=== PATIENT | male | born 1965 | race Caucasian/White ===

== ENCOUNTER 2017-02-24 12:17 | Day surgery (SDC) | payer OTHER ==
[~2017-02-24] VITALS: Ht 180.3 cm; Wt 80.9 kg
[~2017-02-24 12:17] MED LIST: CEFAZOLIN 2 GM/50 ML (PMX) 50 ML IVPB SCH; DIPHENHYDRAMINE 50 MG INJ IV PRN; FENTAnyl 50 MCG/ML VIAL IV PRN; HYDROmorphONE (0.2 MG/ML) 10ML SYG IV PRN; MEPERIDINE 25 MG INJ IV PRN; ONDANSETRON 4 MG INJ IV PRN; OXYCODONE/ACETAMINOPHEN (5/325) TAB PO PRN; PROCHLORPERAZINE 10 MG INJ IV PRN; SOD CHLORIDE 0.9% 1,000 ML IV SCH
[2017-02-24] MEDS ORDERED: LORA-444 PO (12:47)
[2017-02-24] MEDS ORDERED: CARV25TA79 PO (12:48)
[2017-02-24] MEDS ORDERED: AMLO-147 PO (12:48)
[2017-02-24] MEDS ORDERED: BENA40TA41 PO (12:49)
[2017-02-24] MEDS ORDERED: TRAZ100T15 PO (12:49)
--- NOTE | 2017-02-24 13:30 | RADRPT ---
PROCEDURE: CHEST 1VW CLINICAL INDICATION: Preoperative TECHNIQUE: Single frontal view of the chest was obtained COMPARISON: None. FINDINGS: The cardiac size is normal. Aortic vascular calcifications are demonstrated. There is no pulmonary vascular congestion. Bibasilar atelectasis. The lungs are clear. No consolidation, effusion, or pneumothorax. Mild degenerative changes of the visualized osseous structures are visualized. IMPRESSION: 1. No acute cardiopulmonary process. 2. Atherosclerosis. RPTAT:PP .Javier Moore MD, MD Date Time Electronically viewed and signed by .Javier Moore MD, MD on 02/24/2017 13:30 .V/
[2017-02-24 13:46] LABS: ADD SCAN DIFF NO
[2017-02-24 13:51] LABS: BASOPHILS % 0.3 % (0.0-2.0); EOSINOPHILS # 0.2 10^3/ul (0.0-0.5); EOSINOPHILS % 2.1 % (0.0-7.0); HEMOGLOBIN 15.6 g/dl (14.0-18.0); LYMPHOCYTES % 26.9 % (15.0-51.0); MEAN CORPUSCULAR HEMOGLOBIN 30.7 pg (29.0-33.0); MEAN CORPUSCULAR HGB CONC 33.9 g/dl (32.0-37.0); MEAN CORPUSCULAR VOLUME 90.6 fl (82.0-101.0); MEAN PLATELET VOLUME 10.5 fl (7.4-10.4); MONOCYTE # 0.4 10^3/ul (0.3-0.9); MONOCYTES % 5.4 % (0.0-11.0); NEUTROPHIL # 4.9 10^3/ul (1.6-7.5); PLATELET COUNT 231 10^3/UL (140-415); RED BLOOD COUNT 5.08 10^6/ul (4.70-6.10); RED CELL DISTRIBUTION WIDTH 12.9 % (11.5-14.5); WHITE BLOOD COUNT 7.6 10^3/ul (4.8-10.8)
[2017-02-24 13:54] VITALS: Ht 180.3 cm; Wt 80.9 kg
[2017-02-24] MEDS ORDERED: BUPIVACAINE 0.25%/EPI (SDV) 30 ML INJ ONE (13:54)
[2017-02-24 13:57] VITALS: BP 181/117; PULSE 74; RESP 16
[2017-02-24] MEDS ORDERED: LIDOCAINE 1% (MPF) 30 ML INJ ONE (14:12)
[2017-02-24 14:15] LABS: ALBUMIN 5.2 g/dl (3.3-4.9); BILIRUBIN,INDIRECT 0.6 mg/dl (0-1.1); BILIRUBIN,TOTAL 0.6 mg/dl (0.2-1.3); CALCIUM 9.7 mg/dl (8.4-10.2); CREATININE 0.76 mg/dl (0.61-1.24); POTASSIUM 3.9 mmol/L (3.5-5.1); TOTAL PROTEIN 7.8 g/dl (6.1-8.1)
[2017-02-24 14:16] LABS: INR 1.11; PROTIME 14.3 Sec (12.2-14.2); PT RATIO 1.1
[2017-02-24] MEDS ORDERED: FENTAnyl 50 MCG/ML VIAL ONE (14:19)
[2017-02-24] MEDS ORDERED: MIDAZOLAM 1 MG/ML 2 ML INJ ONE ×2 (14:19→14:45)
[2017-02-24] MEDS ORDERED: METOPROLOL 5 MG INJ ONE (14:26)
[2017-02-24] MEDS ORDERED: ONDANSETRON 4 MG INJ ONE (14:27)
[2017-02-24] MEDS ORDERED: CEFAZOLIN 1 GM INJ ONE (14:27)
[2017-02-24] MEDS ORDERED: hydrALAzine 20 MG INJ ONE (14:29)
[2017-02-24] MEDS ORDERED: LABETALOL HCL 20MG INJ ONE (14:32)
[2017-02-24] MEDS ORDERED: KETOROLAC 30 MG INJ ONE (14:51)
--- NOTE | 2017-02-24 15:15 | OPR ---
Date/Time of Note Date/Time of Note DATE: 02/24/17 TIME: 15:11 Operative Report Procedure Date: Feb 24, 2017 Preoperative Diagnosis Left forearm mass Postoperative Diagnosis Left forearm mass Operation Performed Excision soft tissue mass of left forearm approximately 4 cm Surgeon: SHRUTHI SCHERER MD Anesthesia: MAC Anesthesiologist: KATTY ABBASI MD Estimated Blood Loss: minimal Specimens Left forearm mass Complications: None Pt Condition Post Procedure: stable Disposition: PACU Indications Patient is a 51-year-old gentleman who presented to the office complaining of a mass of the radial aspect of the left forearm. This is been present for several years, but it recently been enlarging and causing increasing discomfort. He was therefore scheduled for elective excision of the left forearm mass for symptom relief and definitive pathological diagnosis. All risks and benefits of the procedure including, but not limited to: Wound infection, excessive bleeding, postoperative seroma/hematoma formation, neurovascular injury, mass recurrence, etc. were all examined the patient in full detail. He fully understood and wished to proceed with the procedure. Informed consent was obtained. Operative\Procedure Findings Cystic mass of the forearm Procedure Description Patient brought to the operating room and placed supine on the operating table. Bilateral sequential compression devices were placed on both lower extremities. A dose of broad-spectrum perioperative intravenous antibiotics was given. The massive been marked and confirmed with the patient preoperatively in the holding area. After achieving adequate sedation the patient's left arm and forearm were prepped and draped in standard surgical fashion. After performance of the surgical timeout 1% lidocaine was injected in a radial fashion getting a field block in the area of the mass. A longitudinal incision was made over the mass using a 15 blade scalpel. The incision was carried down through the skin using Bovie electrocautery. A cystic -appearing mass was identified in the soft tissues. There is dissected free of surrounding tissues and transected at its base and passed off the field as specimen. Hemostasis was inspected for and noted to be adequate. The wound cavity was irrigated with warm normal saline and the irrigant returned clear. At this point, 0.25% Marcaine with epinephrine was injected in the area of the incision. Incision was then reapproximated in layers using interrupted 3-0 Vicryl layers for the dermis. The skin was reapproximated using a running subcuticular 4-0 Monocryl suture. Incision was cleaned and Dermabond was applied as well as a Kerlix wrap. The patient was then transported to the recovery room in stable condition. All counts were correct at the end of the case 2 SHRUTHI SCHERER MD Feb 24, 2017 15:15
[2017-02-24 15:16] VITALS: BP 138/74; PULSE 84; RESP 19
[2017-02-24 15:21] VITALS: BP 144/78; PULSE 86; RESP 29
[2017-02-24 15:26] VITALS: BP 133/66; PULSE 86; RESP 21
[2017-02-24] MEDS ORDERED: ONDANSETRON 4 MG INJ IV PRN (15:30)
[2017-02-24] MEDS ORDERED: KETOROLAC 30 MG INJ IV PRN (15:30)
[2017-02-24 15:31] VITALS: BP 133/79; PULSE 84; RESP 22
[2017-02-24 15:44] VITALS: BP 136/75; PULSE 84; RESP 16
[2017-02-24] MEDS ORDERED: IBUPROFEN 600 MG TAB PO PRN (20:00)
--- NOTE | 2017-02-26 17:49 | RADRPT ---
Vent Rate: 70 bpm RR Interval: 0 msec DE Interval: 174 msec QRS Duration: 88 msec QT Interval: 406 msec QTC Interval: 438 msec P-R-T [place]: 38 - -44 - 51 degrees Normal sinus rhythm Left axis deviation Abnormal ECG Electronically Signed By: Santosh Hernandez [id number]
== END 2017-02-24 16:44 | disposition home or self-care (01) ==
LOC: SDS 12:17
PROVIDERS: ATTEND Surgery
DX: D18.01 Hemangioma of skin and subcutaneous tissue (principal); I10 Essential (primary) hypertension; I48.91 Unspecified atrial fibrillation; F41.9 Anxiety disorder, unspecified
CPT/HCPCS: 11406; 12031; 71010; 80053; 85025; 85610; 85730; 88307; 93005; J0360; J0690; J1885; J2250; J2405; J3010; Z7512; Z7610

== ENCOUNTER 2018-11-02 11:32 | Inpatient (IN) | payer OTHER ==
[~2018-11-02] VITALS: Ht 180.3 cm; Wt 81.5 kg
[2018-11-02] VITALS (42 sets, daily range): BP systolic 122–157; BP diastolic 83–105; PULSE 77–107; RESP 11–27; Ht 180.3 cm; Wt 81.5 kg
[~2018-11-02 11:32] MED LIST changes: +AMLO-147 PO; +BENA40TA56 PO; +CARV25TA79 PO; -CEFAZOLIN 2 GM/50 ML (PMX) 50 ML IVPB SCH; -DIPHENHYDRAMINE 50 MG INJ IV PRN; +ETOMIDATE 20 MG INJ ONE; -FENTAnyl 50 MCG/ML VIAL IV PRN; -HYDROmorphONE (0.2 MG/ML) 10ML SYG IV PRN; +LORA-444 PO; -MEPERIDINE 25 MG INJ IV PRN; -ONDANSETRON 4 MG INJ IV PRN; -OXYCODONE/ACETAMINOPHEN (5/325) TAB PO PRN; -PROCHLORPERAZINE 10 MG INJ IV PRN; -SOD CHLORIDE 0.9% 1,000 ML IV SCH; +TRA100 PO
[2018-11-02] MEDS ORDERED: niCARdipine-NS 0.1MG/ML DRIP 200 ML IV STA (11:50)
[2018-11-02] MEDS ORDERED: NICARDIPINE IV STA (11:54)
[2018-11-02] MEDS ORDERED: SOD CHLORIDE 0.9% IV STA (11:54)
[2018-11-02] MEDS ORDERED: niCARdipine 25 MG in SOD CHLORIDE 0.9% 240 ML IV STA ×2 (11:57→15:13)
[2018-11-02] MEDS ORDERED: SOD CHLORIDE 0.9% 100 ML ONE (12:09)
[2018-11-02] MEDS ORDERED: IODIXANOL LOCM 100 ML BTL ONE (12:09)
[2018-11-02] MEDS ORDERED: FENTAnyl 50 MCG/ML VIAL ONE (12:41)
[2018-11-02] MEDS ORDERED: MIDAZOLAM 1 MG/ML 2 ML INJ ONE (12:41)
[2018-11-02] MEDS ORDERED: ETOMIDATE 20 MG INJ IV STA (12:42)
[2018-11-02] MEDS ORDERED: PROPOFOL 100 ML IV STA (12:42)
[2018-11-02] MEDS ORDERED: MIDAZOLAM 1 MG/ML 2 ML INJ IV STA (12:42)
[2018-11-02] MEDS ORDERED: ROCURONIUM 50 MG INJ IV STA (12:42)
[2018-11-02] MEDS ORDERED: FENTAnyl 50 MCG/ML VIAL IV ONE (13:00)
[2018-11-02] MEDS ORDERED: ACETAMINOPHEN 325 MG TAB PO PRN (13:30)
[2018-11-02] MEDS ORDERED: MAGNESIUM HYDROXIDE 30ML CUP PO PRN (13:30)
[2018-11-02] MEDS ORDERED: ONDANSETRON 4 MG INJ IV PRN (13:30)
[2018-11-02] MEDS ORDERED: ALBUTEROL/IPRATROPIUM (NEB) 3 ML AMP HHN PRN (13:30)
[2018-11-02] MEDS ORDERED: DOCUSATE SODIUM 100 MG CAP PO PRN (13:30)
[2018-11-02] MEDS ORDERED: NACL 0.9% 3 ML SYG IV SCH (13:30)
[2018-11-02] MEDS ORDERED: NITROGLYCERIN (SL) 0.4 MG TAB SL PRN (13:30)
[2018-11-02] MEDS ORDERED: LORAZEPAM 2 MG INJ IV PRN (13:30)
[2018-11-02] MEDS ORDERED: HYDROCODONE/APAP (5/325) TAB PO PRN (13:30)
[2018-11-02] MEDS ORDERED: morphine 2 MG INJ IV PRN (13:30)
--- NOTE | 2018-11-02 13:44 | ERD ---
ER Documentation Chief Complaint Chief Complaint BIB RA WOKE UP DIZZY, FELL, C/O HEADACHE. LWKT APPROX 0300 PER HPI 53yoM presents to the emergency room via EMS for altered mental status. History upon arrival to the emergency room was that the patient approximate 30 minutes prior to arrival was not feeling well. His blood pressure was significantly elevated he was complaining of blurred vision and a headache. In route the patient became less responsive. Upon arrival the patient is able to give me his name and follow simple commands. He has strabismus of the left eye and a code stroke was initiated. Remainder of HPI is very limited. ROS All systems reviewed and are negative except as per history of present illness. Medications Home Meds Reported Medications Trazodone Hcl* (Trazodone Hcl*) 100 Mg Tablet, 100 MG PO QHS, #30 TAB 02/24/17 Benazepril Hcl* (Benazepril Hcl*) 40 Mg Tablet, 40 MG PO DAILY, #30 TAB 02/24/17 Amlodipine Besylate* (Amlodipine Besylate*) 10 Mg Tablet, 10 MG PO DAILY, #30 TAB 02/24/17 Carvedilol* (Carvedilol*) 25 Mg Tablet, 25 MG PO BID, #60 TAB 02/24/17 Lorazepam* (Ativan*) 2 Mg Tablet, 2 MG PO HS PRN for SLEEP, #30 TAB 02/24/17 Allergies Allergies: Coded Allergies: No Known Allergy (Unverified , 02/24/17) PMhx/Soc History of Surgery: Yes (NECK MASS) Anesthesia Reaction: No Hx Neurological Disorder: No Hx Respiratory Disorders: No Hx Cardiac Disorders: Yes (HTN) Hx Psychiatric Problems: No Hx Miscellaneous Medical Probl: Yes (LEFT ARM MASS) Hx Alcohol Use: No Hx Substance Use: No Hx Tobacco Use: Yes Smoking Status: Current every day smoker FmHx Family History: No diabetes Physical Exam Vitals Vital Signs Date Temp Pulse Resp B/P (MAP) Pulse Ox O2 O2 Flow FiO2 Time Delivery Rate 11/02/18 115 16 139/121 100 Mechanical 13:20 (127) Ventilator 11/02/18 116 18 150/101 100 Mechanical 13:10 (117) Ventilator 11/02/18 117 19 164/108 Mechanical 12:57 (126) Ventilator 11/02/18 112 18 195/133 100 Mechanical 12:31 (153) Ventilator 11/02/18 136 192/135 99 Ambu Bag 12:23 (154) 11/02/18 Nasal 2 12:17 Cannula 11/02/18 89 23 189/135 96 Nasal 2.0 12:15 (153) Cannula 11/02/18 97.9 79 20 196/137 98 11:32 (156) Physical Exam General: Decreased responsiveness Head: Normocephalic, atraumatic. Eyes: Strabismus of the left eye ENT: Moist mucous membranes Neck: Supple, no lymphadenopathy Respiratory: Lungs clear bilaterally, no distress Cardiovascular: RRR, no murmurs, rubs, or gallops Abdominal: Soft, non-tender, non-distended, no peritoneal signs : Deferred MSK: No edema, no unilateral swelling, 5/5 strength Neurologic: Patient is alert, following simple commands, moving all extremities with no focal deficits other than strabismus of the left eye, decreased responsiveness Skin: No rash Psych: Normal mood Result Diagram: 11/02/18 1147 11/02/18 1147 Results 24 hrs Laboratory Tests Test 11/02/18 11:47 11/02/18 12:30 White Blood Count 7.6 10^3/ul Red Blood Count 5.07 10^6/ul Hemoglobin 15.6 g/dl Hematocrit 46.2 % Mean Corpuscular Volume 91.1 fl Mean Corpuscular Hemoglobin 30.8 pg Mean Corpuscular Hemoglobin Concent 33.8 g/dl Red Cell Distribution Width 12.4 % Platelet Count 269 10^3/UL Mean Platelet Volume 10.2 fl Immature Granulocytes % 0.700 % Neutrophils % 75.8 % Lymphocytes % 16.9 % Monocytes % 4.1 % Eosinophils % 2.2 % Basophils % 0.3 % Nucleated Red Blood Cells % 0.0 /100WBC Immature Granulocytes # 0.050 10^3/ul Neutrophils # 5.8 10^3/ul Lymphocytes # 1.3 10^3/ul Monocytes # 0.3 10^3/ul Eosinophils # 0.2 10^3/ul Basophils # 0.0 10^3/ul Nucleated Red Blood Cells # 0.0 10^3/ul Prothrombin Time 13.8 Sec Prothrombin Time Ratio 1.1 INR International Normalized Ratio 1.05 Activated Partial Thromboplast Time 30.6 Sec Sodium Level 141 mmol/L Potassium Level 4.1 mmol/L Chloride Level 104 mmol/L Carbon Dioxide Level 25 mmol/L Anion Gap 12 Blood Urea Nitrogen 12 mg/dl Creatinine 0.81 mg/dl Est Glomerular Filtrat Rate mL/min > 60 mL/min Glucose Level 144 mg/dl Hemoglobin A1c 5.5 % Calcium Level 10.2 mg/dl Total Bilirubin 0.5 mg/dl Direct Bilirubin 0.00 mg/dl Indirect Bilirubin 0.5 mg/dl Aspartate Amino Transf (AST/SGOT) 33 IU/L Alanine Aminotransferase (ALT/SGPT) 19 IU/L Alkaline Phosphatase 78 IU/L Creatine Kinase 87 IU/L Creatine Kinase Index 0.6 Creatinine Kinase MB (Mass) 0.55 ng/ml Troponin I < 0.012 ng/ml Total Protein 8.7 g/dl Albumin 5.4 g/dl Globulin 3.30 g/dl Albumin/Globulin Ratio 1.63 Triglycerides Level 201 mg/dl Cholesterol Level 161 mg/dl LDL Cholesterol, Calculated 83 mg/dl HDL Cholesterol 38 mg/dl Cholesterol/HDL Ratio 4.2 RATIO Ethyl Alcohol Level < 10.0 mg/dl Blood Gas Specimen Source Blood arterial Arterial Blood Date Drawn 11/02/2018 1:15:32 PM Arterial Blood pH (Temp corrected) 7.484 Arterial Blood pCO2 (Temp correct) 32.6 mmhg Arterial Blood pO2 (Temp corrected) 276.2 mmHG Arterial Blood HCO3 24.0 mmol/L Arterial Blood Base Excess 1.4 mmol/L Arterial Blood Oxygen Saturation 99.3 mmHG William Test ACCEPTAB Arterial Blood Gas Puncture Site Right Radial Arterial Blood Carboxyhemoglobin 1.7 % Arterial Blood Methemoglobin 0.4 % Blood Gas A-a O2 Differential 404.2 mmHg Oxyhemoglobin Percent 97.2 % Blood Gas Temperature 37.0 C Blood Gas Respiration Rate 14.0 Blood Gas Actual Respiration Rate 20 Blood Gas Modality VENT - AC FiO2 100.0 % Blood Gas Tidal Volume 500.0 mL Blood Gas Notified Whom TM Blood Gas Notified Time 11/02/2018 1:23:09 PM Current Medications Medications Dose Sig/Rosa Start Time Status Last (Trade) Ordered Route PRN Stop Time Admin Dose Reason Admin Nicardipine 200 ml @ ONCE STAT 11/02/18 DC HCl 50 mls/hr IV 11:50 11/02/18 11:56 Nicardipine 200 ml @ ONCE STAT 11/02/18 DC HCl 20 50 mls/hr IV 11:54 mg/Sodium 11/02/18 11:57 Chloride Nicardipine 250 ml @ ONCE STAT 11/02/18 11/02/18 HCl 25 50 mls/hr IV 11:57 12:04 mg/Sodium 11/02/18 16:56 Chloride IV Flush 10 ml STK-MED 11/02/18 DC (NS 10 ml) ONCE .ROUTE 12:09 11/02/18 12:10 Sodium 100 ml @ ud STK-MED 11/02/18 DC Chloride ONCE .ROUTE 12:09 11/02/18 12:10 Iodixanol 100 ml STK-MED 11/02/18 DC (Visipaque ONCE .ROUTE 12:09 Locm) 11/02/18 12:10 Fentanyl 100 mcg STK-MED 11/02/18 DC (Sublimaze) ONCE .ROUTE 12:41 11/02/18 12:42 Midazolam 2 mg STK-MED 11/02/18 DC HCl ONCE .ROUTE 12:41 (Versed) 11/02/18 12:42 Rocuronium 100 mg ONCE STAT 11/02/18 DC Ririe IV 12:42 (Zemuron) 11/02/18 12:44 Etomidate 20 mg ONCE STAT 11/02/18 DC (Amidate) IV 12:42 11/02/18 12:44 Midazolam 2 mg ONCE STAT 11/02/18 DC 11/02/18 HCl IV 12:42 13:01 (Versed) 11/02/18 12:44 Propofol 100 ml @ ONCE STAT 11/02/18 11/02/18 2.43 mls/hr IV 12:42 13:05 11/04/18 05:51 Fentanyl 100 mcg ONCE ONCE 11/02/18 DC 11/02/18 (Sublimaze) IV 13:00 13:01 11/02/18 13:01 IV Flush 3 ml PER 11/02/18 UNV (NS 3 ml) PROTOCOL IV 13:30 Ondansetron 4 mg Q6H PRN 11/02/18 UNV HCl (Zofran IV 13:30 Inj) NAUSEA/VOMITI NG 650 mg Q6H PRN 11/02/18 UNV Acetaminophen PO .PAIN 1-3 13:30 (Tylenol OR TEMP Tab) 1 tab Q6H PRN 11/02/18 UNV Acetaminophen PO .MOD PAIN 13:30 / 4-6 Hydrocodone Bitart ([place] (5/325)) Morphine 2 mg Q4H PRN 11/02/18 UNV Sulfate IV .SEVERE 13:30 (morphine) PAIN 7-10 Docusate 100 mg Q12H PRN 11/02/18 UNV Sodium PO 13:30 (Colace) .CONSTIPATION Magnesium 30 ml DAILY PRN 11/02/18 UNV Hydroxide PO 13:30 (Milk Of Mag) .CONSTIPATION Famotidine 20 mg Q12 IV 11/02/18 UNV (Pepcid Iv) 21:00 Sodium 1,000 ml @ [id number] IV 11/02/18 UNV Chloride 75 mls/hr 13:30 Lorazepam 0.5 mg Q6H PRN 11/02/18 UNV (Ativan) IV ANXIETY 13:30 Albuterol/ 3 ml Q4H RESP 11/02/18 UNV Ipratropium THERAPY PRN 13:30 (Duoneb) HHN SHORTNESS OF BREATH Hydralazine 10 mg Q4H PRN 11/02/18 UNV HCl IV ELEVATED 13:30 (Apresoline) BLOOD PRESSURE 1 tab Q5M PRN 11/02/18 UNV Nitroglycerin SL ANGINA 13:30 (Nitroglyceri n (Sl Tab) 0.4 Mg) Labetalol 10 mg Q10M PRN 11/02/18 UNV HCl IV ELEVATED 13:30 (Labetalol) BLOOD PRESSURE 650 mg Q4H PRN 11/02/18 UNV Acetaminophen PO TEMP 13:30 (Tylenol GREATER THAN Tab) 99.6F Docusate 100 mg BID PO 11/02/18 UNV Sodium 21:00 (Colace) Amlodipine 10 mg DAILY PO 11/03/18 UNV Besylate 09:00 (Norvasc) Benazepril 40 mg DAILY PO 11/03/18 UNV HCl 09:00 (Lotensin) Carvedilol 25 mg BID PO 11/02/18 UNV (Coreg) 21:00 Procedures/MDM EKG, MONITORS, & DIAGNOSTIC IMAGING: EKG: I reviewed and interpreted a 12-lead EKG. Rhythm: Normal sinus rhythm Ectopy: None Arrhythmia: None Intervals: No abnormalities ST segments: No elevations or depressions T waves: No contiguous inversions Interpretation: No acute cardiac ischemia Chest x-ray: I reviewed and interpreted a 1 view of the chest Mediastinum: No enlargement Cardiac silhouette: No cardiomegaly Airspace: Clear lung franklin bilaterally without evidence of pneumothorax Bones: No evidence of fracture Interpretation: No acute cardiopulmonary process Repeat chest x-ray Chest x-ray: I reviewed and interpreted a 1 view of the chest Mediastinum: No enlargement Cardiac silhouette: No cardiomegaly Airspace: Clear lung franklin bilaterally without evidence of pneumothorax, ET tube in good position Bones: No evidence of fracture CT Brain: IMPRESSION: Acute pontine hemorrhage. Atrophy with mild white matter disease compatible with chronic small vessel i schemia. Findings were telephoned to referring physician at 11:46 p.m. on date of exam CTA Head and Neck: IMPRESSION: 1. Somewhat limited evaluation of the cervical arteries as discussed above, without occlusion/stenosis identified. 2. No major vessel intracranial arterial occlusion/stenosis, intracranial aneurysm or arteriovenous malformation identified. Critical results called to Dr. Zhao at 01:04 p.m., 11/02/2018. RPTAT: VV PROCEDURES: Intubation Note: Indication: Airway protection Consent: This was an emergent situation, implied consent was observed RSI Medications: Etomidate 20 mg, Rocuronium 100 mg Tube size: 7.5 Secured at: 23 at the mouth Procedure: Endotracheal intubation was performed. The patient was preoxygenated with supplemental oxygen, the room was set up with emergency airway equipment including [id number], suction, and adjunct airways. Direct visualization of the cords was performed with direct laryngoscopy using [MAC blade], insertion of the endotracheal tube through the cords was visualized. Bilateral breath sounds were auscultated, color change was observed. The tube was then secured in a postintubation chest x-ray was ordered. The patient tolerated the procedure well there were no complications. LAB INTERPRETATION: * No signs of infection or coagulopathy MEDICAL DECISION MAKING: The patient arrives with severe hypertension altered mental status and gaze deficit. This is concerning for hemorrhagic stroke. A code stroke was initiat ed. ER COURSE: Stroke assessment and timing: Last known well time: 30 minutes prior to arrival TPA decision-making: The patient is not a TPA candidate given hemorrhagic stroke Interventional decision-making: See above, not a candidate Critical Care Note: Total time: 55 minutes Indication/Organ System Threat: Acute neurologic deficit and stroke code activation that requires emergent evaluation and assessment to prevent neurologic compromising collapse. I spent the above amount of critical care time with the patient, not including billable procedures. This included chart review, consultations, repeat bedside evaluations, and titration of appropriate medications to prevent cardiopulmonary or respiratory collapse. * Upon initial CT showing evidence of hemorrhagic stroke Dr. Nguyen was n otified. I spoke to him around noon. He recommended SBP less than 140, no Keppra and a CTA. * The patient was moved to room 5, closer to the physician station. The patient had decreased responsiveness. At that time a decision was made to intubate the patient for airway protection. * CTA was completed that shows no evidence of aneurysm or dissection. Dr. Nguyen has been paged to be notified of the patient's mentation change, intubation and CT findings. No callback at this time. He is likely in surgery. * The patient's blood pressure was improved with Cardene that was initiated upon finding out that the patient had a CT showing hemorrhagic stroke. With titration the patient's blood pressure goal less than 140 has been met. * Fentanyl and Versed given for sedation, propofol drip given for sedation. * The family was notified of the patient's critical nature, significant risk for mortality. DISPOSITION PLAN: Intensive care unit CONSULTATION: Accepting care team and consultations: I discussed the current laboratory data, diagnostic imaging and emergency care provided. Admitting team: Panel team Admitting team indication: Insurance directed Departure Diagnosis: Primary Impression: Pontine hemorrhage Additional Impressions: Hypertensive emergency Acute respiratory failure Respiratory failure complication: unspecified whether with hypoxia or hypercapnia Qualified Codes: J96.00 - Acute respiratory failure, unspecified whether with hypoxia or hypercapnia Condition: Critical NÉSTOR ZHAO MD Nov 02, 2018 13:44
[2018-11-02] MEDS: SOD CHLORIDE 0.45% 1,000 ML IV SCH (14:59)
[2018-11-02] MEDS: niCARdipine-NS 0.1MG/ML DRIP 200 ML IV SCH ×2 (16:16→23:07)
--- NOTE | 2018-11-02 16:19 | HP ---
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 #Altered level of consciousness: Again patient is intubated, symptoms likely secondary to the pontine hemorrhage found on his head scan -Continue care in ICU, do neuro checks every 4 hours, obviously hold all anticoagulants, check TSH A1c lipid -Continue Cardene drip to keep systolic blood pressure less than 140, for now per neurosurgery neurology recommendations -Follow-up neurosurgery and neurology recommendations regarding specifically any further imaging studies that need to be performed. 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 # HTN -again want to keep blood pressure less than 140 systolic given the intracranial hemorrhage/pontine hemorrhage. Result Diagram: 11/02/18 1147 11/02/18 1147 Results 24hrs Laboratory Tests Test 11/02/18 11:47 11/02/18 12:06 11/02/18 12:30 11/02/18 14:37 White Blood Count 7.6 Red Blood Count 5.07 Hemoglobin 15.6 Hematocrit 46.2 Mean Corpuscular 91.1 Volume Mean Corpuscular 30.8 Hemoglobin Mean Corpuscular 33.8 Hemoglobin Concen t Red Cell 12.4 Distribution Width Platelet Count 269 Mean Platelet 10.2 Volume Immature 0.700 H Granulocytes % Neutrophils % 75.8 Lymphocytes % 16.9 Monocytes % 4.1 Eosinophils % 2.2 Basophils % 0.3 Nucleated Red 0.0 Blood Cells % Immature 0.050 H Granulocytes # Neutrophils # 5.8 Lymphocytes # 1.3 Monocytes # 0.3 Eosinophils # 0.2 Basophils # 0.0 Nucleated Red 0.0 Blood Cells # Prothrombin Time 13.8 13.7 Prothrombin Time 1.1 1.1 Ratio INR International 1.05 1.04 Normalized Ratio Activated 30.6 24.0 Partial Thrombopl ast Time Sodium Level 141 Potassium Level 4.1 Chloride Level 104 Carbon Dioxide 25 Level Anion Gap 12 Blood Urea 12 Nitrogen Creatinine 0.81 Est Glomerular > 60 Filtrat Rate mL/min Glucose Level 144 Hemoglobin A1c 5.5 5.5 Calcium Level 10.2 Total Bilirubin 0.5 Direct Bilirubin 0.00 Indirect 0.5 Bilirubin Aspartate Amino 33 Transf (AST/SGOT) Alanine 19 Aminotransferase (ALT/SGPT) Alkaline 78 Phosphatase Creatine Kinase 87 Creatine Kinase 0.6 Index Creatinine Kinase 0.55 MB (Mass) Troponin I < 0.012 Total Protein 8.7 H Albumin 5.4 H Globulin 3.30 H Albumin/Globulin 1.63 Ratio Triglycerides 201 H Level Cholesterol Level 161 LDL Cholesterol, 83 Calculated HDL Cholesterol 38 Cholesterol/HDL 4.2 Ratio Ethyl Alcohol < 10.0 H Level Blood Gas Blood arterial Specimen Source Arterial Blood 11/02/2018 1:15:3 Date Drawn 2 PM Arterial Blood pH 7.484 H (Temp corrected) Arterial Blood 32.6 L pCO2 (Temp correct) Arterial Blood 276.2 H pO2 (Temp corrected) Arterial Blood 24.0 HCO3 Arterial Blood 1.4 Base Excess Arterial Blood 99.3 H Oxygen Saturation William Test ACCEPTAB Arterial Blood Right Radial Gas Puncture Site Arterial 1.7 Blood Carboxyhemo globin Arterial Blood 0.4 Methemoglobin Blood Gas A-a O2 404.2 H Differential Oxyhemoglobin 97.2 Percent Blood Gas 37.0 Temperature Blood Gas 14.0 Respiration Rate Blood Gas Actual 20 Respiration Rate Blood Gas VENT - AC Modality FiO2 100.0 Blood Gas Tidal 500.0 Volume Blood Gas TM Notified Whom Blood Gas 11/02/2018 1:23:0 Notified Time 9 PM Free Thyroxine 0.98 HPI/ROS Admit Date/Time Admit Date/Time Nov 02, 2018 at 13:13 Hx of Present Illness 53 yo M past medical history based on records of hypertension, smoker, who presents to the emergency room via EMS for altered mental status. Most of the information is obtained from ER documentation as the patient is presently intubated. Apparently before admission patient had complaints of headache and blurry vision. He was found at home with elevated blood pressure; and he also had dizziness and possibly fell. Patient decided to come to the ER, but in route patient became less responsive. Upon arrival to the ER the patient was able to state his name and follow simple commands. However he was found with strabismus of the left eye and a code stroke was initiated. Head CT showed pontine hemorrhage. Patient had to be intubated secondary to altered level of consciousness. Call was made out to a neurosurgeon to come see the patient, as well as neurology team. Full review of systems cannot be obtained at this time. PMH/Family/Social Past Medical History Medications Current Medications Propofol 100 ml @ 2.43 mls/hr ONCE STAT IV Last administered on 11/02/18at 13:05; Admin Dose 2.43 MLS/HR; Start 11/02/18 at 12:42; Stop 11/04/18 at 05:51 IV Flush (NS 3 ml) 3 ml PER PROTOCOL IV ; Start 11/02/18 at 13:30 Ondansetron HCl (Zofran Inj) 4 mg Q6H PRN IV NAUSEA/VOMITING; Start 11/02/18 at 13:30 Acetaminophen (Tylenol Tab) 650 mg Q6H PRN PO .PAIN 1-3 OR TEMP; Start 11/02/18 at 13:30 Acetaminophen/ Hydrocodone Bitart ([place] (5/325)) 1 tab Q6H PRN PO .MOD PAIN 4- 6; Start 11/02/18 at 13:30 Morphine Sulfate (morphine) 2 mg Q4H PRN IV .SEVERE PAIN 7-10; Start 11/02/18 at 13:30 Docusate Sodium (Colace) 100 mg Q12H PRN PO .CONSTIPATION; Start 11/02/18 at 13:30 Magnesium Hydroxide (Milk Of Mag) 30 ml DAILY PRN PO .CONSTIPATION; Start 11/02/18 at 13:30 Famotidine (Pepcid Iv) 20 mg Q12 IV ; Start 11/02/18 at 21:00 Sodium Chloride 1,000 ml @ 75 mls/hr [id number] IV Last administered on 11/02/18at 14:59; Admin Dose 75 MLS/HR; Start 11/02/18 at 13:30 Lorazepam (Ativan) 0.5 mg Q6H PRN IV ANXIETY; Start 11/02/18 at 13:30 Albuterol/ Ipratropium (Duoneb) 3 ml Q4H RESP THERAPY PRN HHN SHORTNESS OF BREATH; Start 11/02/18 at 13:30 Hydralazine HCl (Apresoline) 10 mg Q4H PRN IV ELEVATED BLOOD PRESSURE; Start 11/02/18 at 13:30 Nitroglycerin (Nitroglycerin (Sl Tab) 0.4 Mg) 1 tab Q5M PRN SL ANGINA; Start 11/02/18 at 13:30 Labetalol HCl (Labetalol) 10 mg Q10M PRN IV ELEVATED BLOOD PRESSURE; Start 11/02/18 at 13:30 Docusate Sodium (Colace) 100 mg BID PO ; Start 11/02/18 at 21:00 Amlodipine Besylate (Norvasc) 10 mg DAILY PO ; Start 11/03/18 at 09:00 Benazepril HCl (Lotensin) 40 mg DAILY PO ; Start 11/03/18 at 09:00 Carvedilol (Coreg) 25 mg BID PO ; Start 11/02/18 at 21:00 Nicardipine HCl 200 ml @ 50 mls/hr TITRATE IV ; Start 11/02/18 at 15:00 Nicotine (Nicoderm 21 Mg/ 24hr) 1 patch DAILY TRANSDERM ; Start 11/02/18 at 16:30; Status UNV Coded Allergies: No Known Allergy (Unverified , 02/24/17) Past Surgical History Past Surgical Hx: other (Neck) Family History Significant Family History: no pertinent family hx Social History Alcohol Use: none Smoking Status: Current every day smoker Drug Use: none Exam/Review of Systems Vital Signs Vitals Vital Signs Date Temp Pulse Resp B/P (MAP) Pulse Ox O2 O2 Flow FiO2 Time Delivery Rate 11/02/18 89 16:00 11/02/18 15 131/89 100 15:15 (103) 11/02/18 Mechanical 15:00 Ventilator 11/02/18 50 14:00 11/02/18 97.8 14:00 11/02/18 2 12:17 Exam Exam General: Intubated, sedated Head: Normocephalic, atraumatic. Eyes: Strabismus of the left eye ENT: Moist mucous membranes Neck: Supple, no lymphadenopathy Respiratory: Lungs clear bilaterally, no distress Cardiovascular: RRR, no murmurs, rubs, or gallops Abdominal: Soft, non-tender, non-distended, no peritoneal signs MSK: No edema Neurologic: Unable to fully assess now because the patient is intubated and sedated HECTOR STRINGER Nov 02, 2018 16:19
--- NOTE | 2018-11-02 17:54 | CONS ---
DATE OF ADMISSION: 11/02/2018 DATE OF CONSULTATION: HISTORY OF PRESENT ILLNESS: The patient is 53 years old, in which I got a call about him by his fami ly in which the patient has a past medical history of hypertension. The patient was in few medicatio ns. He has sudden onset of decreased mini mental status in which the patient was admitted to [facility]. CT scan shows pontine hemorrhage 1.5 x 2 cm in which neurosurgeon, Dr. Jeanette carr, was notified. CTA was done in which the patient was intubated and was transferred to ICU. CURRENT MEDICATIONS: Include: 1. Benazepril 40 mg once a day. 2. Amlodipine 10 mg once a day. 3. Carvedilol 25 mg twice a day. 4. Lorazepam 2 mg as needed for sleep. 5. Trazodone 100 mg once at night. ALLERGIES: NO ALLERGY TO KNOWN MEDICATION. PAST MEDICAL HISTORY: Includes hypertension. PHYSICAL EXAMINATION: GENERAL: Today, the patient is intubated on propofol. When he is off propofol, he can follow simple commands, moving the left upper extremities against gravity. CRANIAL NERVES: Cranial nerve II: Pupils are 2 mm, reactive to light, equally bilaterally. Cranial nerves III, IV and : Extraocular muscles are intact for doll's maneuver. Cranial nerves V and I: Intact corneal reflex. Cranial VIII through XII: Could not assess. MOTOR: Moving left upper extremity for painful stimuli. Sensation, coordination and gait could not assess. HEART: Regular rate and rhythm. LUNGS: Equal breath sounds. ABDOMEN: Soft, relaxed, nondistended, no tenderness. ASSESSMENT AND PLAN: 1. The patient is 53 years old, status post intracranial bleed, pontine hemorrhage, [facility]. 2. History of hypertension. Keep the blood pressure at the level of 140/90 to avoid extension of th e stroke. 3. Respiratory failure in which the patient intubated. 4. We will keep the patient under seizure precaution and fall precaution. 5. Keep the patient under deep venous thrombosis prophylaxis as well as decubitus ulcer prophylaxis. Again, thank you, Dr. Stringer, for asking me to see the patient with you. Dictated By: JAI AVILA/NISHANT Conf#: [id number] DID#: [id number] CC: HECTOR STRINGER;*End*
[2018-11-02] MEDS: FAMOTIDINE 20 MG INJ IV SCH (20:36)
[2018-11-02] MEDS: NICOTINE (21 MG/24 HR) PATCH TRANSDERM SCH (20:37)
[2018-11-02] MEDS: DOCUSATE SODIUM 100 MG CAP PO SCH (21:00)
[2018-11-02] MEDS: PROPOFOL 100 ML IV SCH (21:00)
[2018-11-03] VITALS (102 sets, daily range): BP systolic 103–159; BP diastolic 67–102; PULSE 70–114; RESP 12–26
[2018-11-03] MEDS: SOD CHLORIDE 0.45% 1,000 ML IV SCH ×2 (02:15→16:26)
[2018-11-03] MEDS: PROPOFOL 100 ML IV SCH ×2 (03:15→21:00)
[2018-11-03] MEDS: niCARdipine-NS 0.1MG/ML DRIP 200 ML IV SCH (04:09)
[2018-11-03] MEDS: niCARdipine 50 MG in SOD CHLORIDE 0.9% 480 ML IV SCH ×4 (04:51→18:29)
--- NOTE | 2018-11-03 05:03 | QN ---
Documentation Comment Notified neurosurgeon, Dr. Remberto Nguyen, regarding new CT findings, no new recommendations per neurosurgeon at this current time however neurosurgery may be planning intervention soon. Will continue to monitor blood pressure closely. Confirmed with patient's , patient is not on any anticoagulants or blood thinners including aspirin. BENNY GRANT Nov 03, 2018 05:03
--- NOTE | 2018-11-03 08:19 | CONS ---
Assessment/Plan Assessment/Plan Assessment/Plan (Daily) Pontine hemorrhage. No intervention indicated for this hemorrhage per se, though EVD may be entertained if hydrocephalus becomes an issue (currently ventricles minimally enlarged). However, given poor neurologic exam (GCS3) I would be reluctant to consider even limited intervention. Therefore, we will continue to observe him in ICU off sedation and repeat CT at 16:00. If his exam improves off sedation and he develops HCP, an EVD may be reasonable. Otherwise no neurosurgical intervention is contemplated. Consultation Date/Type/Reason Admit Date/Time Nov 02, 2018 at 13:13 Date of Consultation: Nov 03, 2018 Type of Consult neurological surgery Reason for Consultation pontine hypertensive hemorrhage Date/Time of Note DATE: 11/03/18 TIME: 08:11 Hx of Present Illness 53 year old male with hx of hypertension and pontine hemorrhage, slightly larger on repeat CT this am at 0400. Very mild increase in ventricular silhouette. Per RN patient has been "completely non-responsive" since return from CT. Past Medical History Home Meds Reported Medications Trazodone Hcl* (Trazodone Hcl*) 100 Mg Tablet, 100 MG PO QHS, #30 TAB 02/24/17 Benazepril Hcl* (Benazepril Hcl*) 40 Mg Tablet, 40 MG PO DAILY, #30 TAB 02/24/17 Amlodipine Besylate* (Amlodipine Besylate*) 10 Mg Tablet, 10 MG PO DAILY, #30 TAB 02/24/17 Carvedilol* (Carvedilol*) 25 Mg Tablet, 25 MG PO BID, #60 TAB 02/24/17 Lorazepam* (Ativan*) 2 Mg Tablet, 2 MG PO HS PRN for SLEEP, #30 TAB 02/24/17 Medications Current Medications IV Flush (NS 3 ml) 3 ml PER PROTOCOL IV ; Start 11/02/18 at 13:30 Ondansetron HCl (Zofran Inj) 4 mg Q6H PRN IV NAUSEA/VOMITING; Start 11/02/18 at 13:30 Acetaminophen (Tylenol Tab) 650 mg Q6H PRN PO .PAIN 1-3 OR TEMP; Start 11/02/18 at 13:30 Acetaminophen/ Hydrocodone Bitart ([place] (5/325)) 1 tab Q6H PRN PO .MOD PAIN 4- 6; Start 11/02/18 at 13:30 Morphine Sulfate (morphine) 2 mg Q4H PRN IV .SEVERE PAIN 7-10; Start 11/02/18 at 13:30 Docusate Sodium (Colace) 100 mg Q12H PRN PO .CONSTIPATION; Start 11/02/18 at 1 3:30 Magnesium Hydroxide (Milk Of Mag) 30 ml DAILY PRN PO .CONSTIPATION; Start 11/02/18 at 13:30 Famotidine (Pepcid Iv) 20 mg Q12 IV Last administered on 11/02/18at 20:36; Admin Dose 20 MG; Start 11/02/18 at 21:00 Sodium Chloride 1,000 ml @ 75 mls/hr [id number] IV Last administered on 11/03/18at 02:15; Admin Dose 75 MLS/HR; Start 11/02/18 at 13:30 Lorazepam (Ativan) 0.5 mg Q6H PRN IV ANXIETY; Start 11/02/18 at 13:30 Albuterol/ Ipratropium (Duoneb) 3 ml Q4H RESP THERAPY PRN HHN SHORTNESS OF NICOLE TH; Start 11/02/18 at 13:30 Hydralazine HCl (Apresoline) 10 mg Q4H PRN IV ELEVATED BLOOD PRESSURE; Start 11/02/18 at 13:30 Nitroglycerin (Nitroglycerin (Sl Tab) 0.4 Mg) 1 tab Q5M PRN SL ANGINA; Start 11/02/18 at 13:30 Labetalol HCl (Labetalol) 10 mg Q10M PRN IV ELEVATED BLOOD PRESSURE; Start 10/23 10/10 at 13:30 Docusate Sodium (Colace) 100 mg BID PO Last administered on 11/02/18at 21:00; Admin Dose 100 MG; Start 11/02/18 at 21:00 Amlodipine Besylate (Norvasc) 10 mg DAILY PO ; Start 11/03/18 at 09:00 Benazepril HCl (Lotensin) 40 mg DAILY PO ; Start 11/03/18 at 09:00 Carvedilol (Coreg) 25 mg BID PO Last administered on 11/02/18at 20:37; Admin Dose 25 MG; Start 11/02/18 at 21:00 Nicotine (Nicoderm 21 Mg/ 24hr) 1 patch DAILY TRANSDERM Last administered on 11/02/18at 20:37; Admin Dose 1 PATCH; Start 11/02/18 at 16:30 Propofol 100 ml @ 2.445 mls/ hr Q12H IV Last administered on 11/03/18at 03:15; Admin Dose 12.225 MLS/HR; Start 11/02/18 at 21:00 Nicardipine HCl 50 mg/Sodium Chloride 500 ml @ 50 mls/hr TITRATE IV Last administered on 11/03/18at 04:51; Admin Dose 150 MLS/HR; Start 11/03/18 at 05:00 Allergies: Coded Allergies: No Known Allergy (Unverified , 02/24/17) Past Surgical History Past Surgical Hx: other (Neck) Social History Alcohol Use: none Smoking Status: Current every day smoker Drug Use: none Exam/Review of Systems Exam Vitals Vital Signs Date Temp Pulse Resp B/P (MAP) Pulse Ox O2 O2 Flow FiO2 Time Delivery Rate 11/03/18 105 18 138/80 06:45 (99) 11/03/18 98.7 Mechanical 06:00 Ventilator 11/03/18 99 40 05:13 11/02/18 2 12:17 Intake and Output 11/02/18 11/02/18 11/03/18 1515:00 23:00 07:00 IntakeIntake Total 150 ml 618.60 ml 0 ml OutputOutput Total 650 ml 310 ml 420 ml BalanceBalance -500 ml 308.60 ml -420 ml Exam [id number], + corneals. Pinpoint pupils. Conjugate gaze. Results Result Diagram: 11/03/18 0459 11/03/18 0459 Results 24hrs Laboratory Tests Test 11/02/18 11:47 11/02/18 12:06 11/02/18 12:30 11/02/18 14:37 White Blood Count 7.6 Red Blood Count 5.07 Hemoglobin 15.6 Hematocrit 46.2 Mean Corpuscular 91.1 Volume Mean Corpuscular 30.8 Hemoglobin Mean Corpuscular 33.8 Hemoglobin Concen t Red Cell 12.4 Distribution Width Platelet Count 269 Mean Platelet 10.2 Volume Immature 0.700 H Granulocytes % Neutrophils % 75.8 Lymphocytes % 16.9 Monocytes % 4.1 Eosinophils % 2.2 Basophils % 0.3 Nucleated Red 0.0 Blood Cells % Immature 0.050 H Granulocytes # Neutrophils # 5.8 Lymphocytes # 1.3 Monocytes # 0.3 Eosinophils # 0.2 Basophils # 0.0 Nucleated Red 0.0 Blood Cells # Prothrombin Time 13.8 13.7 Prothrombin Time 1.1 1.1 Ratio INR International 1.05 1.04 Normalized Ratio Activated 30.6 24.0 Partial Thrombopl ast Time Sodium Level 141 Potassium Level 4.1 Chloride Level 104 Carbon Dioxide 25 Level Anion Gap 12 Blood Urea 12 Nitrogen Creatinine 0.81 Est Glomerular > 60 Filtrat Rate mL/min Glucose Level 144 Hemoglobin A1c 5.5 5.5 Calcium Level 10.2 Total Bilirubin 0.5 Direct Bilirubin 0.00 Indirect 0.5 Bilirubin Aspartate Amino 33 Transf (AST/SGOT) Alanine 19 Aminotransferase (ALT/SGPT) Alkaline 78 Phosphatase Creatine Kinase 87 Creatine Kinase 0.6 Index Creatinine Kinase 0.55 MB (Mass) Troponin I < 0.012 Total Protein 8.7 H Albumin 5.4 H Globulin 3.30 H Albumin/Globulin 1.63 Ratio Triglycerides 201 H Level Cholesterol Level 161 LDL Cholesterol, 83 Calculated HDL Cholesterol 38 Cholesterol/HDL 4.2 Ratio Ethyl Alcohol < 10.0 H Level Blood Gas Blood arterial Specimen Source Arterial Blood 11/02/2018 1:15:3 Date Drawn 2 PM Arterial Blood pH 7.484 H (Temp corrected) Arterial Blood 32.6 L pCO2 (Temp correct) Arterial Blood 276.2 H pO2 (Temp corrected) Arterial Blood 24.0 HCO3 Arterial Blood 1.4 Base Excess Arterial Blood 99.3 H Oxygen Saturation William Test ACCEPTAB Arterial Blood Right Radial Gas Puncture Site Arterial 1.7 Blood Carboxyhemo globin Arterial Blood 0.4 Methemoglobin Blood Gas A-a O2 404.2 H Differential Oxyhemoglobin 97.2 Percent Blood Gas 37.0 Temperature Blood Gas 14.0 Respiration Rate Blood Gas Actual 20 Respiration Rate Blood Gas VENT - AC Modality FiO2 100.0 Blood Gas Tidal 500.0 Volume Blood Gas TM Notified Whom Blood Gas 11/02/2018 1:23:0 Notified Time 9 PM Free Thyroxine 0.98 Test 11/03/18 04:59 White Blood Count 15.2 #H Red Blood Count 4.71 Hemoglobin 14.7 Hematocrit 43.2 Mean Corpuscular 91.7 Volume Mean Corpuscular 31.2 Hemoglobin Mean Corpuscular 34.0 Hemoglobin Concen t Red Cell 12.6 Distribution Width Platelet Count 271 Mean Platelet 10.2 Volume Immature 0.400 Granulocytes % Neutrophils % 81.8 H Lymphocytes % 10.8 L Monocytes % 5.8 Eosinophils % 1.1 Basophils % 0.1 Nucleated Red 0.0 Blood Cells % Immature 0.060 H Granulocytes # Neutrophils # 12.4 H Lymphocytes # 1.7 Monocytes # 0.9 Eosinophils # 0.2 Basophils # 0.0 Nucleated Red 0.0 Blood Cells # Sodium Level 139 Potassium Level 3.4 L Chloride Level 107 Carbon Dioxide 26 Level Anion Gap 6 Blood Urea 14 Nitrogen Creatinine 0.89 Est Glomerular > 60 Filtrat Rate mL/min Glucose Level 117 Hemoglobin A1c 5.4 Calcium Level 9.3 Phosphorus Level 3.3 Magnesium Level 1.8 Triglycerides 253 H Level Cholesterol Level 140 LDL Cholesterol, 60 Calculated HDL Cholesterol 29 Cholesterol/HDL 4.8 Ratio Thyroid 0.214 L Stimulating Hormone (TSH) Medications Medication Current Medications IV Flush (NS 3 ml) 3 ml PER PROTOCOL IV ; Start 11/02/18 at 13:30 Ondansetron HCl (Zofran Inj) 4 mg Q6H PRN IV NAUSEA/VOMITING; Start 11/02/18 at 13:30 Acetaminophen (Tylenol Tab) 650 mg Q6H PRN PO .PAIN 1-3 OR TEMP; Start 11/02/18 at 13:30 Acetaminophen/ Hydrocodone Bitart ([place] (5/325)) 1 tab Q6H PRN PO .MOD PAIN 4- 6; Start 11/02/18 at 13:30 Morphine Sulfate (morphine) 2 mg Q4H PRN IV .SEVERE PAIN 7-10; Start 11/02/18 at 13:30 Docusate Sodium (Colace) 100 mg Q12H PRN PO .CONSTIPATION; Start 11/02/18 at 13:30 Magnesium Hydroxide (Milk Of Mag) 30 ml DAILY PRN PO .CONSTIPATION; Start 11/02/18 at 13:30 Famotidine (Pepcid Iv) 20 mg Q12 IV Last administered on 11/02/18at 20:36; Admin Dose 20 MG; Start 11/02/18 at 21:00 Sodium Chloride 1,000 ml @ 75 mls/hr [id number] IV Last administered on 11/03/18at 02:15; Admin Dose 75 MLS/HR; Start 11/02/18 at 13:30 Lorazepam (Ativan) 0.5 mg Q6H PRN IV ANXIETY; Start 11/02/18 at 13:30 Albuterol/ Ipratropium (Duoneb) 3 ml Q4H RESP THERAPY PRN HHN SHORTNESS OF BREATH; Start 11/02/18 at 13:30 Hydralazine HCl (Apresoline) 10 mg Q4H PRN IV ELEVATED BLOOD PRESSURE; Start 11/02/18 at 13:30 Nitroglycerin (Nitroglycerin (Sl Tab) 0.4 Mg) 1 tab Q5M PRN SL ANGINA; Start 11/02/18 at 13:30 Labetalol HCl (Labetalol) 10 mg Q10M PRN IV ELEVATED BLOOD PRESSURE; Start 11/02/18 at 13:30 Docusate Sodium (Colace) 100 mg BID PO Last administered on 11/02/18at 21:00; Admin Dose 100 MG; Start 11/02/18 at 21:00 Amlodipine Besylate (Norvasc) 10 mg DAILY PO ; Start 11/03/18 at 09:00 Benazepril HCl (Lotensin) 40 mg DAILY PO ; Start 11/03/18 at 09:00 Carvedilol (Coreg) 25 mg BID PO Last administered on 11/02/18at 20:37; Admin Dose 25 MG; Start 11/02/18 at 21:00 Nicotine (Nicoderm 21 Mg/ 24hr) 1 patch DAILY TRANSDERM Last administered on 11/02/18at 20:37; Admin Dose 1 PATCH; Start 11/02/18 at 16:30 Propofol 100 ml @ 2.445 mls/ hr Q12H IV Last administered on 11/03/18at 03:15; Admin Dose 12.225 MLS/HR; Start 11/02/18 at 21:00 Nicardipine HCl 50 mg/Sodium Chloride 500 ml @ 50 mls/hr TITRATE IV Last administered on 11/03/18at 04:51; Admin Dose 150 MLS/HR; Start 11/03/18 at 05:00 KRISTEN PALMER MD Nov 03, 2018 08:18
[2018-11-03] MEDS: FAMOTIDINE 20 MG INJ IV SCH ×2 (08:35→21:48)
[2018-11-03] MEDS: DOCUSATE SODIUM 100 MG CAP PO SCH ×2 (08:35→21:48)
[2018-11-03] MEDS: AMLODIPINE 10 MG TAB PO SCH (08:35)
[2018-11-03] MEDS: BENAZEPRIL 40 MG TAB PO SCH (08:36)
[2018-11-03] MEDS: NICOTINE (21 MG/24 HR) PATCH TRANSDERM SCH (08:36)
[2018-11-03] MEDS: ACETAMINOPHEN 325 MG TAB PO PRN ×2 (08:36→16:37)
--- NOTE | 2018-11-03 09:10 | PN ---
Date/Time of Note Date/Time of Note DATE: 11/03/18 TIME: 09:06 Assessment/Plan VTE Prophylaxis Risk score (from Ns)>0 risk: 3 SCD applied (from Ns): Yes Pharmacological prophylaxis: NA/contraindicated Pharm contraindication: bleeding Lines/Catheters IV Catheter Type (from Nrsg): Peripheral IV Urinary Cath still in place: Yes Reason Cath still needed: urinary retention Assessment/Plan Hospital Course S: Patient still intubated. Per staff still nonresponsive. Had repeat head CT scan performed earlier this morning showing slightly larger pontine hemorrhage compared to admission, O: VS - see below PE: General: Intubated, sedated Head: Normocephalic, atraumatic. 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 #Altered level of consciousness: Again patient is intubated, symptoms likely secondary to the pontine hemorrhage found on his head scan. Again repeat head CT performed this morning shows slightly larger pontine hemorrhage compared to admission. -Continue care in ICU, neuro checks every 4 hours, obviously hold all anticoagulants, follow-up TSH A1c lipid -Continue Cardene drip to keep systolic blood pressure less than 140, for now per neurosurgery neurology recommendations -Follow-up repeat head CT scan results ordered for later this afternoon 4 PM. Per neurosurgery, no intervention indicated for this hemorrhage at this time, unless hydrocephalus becomes an issue. # Res distress-again likely secondary to above, intubated -Vent management per pulmonary team, duo nebs as needed #Smoking history: Try to academic counselor patient on quitting/cutting back when more awake, for now continue nicotine patch. # HTN -again want to keep blood pressure less than 140 systolic given the in tracranial hemorrhage/pontine hemorrhage. Critical care time spent on patient care today equals 45 minutes. Result Diagram: 11/03/18 0459 11/03/18 0459 Results 24hrs Laboratory Tests Test 11/02/18 11:47 11/02/18 12:06 11/02/18 12:30 11/02/18 14:37 White Blood Count 7.6 Red Blood Count 5.07 Hemoglobin 15.6 Hematocrit 46.2 Mean Corpuscular 91.1 Volume Mean Corpuscular 30.8 Hemoglobin Mean Corpuscular 33.8 Hemoglobin Concen t Red Cell 12.4 Distribution Width Platelet Count 269 Mean Platelet 10.2 Volume Immature 0.700 H Granulocytes % Neutrophils % 75.8 Lymphocytes % 16.9 Monocytes % 4.1 Eosinophils % 2.2 Basophils % 0.3 Nucleated Red 0.0 Blood Cells % Immature 0.050 H Granulocytes # Neutrophils # 5.8 Lymphocytes # 1.3 Monocytes # 0.3 Eosinophils # 0.2 Basophils # 0.0 Nucleated Red 0.0 Blood Cells # Prothrombin Time 13.8 13.7 Prothrombin Time 1.1 1.1 Ratio INR International 1.05 1.04 Normalized Ratio Activated 30.6 24.0 Partial Thrombopl ast Time Sodium Level 141 Potassium Level 4.1 Chloride Level 104 Carbon Dioxide 25 Level Anion Gap 12 Blood Urea 12 Nitrogen Creatinine 0.81 Est Glomerular > 60 Filtrat Rate mL/min Glucose Level 144 Hemoglobin A1c 5.5 5.5 Calcium Level 10.2 Total Bilirubin 0.5 Direct Bilirubin 0.00 Indirect 0.5 Bilirubin Aspartate Amino 33 Transf (AST/SGOT) Alanine 19 Aminotransferase (ALT/SGPT) Alkaline 78 Phosphatase Creatine Kinase 87 Creatine Kinase 0.6 Index Creatinine Kinase 0.55 MB (Mass) Troponin I < 0.012 Total Protein 8.7 H Albumin 5.4 H Globulin 3.30 H Albumin/Globulin 1.63 Ratio Triglycerides 201 H Level Cholesterol Level 161 LDL Cholesterol, 83 Calculated HDL Cholesterol 38 Cholesterol/HDL 4.2 Ratio Ethyl Alcohol < 10.0 H Level Blood Gas Blood arterial Specimen Source Arterial Blood 11/02/2018 1:15:3 Date Drawn 2 PM Arterial Blood pH 7.484 H (Temp corrected) Arterial Blood 32.6 L pCO2 (Temp correct) Arterial Blood 276.2 H pO2 (Temp corrected) Arterial Blood 24.0 HCO3 Arterial Blood 1.4 Base Excess Arterial Blood 99.3 H Oxygen Saturation William Test ACCEPTAB Arterial Blood Right Radial Gas Puncture Site Arterial 1.7 Blood Carboxyhemo globin Arterial Blood 0.4 Methemoglobin Blood Gas A-a O2 404.2 H Differential Oxyhemoglobin 97.2 Percent Blood Gas 37.0 Temperature Blood Gas 14.0 Respiration Rate Blood Gas Actual 20 Respiration Rate Blood Gas VENT - AC Modality FiO2 100.0 Blood Gas Tidal 500.0 Volume Blood Gas TM Notified Whom Blood Gas 11/02/2018 1:23:0 Notified Time 9 PM Free Thyroxine 0.98 Test 11/03/18 04:59 White Blood Count 15.2 #H Red Blood Count 4.71 Hemoglobin 14.7 Hematocrit 43.2 Mean Corpuscular 91.7 Volume Mean Corpuscular 31.2 Hemoglobin Mean Corpuscular 34.0 Hemoglobin Concen t Red Cell 12.6 Distribution Width Platelet Count 271 Mean Platelet 10.2 Volume Immature 0.400 Granulocytes % Neutrophils % 81.8 H Lymphocytes % 10.8 L Monocytes % 5.8 Eosinophils % 1.1 Basophils % 0.1 Nucleated Red 0.0 Blood Cells % Immature 0.060 H Granulocytes # Neutrophils # 12.4 H Lymphocytes # 1.7 Monocytes # 0.9 Eosinophils # 0.2 Basophils # 0.0 Nucleated Red 0.0 Blood Cells # Sodium Level 139 Potassium Level 3.4 L Chloride Level 107 Carbon Dioxide 26 Level Anion Gap 6 Blood Urea 14 Nitrogen Creatinine 0.89 Est Glomerular > 60 Filtrat Rate mL/min Glucose Level 117 Hemoglobin A1c 5.4 Calcium Level 9.3 Phosphorus Level 3.3 Magnesium Level 1.8 Triglycerides 253 H Level Cholesterol Level 140 LDL Cholesterol, 60 Calculated HDL Cholesterol 29 Cholesterol/HDL 4.8 Ratio Thyroid 0.214 L Stimulating Hormone (TSH) Exam/Review of Systems Exam Vitals Vital Signs Date Temp Pulse Resp B/P (MAP) Pulse Ox O2 O2 Flow FiO2 Time Delivery Rate 11/03/18 101.6 08:36 11/03/18 114 22 153/90 98 08:15 (111) 11/03/18 [place] 08:00 l Ventilato r 11/03/18 40 05:13 11/02/18 2 12:17 Intake and Output 11/02/18 11/02/18 11/03/18 1515:00 23:00 07:00 IntakeIntake Total 150 ml 618.60 ml 0 ml OutputOutput Total 650 ml 310 ml 595 ml BalanceBalance -500 ml 308.60 ml -595 ml Results Results 24hrs Laboratory Tests Test 11/02/18 11:47 11/02/18 12:06 11/02/18 12:30 11/02/18 14:37 White Blood Count 7.6 Red Blood Count 5.07 Hemoglobin 15.6 Hematocrit 46.2 Mean Corpuscular 91.1 Volume Mean Corpuscular 30.8 Hemoglobin Mean Corpuscular 33.8 Hemoglobin Concen t Red Cell 12.4 Distribution Width Platelet Count 269 Mean Platelet 10.2 Volume Immature 0.700 H Granulocytes % Neutrophils % 75.8 Lymphocytes % 16.9 Monocytes % 4.1 Eosinophils % 2.2 Basophils % 0.3 Nucleated Red 0.0 Blood Cells % Immature 0.050 H Granulocytes # Neutrophils # 5.8 Lymphocytes # 1.3 Monocytes # 0.3 Eosinophils # 0.2 Basophils # 0.0 Nucleated Red 0.0 Blood Cells # Prothrombin Time 13.8 13.7 Prothrombin Time 1.1 1.1 Ratio INR International 1.05 1.04 Normalized Ratio Activated 30.6 24.0 Partial Thrombopl ast Time Sodium Level 141 Potassium Level 4.1 Chloride Level 104 Carbon Dioxide 25 Level Anion Gap 12 Blood Urea 12 Nitrogen Creatinine 0.81 Est Glomerular > 60 Filtrat Rate mL/min Glucose Level 144 Hemoglobin A1c 5.5 5.5 Calcium Level 10.2 Total Bilirubin 0.5 Direct Bilirubin 0.00 Indirect 0.5 Bilirubin Aspartate Amino 33 Transf (AST/SGOT) Alanine 19 Aminotransferase (ALT/SGPT) Alkaline 78 Phosphatase Creatine Kinase 87 Creatine Kinase 0.6 Index Creatinine Kinase 0.55 MB (Mass) Troponin I < 0.012 Total Protein 8.7 H Albumin 5.4 H Globulin 3.30 H Albumin/Globulin 1.63 Ratio Triglycerides 201 H Level Cholesterol Level 161 LDL Cholesterol, 83 Calculated HDL Cholesterol 38 Cholesterol/HDL 4.2 Ratio Ethyl Alcohol < 10.0 H Level Blood Gas Blood arterial Specimen Source Arterial Blood 11/02/2018 1:15:3 Date Drawn 2 PM Arterial Blood pH 7.484 H (Temp corrected) Arterial Blood 32.6 L pCO2 (Temp correct) Arterial Blood 276.2 H pO2 (Temp corrected) Arterial Blood 24.0 HCO3 Arterial Blood 1.4 Base Excess Arterial Blood 99.3 H Oxygen Saturation William Test ACCEPTAB Arterial Blood Right Radial Gas Puncture Site Arterial 1.7 Blood Carboxyhemo globin Arterial Blood 0.4 Methemoglobin Blood Gas A-a O2 404.2 H Differential Oxyhemoglobin 97.2 Percent Blood Gas 37.0 Temperature Blood Gas 14.0 Respiration Rate Blood Gas Actual 20 Respiration Rate Blood Gas VENT - AC Modality FiO2 100.0 Blood Gas Tidal 500.0 Volume Blood Gas TM Notified Whom Blood Gas 11/02/2018 1:23:0 Notified Time 9 PM Free Thyroxine 0.98 Test 11/03/18 04:59 White Blood Count 15.2 #H Red Blood Count 4.71 Hemoglobin 14.7 Hematocrit 43.2 Mean Corpuscular 91.7 Volume Mean Corpuscular 31.2 Hemoglobin Mean Corpuscular 34.0 Hemoglobin Concen t Red Cell 12.6 Distribution Width Platelet Count 271 Mean Platelet 10.2 Volume Immature 0.400 Granulocytes % Neutrophils % 81.8 H Lymphocytes % 10.8 L Monocytes % 5.8 Eosinophils % 1.1 Basophils % 0.1 Nucleated Red 0.0 Blood Cells % Immature 0.060 H Granulocytes # Neutrophils # 12.4 H Lymphocytes # 1.7 Monocytes # 0.9 Eosinophils # 0.2 Basophils # 0.0 Nucleated Red 0.0 Blood Cells # Sodium Level 139 Potassium Level 3.4 L Chloride Level 107 Carbon Dioxide 26 Level Anion Gap 6 Blood Urea 14 Nitrogen Creatinine 0.89 Est Glomerular > 60 Filtrat Rate mL/min Glucose Level 117 Hemoglobin A1c 5.4 Calcium Level 9.3 Phosphorus Level 3.3 Magnesium Level 1.8 Triglycerides 253 H Level Cholesterol Level 140 LDL Cholesterol, 60 Calculated HDL Cholesterol 29 Cholesterol/HDL 4.8 Ratio Thyroid 0.214 L Stimulating Hormone (TSH) Medications Medication Current Medications IV Flush (NS 3 ml) 3 ml PER PROTOCOL IV ; Start 11/02/18 at 13:30 Ondansetron HCl (Zofran Inj) 4 mg Q6H PRN IV NAUSEA/VOMITING; Start 11/02/18 at 13:30 Acetaminophen (Tylenol Tab) 650 mg Q6H PRN PO .PAIN 1-3 OR TEMP Last administered on 11/03/18at 08:36; Admin Dose 650 MG; Start 11/02/18 at 13:30 Acetaminophen/ Hydrocodone Bitart (Shannon (5/325)) 1 tab Q6H PRN PO .MOD PAIN 4- 6; Start 11/02/18 at 13:30 Morphine Sulfate (morphine) 2 mg Q4H PRN IV .SEVERE PAIN 7-10; Start 11/02/18 at 13:30 Docusate Sodium (Colace) 100 mg Q12H PRN PO .CONSTIPATION; Start 11/02/18 at 13:30 Magnesium Hydroxide (Milk Of Mag) 30 ml DAILY PRN PO .CONSTIPATION; Start 11/02/18 at 13:30 Famotidine (Pepcid Iv) 20 mg Q12 IV Last administered on 11/03/18 08:35; Admin Dose 20 MG; Start 11/02/18 at 21:00 Sodium Chloride 1,000 ml @ 75 mls/hr [id number] IV Last administered on 11/03/18 02:15; Admin Dose 75 MLS/HR; Start 11/02/18 at 13:30 Lorazepam (Ativan) 0.5 mg Q6H PRN IV ANXIETY; Start 11/02/18 at 13:30 Albuterol/ Ipratropium (Duoneb) 3 ml Q4H RESP THERAPY PRN HHN SHORTNESS OF BREATH; Start 11/02/18 at 13:30 Hydralazine HCl (Apresoline) 10 mg Q4H PRN IV ELEVATED BLOOD PRESSURE; Start 11/02/18 at 13:30 Nitroglycerin (Nitroglycerin (Sl Tab) 0.4 Mg) 1 tab Q5M PRN SL ANGINA; Start 11/02/18 at 13:30 Labetalol HCl (Labetalol) 10 mg Q10M PRN IV ELEVATED BLOOD PRESSURE; Start 11/02/18 at 13:30 Docusate Sodium (Colace) 100 mg BID PO Last administered on 11/03/18 08:35; Admin Dose 100 MG; Start 11/02/18 at 21:00 Amlodipine Besylate (Norvasc) 10 mg DAILY PO Last administered on 11/03/18 08:35; Admin Dose 10 MG; Start 11/03/18 at 09:00 Benazepril HCl (Lotensin) 40 mg DAILY PO Last administered on 11/03/18 08:36; Admin Dose 40 MG; Start 11/03/18 at 09:00 Carvedilol (Coreg) 25 mg BID PO Last administered on 11/03/18 08:35; Admin Dose 25 MG; Start 11/02/18 at 21:00 Nicotine (Nicoderm 21 Mg/ 24hr) 1 patch DAILY TRANSDERM Last administered on 2/12/19at 08:36; Admin Dose 1 PATCH; Start 11/02/18 at 16:30 Propofol 100 ml @ 2.445 mls/ hr Q12H IV Last administered on 11/03/18at 03:15; Admin Dose 12.225 MLS/HR; Start 11/02/18 at 21:00 Nicardipine HCl 50 mg/Sodium Chloride 500 ml @ 50 mls/hr TITRATE IV Last administered on 11/03/18at 08:50; Admin Dose 125 MLS/HR; Start 11/03/18 at 05:00 HECTOR STRINGER Nov 03, 2018 09:10
--- NOTE | 2018-11-03 12:29 | CONS ---
DATE OF ADMISSION: 11/02/2018 DATE OF CONSULTATION: REASON FOR CONSULTATION: Ventilator management. Thank you, Dr. Kessler, for this consultation. HISTORY OF PRESENT ILLNESS: This is an unfortunate 53-year-old gentleman found unconscious after a h eadache and blurry vision and altered mental status. CT head that showed acute pontine hemorrhage wi th surrounding edema. The patient remains in comatose condition. He has been evaluated by neurosurg padma. He is not a candidate for surgical intervention at this point in time. PAST MEDICAL HISTORY: Hypertension, positive tobacco history. MEDICATIONS: Per chart. ALLERGIES: None. SOCIAL HISTORY: He has a positive tobacco history. No alcohol, no history of drug use. FAMILY HISTORY: Noncontributory. SYSTEMS REVIEW: A 12-point review of systems: VITAL SIGNS: Currently febrile, temperature 101.6, pulse is 100, blood pressure 150/90, O2 saturatio n 96% on FIO2 40%. NECK: Supple. No JVD or lymphadenopathy. CARDIAC: S1, S2, no added sounds or murmurs. CHEST: Diminished air entry bilaterally. ABDOMEN: Soft, nontender. No guarding or rebound. EXTREMITIES: No cyanosis, clubbing or edema. NEUROLOGICAL: Unresponsive. LABORATORY DATA: White count 15.2, hemoglobin 14.7, platelets of 271. BUN 14, creatinine 0.89, INR 1.04, ABG: pH 7.48, pCO2 32, pO2 of 276. DIAGNOSTIC DATA: Chest x-ray was reviewed, showed no acute abnormalities. CT brain findings as abov e. IMPRESSION AND PLAN: Acute pontine hemorrhage with vasogenic edema and now comatose condition. The patient to continue with supportive care including type BP management. Repeat CT this afternoon for further neurological reevaluation. However, overall prognosis is extremely poor and family is aware it is unlikely that he will survive this episode. Dictated By: VARGHESE REBOLLEDO/NISHANT Conf#: [id number] DID#: [id number]
--- NOTE | 2018-11-03 18:20 | NEURPT ---
DATE: TECHNIQUE: EEG was done using 10-20 International electrode system with photic stimulation. FINDINGS: Bilateral occipital hemisphere view showed delta and theta waves, medium sized, low amplit ude, asymmetric bilateral 4 to 6 Hz. No epileptiform discharge or seizure activity is recorded. IMPRESSION: This is an abnormal electroencephalogram which showed generalized slowing consistent wit h a history of underlying encephalopathy. No epileptiform discharge or seizure activity is recorded. Followup electroencephalogram may be needed if clinically indicated. Dictated By: JAI AVILA/NTS Conf#: [id number] DID#: [id number] CC: HECTOR STRINGER;*EndCC*
--- NOTE | 2018-11-03 18:26 | CONS ---
DATE OF ADMISSION: 11/02/2018 DATE OF CONSULTATION: HISTORY OF PRESENT ILLNESS: The patient is a 53-year-old male. He has been to the hospital with acu te onset of loss of conscious, blackout spell, in which the patient had CAT scan showed pontine hemor rhage, in which the patient was admitted to the hospital, intubated to ICU in which the patient has f ollowup CAT scan today and EEG for more evaluation and treatment. The patient was followed by neuros urgery, Dr. Nguyen, who spoke to the family about follow up the patient with CT scan and potentially do ventriculostomy tube if the patient has a hydrocephalus, in which there is another CAT scan will be today at 4:00. MEDICATIONS: As before. PAST MEDICAL HISTORY: As before. PHYSICAL EXAMINATION: GENERAL: Today, the patient is under propofol and intubated. CRANIAL NERVES: Cranial nerve II: Pupils are 2 mm, still reactive to light, equally bilaterally. C ranial nerves III, IV and : Extraocular muscles intact for doll's maneuver. Cranial nerves V and VII: Intact corneal reflex. Cranial VIII through XII: Could not assess. MOTOR: Some movement of left upper extremity for painful stimuli. Sensation, coordination and gait could not assess. HEART: Regular rate and rhythm. LUNGS: Equal breath sounds. ABDOMEN: Soft, relaxed. ASSESSMENT AND PLAN: 1. The patient is 53 years old status post pontine hemorrhage. We will follow up the patient with C AT scan over his brain the hemorrhage and size and will follow up the patient with neurosurgery for more evaluation. 2. Electroencephalogram done which showed delta and theta waves in which the patient had some enceph alopathy. No epileptiform discharge or seizure activity is recorded. No seizure medication is recom mended at this time. 3. Underlying hydrocephalus. Follow up the patient with a new CAT scan and follow up the neurosurge on for possible ventriculostomy if he needs. 4. History of hypertension. Keep the blood pressure at the level of 140/90. 5. Respiratory failure, in which the patient intubated. 6. I counseled the patient and family today about his condition. Again, thank you for asking me to see the patient with you. Dictated By: JAI AVILA/NISHANT Conf#: [id number] DID#: [id number] CC: HECTOR STRINGER;*End*
[2018-11-03] MEDS ORDERED: LORAZEPAM 2 MG INJ IV PRN (21:00)
[2018-11-04] VITALS (56 sets, daily range): BP systolic 118–152; BP diastolic 82–102; PULSE 74–92; RESP 15–28
[2018-11-04] MEDS: SOD CHLORIDE 0.45% 1,000 ML IV SCH ×2 (05:57→19:53)
[2018-11-04] MEDS: ACETAMINOPHEN 325 MG TAB PO PRN ×2 (06:16→16:31)
[2018-11-04] MEDS: hydrALAzine 20 MG INJ IV PRN (06:17)
--- NOTE | 2018-11-04 08:24 | PN ---
Date/Time of Note Date/Time of Note DATE: 11/04/18 TIME: 08:23 Assessment/Plan VTE Prophylaxis Risk score (from Ns)>0 risk: 3 SCD applied (from Ns): Yes Pharmacological prophylaxis: NA/contraindicated Pharm contraindication: bleeding Lines/Catheters IV [facility] Type (from [facility] Peripheral IV Urinary Cath still in place: Yes Reason Cath still needed: urinary retention Assessment/Plan Hospital Course S: Patient still intubated. Had repeat head CT scan performed yesterday evening. Off Cardene drip presently, blood pressure stable. Patient had some body shakes last night, questionable seizure activity although none seen on EEG, Ativan given for that. O: VS - see below PE: General: Intubated Head: Normocephalic, atraumatic. Eyes: Strabismus of the left eye ENT: Moist mucous membranes Neck: Supple, no lymphadenopathy Respiratory: Lungs clear bilaterally, no distress Cardiovascular: RRR, no murmurs, rubs, or gallops Abdominal: Soft, non-tender, non-distended, no peritoneal signs MSK: No edema Neurologic: Unable to fully assess now because the patient is intubated and sedated Electroencephalogram done which showed delta and theta waves in which the patient had some encephalopathy. No epileptiform discharge or seizure activity is recorded. No seizure medication is recommended at this time. 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 #Altered level of consciousness: Again patient is intubated, symptoms likely secondary to the pontine hemorrhage found on his head scan. The latest repeat head CT performed yesterday afternoon shows no significant changes in the size of the bleed compared to the head CT that was performed 12 hours before that 1 - Continue care in ICU, neuro checks every 4 hours, obviously continue to hold all anticoagulants. - For now patient on p.o. blood pressure medicines and systolic has been stable at this point, continue for now. 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 # HTN -again want to keep blood pressure less than 140 systolic given the intracranial hemorrhage/pontine hemorrhage. Overall poor prognosis. Critical care time spent on patient care today equals 40 minutes. Result Diagram: 11/04/18 0505 11/04/18 0505 Results 24hrs Laboratory Tests Test 11/04/18 05:05 11/04/18 07:00 White Blood Count 12.7 H Red Blood Count 4.25 L Hemoglobin 13.1 L Hematocrit 39.2 L Mean Corpuscular Volume 92.2 Mean Corpuscular Hemoglobin 30.8 Mean Corpuscular Hemoglobin Concent 33.4 Red Cell Distribution Width 12.7 Platelet Count 232 Mean Platelet Volume 10.2 Immature Granulocytes % 0.500 H Neutrophils % 74.8 Lymphocytes % 15.9 Monocytes % 8.0 Eosinophils % 0.6 Basophils % 0.2 Nucleated Red Blood Cells % 0.0 Immature Granulocytes # 0.060 H Neutrophils # 9.5 H Lymphocytes # 2.0 Monocytes # 1.0 H Eosinophils # 0.1 Basophils # 0.0 Nucleated Red Blood Cells # 0.0 Sodium Level 136 Potassium Level 3.5 Chloride Level 105 Carbon Dioxide Level 23 Anion Gap 8 Blood Urea Nitrogen 21 H Creatinine 0.75 Est Glomerular Filtrat Rate mL/min > 60 Glucose Level 117 Calcium Level 8.9 Phosphorus Level 3.2 Magnesium Level 2.0 Blood Gas Specimen Source Blood arterial Arterial Blood Date Drawn 11/04/2018 7:15:49 AM Arterial Blood pH (Temp corrected) 7.461 H Arterial Blood pCO2 (Temp correct) 32.8 L Arterial Blood pO2 (Temp corrected) 107.3 H Arterial Blood HCO3 22.9 Arterial Blood Base Excess -0.2 Arterial Blood Oxygen Saturation 97.9 William Test ACCEPTAB Arterial Blood Gas Puncture Site Right Radial Arterial Blood Carboxyhemoglobin 0.5 Arterial Blood Methemoglobin 0.3 Blood Gas A-a O2 Differential 68.1 H Oxyhemoglobin Percent 97.1 Blood Gas Temperature 37.0 Blood Gas Respiration Rate 14.0 Blood Gas Actual Respiration Rate 21 Blood Gas Modality VENT - AC FiO2 30.0 Blood Gas Tidal Volume 500.0 Blood Gas Low PEEP Setting 5.0 Blood Gas Notified Whom TM Blood Gas Notified Time 11/04/2018 7:49:21 AM Exam/Review of Systems Exam Vitals Vital Signs Date Temp Pulse Resp B/P (MAP) Pulse Ox O2 O2 Flow FiO2 Time Delivery Rate 11/04/18 99.6 07:16 11/04/18 83 22 121/85 98 07:00 (97) 11/04/18 30 05:17 11/04/18 Mechanical 05:00 Ventilator 11/02/18 2 12:17 Intake and Output 11/03/18 11/03/18 11/04/18 1515:00 23:00 07:00 IntakeIntake Total 1695 ml 1560 ml 1075 ml OutputOutput Total 540 ml 495 ml 560 ml BalanceBalance 1155 ml 1065 ml 515 ml Results Results 24hrs Laboratory Tests Test 11/04/18 05:05 11/04/18 07:00 White Blood Count 12.7 H Red Blood Count 4.25 L Hemoglobin 13.1 L Hematocrit 39.2 L Mean Corpuscular Volume 92.2 Mean Corpuscular Hemoglobin 30.8 Mean Corpuscular Hemoglobin Concent 33.4 Red Cell Distribution Width 12.7 Platelet Count 232 Mean Platelet Volume 10.2 Immature Granulocytes % 0.500 H Neutrophils % 74.8 Lymphocytes % 15.9 Monocytes % 8.0 Eosinophils % 0.6 Basophils % 0.2 Nucleated Red Blood Cells % 0.0 Immature Granulocytes # 0.060 H Neutrophils # 9.5 H Lymphocytes # 2.0 Monocytes # 1.0 H Eosinophils # 0.1 Basophils # 0.0 Nucleated Red Blood Cells # 0.0 Sodium Level 136 Potassium Level 3.5 Chloride Level 105 Carbon Dioxide Level 23 Anion Gap 8 Blood Urea Nitrogen 21 H Creatinine 0.75 Est Glomerular Filtrat Rate mL/min > 60 Glucose Level 117 Calcium Level 8.9 Phosphorus Level 3.2 Magnesium Level 2.0 Blood Gas Specimen Source Blood arterial Arterial Blood Date Drawn 11/04/2018 7:15:49 AM Arterial Blood pH (Temp corrected) 7.461 H Arterial Blood pCO2 (Temp correct) 32.8 L Arterial Blood pO2 (Temp corrected) 107.3 H Arterial Blood HCO3 22.9 Arterial Blood Base Excess -0.2 Arterial Blood Oxygen Saturation 97.9 William Test ACCEPTAB Arterial Blood Gas Puncture Site Right Radial Arterial Blood Carboxyhemoglobin 0.5 Arterial Blood Methemoglobin 0.3 Blood Gas A-a O2 Differential 68.1 H Oxyhemoglobin Percent 97.1 Blood Gas Temperature 37.0 Blood Gas Respiration Rate 14.0 Blood Gas Actual Respiration Rate 21 Blood Gas Modality VENT - AC FiO2 30.0 Blood Gas Tidal Volume 500.0 Blood Gas Low PEEP Setting 5.0 Blood Gas Notified Whom TM Blood Gas Notified Time 11/04/2018 7:49:21 AM Medications Medication Current Medications IV Flush (NS 3 ml) 3 ml PER PROTOCOL IV ; Start 11/02/18 at 13:30 Ondansetron HCl (Zofran Inj) 4 mg Q6H PRN IV NAUSEA/VOMITING; Start 11/02/18 at 13:30 Acetaminophen (Tylenol Tab) 650 mg Q6H PRN PO .PAIN 1-3 OR TEMP Last administered on 11/04/18at 06:16; Admin Dose 650 MG; Start 11/02/18 at 13:30 Acetaminophen/ Hydrocodone Bitart ([place] (5/325)) 1 tab Q6H PRN PO .MOD PAIN 4- 6; Start 11/02/18 at 13:30 Morphine Sulfate (morphine) 2 mg Q4H PRN IV .SEVERE PAIN 7-10; Start 11/02/18 at 13:30 Docusate Sodium (Colace) 100 mg Q12H PRN PO .CONSTIPATION; Start 11/02/18 at 13:30 Magnesium Hydroxide (Milk Of Mag) 30 ml DAILY PRN PO .CONSTIPATION; Start 11/02/18 at 13:30 Famotidine (Pepcid Iv) 20 mg Q12 IV Last administered on 11/03/18at 21:48; Admin Dose 20 MG; Start 11/02/18 at 21:00 Sodium Chloride 1,000 ml @ 75 mls/hr [id number] IV Last administered on 11/04/18at 05:57; Admin Dose 75 MLS/HR; Start 11/02/18 at 13:30 Lorazepam (Ativan) 0.5 mg Q6H PRN IV ANXIETY; Start 11/02/18 at 13:30 Albuterol/ Ipratropium (Duoneb) 3 ml Q4H RESP THERAPY PRN HHN SHORTNESS OF BREATH; Start 11/02/18 at 13:30 Hydralazine HCl (Apresoline) 10 mg Q4H PRN IV ELEVATED BLOOD PRESSURE Last administered on 11/04/18at 06:17; Admin Dose 10 MG; Start 11/02/18 at 13:30 Nitroglycerin (Nitroglycerin (Sl Tab) 0.4 Mg) 1 tab Q5M PRN SL ANGINA; Start 11/02/18 at 13:30 Labetalol HCl (Labetalol) 10 mg Q10M PRN IV ELEVATED BLOOD PRESSURE; Start 11/02/18 at 13:30 Docusate Sodium (Colace) 100 mg BID PO Last administered on 11/03/18 21:48; Admin Dose 100 MG; Start 11/02/18 at 21:00 Amlodipine Besylate (Norvasc) 10 mg DAILY PO Last administered on 11/03/18 08:35; Admin Dose 10 MG; Start 11/03/18 at 09:00 Benazepril HCl (Lotensin) 40 mg DAILY PO Last administered on 11/03/18 08:36; Admin Dose 40 MG; Start 11/03/18 at 09:00 Carvedilol (Coreg) 25 mg BID PO Last administered on 11/03/18 21:49; Admin Dose 25 MG; Start 11/02/18 at 21:00 Nicotine (Nicoderm 21 Mg/ 24hr) 1 patch DAILY TRANSDERM Last administered on 11/03/18 08:36; Admin Dose 1 PATCH; Start 11/02/18 at 16:30 Propofol 100 ml @ 2.445 mls/ hr Q12H IV Last administered on 11/03/18 03:15; Admin Dose 12.225 MLS/HR; Start 11/02/18 at 21:00 Nicardipine HCl 50 mg/Sodium Chloride 500 ml @ 50 mls/hr TITRATE IV Last administered on 11/03/18 18:29; Admin Dose 80 MLS/HR; Start 11/03/18 at 05:00 Lorazepam (Ativan) 1 mg Q10MIN PRN IV Seizures Last administered on 11/03/18 21:49; Admin Dose 1 MG; Start 11/03/18 at 21:00 HECTOR STRINGER Nov 04, 2018 08:24
[2018-11-04] MEDS: PROPOFOL 100 ML IV SCH ×2 (09:00→20:25)
[2018-11-04] MEDS: NICOTINE (21 MG/24 HR) PATCH TRANSDERM SCH (09:34)
[2018-11-04] MEDS: AMLODIPINE 10 MG TAB PO SCH (09:34)
[2018-11-04] MEDS: DOCUSATE SODIUM 100 MG CAP PO SCH ×2 (09:34→21:29)
[2018-11-04] MEDS: BENAZEPRIL 40 MG TAB PO SCH (09:34)
[2018-11-04] MEDS: FAMOTIDINE 20 MG INJ IV SCH (10:38)
--- NOTE | 2018-11-04 10:44 | CONS ---
Consult Date/Type/Reason Admit Date/Time Nov 02, 2018 at 13:13 Initial Consult Date 11/03/18 Type of Consult Pulmonary Date/Time of Note DATE: 11/04/18 TIME: 10:42 Subjective Remains unresponsive on mechanical ventilation. Breathing over the vent with positive corneal reflex. Objective Vital Signs Date Temp Pulse Resp B/P (MAP) Pulse Ox O2 O2 Flow FiO2 Time Delivery Rate 11/04/18 78 08:00 11/04/18 99.6 07:16 11/04/18 22 121/85 98 07:00 (97) 11/04/18 30 05:17 11/04/18 Mechanical 05:00 Ventilator 11/02/18 2 12:17 Intake and Output 11/03/18 11/03/18 11/04/18 1515:00 23:00 07:00 IntakeIntake Total 1695 ml 1560 ml 1075 ml OutputOutput Total 540 ml 495 ml 560 ml BalanceBalance 1155 ml 1065 ml 515 ml Exam GENERAL: Well-nourished well-developed gentleman on mechanical ventilation VITAL SIGNS: per chart NECK: Supple. No JVD or lymphadenopathy. CARDIAC EXAM: S1, S2. No added sounds or murmurs. CHEST: clear bilaterally, No added sounds, rales or wheezes ABDOMEN: Soft, nontender. No guarding or rebound. EXTREMITIES: No cyanosis, clubbing or edema. NEUROLOGIC: Unresponsive on mechanical ventilation. Vent Setting Ventilator Support Mode: AC Fraction of Inspired Oxygen pe: 30 Positive End Expiratory Pressu: 5.0 Results/Medications Result Diagram: 11/04/18 0505 11/04/18 0505 Results 24 hrs Laboratory Tests Test 11/04/18 05:05 11/04/18 07:00 White Blood Count 12.7 H Red Blood Count 4.25 L Hemoglobin 13.1 L Hematocrit 39.2 L Mean Corpuscular Volume 92.2 Mean Corpuscular Hemoglobin 30.8 Mean Corpuscular Hemoglobin Concent 33.4 Red Cell Distribution Width 12.7 Platelet Count 232 Mean Platelet Volume 10.2 Immature Granulocytes % 0.500 H Neutrophils % 74.8 Lymphocytes % 15.9 Monocytes % 8.0 Eosinophils % 0.6 Basophils % 0.2 Nucleated Red Blood Cells % 0.0 Immature Granulocytes # 0.060 H Neutrophils # 9.5 H Lymphocytes # 2.0 Monocytes # 1.0 H Eosinophils # 0.1 Basophils # 0.0 Nucleated Red Blood Cells # 0.0 Sodium Level 136 Potassium Level 3.5 Chloride Level 105 Carbon Dioxide Level 23 Anion Gap 8 Blood Urea Nitrogen 21 H Creatinine 0.75 Est Glomerular Filtrat Rate mL/min > 60 Glucose Level 117 Calcium Level 8.9 Phosphorus Level 3.2 Magnesium Level 2.0 Blood Gas Specimen Source Blood arterial Arterial Blood Date Drawn 11/04/2018 7:15:49 AM Arterial Blood pH (Temp corrected) 7.461 H Arterial Blood pCO2 (Temp correct) 32.8 L Arterial Blood pO2 (Temp corrected) 107.3 H Arterial Blood HCO3 22.9 Arterial Blood Base Excess -0.2 Arterial Blood Oxygen Saturation 97.9 William Test ACCEPTAB Arterial Blood Gas Puncture Site Right Radial Arterial Blood Carboxyhemoglobin 0.5 Arterial Blood Methemoglobin 0.3 Blood Gas A-a O2 Differential 68.1 H Oxyhemoglobin Percent 97.1 Blood Gas Temperature 37.0 Blood Gas Respiration Rate 14.0 Blood Gas Actual Respiration Rate 21 Blood Gas Modality VENT - AC FiO2 30.0 Blood Gas Tidal Volume 500.0 Blood Gas Low PEEP Setting 5.0 Blood Gas Notified Whom TM Blood Gas Notified Time 11/04/2018 7:49:21 AM Medications Current Medications IV Flush (NS 3 ml) 3 ml PER PROTOCOL IV ; Start 11/02/18 at 13:30 Ondansetron HCl (Zofran Inj) 4 mg Q6H PRN IV NAUSEA/VOMITING; Start 11/02/18 at 13:30 Acetaminophen (Tylenol Tab) 650 mg Q6H PRN PO .PAIN 1-3 OR TEMP Last administered on 11/04/18at 06:16; Admin Dose 650 MG; Start 11/02/18 at 13:30 Acetaminophen/ Hydrocodone Bitart ([place] (5/325)) 1 tab Q6H PRN PO .MOD PAIN 4- 6; Start 11/02/18 at 13:30 Morphine Sulfate (morphine) 2 mg Q4H PRN IV .SEVERE PAIN 7-10; Start 11/02/18 at 13:30 Docusate Sodium (Colace) 100 mg Q12H PRN PO .CONSTIPATION; Start 11/02/18 at 13:30 Magnesium Hydroxide (Milk Of Mag) 30 ml DAILY PRN PO .CONSTIPATION; Start 11/02/18 at 13:30 Famotidine (Pepcid Iv) 20 mg Q12 IV Last administered on 11/04/18 10:38; Admin Dose 20 MG; Start 11/02/18 at 21:00 Sodium Chloride 1,000 ml @ 75 mls/hr [id number] IV Last administered on 11/04/18 05:57; Admin Dose 75 MLS/HR; Start 11/02/18 at 13:30 Lorazepam (Ativan) 0.5 mg Q6H PRN IV ANXIETY; Start 11/02/18 at 13:30 Albuterol/ Ipratropium (Duoneb) 3 ml Q4H RESP THERAPY PRN HHN SHORTNESS OF [place]ORIAH ATH; Start 11/02/18 at 13:30 Hydralazine HCl (Apresoline) 10 mg Q4H PRN IV ELEVATED BLOOD PRESSURE Last administered on 11/04/18 06:17; Admin Dose 10 MG; Start 11/02/18 at 13:30 Nitroglycerin (Nitroglycerin (Sl Tab) 0.4 Mg) 1 tab Q5M PRN SL ANGINA; Start 11/02/18 at 13:30 Labetalol HCl (Labetalol) 10 mg Q10M PRN IV ELEVATED BLOOD PRESSURE; Start 11/02/18 at 13:30 Docusate Sodium (Colace) 100 mg BID PO Last administered on 11/04/18 09:34; Admin Dose 100 MG; Start 11/02/18 at 21:00 Amlodipine Besylate (Norvasc) 10 mg DAILY PO Last administered on 11/04/18 09:34; Admin Dose 10 MG; Start 11/03/18 at 09:00 Benazepril HCl (Lotensin) 40 mg DAILY PO Last administered on 11/04/18 09:34; Admin Dose 40 MG; Start 11/03/18 at 09:00 Carvedilol (Coreg) 25 mg BID PO Last administered on 11/04/18 09:34; Admin Dose 25 MG; Start 11/02/18 at 21:00 Nicotine (Nicoderm 21 Mg/ 24hr) 1 patch DAILY TRANSDERM Last administered on 11/04/18 09:34; Admin Dose 1 PATCH; Start 11/02/18 at 16:30 Propofol 100 ml @ 2.445 mls/ hr Q12H IV Last administered on 2/12/19at 03:15; Admin Dose 12.225 MLS/HR; Start 11/02/18 at 21:00 Nicardipine HCl 50 mg/Sodium Chloride 500 ml @ 50 mls/hr TITRATE IV Last admi nistered on 11/03/18at 18:29; Admin Dose 80 MLS/HR; Start 11/03/18 at 05:00 Lorazepam (Ativan) 1 mg Q10MIN PRN IV Seizures Last administered on 11/03/18 21:49; Admin Dose 1 MG; Start 11/03/18 at 21:00 Assessment/Plan Hospital Course (Demo Recall) Assessment 1. Acute pontine bleed. 2. Severe encephalopathy 3. Respiratory failure secondary to above Plan 1. Continue mechanical ventilation 2. Neurosurgical recommendations very poor prognosis noted. 3. Continue supportive care. Palliative care consultation regarding goals of care. Suggest comfort measures. Critical care time 40 minutes. VARGHESE GREY MD, [facility] Nov 04, 2018 10:43
[2018-11-04] MEDS ORDERED: morphine LIQ (10 MG/5 ML) CUP PO PRN (12:00)
[2018-11-04] MEDS: niCARdipine 50 MG in SOD CHLORIDE 0.9% 480 ML IV SCH (15:58)
[2018-11-04] MEDS: FAMOTIDINE 20 MG TAB PO SCH (21:29)
[2018-11-05] VITALS (56 sets, daily range): BP systolic 110–147; BP diastolic 74–99; PULSE 70–90; RESP 15–25
[2018-11-05] MEDS: niCARdipine 50 MG in SOD CHLORIDE 0.9% 480 ML IV SCH (00:27)
[2018-11-05] MEDS: ACETAMINOPHEN 325 MG TAB PO PRN (01:05)
[2018-11-05] MEDS: SOD CHLORIDE 0.45% 1,000 ML IV SCH ×2 (07:47→20:55)
[2018-11-05] MEDS: BENAZEPRIL 40 MG TAB PO SCH (08:09)
[2018-11-05] MEDS: AMLODIPINE 10 MG TAB PO SCH (08:10)
[2018-11-05] MEDS: FAMOTIDINE 20 MG TAB PO SCH ×2 (08:10→20:46)
[2018-11-05] MEDS: NICOTINE (21 MG/24 HR) PATCH TRANSDERM SCH (08:10)
[2018-11-05] MEDS: PROPOFOL 100 ML IV SCH ×2 (08:50→20:46)
--- NOTE | 2018-11-05 08:51 | PN ---
Date/Time of Note Date/Time of Note DATE: 11/05/18 TIME: 08:49 Assessment/Plan VTE Prophylaxis Risk score (from Ns)>0 risk: 5 SCD applied (from Ns): Yes Pharmacological prophylaxis: NA/contraindicated Pharm contraindication: bleeding Lines/Catheters IV [facility]from [facility]): Peripheral IV Urinary Cath still in place: Yes Reason Cath still needed: urinary retention Assessment/Plan Hospital Course S: Patient still intubated. Per neurology documentation yesterday patient apparently was able to follow some very simple commands briefly, however upon evaluation today this morning and speaking to nursing staff this morning patient still nonresponsive. O: VS - see below PE: General: Intubated Head: Normocephalic, atraumatic. Eyes: Strabismus of the left eye ENT: Moist mucous membranes Neck: Supple, no lymphadenopathy Respiratory: Lungs clear bilaterally, no distress Cardiovascular: RRR, no murmurs, rubs, or gallops Abdominal: Soft, non-tender, non-distended, no peritoneal signs MSK: No edema Neurologic: Unable to fully assess now because the patient is intubated and sedated Electroencephalogram done which showed delta and theta waves in which the patient had some encephalopathy. No epileptiform discharge or seizure activity is recorded. No seizure medication is recommended at this time. 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 #Altered level of consciousness: Again patient is intubated, secondary to the pontine hemorrhage found on his head scan. The latest repeat head CT performed at 48 hours ago showed no significant changes in the size of the bleed compared to the head CT that was performed 12 hours before that. - Continue care in ICU, neuro checks every 4 hours, obviously continue to hold all anticoagulants. - For now patient on p.o. blood pressure medicines and systolic has been stable at this point, continue for now. 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 # HTN -again want to keep blood pressure less than 140 systolic given the intracranial hemorrhage/pontine hemorrhage. Dispo: Overall poor prognosis. Palliative care team has been consulted as well. If patient continues to not wake up days need to consider trach and PEG, versus comfort measures. Critical care time spent on patient care today equals 40 minutes. Result Diagram: 11/05/18 0520 11/05/18 0520 Results 24hrs Laboratory Tests Test 11/05/18 05:20 White Blood Count 13.4 H Red Blood Count 4.09 L Hemoglobin 12.6 L Hematocrit 38.0 L Mean Corpuscular Volume 92.9 Mean Corpuscular Hemoglobin 30.8 Mean Corpuscular Hemoglobin Concent 33.2 Red Cell Distribution Width 12.5 Platelet Count 220 Mean Platelet Volume 10.0 Immature Granulocytes % 0.500 H Neutrophils % 77.7 H Lymphocytes % 12.3 L Monocytes % 8.6 Eosinophils % 0.7 Basophils % 0.2 Nucleated Red Blood Cells % 0.0 Immature Granulocytes # 0.070 H Neutrophils # 10.4 H Lymphocytes # 1.6 Monocytes # 1.2 H Eosinophils # 0.1 Basophils # 0.0 Nucleated Red Blood Cells # 0.0 Sodium Level 136 Potassium Level 3.5 Chloride Level 102 Carbon Dioxide Level 26 Anion Gap 8 Blood Urea Nitrogen 15 Creatinine 0.74 Est Glomerular Filtrat Rate mL/min > 60 Glucose Level 116 Calcium Level 8.7 Exam/Review of Systems Exam Vitals Vital Signs Date Temp Pulse Resp B/P (MAP) Pulse Ox O2 O2 Flow FiO2 Time Delivery Rate 11/05/18 84 21 137/87 99 Mechanical 08:30 (104) Ventilator 11/05/18 30 08:00 11/05/18 99.4 08:00 11/02/18 2 12:17 Intake and Output 11/04/18 11/04/18 11/05/18 1515:00 23:00 07:00 IntakeIntake Total 810 ml 1240 ml 1230 ml OutputOutput Total 525 ml 1015 ml 695 ml BalanceBalance 285 ml 225 ml 535 ml Results Results 24hrs Laboratory Tests Test 11/05/18 05:20 White Blood Count 13.4 H Red Blood Count 4.09 L Hemoglobin 12.6 L Hematocrit 38.0 L Mean Corpuscular Volume 92.9 Mean Corpuscular Hemoglobin 30.8 Mean Corpuscular Hemoglobin Concent 33.2 Red Cell Distribution Width 12.5 Platelet Count 220 Mean Platelet Volume 10.0 Immature Granulocytes % 0.500 H Neutrophils % 77.7 H Lymphocytes % 12.3 L Monocytes % 8.6 Eosinophils % 0.7 Basophils % 0.2 Nucleated Red Blood Cells % 0.0 Immature Granulocytes # 0.070 H Neutrophils # 10.4 H Lymphocytes # 1.6 Monocytes # 1.2 H Eosinophils # 0.1 Basophils # 0.0 Nucleated Red Blood Cells # 0.0 Sodium Level 136 Potassium Level 3.5 Chloride Level 102 Carbon Dioxide Level 26 Anion Gap 8 Blood Urea Nitrogen 15 Creatinine 0.74 Est Glomerular Filtrat Rate mL/min > 60 Glucose Level 116 Calcium Level 8.7 Medications Medication Current Medications IV Flush (NS 3 ml) 3 ml PER PROTOCOL IV ; Start 11/02/18 at 13:30 Ondansetron HCl (Zofran Inj) 4 mg Q6H PRN IV NAUSEA/VOMITING; Start 11/02/18 at 13:30 Acetaminophen (Tylenol Tab) 650 mg Q6H PRN PO .PAIN 1-3 OR TEMP Last administered on 11/05/18at 01:05; Admin Dose 650 MG; Start 11/02/18 at 13:30 Acetaminophen/ Hydrocodone Bitart ([place] (5/325)) 1 tab Q6H PRN PO .MOD PAIN 4- 6; Start 11/02/18 at 13:30 Docusate Sodium (Colace) 100 mg Q12H PRN PO .CONSTIPATION; Start 11/02/18 at 13:30 Magnesium Hydroxide (Milk Of Mag) 30 ml DAILY PRN PO .CONSTIPATION; Start 11/02/18 at 13:30 Sodium Chloride 1,000 ml @ 75 mls/hr [id number] IV Last administered on 11/05/18at 07:47; Admin Dose 75 MLS/HR; Start 11/02/18 at 13:30 Lorazepam (Ativan) 0.5 mg Q6H PRN IV ANXIETY; Start 11/02/18 at 13:30 Albuterol/ Ipratropium (Duoneb) 3 ml Q4H RESP THERAPY PRN HHN SHORTNESS OF BREATH; Start 11/02/18 at 13:30 Hydralazine HCl (Apresoline) 10 mg Q4H PRN IV ELEVATED BLOOD PRESSURE Last administered on 11/04/18 06:17; Admin Dose 10 MG; Start 11/02/18 at 13:30 Nitroglycerin (Nitroglycerin (Sl Tab) 0.4 Mg) 1 tab Q5M PRN SL ANGINA; Start 11/02/18 at 13:30 Labetalol HCl (Labetalol) 10 mg Q10M PRN IV ELEVATED BLOOD PRESSURE; Start 11/02/18 at 13:30 Docusate Sodium (Colace) 100 mg BID PO Last administered on 11/04/18 21:29; Admin Dose 100 MG; Start 11/02/18 at 21:00 Amlodipine Besylate (Norvasc) 10 mg DAILY PO Last administered on 11/05/18 08:10; Admin Dose 10 MG; Start 11/03/18 at 09:00 Benazepril HCl (Lotensin) 40 mg DAILY PO Last administered on 11/05/18 08:09; Admin Dose 40 MG; Start 11/03/18 at 09:00 Carvedilol (Coreg) 25 mg BID PO Last administered on 11/05/18 08:10; Admin Dose 25 MG; Start 11/02/18 at 21:00 Nicotine (Nicoderm 21 Mg/ 24hr) 1 patch DAILY TRANSDERM Last administered on 11/05/18 08:10; Admin Dose 1 PATCH; Start 11/02/18 at 16:30 Propofol 100 ml @ 2.445 mls/ hr Q12H IV Last administered on 11/03/18 03:15; Admin Dose 12.225 MLS/HR; Start 11/02/18 at 21:00 Nicardipine HCl 50 mg/Sodium Chloride 500 ml @ 50 mls/hr TITRATE IV Last administered on 11/05/18 00:27; Admin Dose 50 MLS/HR; Start 11/03/18 at 05:00 Lorazepam (Ativan) 1 mg Q10MIN PRN IV Seizures Last administered on 11/03/18 21:49; Admin Dose 1 MG; Start 11/03/18 at 21:00 Famotidine (Pepcid) 20 mg Q12 PO Last administered on 11/05/18 08:10; Admin Dose 20 MG; Start 11/04/18 at 21:00 Morphine Sulfate (morphine) 6 mg Q4H PRN PO SEVERE PAIN LEVEL 7-10; Start 11/04/18 at 12:00 HECTOR STRINGER Nov 05, 2018 08:51
[2018-11-05] MEDS: DOCUSATE SODIUM 100 MG CAP PO SCH ×2 (09:00→20:47)
--- NOTE | 2018-11-05 09:44 | CONS ---
Consult Date/Type/Reason Admit Date/Time Nov 02, 2018 at 13:13 Initial Consult Date 11/03/18 Type of Consult Pulmonary Date/Time of Note DATE: 11/05/18 TIME: 09:43 Subjective Remains unresponsive on mechanical ventilation. Apparently was having spontaneous movement yesterday today is somnolent. Objective Vital Signs Date Temp Pulse Resp B/P (MAP) Pulse Ox O2 O2 Flow FiO2 Time Delivery Rate 11/05/18 80 21 126/85 99 Mechanical 09:00 (99) Ventilator 11/05/18 30 08:00 11/05/18 99.4 08:00 11/02/18 2 12:17 Intake and Output 11/04/18 11/04/18 11/05/18 1515:00 23:00 07:00 IntakeIntake Total 810 ml 1240 ml 1230 ml OutputOutput Total 525 ml 1015 ml 695 ml BalanceBalance 285 ml 225 ml 535 ml Exam GENERAL: Well-nourished well-developed gentleman on mechanical ventilation VITAL SIGNS: per chart NECK: Supple. No JVD or lymphadenopathy. CARDIAC EXAM: S1, S2. No added sounds or murmurs. CHEST: clear bilaterally, No added sounds, rales or wheezes ABDOMEN: Soft, nontender. No guarding or rebound. EXTREMITIES: No cyanosis, clubbing or edema. NEUROLOGIC: Unresponsive on mechanical ventilation. Vent Setting Ventilator Support Mode: AC Fraction of Inspired Oxygen pe: 30 Positive End Expiratory Pressu: 5.0 Results/Medications Result Diagram: 11/05/18 0520 11/05/18 0520 Results 24 hrs Laboratory Tests Test 11/05/18 05:20 White Blood Count 13.4 H Red Blood Count 4.09 L Hemoglobin 12.6 L Hematocrit 38.0 L Mean Corpuscular Volume 92.9 Mean Corpuscular Hemoglobin 30.8 Mean Corpuscular Hemoglobin Concent 33.2 Red Cell Distribution Width 12.5 Platelet Count 220 Mean Platelet Volume 10.0 Immature Granulocytes % 0.500 H Neutrophils % 77.7 H Lymphocytes % 12.3 L Monocytes % 8.6 Eosinophils % 0.7 Basophils % 0.2 Nucleated Red Blood Cells % 0.0 Immature Granulocytes # 0.070 H Neutrophils # 10.4 H Lymphocytes # 1.6 Monocytes # 1.2 H Eosinophils # 0.1 Basophils # 0.0 Nucleated Red Blood Cells # 0.0 Sodium Level 136 Potassium Level 3.5 Chloride Level 102 Carbon Dioxide Level 26 Anion Gap 8 Blood Urea Nitrogen 15 Creatinine 0.74 Est Glomerular Filtrat Rate mL/min > 60 Glucose Level 116 Calcium Level 8.7 Medications Current Medications IV Flush (NS 3 ml) 3 ml PER PROTOCOL IV ; Start 11/02/18 at 13:30 Ondansetron HCl (Zofran Inj) 4 mg Q6H PRN IV NAUSEA/VOMITING; Start 11/02/18 at 13:30 Acetaminophen (Tylenol Tab) 650 mg Q6H PRN PO .PAIN 1-3 OR TEMP Last administered on 11/05/18at 01:05; Admin Dose 650 MG; Start 11/02/18 at 13:30 Acetaminophen/ Hydrocodone Bitart ([place] (5/325)) 1 tab Q6H PRN PO .MOD PAIN 4- 6; Start 11/02/18 at 13:30 Docusate Sodium (Colace) 100 mg Q12H PRN PO .CONSTIPATION; Start 11/02/18 at 13:30 Magnesium Hydroxide (Milk Of Mag) 30 ml DAILY PRN PO .CONSTIPATION; Start 11/02/18 at 13:30 Sodium Chloride 1,000 ml @ 75 mls/hr [id number] IV Last administered on 11/05/18at 07:47; Admin Dose 75 MLS/HR; Start 11/02/18 at 13:30 Lorazepam (Ativan) 0.5 mg Q6H PRN IV ANXIETY; Start 11/02/18 at 13:30 Albuterol/ Ipratropium (Duoneb) 3 ml Q4H RESP THERAPY PRN HHN SHORTNESS OF BREATH; Start 11/02/18 at 13:30 Hydralazine HCl (Apresoline) 10 mg Q4H PRN IV ELEVATED BLOOD PRESSURE Last administered on 11/04/18at 06:17; Admin Dose 10 MG; Start 11/02/18 at 13:30 Nitroglycerin (Nitroglycerin (Sl Tab) 0.4 Mg) 1 tab Q5M PRN SL ANGINA; Start 11/02/18 at 13:30 Labetalol HCl (Labetalol) 10 mg Q10M PRN IV ELEVATED BLOOD PRESSURE; Start 11/02/18 at 13:30 Docusate Sodium (Colace) 100 mg BID PO Last administered on 11/04/18 21:29; Admin Dose 100 MG; Start 11/02/18 at 21:00 Amlodipine Besylate (Norvasc) 10 mg DAILY PO Last administered on 11/05/18 08:10; Admin Dose 10 MG; Start 11/03/18 at 09:00 Benazepril HCl (Lotensin) 40 mg DAILY PO Last administered on 11/05/18 08:09; Admin Dose 40 MG; Start 11/03/18 at 09:00 Carvedilol (Coreg) 25 mg BID PO Last administered on 11/05/18 08:10; Admin Dose 25 MG; Start 11/02/18 at 21:00 Nicotine (Nicoderm 21 Mg/ 24hr) 1 patch DAILY TRANSDERM Last administered on 11/05/18 08:10; Admin Dose 1 PATCH; Start 11/02/18 at 16:30 Propofol 100 ml @ 2.445 mls/ hr Q12H IV Last administered on 11/03/18 03:15; Admin Dose 12.225 MLS/HR; Start 11/02/18 at 21:00 Nicardipine HCl 50 mg/Sodium Chloride 500 ml @ 50 mls/hr TITRATE IV Last administered on 11/05/18 00:27; Admin Dose 50 MLS/HR; Start 11/03/18 at 05:00 Lorazepam (Ativan) 1 mg Q10MIN PRN IV Seizures Last administered on 11/03/18 21:49; Admin Dose 1 MG; Start 11/03/18 at 21:00 Famotidine (Pepcid) 20 mg Q12 PO Last administered on 11/05/18 08:10; Admin Dose 20 MG; Start 11/04/18 at 21:00 Morphine Sulfate (morphine) 6 mg Q4H PRN PO SEVERE PAIN LEVEL 7-10; Start 11/04/18 at 12:00 Assessment/Plan Hospital Course (Demo Recall) Assessment 1. Acute pontine bleed. 2. Severe encephalopathy 3. Respiratory failure secondary to above Plan 1. Continue mechanical ventilation 2. Neurosurgical recommendations very poor prognosis noted. 3. Continue supportive care. 4. Continue tube feeding Palliative care consultation regarding goals of care. patient would likely require tracheostomy and PEG tube placement if family wish to continue long-term care. Critical care time 40 minutes. VARGHESE GREY MD, [facility] Nov 05, 2018 09:44
--- NOTE | 2018-11-05 13:52 | CONS ---
DATE OF ADMISSION: 11/02/2018 DATE OF CONSULTATION: HISTORY OF PRESENT ILLNESS: The patient is 53 years old admitted with acute onset of decreased mini mental status, lack of communication. The patient has a past medical history of hypertension with in tracranial bleed with pontine hemorrhage, respiratory failure, intubated, followed up by neurosurgery and serial CT scan. The patient is accompanied by his parents as well as his sister and brother-in- law. CURRENT MEDICATIONS: Include: 1. Benazepril 10 mg once a day. 2. Amlodipine 10 mg once a day. 3. Carvedilol 25 mg twice a day. 4. Ativan as needed. 5. Trazodone 100 mg once a day. ALLERGIES: NO ALLERGY OF KNOWN MEDICATION. PAST MEDICAL HISTORY: In the form of hypertension. PHYSICAL EXAMINATION: GENERAL: The patient is less alert than yesterday, does not follow verbal commands. CRANIAL NERVES: Cranial nerve II: Pupils are 2 mm, reactive to light, equal on both sides. Cranial III, IV and : Extraocular muscles are intact for doll's maneuver. Cranial nerves V and VII: Int act corneal reflex. Cranial VIII through XII: Could not assess. MOTOR: Slight movement in the left upper extremity for painful stimuli. Sensation and gait coordina tion could not be assessed. HEART: Regular rate and rhythm. LUNGS: Equal breath sounds. ABDOMEN: Soft, relaxed, nondistended. No tenderness. ASSESSMENT AND PLAN: 1. The patient is 53 years old, status post intracranial bleeding with pontine hemorrhage. Follow u p the patient with neurosurgery and CT scan. 2. History of hypertension. Keep the blood pressure at the level of 140/90. 3. Keep the patient under deep venous thrombosis prophylaxis as well as decubitus ulcer prophylaxis. 4. Some jerking movement the day before last night in which the patient had Ativan 1 mg. No more je rking movement. Keep the patient under seizure precaution. EEG done which showed generalized slowin g. No seizure activity of epileptiform discharge. 5. Respiratory failure in which the patient is under intubation. Again thank you for asking me to see the patient with you. Dictated By: JAI AVILA/NISHANT Conf#: [id number] DID#: [id number] CC: HECTOR [employer]INGER;*EndCC*
[2018-11-05] MEDS: hydrALAzine 20 MG INJ IV PRN (18:38)
[2018-11-06] VITALS (48 sets, daily range): BP systolic 125–152; BP diastolic 74–101; PULSE 72–98; RESP 13–31
[2018-11-06] MEDS: hydrALAzine 20 MG INJ IV PRN ×3 (03:41→18:04)
[2018-11-06] MEDS: ACETAMINOPHEN 325 MG TAB PO PRN ×2 (04:28→17:52)
--- NOTE | 2018-11-06 06:35 | CONS ---
Assessment/Plan Assessment/Plan Assessment/Plan (Daily) At this time since patient has not had significant neurological improvement we will schedule a family conference primarily to review neurosurgical and neurology's recurrent condition as well as hospitalist Dr. Kessler. Also of note will be dictated at family conference Consultation Date/Type/Reason Admit Date/Time Nov 02, 2018 at 13:13 Date/Time of Note DATE: 11/06/18 TIME: 06:28 Hx of Present Illness Palliative care consultation on this 30-year-old male who I have been following since patient was initially hospitalized. I did not formally consult on patient until yesterday November 05 2018. All the information is taken from patient's medical records. According records patient complained of a sudden onset of headache and blurred vision he has a baseline history of hypertension and he is a smoker. Patient was brought to emergency room and became less responsive required intubation and code stroke was called patient was diagnosed with a pontine hemorrhage according to medical records. Neurosurgical consultation was requested patient was diagnosed with pontine hemorrhage there was no indication at that time for intervention patient has a Glascow coma scale of 3 at the time he was evaluated by neurosurgery patient is also been evaluated by neurology consultation. As of this date November 06, 2018 patient has had some neurological improvement was able to follow simple commands this according to family members however there is no documentation that patient has been responsive per nursing staff. I have introduced myself to family members at the time patient was admitted. I chose not to pursue any type of discussion concerning level of care until patient's neurological condition stabilizes. Past Medical History Home Meds Reported Medications Trazodone Hcl* (Trazodone Hcl*) 100 Mg Tablet, 100 MG PO QHS, #30 TAB 02/24/17 Benazepril Hcl* (Benazepril Hcl*) 40 Mg Tablet, 40 MG PO DAILY, #30 TAB 02/24/17 Amlodipine Besylate* (Amlodipine Besylate*) 10 Mg Tablet, 10 MG PO DAILY, #30 TAB 02/24/17 Carvedilol* (Carvedilol*) 25 Mg Tablet, 25 MG PO BID, #60 TAB 02/24/17 Lorazepam* (Ativan*) 2 Mg Tablet, 2 MG PO HS PRN for SLEEP, #30 TAB 02/24/17 Medications Current Medications IV Flush (NS 3 ml) 3 ml PER PROTOCOL IV ; Start 11/02/18 at 13:30 Ondansetron HCl (Zofran Inj) 4 mg Q6H PRN IV NAUSEA/VOMITING; Start 11/02/18 at 13:30 Acetaminophen (Tylenol Tab) 650 mg Q6H PRN PO .PAIN 1-3 OR TEMP Last administered on 11/06/18at 04:28; Admin Dose 650 MG; Start 11/02/18 at 13:30 Acetaminophen/ Hydrocodone Bitart ([place] (5/325)) 1 tab Q6H PRN PO .MOD PAIN 4- 6; Start 11/02/18 at 13:30 Docusate Sodium (Colace) 100 mg Q12H PRN PO .CONSTIPATION; Start 11/02/18 at 13:30 Magnesium Hydroxide (Milk Of Mag) 30 ml DAILY PRN PO .CONSTIPATION; Start 11/02/18 at 13:30 Sodium Chloride 1,000 ml @ 75 mls/hr [id number] IV Last administered on 11/05/18at 20:55; Admin Dose 75 MLS/HR; Start 11/02/18 at 13:30 Lorazepam (Ativan) 0.5 mg Q6H PRN IV ANXIETY; Start 11/02/18 at 13:30 Albuterol/ Ipratropium (Duoneb) 3 ml Q4H RESP THERAPY PRN HHN SHORTNESS OF BREATH; Start 11/02/18 at 13:30 Hydralazine HCl (Apresoline) 10 mg Q4H PRN IV ELEVATED BLOOD PRESSURE Last administered on 11/06/18at 03:41; Admin Dose 10 MG; Start 11/02/18 at 13:30 Nitroglycerin (Nitroglycerin (Sl Tab) 0.4 Mg) 1 tab Q5M PRN SL ANGINA; Start 11/02/18 at 13:30 Labetalol HCl (Labetalol) 10 mg Q10M PRN IV ELEVATED BLOOD PRESSURE; Start 11/02/18 at 13:30 Docusate Sodium (Colace) 100 mg BID PO Last administered on 11/05/18at 20:47; Admin Dose 100 MG; Start 11/02/18 at 21:00 Amlodipine Besylate (Norvasc) 10 mg DAILY PO Last administered on 11/05/18at 08:10; Admin Dose 10 MG; Start 11/03/18 at 09:00 Benazepril HCl (Lotensin) 40 mg DAILY PO Last administered on 11/05/18 08:09; Admin Dose 40 MG; Start 11/03/18 at 09:00 Carvedilol (Coreg) 25 mg BID PO Last administered on 11/05/18 20:46; Admin Dose 25 MG; Start 11/02/18 at 21:00 Nicotine (Nicoderm 21 Mg/ 24hr) 1 patch DAILY TRANSDERM Last administered on 11/05/18 08:10; Admin Dose 1 PATCH; Start 11/02/18 at 16:30 Propofol 100 ml @ 2.445 mls/ hr Q12H IV Last administered on 11/03/18 03:15; Admin Dose 12.225 MLS/HR; Start 11/02/18 at 21:00 Nicardipine HCl 50 mg/Sodium Chloride 500 ml @ 50 mls/hr TITRATE IV Last administered on 11/05/18 00:27; Admin Dose 50 MLS/HR; Start 11/03/18 at 05:00 Lorazepam (Ativan) 1 mg Q10MIN PRN IV Seizures Last administered on 11/03/18 21:49; Admin Dose 1 MG; Start 11/03/18 at 21:00 Famotidine (Pepcid) 20 mg Q12 PO Last administered on 11/05/18 20:46; Admin Dose 20 MG; Start 11/04/18 at 21:00 Morphine Sulfate (morphine) 6 mg Q4H PRN PO SEVERE PAIN LEVEL 7-10; Start at 12:00 Allergies: Coded Allergies: No Known Allergy (Unverified , 02/24/17) Past Surgical History Past Surgical Hx: other (Neck) Social History Alcohol Use: none Smoking Status: Current every day smoker Drug Use: none Exam/Review of Systems Exam Vitals Vital Signs Date Temp Pulse Resp B/P (MAP) Pulse Ox O2 O2 Flow FiO2 Time Delivery Rate 11/06/18 81 20 138/81 [place] 06:00 (100) l Ventilato r 11/06/18 100 05:30 11/06/18 100.0 05:13 11/06/18 30 05:01 11/02/18 2 12:17 Intake and Output 11/05/18 11/05/18 11/06/18 1414:59 22:59 06:59 IntakeIntake Total 940 ml 1030 ml 750 ml OutputOutput Total 270 ml 470 ml 130 ml BalanceBalance 670 ml 560 ml 620 ml Constitutional: other (Noncommunicative) Eyes: other Respiratory: clear to auscultation, normal air movement; No congested cough, No crackles/rales, No diminished breath sounds, No intercostal retraction, No labored breathing, No respirations, No tactile fremitus, No wheezing, No other Cardiovascular: regular rate and rhythm, nl pulses; No bruits, No diastolic murmur, No edema, No gallop, No irregular rhythm, No jugular venous distention (JVD), No murmurs/extra sounds, No rub, No systolic murmur, No S3, No S4, No other Gastrointestinal: soft, nl liver, spleen, non-tender; No ascites, No bowel sounds, No distended, No firm, No hepatomegaly, No mass, No rebound or guarding, No splenomegaly, No surgical scars, No tender, No other Neurological: nl mental status, nl speech, nl strength, unresponsive, other (Unresponsive to any verbal or tactile stimulation sluggish bilateral oculocephalics not posturing no purposeful movements no spontaneous movement) Results Result Diagram: 11/06/18 0554 11/05/18 0520 Results 24hrs Laboratory Tests Test 11/06/18 05:54 White Blood Count 12.5 H Red Blood Count 4.05 L Hemoglobin 12.3 L Hematocrit 37.7 L Mean Corpuscular Volume 93.1 Mean Corpuscular Hemoglobin 30.4 Mean Corpuscular Hemoglobin Concent 32.6 Red Cell Distribution Width 12.8 Platelet Count 219 Mean Platelet Volume 10.1 Immature Granulocytes % 0.600 H Neutrophils % 83.2 H Lymphocytes % 7.2 L Monocytes % 7.8 Eosinophils % 0.9 Basophils % 0.3 Nucleated Red Blood Cells % 0.0 Immature Granulocytes # 0.070 H Neutrophils # 10.4 H Lymphocytes # 0.9 Monocytes # 1.0 H Eosinophils # 0.1 Basophils # 0.0 Nucleated Red Blood Cells # 0.0 Medications Medication Current Medications IV Flush (NS 3 ml) 3 ml PER PROTOCOL IV ; Start 11/02/18 at 13:30 Ondansetron HCl (Zofran Inj) 4 mg Q6H PRN IV NAUSEA/VOMITING; Start 11/02/18 at 13:30 Acetaminophen (Tylenol Tab) 650 mg Q6H PRN PO .PAIN 1-3 OR TEMP Last administered on 11/06/18 04:28; Admin Dose 650 MG; Start 11/02/18 at 13:30 Acetaminophen/ Hydrocodone Bitart ([place] (5/325)) 1 tab Q6H PRN PO .MOD PAIN 4- 6; Start 11/02/18 at 13:30 Docusate Sodium (Colace) 100 mg Q12H PRN PO .CONSTIPATION; Start 11/02/18 at 13:30 Magnesium Hydroxide (Milk Of Mag) 30 ml DAILY PRN PO .CONSTIPATION; Start 11/02/18 at 13:30 Sodium Chloride 1,000 ml @ 75 mls/hr [id number] IV Last administered on 11/05/18at 20:55; Admin Dose 75 MLS/HR; Start 11/02/18 at 13:30 Lorazepam (Ativan) 0.5 mg Q6H PRN IV ANXIETY; Start 11/02/18 at 13:30 Albuterol/ Ipratropium (Duoneb) 3 ml Q4H RESP THERAPY PRN HHN SHORTNESS OF BREATH; Start 11/02/18 at 13:30 Hydralazine HCl (Apresoline) 10 mg Q4H PRN IV ELEVATED BLOOD PRESSURE Last administered on 11/06/18at 03:41; Admin Dose 10 MG; Start 11/02/18 at 13:30 Nitroglycerin (Nitroglycerin (Sl Tab) 0.4 Mg) 1 tab Q5M PRN SL ANGINA; Start 11/02/18 at 13:30 Labetalol HCl (Labetalol) 10 mg Q10M PRN IV ELEVATED BLOOD PRESSURE; Start 11/02/18 at 13:30 Docusate Sodium (Colace) 100 mg BID PO Last administered on 11/05/18 20:47; Admin Dose 100 MG; Start 11/02/18 at 21:00 Amlodipine Besylate (Norvasc) 10 mg DAILY PO Last administered on 11/05/18 08:10; Admin Dose 10 MG; Start 11/03/18 at 09:00 Benazepril HCl (Lotensin) 40 mg DAILY PO Last administered on 11/05/18 08:09; Admin Dose 40 MG; Start 11/03/18 at 09:00 Carvedilol (Coreg) 25 mg BID PO Last administered on 11/05/18 20:46; Admin Dose 25 MG; Start 11/02/18 at 21:00 Nicotine (Nicoderm 21 Mg/ 24hr) 1 patch DAILY TRANSDERM Last administered on 11/05/18 08:10; Admin Dose 1 PATCH; Start 11/02/18 at 16:30 Propofol 100 ml @ 2.445 mls/ hr Q12H IV Last administered on 11/03/18 03:15; Admin Dose 12.225 MLS/HR; Start 11/02/18 at 21:00 Nicardipine HCl 50 mg/Sodium Chloride 500 ml @ 50 mls/hr TITRATE IV Last administered on 11/05/18 00:27; Admin Dose 50 MLS/HR; Start 11/03/18 at 05:00 Lorazepam (Ativan) 1 mg Q10MIN PRN IV Seizures Last administered on 11/03/18 21:49; Admin Dose 1 MG; Start 11/03/18 at 21:00 Famotidine (Pepcid) 20 mg Q12 PO Last administered on 11/05/18 20:46; Admin Dose 20 MG; Start 11/04/18 at 21:00 Morphine Sulfate (morphine) 6 mg Q4H PRN PO SEVERE PAIN LEVEL 7-10; Start 11/04/18 at 12:00 JAYDEN STYLES Nov 06, 2018 06:35
[2018-11-06] MEDS: NICOTINE (21 MG/24 HR) PATCH TRANSDERM SCH (08:29)
[2018-11-06] MEDS: FAMOTIDINE 20 MG TAB PO SCH ×2 (08:29→21:22)
[2018-11-06] MEDS: BENAZEPRIL 40 MG TAB PO SCH (08:29)
[2018-11-06] MEDS: DOCUSATE SODIUM 100 MG CAP PO SCH ×2 (08:30→21:22)
[2018-11-06] MEDS: AMLODIPINE 10 MG TAB PO SCH (08:30)
[2018-11-06] MEDS: PROPOFOL 100 ML IV SCH ×2 (08:31→21:00)
--- NOTE | 2018-11-06 10:03 | PN ---
Date/Time of Note Date/Time of Note DATE: 11/06/18 TIME: 09:04 Assessment/Plan VTE Prophylaxis Risk score (from Ns)>0 risk: 5 SCD applied (from Ns): Yes Pharmacological prophylaxis: NA/contraindicated Pharm contraindication: bleeding Lines/Catheters IV Catheter Type (from Nrsg): Peripheral IV Urinary Cath still in place: Yes Reason Cath still needed: urinary retention Assessment/Plan Hospital Course S: Patient still intubated, off sedation since November 03, did not have any responsiveness overnight but this morning appeared to slightly open eyes on command. Seen by pulmonary and palliative care teams this morning as well. O: VS - see below PE: General: Intubated, has been mostly nonresponsive off sedation but did appear to open eyes briefly this morning on command Head: Normocephalic, atraumatic. Eyes: Strabismus of the left eye ENT: Moist mucous membranes Neck: Supple, no lymphadenopathy Respiratory: Lungs clear bilaterally, no distress Cardiovascular: RRR, no murmurs, rubs, or gallops Abdominal: Soft, non-tender, non-distended, no peritoneal signs MSK: No edema Neurologic: Unable to fully assess now because the patient is intubated Electroencephalogram done which showed delta and theta waves in which the patient had some encephalopathy. No epileptiform discharge or seizure activity is recorded. No seizure medication is recommended at this time. 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 #Altered level of consciousness: Again patient is intubated, secondary to the pontine hemorrhage found on his head scan. The latest repeat head CT performed at 72 hours ago showed no significant changes in the size of the bleed compared to the head CT that was performed 12 hours before that. - Continue care in ICU, neuro checks every 4 hours, obviously continue to hold all anticoagulants. -Continue on p.o. blood pressure medicines and systolic has been stable at this point, continue for now. - Per neurosurgery, no intervention indicated for this hemorrhage at this time, unless hydrocephalus becomes an issue (ie: ventriculostomy tube?) - Cautious tube feeds -Palliative care team also on the case, however my conversation with the this morning separately, she is strongly considering trach and PEG tube placement at this time, we will go ahead and consult those respective teams today (cardiothoracic surgery and GI) # Res distress-again likely secondary to above, intubated -Vent management per pulmonary team, duo nebs as needed #Smoking history: Try to staff counsel patient on quitting/cutting back when more awake, for now continue nicotine patch. # HTN -stable now, again want to keep blood pressure less than 140 systolic given the intracranial hemorrhage/pontine hemorrhage. Dispo: Overall likely poor prognosis. Palliative care team has been consulted as well. Again some of the family members want to wait on final decision about trach and PEG, although again the who appears to be the primary decision maker, wants to go ahead and proceed with this so as mentioned above we will go ahead and consult CTS and GI for their input. Critical care time spent on patient care today equals 50 minutes. Result Diagram: 11/06/1854 11/06/18 0554 Results 24hrs Laboratory Tests Test 11/06/18 05:54 11/06/18 08:00 White Blood Count 12.5 H Red Blood Count 4.05 L Hemoglobin 12.3 L Hematocrit 37.7 L Mean Corpuscular Volume 93.1 Mean Corpuscular Hemoglobin 30.4 Mean Corpuscular Hemoglobin Concent 32.6 Red Cell Distribution Width 12.8 Platelet Count 219 Mean Platelet Volume 10.1 Immature Granulocytes % 0.600 H Neutrophils % 83.2 H Lymphocytes % 7.2 L Monocytes % 7.8 Eosinophils % 0.9 Basophils % 0.3 Nucleated Red Blood Cells % 0.0 Immature Granulocytes # 0.070 H Neutrophils # 10.4 H Lymphocytes # 0.9 Monocytes # 1.0 H Eosinophils # 0.1 Basophils # 0.0 Nucleated Red Blood Cells # 0.0 Sodium Level 136 Potassium Level 3.6 Chloride Level 100 Carbon Dioxide Level 28 Anion Gap 8 Blood Urea Nitrogen 15 Creatinine 0.69 Est Glomerular Filtrat Rate mL/min > 60 Glucose Level 145 Calcium Level 8.8 Blood Gas Specimen Source Blood arterial Arterial Blood Date Drawn 11/06/2018 7:50:32 AM Arterial Blood pH (Temp corrected) 7.475 H Arterial Blood pCO2 (Temp correct) 36.3 Arterial Blood pO2 (Temp corrected) 83.2 Arterial Blood HCO3 26.1 H Arterial Blood Base Excess 2.7 Arterial Blood Oxygen Saturation 96.2 William Test ACCEPTAB Arterial Blood Gas Puncture Site Right Radial Arterial Blood Carboxyhemoglobin 0.5 Arterial Blood Methemoglobin 0.5 Blood Gas A-a O2 Differential 88.1 H Oxyhemoglobin Percent 95.2 Blood Gas Temperature 37.0 Blood Gas Respiration Rate 14.0 Blood Gas Actual Respiration Rate 19 Blood Gas Modality VENT - AC FiO2 30.0 Blood Gas Tidal Volume 500.0 Blood Gas Low PEEP Setting 5.0 Blood Gas Notified Whom TM Blood Gas Notified Time 11/06/2018 8:05:10 AM Exam/Review of Systems Exam Vitals Vital Signs Date Temp Pulse Resp B/P (MAP) Pulse Ox O2 O2 Flow FiO2 Time Delivery Rate 11/06/18 81 20 138/81 [place] 06:00 (100) l Ventilato r 11/06/18 100 05:30 11/06/18 100.0 05:13 11/06/18 30 05:01 11/02/18 2 12:17 Intake and Output 11/05/18 11/05/18 11/06/18 1515:00 23:00 07:00 IntakeIntake Total 950 ml 1040 ml 975 ml OutputOutput Total 280 ml 510 ml 485 ml BalanceBalance 670 ml 530 ml 490 ml Results Results 24hrs Laboratory Tests Test 11/06/18 05:54 11/06/18 08:00 White Blood Count 12.5 H Red Blood Count 4.05 L Hemoglobin 12.3 L Hematocrit 37.7 L Mean Corpuscular Volume 93.1 Mean Corpuscular Hemoglobin 30.4 Mean Corpuscular Hemoglobin Concent 32.6 Red Cell Distribution Width 12.8 Platelet Count 219 Mean Platelet Volume 10.1 Immature Granulocytes % 0.600 H Neutrophils % 83.2 H Lymphocytes % 7.2 L Monocytes % 7.8 Eosinophils % 0.9 Basophils % 0.3 Nucleated Red Blood Cells % 0.0 Immature Granulocytes # 0.070 H Neutrophils # 10.4 H Lymphocytes # 0.9 Monocytes # 1.0 H Eosinophils # 0.1 Basophils # 0.0 Nucleated Red Blood Cells # 0.0 Sodium Level 136 Potassium Level 3.6 Chloride Level 100 Carbon Dioxide Level 28 Anion Gap 8 Blood Urea Nitrogen 15 Creatinine 0.69 Est Glomerular Filtrat Rate mL/min > 60 Glucose Level 145 Calcium Level 8.8 Blood Gas Specimen Source Blood arterial Arterial Blood Date Drawn 11/06/2018 7:50:32 AM Arterial Blood pH (Temp corrected) 7.475 H Arterial Blood pCO2 (Temp correct) 36.3 Arterial Blood pO2 (Temp corrected) 83.2 Arterial Blood HCO3 26.1 H Arterial Blood Base Excess 2.7 Arterial Blood Oxygen Saturation 96.2 William Test ACCEPTAB Arterial Blood Gas Puncture Site Right Radial Arterial Blood Carboxyhemoglobin 0.5 Arterial Blood Methemoglobin 0.5 Blood Gas A-a O2 Differential 88.1 H Oxyhemoglobin Percent 95.2 Blood Gas Temperature 37.0 Blood Gas Respiration Rate 14.0 Blood Gas Actual Respiration Rate 19 Blood Gas Modality VENT - AC FiO2 30.0 Blood Gas Tidal Volume 500.0 Blood Gas Low PEEP Setting 5.0 Blood Gas Notified Whom TM Blood Gas Notified Time 11/06/2018 8:05:10 AM Medications Medication Current Medications IV Flush (NS 3 ml) 3 ml PER PROTOCOL IV ; Start 11/02/18 at 13:30 Ondansetron HCl (Zofran Inj) 4 mg Q6H PRN IV NAUSEA/VOMITING; Start 11/02/18 at 13:30 Acetaminophen (Tylenol Tab) 650 mg Q6H PRN PO .PAIN 1-3 OR TEMP Last administered on 11/06/18at 04:28; Admin Dose 650 MG; Start 11/02/18 at 13:30 Acetaminophen/ Hydrocodone Bitart ([place] (5/325)) 1 tab Q6H PRN PO .MOD PAIN 4- 6; Start 11/02/18 at 13:30 Docusate Sodium (Colace) 100 mg Q12H PRN PO .CONSTIPATION; Start 11/02/18 at 13:30 Magnesium Hydroxide (Milk Of Mag) 30 ml DAILY PRN PO .CONSTIPATION; Start 11/02/18 at 13:30 Sodium Chloride 1,000 ml @ 75 mls/hr [id number] IV Last administered on 11/05/18at 20:55; Admin Dose 75 MLS/HR; Start 11/02/18 at 13:30 Lorazepam (Ativan) 0.5 mg Q6H PRN IV ANXIETY; Start 11/02/18 at 13:30 Albuterol/ Ipratropium (Duoneb) 3 ml Q4H RESP THERAPY PRN HHN SHORTNESS OF BREATH; Start 11/02/18 at 13:30 Hydralazine HCl (Apresoline) 10 mg Q4H PRN IV ELEVATED BLOOD PRESSURE Last administered on 11/06/18 03:41; Admin Dose 10 MG; Start 11/02/18 at 13:30 Nitroglycerin (Nitroglycerin (Sl Tab) 0.4 Mg) 1 tab Q5M PRN SL ANGINA; Start 11/02/18 at 13:30 Labetalol HCl (Labetalol) 10 mg Q10M PRN IV ELEVATED BLOOD PRESSURE; Start 11/02/18 at 13:30 Docusate Sodium (Colace) 100 mg BID PO Last administered on 11/06/18 08:30; Admin Dose 100 MG; Start 11/02/18 at 21:00 Amlodipine Besylate (Norvasc) 10 mg DAILY PO Last administered on 11/06/18 08:30; Admin Dose 10 MG; Start 11/03/18 at 09:00 Benazepril HCl (Lotensin) 40 mg DAILY PO Last administered on 11/06/18 08:29; Admin Dose 40 MG; Start 11/03/18 at 09:00 Carvedilol (Coreg) 25 mg BID PO Last administered on 11/06/18 08:30; Admin Dose 25 MG; Start 11/02/18 at 21:00 Nicotine (Nicoderm 21 Mg/ 24hr) 1 patch DAILY TRANSDERM Last administered on 11/06/18 08:29; Admin Dose 1 PATCH; Start 11/02/18 at 16:30 Propofol 100 ml @ 2.445 mls/ hr Q12H IV Last administered on 11/03/18 03:15; Admin Dose 12.225 MLS/HR; Start 11/02/18 at 21:00 Nicardipine HCl 50 mg/Sodium Chloride 500 ml @ 50 mls/hr TITRATE IV Last administered on 11/05/18 00:27; Admin Dose 50 MLS/HR; Start 11/03/18 at 05:00 Lorazepam (Ativan) 1 mg Q10MIN PRN IV Seizures Last administered on 11/03/18 21:49; Admin Dose 1 MG; Start 11/03/18 at 21:00 Famotidine (Pepcid) 20 mg Q12 PO Last administered on 11/06/18 08:29; Admin Dose 20 MG; Start 11/04/18 at 21:00 Morphine Sulfate (morphine) 6 mg Q4H PRN PO SEVERE PAIN LEVEL 7-10; Start 11/04/18 at 12:00 HECTOR [employer]ER Nov 06, 2018 09:34
[2018-11-06] MEDS: SOD CHLORIDE 0.45% 1,000 ML IV SCH ×2 (10:19→23:09)
--- NOTE | 2018-11-06 10:54 | CONS ---
Consult Date/Type/Reason Admit Date/Time Nov 02, 2018 at 13:13 Initial Consult Date 11/03/18 Type of Consult Pulmonary Date/Time of Note DATE: 11/06/18 TIME: 10:47 Subjective Patient remains somnolent on mechanical ventilation. Apparently occasionally opening eyes but not following commands. Family present at bedside. Objective Vital Signs Date Temp Pulse Resp B/P (MAP) Pulse Ox O2 O2 Flow FiO2 Time Delivery Rate 11/06/18 78 20 134/81 Mechanical 09:00 (98) Ventilator 11/06/18 99.6 08:00 11/06/18 100 05:30 11/06/18 30 05:01 11/02/18 2 12:17 Intake and Output 11/05/18 11/05/18 11/06/18 1515:00 23:00 07:00 IntakeIntake Total 950 ml 1040 ml 975 ml OutputOutput Total 280 ml 510 ml 485 ml BalanceBalance 670 ml 530 ml 490 ml Exam GENERAL: Well-nourished well-developed gentleman on mechanical ventilation VITAL SIGNS: per chart NECK: Supple. No JVD or lymphadenopathy. CARDIAC EXAM: S1, S2. No added sounds or murmurs. CHEST: clear bilaterally, No added sounds, rales or wheezes ABDOMEN: Soft, nontender. No guarding or rebound. EXTREMITIES: No cyanosis, clubbing or edema. NEUROLOGIC: Unresponsive on mechanical ventilation. Vent Setting Ventilator Support Mode: AC Fraction of Inspired Oxygen pe: 30 Positive End Expiratory Pressu: 5.0 Results/Medications Result Diagram: 11/06/18 0554 11/06/18 0554 Results 24 hrs Laboratory Tests Test 11/06/18 05:54 11/06/18 08:00 11/06/18 09:41 White Blood Count 12.5 H Red Blood Count 4.05 L Hemoglobin 12.3 L Hematocrit 37.7 L Mean Corpuscular Volume 93.1 Mean Corpuscular 30.4 Hemoglobin Mean Corpuscular 32.6 Hemoglobin Concent Red Cell Distribution 12.8 Width Platelet Count 219 Mean Platelet Volume 10.1 Immature Granulocytes % 0.600 H Neutrophils % 83.2 H Lymphocytes % 7.2 L Monocytes % 7.8 Eosinophils % 0.9 Basophils % 0.3 Nucleated Red Blood Cells 0.0 % Immature Granulocytes # 0.070 H Neutrophils # 10.4 H Lymphocytes # 0.9 Monocytes # 1.0 H Eosinophils # 0.1 Basophils # 0.0 Nucleated Red Blood Cells 0.0 # Sodium Level 136 Potassium Level 3.6 Chloride Level 100 Carbon Dioxide Level 28 Anion Gap 8 Blood Urea Nitrogen 15 Creatinine 0.69 Est Glomerular Filtrat > 60 Rate mL/min Glucose Level 145 Calcium Level 8.8 Blood Gas Specimen Source Blood arterial Arterial Blood Date Drawn 11/06/2018 7:50:32 AM Arterial Blood pH 7.475 H (Temp corrected) Arterial Blood pCO2 36.3 (Temp correct) Arterial Blood pO2 83.2 (Temp corrected) Arterial Blood HCO3 26.1 H Arterial Blood Base Excess 2.7 Arterial Blood 96.2 Oxygen Saturation William Test ACCEPTAB Arterial Blood Gas Right Radial Puncture Site Arterial 0.5 Blood Carboxyhemoglobin Arterial Blood 0.5 Methemoglobin Blood Gas A-a O2 88.1 H Differential Oxyhemoglobin Percent 95.2 Blood Gas Temperature 37.0 Blood Gas Respiration Rate 14.0 Blood Gas Actual 19 Respiration Rate Blood Gas Modality VENT - AC FiO2 30.0 Blood Gas Tidal Volume 500.0 Blood Gas Low PEEP Setting 5.0 Blood Gas Notified Whom TM Blood Gas Notified Time 11/06/2018 8:05:10 AM Lab Scanned Report REFERENCE LAB Medications Current Medications IV Flush (NS 3 ml) 3 ml PER PROTOCOL IV ; Start 11/02/18 at 13:30 Ondansetron HCl (Zofran Inj) 4 mg Q6H PRN IV NAUSEA/VOMITING; Start 11/02/18 at 13:30 Acetaminophen (Tylenol Tab) 650 mg Q6H PRN PO .PAIN 1-3 OR TEMP Last administered on 11/06/18at 04:28; Admin Dose 650 MG; Start 11/02/18 at 13:30 Acetaminophen/ Hydrocodone Bitart ([place] (5/325)) 1 tab Q6H PRN PO .MOD PAIN 4- 6; Start 11/02/18 at 13:30 Docusate Sodium (Colace) 100 mg Q12H PRN PO .CONSTIPATION; Start 11/02/18 at 13 :30 Magnesium Hydroxide (Milk Of Mag) 30 ml DAILY PRN PO .CONSTIPATION; Start 11/02/18 at 13:30 Sodium Chloride 1,000 ml @ 75 mls/hr [id number] IV Last administered on 11/06/18at 10:19; Admin Dose 75 MLS/HR; Start 11/02/18 at 13:30 Lorazepam (Ativan) 0.5 mg Q6H PRN IV ANXIETY; Start 11/02/18 at 13:30 Albuterol/ Ipratropium (Duoneb) 3 ml Q4H RESP THERAPY PRN HHN SHORTNESS OF BREATH; Start 11/02/18 at 13:30 Hydralazine HCl (Apresoline) 10 mg Q4H PRN IV ELEVATED BLOOD PRESSURE Last administered on 11/06/18 03:41; Admin Dose 10 MG; Start 11/02/18 at 13:30 Nitroglycerin (Nitroglycerin (Sl Tab) 0.4 Mg) 1 tab Q5M PRN SL ANGINA; Start 11/02/18 at 13:30 Labetalol HCl (Labetalol) 10 mg Q10M PRN IV ELEVATED BLOOD PRESSURE; Start 11/02/18 at 13:30 Docusate Sodium (Colace) 100 mg BID PO Last administered on 11/06/18 08:30; Admin Dose 100 MG; Start 11/02/18 at 21:00 Amlodipine Besylate (Norvasc) 10 mg DAILY PO Last administered on 11/06/18 08:30; Admin Dose 10 MG; Start 11/03/18 at 09:00 Benazepril HCl (Lotensin) 40 mg DAILY PO Last administered on 11/06/18 08:29; Admin Dose 40 MG; Start 11/03/18 at 09:00 Carvedilol (Coreg) 25 mg BID PO Last administered on 11/06/18 08:30; Admin Dos e 25 MG; Start 11/02/18 at 21:00 Nicotine (Nicoderm 21 Mg/ 24hr) 1 patch DAILY TRANSDERM Last administered on 11/06/18 08:29; Admin Dose 1 PATCH; Start 11/02/18 at 16:30 Propofol 100 ml @ 2.445 mls/ hr Q12H IV Last administered on 11/03/18 03:15; Admin Dose 12.225 MLS/HR; Start 11/02/18 at 21:00 Nicardipine HCl 50 mg/Sodium Chloride 500 ml @ 50 mls/hr TITRATE IV Last administered on 11/05/18 00:27; Admin Dose 50 MLS/HR; Start 11/03/18 at 05:00 Lorazepam (Ativan) 1 mg Q10MIN PRN IV Seizures Last administered on 11/03/18at 21:49; Admin Dose 1 MG; Start 11/03/18 at 21:00 Famotidine (Pepcid) 20 mg Q12 PO Last administered on 11/06/18at 08:29; Admin Dose 20 MG; Start 11/04/18 at 21:00 Morphine Sulfate (morphine) 6 mg Q4H PRN PO SEVERE PAIN LEVEL 7-10; Start 11/04/18 at 12:00 Assessment/Plan Hospital Course (Demo Recall) Assessment 1. Acute pontine bleed. 2. Severe encephalopathy 3. Respiratory failure secondary to above Plan 1. Continue mechanical ventilation 2. Neurosurgical recommendations very poor prognosis noted. 3. Continue supportive care. 4. Continue tube feeding Discussed with family at bedside. Would need to proceed with tracheostomy and PEG tube placement if family wish to continue current level of care. Family made aware. Patient's states he wishes to continue all supportive measures. I therefore requested PEG tube and tracheostomy placement. VARGHESE GREY MD, [facility] Nov 06, 2018 10:54
--- NOTE | 2018-11-06 14:22 | CONS ---
Assessment/Plan Assessment/Plan Assessment/Plan (Daily) Assessment: Dysphagia Altered mental status Status post ICH/pontine hemorrhage Hypertension Everyday smoker Plan: Plan for tracheostomy in the near future if not extubated will Family deciding on PEG placement Tentatively plan PEG placement for Friday if everyone agrees Patient seen in collaboration with Consultation Date/Type/Reason Admit Date/Time Nov 02, 2018 at 13:13 Date of Consultation: Nov 06, 2018 Type of Consult GI Reason for Consultation This is a 53-year-old male with history of hypertension who was admitted for altered mental status secondary to intracranial hemorrhage (pontine hemorrhage). Unable to extubate patient due to neurological status. GI consult was requested for possible PEG placement. There is no evidence of nausea, vomiting, hematemesis hematochezia or fever. Discussed procedure with the family at the bedside. All questions have been answered. The family is agreeable to the procedure but would like to give it more time to decide since the patient is becoming more responsive. Sedation has been discontinued. Patient opens his eyes and according to the family follows some commands. We will revisit over the weekend. Tentatively plan for PEG placement on Friday if the family is agreeable. Date/Time of Note DATE: 11/06/18 TIME: 14:13 Gastrointestinal: no complaints (See HPI) Past Medical History Hypertension Home Meds Reported Medications Trazodone Hcl* (Trazodone Hcl*) 100 Mg Tablet, 100 MG PO QHS, #30 TAB 02/24/17 Benazepril Hcl* (Benazepril Hcl*) 40 Mg Tablet, 40 MG PO DAILY, #30 TAB 02/24/17 Amlodipine Besylate* (Amlodipine Besylate*) 10 Mg Tablet, 10 MG PO DAILY, #30 TAB 02/24/17 Carvedilol* (Carvedilol*) 25 Mg Tablet, 25 MG PO BID, #60 TAB 02/24/17 Lorazepam* (Ativan*) 2 Mg Tablet, 2 MG PO HS PRN for SLEEP, #30 TAB 02/24/17 Medications Current Medications IV Flush (NS 3 ml) 3 ml PER PROTOCOL IV ; Start 11/02/18 at 13:30 Ondansetron HCl (Zofran Inj) 4 mg Q6H PRN IV NAUSEA/VOMITING; Start 11/02/18 at 13:30 Acetaminophen (Tylenol Tab) 650 mg Q6H PRN PO .PAIN 1-3 OR TEMP Last administered on 11/06/18 04:28; Admin Dose 650 MG; Start 11/02/18 at 13:30 Acetaminophen/ Hydrocodone Bitart ([place] (5/325)) 1 tab Q6H PRN PO .MOD PAIN 4- 6; Start 11/02/18 at 13:30 Docusate Sodium (Colace) 100 mg Q12H PRN PO .CONSTIPATION; Start 11/02/18 at 13:30 Magnesium Hydroxide (Milk Of Mag) 30 ml DAILY PRN PO .CONSTIPATION; Start 11/02/18 at 13:30 Sodium Chloride 1,000 ml @ 75 mls/hr [id number] IV Last administered on 11/06/18at 10:19; Admin Dose 75 MLS/HR; Start 11/02/18 at 13:30 Lorazepam (Ativan) 0.5 mg Q6H PRN IV ANXIETY; Start 11/02/18 at 13:30 Albuterol/ Ipratropium (Duoneb) 3 ml Q4H RESP THERAPY PRN HHN SHORTNESS OF BREATH; Start 11/02/18 at 13:30 Hydralazine HCl (Apresoline) 10 mg Q4H PRN IV ELEVATED BLOOD PRESSURE Last administered on 11/06/18at 14:06; Admin Dose 10 MG; Start 11/02/18 at 13:30 Nitroglycerin (Nitroglycerin (Sl Tab) 0.4 Mg) 1 tab Q5M PRN SL ANGINA; Start 11/02/18 at 13:30 Labetalol HCl (Labetalol) 10 mg Q10M PRN IV ELEVATED BLOOD PRESSURE; Start 11/02/18 at 13:30 Docusate Sodium (Colace) 100 mg BID PO Last administered on 11/06/18 08:30; Admin Dose 100 MG; Start 11/02/18 at 21:00 Amlodipine Besylate (Norvasc) 10 mg DAILY PO Last administered on 11/06/18at 08:30; Admin Dose 10 MG; Start 11/03/18 at 09:00 Benazepril HCl (Lotensin) 40 mg DAILY PO Last administered on 11/06/18at 08:29; Admin Dose 40 MG; Start 11/03/18 at 09:00 Carvedilol (Coreg) 25 mg BID PO Last administered on 11/06/18 08:30; Admin Dose 25 MG; Start 11/02/18 at 21:00 Nicotine (Nicoderm 21 Mg/ 24hr) 1 patch DAILY TRANSDERM Last administered on 11/06/18 08:29; Admin Dose 1 PATCH; Start 11/02/18 at 16:30 Propofol 100 ml @ 2.445 mls/ hr Q12H IV Last administered on 11/03/18at 03:15; Admin Dose 12.225 MLS/HR; Start 11/02/18 at 21:00 Nicardipine HCl 50 mg/Sodium Chloride 500 ml @ 50 mls/hr TITRATE IV Last a dministered on 11/05/18 00:27; Admin Dose 50 MLS/HR; Start 11/03/18 at 05:00 Lorazepam (Ativan) 1 mg Q10MIN PRN IV Seizures Last administered on 11/03/18at 21:49; Admin Dose 1 MG; Start 11/03/18 at 21:00 Famotidine (Pepcid) 20 mg Q12 PO Last administered on 11/06/18 08:29; Admin Dose 20 MG; Start 11/04/18 at 21:00 Morphine Sulfate (morphine) 6 mg Q4H PRN PO SEVERE PAIN LEVEL 7-10; Start 11/04/18 at 12:00 Allergies: Coded Allergies: No Known Allergy (Unverified , 02/24/17) Past Surgical History Past Surgical Hx: other (Neck) Social History Alcohol Use: none Smoking Status: Current every day smoker Drug Use: none Exam/Review of Systems Exam Vitals Vital Signs Date Temp Pulse Resp B/P (MAP) Pulse Ox O2 O2 Flow FiO2 Time Delivery Rate 11/06/18 83 22 130/86 13:30 (101) 11/06/18 100 Mechanical 13:00 Ventilator 11/06/18 30 13:00 11/06/18 99.6 12:00 11/02/18 2 12:17 Intake and Output 11/05/18 11/05/18 11/06/18 1414:59 22:59 06:59 IntakeIntake Total 940 ml 1030 ml 1100 ml OutputOutput Total 270 ml 470 ml 550 ml BalanceBalance 670 ml 560 ml 550 ml Exam PHYSICAL EXAMINATION: GENERAL: Well developed, well nourished, intubated, on the ventilator, in no acute distress SKIN: No lesions, no stigmata chronic liver disease, no evidence of bleeding diathesis LYMPHATIC: No palpable lymphadenopathy. HEAD: Normocephalic, atraumatic, no tenderness. EYES: Pupils equal reactive to light and accommodation, full extraocular movements, sclera clear, non-icteric, no discharge. EARS/NOSE AND THROAT: Ears normal, nose normal, oropharynx normal, oral membranes well hydrated without lesions. OG in place with continuous feeding in progress. NECK: Supple, no masses, thyroid normal, JVP within normal limits, carotids normal without bruits. CHEST: Inspection within normal limits. CARDIOVASCULAR: Heart: Regular rate and rhythm, no murmurs, gallops or rubs. Peripheral pulses present within normal limits, no cyanosis, clubbing or edemas. No pulsatile abdominal mass RESPIRATORY: Lungs clear to auscultation and percussion, no wheezing, no rubs GASTROINTESTINAL AND LIVER: Abdomen: Soft, non tenderness, non-distended, no hernias, no masses, no organomegaly, no ascites, no guarding, no rebound tenderness, normoactive bowel sounds. Rectal: Deferred. GENITOURINARY: Male genitalia within normal limits. Riddle catheter in place EXTREMITIES: No cyanosis, clubbing or edema. Results Result Diagram: 11/06/18 0554 11/06/18 0554 Results 24hrs Laboratory Tests Test 11/06/18 05:54 11/06/18 08:00 11/06/18 09:41 White Blood Count 12.5 H Red Blood Count 4.05 L Hemoglobin 12.3 L Hematocrit 37.7 L Mean Corpuscular Volume 93.1 Mean Corpuscular 30.4 Hemoglobin Mean Corpuscular 32.6 Hemoglobin Concent Red Cell Distribution 12.8 Width Platelet Count 219 Mean Platelet Volume 10.1 Immature Granulocytes % 0.600 H Neutrophils % 83.2 H Lymphocytes % 7.2 L Monocytes % 7.8 Eosinophils % 0.9 Basophils % 0.3 Nucleated Red Blood Cells 0.0 % Immature Granulocytes # 0.070 H Neutrophils # 10.4 H Lymphocytes # 0.9 Monocytes # 1.0 H Eosinophils # 0.1 Basophils # 0.0 Nucleated Red Blood Cells 0.0 # Sodium Level 136 Potassium Level 3.6 Chloride Level 100 Carbon Dioxide Level 28 Anion Gap 8 Blood Urea Nitrogen 15 Creatinine 0.69 Est Glomerular Filtrat > 60 Rate mL/min Glucose Level 145 Calcium Level 8.8 Blood Gas Specimen Source Blood arterial Arterial Blood Date Drawn 11/06/2018 7:50:32 AM Arterial Blood pH 7.475 H (Temp corrected) Arterial Blood pCO2 36.3 (Temp correct) Arterial Blood pO2 83.2 (Temp corrected) Arterial Blood HCO3 26.1 H Arterial Blood Base Excess 2.7 Arterial Blood 96.2 Oxygen Saturation William Test ACCEPTAB Arterial Blood Gas Right Radial Puncture Site Arterial 0.5 Blood Carboxyhemoglobin Arterial Blood 0.5 Methemoglobin Blood Gas A-a O2 88.1 H Differential Oxyhemoglobin Percent 95.2 Blood Gas Temperature 37.0 Blood Gas Respiration Rate 14.0 Blood Gas Actual 19 Respiration Rate Blood Gas Modality VENT - AC FiO2 30.0 Blood Gas Tidal Volume 500.0 Blood Gas Low PEEP Setting 5.0 Blood Gas Notified Whom TM Blood Gas Notified Time 11/06/2018 8:05:10 AM Lab Scanned Report REFERENCE LAB Medications Medication Current Medications IV Flush (NS 3 ml) 3 ml PER PROTOCOL IV ; Start 11/02/18 at 13:30 Ondansetron HCl (Zofran Inj) 4 mg Q6H PRN IV NAUSEA/VOMITING; Start 11/02/18 at 13:30 Acetaminophen (Tylenol Tab) 650 mg Q6H PRN PO .PAIN 1-3 OR TEMP Last administered on 11/06/18at 04:28; Admin Dose 650 MG; Start 11/02/18 at 13:30 Acetaminophen/ Hydrocodone Bitart ([place] (5/325)) 1 tab Q6H PRN PO .MOD PAIN 4- 6; Start 11/02/18 at 13:30 Docusate Sodium (Colace) 100 mg Q12H PRN PO .CONSTIPATION; Start 11/02/18 at 13:30 Magnesium Hydroxide (Milk Of Mag) 30 ml DAILY PRN PO .CONSTIPATION; Start 11/02/18 at 13:30 Sodium Chloride 1,000 ml @ 75 mls/hr [id number] IV Last administered on 11/06/18at 10:19; Admin Dose 75 MLS/HR; Start 11/02/18 at 13:30 Lorazepam (Ativan) 0.5 mg Q6H PRN IV ANXIETY; Start 11/02/18 at 13:30 Albuterol/ Ipratropium (Duoneb) 3 ml Q4H RESP THERAPY PRN HHN SHORTNESS OF BREATH; Start 11/02/18 at 13:30 Hydralazine HCl (Apresoline) 10 mg Q4H PRN IV ELEVATED BLOOD PRESSURE Last administered on 11/06/18 14:06; Admin Dose 10 MG; Start 11/02/18 at 13:30 Nitroglycerin (Nitroglycerin (Sl Tab) 0.4 Mg) 1 tab Q5M PRN SL ANGINA; Start 11/02/18 at 13:30 Labetalol HCl (Labetalol) 10 mg Q10M PRN IV ELEVATED BLOOD PRESSURE; Start 11/02/18 at 13:30 Docusate Sodium (Colace) 100 mg BID PO Last administered on 11/06/18 08:30; Admin Dose 100 MG; Start 11/02/18 at 21:00 Amlodipine Besylate (Norvasc) 10 mg DAILY PO Last administered on 11/06/18 08:30; Admin Dose 10 MG; Start 11/03/18 at 09:00 Benazepril HCl (Lotensin) 40 mg DAILY PO Last administered on 11/06/18 08:29; Admin Dose 40 MG; Start 11/03/18 at 09:00 Carvedilol (Coreg) 25 mg BID PO Last administered on 11/06/18 08:30; Admin Dose 25 MG; Start 11/02/18 at 21:00 Nicotine (Nicoderm 21 Mg/ 24hr) 1 patch DAILY TRANSDERM Last administered on 11/06/18 08:29; Admin Dose 1 PATCH; Start 11/02/18 at 16:30 Propofol 100 ml @ 2.445 mls/ hr Q12H IV Last administered on 11/03/18 03:15; Admin Dose 12.225 MLS/HR; Start 11/02/18 at 21:00 Nicardipine HCl 50 mg/Sodium Chloride 500 ml @ 50 mls/hr TITRATE IV Last administered on 11/05/18 00:27; Admin Dose 50 MLS/HR; Start 11/03/18 at 05:00 Lorazepam (Ativan) 1 mg Q10MIN PRN IV Seizures Last administered on 11/03/18 21:49; Admin Dose 1 MG; Start 11/03/18 at 21:00 Famotidine (Pepcid) 20 mg Q12 PO Last administered on 11/06/18at 08:29; Admin Dose 20 MG; Start 11/04/18 at 21:00 Morphine Sulfate (morphine) 6 mg Q4H PRN PO SEVERE PAIN LEVEL 7-10; Start 11/04/18 at 12:00 LUCY RENE NP Nov 06, 2018 14:22
--- NOTE | 2018-11-06 16:16 | CONS ---
DATE OF ADMISSION: 11/02/2018 DATE OF CONSULTATION: HISTORY OF PRESENT ILLNESS: The patient is 53 years old, status post history of hypertension, intrac ranial pontine hemorrhage, lack of communication, respiratory failure, intubation, dysphagia. The karen collier is followed by serial CT scan as well as neurosurgery evaluation. Today, the patient is tracki ng me during the exam, opens his eyes continuously, moving left upper extremity against gravity, acco mpanied by his and his sister and his parents. PHYSICAL EXAMINATION: GENERAL: Today, the patient opens his eyes spontaneously, tracking during the exam. CRANIAL NERVES: Cranial nerve II: Pupils 2 mm, reactive to light, equal on both sides. Cranial ner ves III, IV, and : Extraocular muscles intact for doll's maneuver. Cranial V and VII: Intact cor cory. Cranial VIII through XII: Could not assess. MOTOR: Moving left upper extremity against gravity. Sensation, coordination and gait could not be a ssessed. HEART: Regular rate and rhythm. LUNGS: Equal breath sounds. ABDOMEN: Soft, relaxed, nondistended. No tenderness. ASSESSMENT AND PLAN: 1. The patient is 53 years old status post pontine hemorrhage. We will follow up the patient with C AT scan in a.m. and neurosurgery for possible ventriculostomy tube. 2. Underlying pontine hemorrhage with a history of hypertension. 3. Respiratory failure in which the patient is intubated with consideration for tracheostomy and con tinuation of ventilation. 4. Dysphagia with recommendation of G-tube feeding. 5. Keep the patient under deep venous thrombosis prophylaxis as well as decubitus ulcer prophylaxis. Again, thank you for asking me to see the patient with you. Dictated By: JAI AVILA/NISHANT Conf#: [id number] DID#: [id number] CC: HECTOR STRINGER;*EndCC*
--- NOTE | 2018-11-06 19:50 | QN ---
Documentation Comment Patient doing better. Opens eyes, tracks, follows command to wiggle thumb. Still profoundly neurologically compromised at present and may need trach/ PEG. Although CT shows mildly enlarged ventricles they are stable and I do not think there is an indication to place a STAFF APPRAISER shunt presently. The patient;s expressed her preference to avoid surgery if not absolutely necessary. Given symptomatic improvement and stable CT, I do not think it is unreasonable to defer EVD unless he declines neurologically. I will follow him PRN at this point. KRISTEN PALMER MD Nov 06, 2018 19:50
--- NOTE | 2018-11-06 21:27 | CONS ---
DATE OF ADMISSION: 11/02/2018 DATE OF CONSULTATION: REASON FOR CONSULTATION: Evaluation for tracheostomy. HISTORY OF PRESENT ILLNESS: This is an unfortunate 53-year-old male admitted because of intracranial bleeding with severe encephalopathy, intubated, unable to come off the ventilator secondary to intra cranial bleeding. PAST MEDICAL HISTORY: None. ALLERGIES: NONE. SOCIAL HISTORY: No smoking, drinking or drug use. MEDICATIONS: List reviewed. PHYSICAL EXAMINATION: VITAL SIGNS: Blood pressure is 139/84, pulse is 80, respirations 18. HEENT: Normocephalic, atraumatic. PERRLA. The patient is orotracheally intubated. CARDIOVASCULAR: Regular rate and rhythm. LUNGS: Clear. ABDOMEN: Soft. EXTREMITIES: Warm. IMPRESSION: Intracranial hemorrhage. RECOMMENDATIONS: We will continue to wean the ventilator. If unable to come off the ventilator, pat ient will need tracheostomy. Discussed with the patient's family. All questions answered. Dictated By: JANIE TOPETE/NISHANT Conf#: [id number] DID#: [id number] CC: HECTOR STRINGER;*EndCC*
[2018-11-07] VITALS (51 sets, daily range): BP systolic 107–147; BP diastolic 72–99; PULSE 79–92; RESP 18–27
[2018-11-07] MEDS: AMLODIPINE 10 MG TAB PO SCH (08:08)
[2018-11-07] MEDS: FAMOTIDINE 20 MG TAB PO SCH ×2 (08:08→20:37)
[2018-11-07] MEDS: BENAZEPRIL 40 MG TAB PO SCH (08:09)
[2018-11-07] MEDS: DOCUSATE SODIUM 100 MG CAP PO SCH (08:09)
[2018-11-07] MEDS: NICOTINE (21 MG/24 HR) PATCH TRANSDERM SCH (08:09)
[2018-11-07] MEDS: PROPOFOL 100 ML IV SCH ×2 (08:44→21:00)
--- NOTE | 2018-11-07 09:48 | CONS ---
Consult Date/Type/Reason Admit Date/Time Nov 02, 2018 at 13:13 Initial Consult Date 11/03/18 Type of Consult Pulmonary Date/Time of Note DATE: 11/07/18 TIME: 09:47 Subjective Patient remains somnolent on mechanical ventilation. Neurosurgical note appreciated. Family agreeable to trach and PEG if needed. Objective Vital Signs Date Temp Pulse Resp B/P (MAP) Pulse Ox O2 O2 Flow FiO2 Time Delivery Rate 11/07/18 100.3 81 20 140/90 97 [place] 08:00 (107) l Ventilato r 11/07/18 30 05:10 Intake and Output 11/06/18 11/06/18 11/07/18 1515:00 23:00 07:00 IntakeIntake Total 1050 ml 625 ml 525 ml OutputOutput Total 595 ml 385 ml 505 ml BalanceBalance 455 ml 240 ml 20 ml Exam GENERAL: Well-nourished well-developed gentleman on mechanical ventilation VITAL SIGNS: per chart NECK: Supple. No JVD or lymphadenopathy. CARDIAC EXAM: S1, S2. No added sounds or murmurs. CHEST: clear bilaterally, No added sounds, rales or wheezes ABDOMEN: Soft, nontender. No guarding or rebound. EXTREMITIES: No cyanosis, clubbing or edema. NEUROLOGIC: Unresponsive on mechanical ventilation. Vent Setting Ventilator Support Mode: AC Fraction of Inspired Oxygen pe: 30 Positive End Expiratory Pressu: 5.0 Results/Medications Result Diagram: 11/07/18 0553 11/07/18 0551 Results 24 hrs Laboratory Tests Test 11/07/18 05:51 11/07/18 05:53 Sodium Level 136 Potassium Level 3.9 Chloride Level 97 Carbon Dioxide Level 28 Anion Gap 11 Blood Urea Nitrogen 19 Creatinine 0.77 Est Glomerular Filtrat Rate mL/min > 60 Glucose Level 124 Calcium Level 8.8 White Blood Count 10.6 Red Blood Count 3.91 L Hemoglobin 11.9 L Hematocrit 36.7 L Mean Corpuscular Volume 93.9 Mean Corpuscular Hemoglobin 30.4 Mean Corpuscular Hemoglobin Concent 32.4 Red Cell Distribution Width 13.0 Platelet Count 239 Mean Platelet Volume 10.4 Immature Granulocytes % 0.600 H Neutrophils % 76.9 Lymphocytes % 11.9 L Monocytes % 8.9 Eosinophils % 1.4 Basophils % 0.3 Nucleated Red Blood Cells % 0.0 Immature Granulocytes # 0.060 H Neutrophils # 8.1 H Lymphocytes # 1.3 Monocytes # 0.9 Eosinophils # 0.2 Basophils # 0.0 Nucleated Red Blood Cells # 0.0 Medications Current Medications IV Flush (NS 3 ml) 3 ml PER PROTOCOL IV ; Start 11/02/18 at 13:30 Ondansetron HCl (Zofran Inj) 4 mg Q6H PRN IV NAUSEA/VOMITING; Start 11/02/18 at 13:30 Acetaminophen (Tylenol Tab) 650 mg Q6H PRN PO .PAIN 1-3 OR TEMP Last administered on 11/06/18at 17:52; Admin Dose 650 MG; Start 11/02/18 at 13:30 Acetaminophen/ Hydrocodone Bitart ([place] (5/325)) 1 tab Q6H PRN PO .MOD PAIN 4- 6; Start 11/02/18 at 13:30 Docusate Sodium (Colace) 100 mg Q12H PRN PO .CONSTIPATION; Start 11/02/18 at 13:30 Magnesium Hydroxide (Milk Of Mag) 30 ml DAILY PRN PO .CONSTIPATION; Start 11/02/18 at 13:30 Sodium Chloride 1,000 ml @ 75 mls/hr [id number] IV Last administered on 11/06/18at 23:09; Admin Dose 75 MLS/HR; Start 11/02/18 at 13:30 Lorazepam (Ativan) 0.5 mg Q6H PRN IV ANXIETY; Start 11/02/18 at 13:30 Albuterol/ Ipratropium (Duoneb) 3 ml Q4H RESP THERAPY PRN HHN SHORTNESS OF BREATH; Start 11/02/18 at 13:30 Hydralazine HCl (Apresoline) 10 mg Q4H PRN IV ELEVATED BLOOD PRESSURE Last administered on 11/06/18at 18:04; Admin Dose 10 MG; Start 11/02/18 at 13:30 Nitroglycerin (Nitroglycerin (Sl Tab) 0.4 Mg) 1 tab Q5M PRN SL ANGINA; Start 11/02/18 at 13:30 Labetalol HCl (Labetalol) 10 mg Q10M PRN IV ELEVATED BLOOD PRESSURE; Start 11/02/18 at 13:30 Docusate Sodium (Colace) 100 mg BID PO Last administered on 11/07/18at 08:09; Admin Dose 100 MG; Start 11/02/18 at 21:00 Amlodipine Besylate (Norvasc) 10 mg DAILY PO Last administered on 11/07/18 08:08; Admin Dose 10 MG; Start 11/03/18 at 09:00 Benazepril HCl (Lotensin) 40 mg DAILY PO Last administered on 11/07/18 08:09; Admin Dose 40 MG; Start 11/03/18 at 09:00 Carvedilol (Coreg) 25 mg BID PO Last administered on 11/07/18 08:08; Admin Dose 25 MG; Start 11/02/18 at 21:00 Nicotine (Nicoderm 21 Mg/ 24hr) 1 patch DAILY TRANSDERM Last administered on 11/07/18 08:09; Admin Dose 1 PATCH; Start 11/02/18 at 16:30 Propofol 100 ml @ 2.445 mls/ hr Q12H IV Last administered on 11/03/18 03:15; Admin Dose 12.225 MLS/HR; Start 11/02/18 at 21:00 Nicardipine HCl 50 mg/Sodium Chloride 500 ml @ 50 mls/hr TITRATE IV Last administered on 11/05/18 00:27; Admin Dose 50 MLS/HR; Start 11/03/18 at 05:00 Lorazepam (Ativan) 1 mg Q10MIN PRN IV Seizures Last administered on 11/03/18 21:49; Admin Dose 1 MG; Start 11/03/18 at 21:00 Famotidine (Pepcid) 20 mg Q12 PO Last administered on 11/07/18 08:08; Admin Dose 20 MG; Start 11/04/18 at 21:00 Morphine Sulfate (morphine) 6 mg Q4H PRN PO SEVERE PAIN LEVEL 7-10 Last administered on 11/06/18 21:23; Admin Dose 6 MG; Start 11/04/18 at 12:00 Assessment/Plan Hospital Course (Demo Recall) Assessment 1. Acute pontine bleed. 2. Severe encephalopathy 3. Respiratory failure secondary to above Plan 1. Continue mechanical ventilation 2. Neurosurgical recommendations, repeat CT head today. Continue to observe. If not improving over this weekend would proceed to tracheostomy and PEG tube. 3. Continue supportive care. 4. Continue tube feeding Critical care time 40 minutes. VARGHESE GREY MD, [facility] Nov 07, 2018 09:48
[2018-11-07] MEDS: ACETAMINOPHEN 325 MG TAB PO PRN ×2 (10:25→16:15)
--- NOTE | 2018-11-07 13:00 | PN ---
Date/Time of Note Date/Time of Note DATE: 11/07/18 TIME: 12:59 Assessment/Plan Lines/Catheters IV Catheter Type (from Nrsg): Saline Lock Riddle in Place (from Nrsg): Yes Assessment/Plan Assessment/Plan Respiratory failure Wean for extubation Patient to have a family conference If the patient is not extubated and family agrees we will proceed with tracheostomy Subjective 24 Hr Interval Summary Constitutional: improved Pain Control: mild Exam/Review of Systems Vital Signs Vitals Vital Signs Date Temp Pulse Resp B/P (MAP) Pulse Ox O2 O2 Flow FiO2 Time Delivery Rate 11/07/18 81 21 120/78 95 11:30 (92) 11/07/18 99.8 11:15 11/07/18 Mechanical 11:00 Ventilator 11/07/18 30 05:10 Intake and Output 11/06/18 11/06/18 11/07/18 1515:00 23:00 07:00 IntakeIntake Total 1050 ml 625 ml 525 ml OutputOutput Total 595 ml 385 ml 505 ml BalanceBalance 455 ml 240 ml 20 ml Exam Eyes: nl conjunctiva, EOMI, nl lids, nl sclera ENMT: nl external ears & nose, nl lips & teeth, nl nasal mucosa & septum, mucosa pink and moist Neck: supple, non-tender Respiratory: clear to auscultation, normal air movement Cardiovascular: regular rate and rhythm, nl pulses Gastrointestinal: soft, nl liver, spleen, non-tender Musculoskeletal: nl extremities to inspection, nl gait and stance Results Result Diagram: 11/07/18 0553 11/07/18 0551 JANIE WHITEHEAD MD Nov 07, 2018 13:00
[2018-11-07] MEDS: SOD CHLORIDE 0.45% 1,000 ML IV SCH (14:28)
--- NOTE | 2018-11-07 14:34 | PN ---
Date/Time of Note Date/Time of Note DATE: 11/07/18 TIME: 14:22 Assessment/Plan VTE Prophylaxis Risk score (from Nsg)>0 risk: 6 SCD applied (from Nsg): Yes Pharmacological prophylaxis: other (scds) Lines/Catheters IV Catheter Type (from Nrsg): Peripheral IV Urinary Cath still in place: Yes Reason Cath still needed: other (indicate) (monitor output) Assessment/Plan Assessment/Plan Assessment: Dysphagia Altered mental status Status post ICH/pontine hemorrhage Hypertension Everyday smoker Plan: Family deciding on Trach/PEG Possible family meeting on Friday to discussed questionable plan for Trach/PEG Patient seen in collaboration with Subjective: Course reviewed with nursing staff Patient interviewed and examined All labs, imaging and other results reviewed The patient no over night events. Min/mod increase in residuals today- Will monitor over night- if remains stable- will increase TF to 60 ml/hr tomorrow PHYSICAL EXAMINATION: GENERAL: Well developed, well nourished, intubated, on the ventilator, in no acute distress SKIN: No lesions, no stigmata chronic liver disease, no evidence of bleeding diathesis EYES: Pupils equal reactive to light. EARS/NOSE AND THROAT: Ears normal, nose normal, oropharynx normal CHEST: Inspection within normal limits. CARDIOVASCULAR: Heart: Regular rate and rhythm RESPIRATORY: Lungs clear to auscultation. GASTROINTESTINAL AND LIVER: Abdomen: Soft, non tenderness, non-distended, no hernias, no rebound tenderness, normoactive bowel sounds. Rectal: Deferred. GENITOURINARY: Male genitalia within normal limits. Riddle catheter in place EXTREMITIES: No cyanosis, clubbing or edema. Result Diagram: 11/07/18 0553 11/07/18 0551 Results 24hrs Laboratory Tests Test 11/07/18 05:51 11/07/18 05:53 Sodium Level 136 Potassium Level 3.9 Chloride Level 97 Carbon Dioxide Level 28 Anion Gap 11 Blood Urea Nitrogen 19 Creatinine 0.77 Est Glomerular Filtrat Rate mL/min > 60 Glucose Level 124 Calcium Level 8.8 White Blood Count 10.6 Red Blood Count 3.91 L Hemoglobin 11.9 L Hematocrit 36.7 L Mean Corpuscular Volume 93.9 Mean Corpuscular Hemoglobin 30.4 Mean Corpuscular Hemoglobin Concent 32.4 Red Cell Distribution Width 13.0 Platelet Count 239 Mean Platelet Volume 10.4 Immature Granulocytes % 0.600 H Neutrophils % 76.9 Lymphocytes % 11.9 L Monocytes % 8.9 Eosinophils % 1.4 Basophils % 0.3 Nucleated Red Blood Cells % 0.0 Immature Granulocytes # 0.060 H Neutrophils # 8.1 H Lymphocytes # 1.3 Monocytes # 0.9 Eosinophils # 0.2 Basophils # 0.0 Nucleated Red Blood Cells # 0.0 Exam/Review of Systems Exam Vitals Vital Signs Date Temp Pulse Resp B/P (MAP) Pulse Ox O2 O2 Flow FiO2 Time Delivery Rate 11/07/18 84 21 112/75 95 13:30 (87) 11/07/18 100.0 [place] 13:00 l Ventilato r 11/07/18 30 08:00 Intake and Output 11/06/18 11/06/18 11/07/18 1515:00 23:00 07:00 IntakeIntake Total 1050 ml 625 ml 575 ml OutputOutput Total 595 ml 385 ml 665 ml BalanceBalance 455 ml 240 ml -90 ml Results Results 24hrs Laboratory Tests Test 11/07/18 05:51 11/07/18 05:53 Sodium Level 136 Potassium Level 3.9 Chloride Level 97 Carbon Dioxide Level 28 Anion Gap 11 Blood Urea Nitrogen 19 Creatinine 0.77 Est Glomerular Filtrat Rate mL/min > 60 Glucose Level 124 Calcium Level 8.8 White Blood Count 10.6 Red Blood Count 3.91 L Hemoglobin 11.9 L Hematocrit 36.7 L Mean Corpuscular Volume 93.9 Mean Corpuscular Hemoglobin 30.4 Mean Corpuscular Hemoglobin Concent 32.4 Red Cell Distribution Width 13.0 Platelet Count 239 Mean Platelet Volume 10.4 Immature Granulocytes % 0.600 H Neutrophils % 76.9 Lymphocytes % 11.9 L Monocytes % 8.9 Eosinophils % 1.4 Basophils % 0.3 Nucleated Red Blood Cells % 0.0 Immature Granulocytes # 0.060 H Neutrophils # 8.1 H Lymphocytes # 1.3 Monocytes # 0.9 Eosinophils # 0.2 Basophils # 0.0 Nucleated Red Blood Cells # 0.0 Medications Medication Current Medications IV Flush (NS 3 ml) 3 ml PER PROTOCOL IV ; Start 11/02/18 at 13:30 Ondansetron HCl (Zofran Inj) 4 mg Q6H PRN IV NAUSEA/VOMITING; Start 11/02/18 at 13:30 Acetaminophen (Tylenol Tab) 650 mg Q6H PRN PO .PAIN 1-3 OR TEMP Last administer ed on 11/07/18at 10:25; Admin Dose 650 MG; Start 11/02/18 at 13:30 Acetaminophen/ Hydrocodone Bitart ([place] (5/325)) 1 tab Q6H PRN PO .MOD PAIN 4- 6; Start 11/02/18 at 13:30 Docusate Sodium (Colace) 100 mg Q12H PRN PO .CONSTIPATION; Start 11/02/18 at 13:30 Magnesium Hydroxide (Milk Of Mag) 30 ml DAILY PRN PO .CONSTIPATION; Start 11/02/18 at 13:30 Sodium Chloride 1,000 ml @ 75 mls/hr [id number] IV Last administered on 11/06/18at 23:09; Admin Dose 75 MLS/HR; Start 11/02/18 at 13:30 Lorazepam (Ativan) 0.5 mg Q6H PRN IV ANXIETY; Start 11/02/18 at 13:30 Albuterol/ Ipratropium (Duoneb) 3 ml Q4H RESP THERAPY PRN HHN SHORTNESS OF BREATH; Start 11/02/18 at 13:30 Hydralazine HCl (Apresoline) 10 mg Q4H PRN IV ELEVATED BLOOD PRESSURE Last administered on 11/06/18at 18:04; Admin Dose 10 MG; Start 11/02/18 at 13:30 Nitroglycerin (Nitroglycerin (Sl Tab) 0.4 Mg) 1 tab Q5M PRN SL ANGINA; Start 11/02/18 at 13:30 Labetalol HCl (Labetalol) 10 mg Q10M PRN IV ELEVATED BLOOD PRESSURE; Start 11/02/18 at 13:30 Docusate Sodium (Colace) 100 mg BID PO Last administered on 11/07/18 08:09; Admin Dose 100 MG; Start 11/02/18 at 21:00 Amlodipine Besylate (Norvasc) 10 mg DAILY PO Last administered on 11/07/18at 08:08; Admin Dose 10 MG; Start 11/03/18 at 09:00 Benazepril HCl (Lotensin) 40 mg DAILY PO Last administered on 11/07/18 08:09; Admin Dose 40 MG; Start 11/03/18 at 09:00 Carvedilol (Coreg) 25 mg BID PO Last administered on 11/07/18 08:08; Admin Dose 25 MG; Start 11/02/18 at 21:00 Nicotine (Nicoderm 21 Mg/ 24hr) 1 patch DAILY TRANSDERM Last administered on 11/07/18 08:09; Admin Dose 1 PATCH; Start 11/02/18 at 16:30 Propofol 100 ml @ 2.445 mls/ hr Q12H IV Last administered on 11/03/18 03:15; Admin Dose 12.225 MLS/HR; Start 11/02/18 at 21:00 Nicardipine HCl 50 mg/Sodium Chloride 500 ml @ 50 mls/hr TITRATE IV Last administered on 11/05/18 00:27; Admin Dose 50 MLS/HR; Start 11/03/18 at 05:00 Lorazepam (Ativan) 1 mg Q10MIN PRN IV Seizures Last administered on 11/03/18 21:49; Admin Dose 1 MG; Start 11/03/18 at 21:00 Famotidine (Pepcid) 20 mg Q12 PO Last administered on 11/07/18 08:08; Admin Dose 20 MG; Start 11/04/18 at 21:00 Morphine Sulfate (morphine) 6 mg Q4H PRN PO SEVERE PAIN LEVEL 7-10 Last administered on 11/06/18 21:23; Admin Dose 6 MG; Start 11/04/18 at 12:00 DARLING SINGH Nov 07, 2018 14:33
[2018-11-07] MEDS: hydrALAzine 20 MG INJ IV PRN (19:04)
[2018-11-07] MEDS: LABETALOL HCL 20MG INJ IV PRN (20:37)
[2018-11-07] MEDS: DOCUSATE SODIUM 10 MG/ML (10ML CUP) NGT SCH (20:37)
[2018-11-08] VITALS (48 sets, daily range): BP systolic 108–163; BP diastolic 75–103; PULSE 78–101; RESP 12–31
[2018-11-08] MEDS: LABETALOL HCL 20MG INJ IV PRN ×2 (03:02→20:08)
[2018-11-08] MEDS: SOD CHLORIDE 0.45% 1,000 ML IV SCH ×2 (03:32→16:16)
[2018-11-08] MEDS: niCARdipine 50 MG in SOD CHLORIDE 0.9% 480 ML IV SCH (04:35)
[2018-11-08] MEDS: ACETAMINOPHEN 325 MG TAB PO PRN (06:09)
[2018-11-08] MEDS: AMLODIPINE 10 MG TAB PO SCH (08:45)
[2018-11-08] MEDS: DOCUSATE SODIUM 10 MG/ML (10ML CUP) NGT SCH ×2 (08:45→21:35)
[2018-11-08] MEDS: FAMOTIDINE 20 MG TAB PO SCH ×2 (08:45→21:35)
[2018-11-08] MEDS: NICOTINE (21 MG/24 HR) PATCH TRANSDERM SCH (08:46)
[2018-11-08] MEDS: BENAZEPRIL 40 MG TAB PO SCH (08:46)
[2018-11-08] MEDS: PROPOFOL 100 ML IV SCH ×2 (09:00→21:00)
--- NOTE | 2018-11-08 09:52 | CONS ---
Consult Date/Type/Reason Admit Date/Time Nov 02, 2018 at 13:13 Initial Consult Date 11/03/18 Type of Consult Pulmonary Date/Time of Note DATE: 11/08/18 TIME: 09:50 Subjective Patient remains somnolent on mechanical ventilation. Objective Vital Signs Date Temp Pulse Resp B/P (MAP) Pulse Ox O2 O2 Flow FiO2 Time Delivery Rate 11/08/18 91 08:00 11/08/18 100.1 131/83 94 [place] 07:00 (99) l Ventilato r 11/08/18 28 30 04:45 Intake and Output 11/07/18 11/07/18 11/08/18 1515:00 23:00 07:00 IntakeIntake Total 1050 ml 675 ml 550 ml OutputOutput Total 750 ml 850 ml 1180 ml BalanceBalance 300 ml -175 ml -630 ml Exam GENERAL: Well-nourished well-developed gentleman on mechanical ventilation VITAL SIGNS: per chart NECK: Supple. No JVD or lymphadenopathy. CARDIAC EXAM: S1, S2. No added sounds or murmurs. CHEST: clear bilaterally, No added sounds, rales or wheezes ABDOMEN: Soft, nontender. No guarding or rebound. EXTREMITIES: No cyanosis, clubbing or edema. NEUROLOGIC: Unresponsive on mechanical ventilation. Vent Setting Ventilator Support Mode: AC Fraction of Inspired Oxygen pe: 30 Positive End Expiratory Pressu: 5.0 Results/Medications Result Diagram: 11/08/18 0604 11/08/18 0604 Results 24 hrs Laboratory Tests Test 11/08/18 05:25 11/08/18 06:04 Urine Color YELLOW Urine Clarity SLIGHTLY CLOUDY A Urine pH 5.0 Urine Specific [place] 1.013 Urine Ketones NEGATIVE Urine Nitrite NEGATIVE Urine Bilirubin NEGATIVE Urine Urobilinogen 2+ H Urine Leukocyte Esterase NEGATIVE Urine Microscopic RBC 28 H Urine Microscopic WBC 3 Urine Squamous Epithelial Cells FEW Urine Mucus FEW A Urine Hemoglobin 2+ H Urine Glucose 1+ H Urine Total Protein NEGATIVE White Blood Count 11.8 H Red Blood Count 3.74 L Hemoglobin 11.5 L Hematocrit 35.5 L Mean Corpuscular Volume 94.9 Mean Corpuscular Hemoglobin 30.7 Mean Corpuscular Hemoglobin Concent 32.4 Red Cell Distribution Width 13.0 Platelet Count 264 Mean Platelet Volume 10.8 H Immature Granulocytes % 0.500 H Neutrophils % 81.6 H Lymphocytes % 8.3 L Monocytes % 7.9 Eosinophils % 1.4 Basophils % 0.3 Nucleated Red Blood Cells % 0.0 Immature Granulocytes # 0.060 H Neutrophils # 9.6 H Lymphocytes # 1.0 Monocytes # 0.9 Eosinophils # 0.2 Basophils # 0.0 Nucleated Red Blood Cells # 0.0 Sodium Level 136 Potassium Level 4.0 Chloride Level 100 Carbon Dioxide Level 27 Anion Gap 9 Blood Urea Nitrogen 20 Creatinine 0.85 Est Glomerular Filtrat Rate mL/min > 60 Glucose Level 188 Calcium Level 8.9 Medications Current Medications IV Flush (NS 3 ml) 3 ml PER PROTOCOL IV ; Start 11/02/18 at 13:30 Ondansetron HCl (Zofran Inj) 4 mg Q6H PRN IV NAUSEA/VOMITING; Start 11/02/18 at 13:30 Acetaminophen (Tylenol Tab) 650 mg Q6H PRN PO .PAIN 1-3 OR TEMP Last administered on 11/08/18at 06:09; Admin Dose 650 MG; Start 11/02/18 at 13:30 Acetaminophen/ Hydrocodone Bitart ([place] (5/325)) 1 tab Q6H PRN PO .MOD PAIN 4- 6; Start 11/02/18 at 13:30 Docusate Sodium (Colace) 100 mg Q12H PRN PO .CONSTIPATION; Start 11/02/18 at 13:30 Magnesium Hydroxide (Milk Of Mag) 30 ml DAILY PRN PO .CONSTIPATION; Start 11/02/18 at 13:30 Sodium Chloride 1,000 ml @ 75 mls/hr [id number] IV Last administered on 11/08/18at 03:32; Admin Dose 75 MLS/HR; Start 11/02/18 at 13:30 Lorazepam (Ativan) 0.5 mg Q6H PRN IV ANXIETY; Start 11/02/18 at 13:30 Albuterol/ Ipratropium (Duoneb) 3 ml Q4H RESP THERAPY PRN HHN SHORTNESS OF BREATH; Start 11/02/18 at 13:30 Hydralazine HCl (Apresoline) 10 mg Q4H PRN IV ELEVATED BLOOD PRESSURE Last admi nistered on 11/07/18at 19:04; Admin Dose 10 MG; Start 11/02/18 at 13:30 Nitroglycerin (Nitroglycerin (Sl Tab) 0.4 Mg) 1 tab Q5M PRN SL ANGINA; Start 11/02/18 at 13:30 Labetalol HCl (Labetalol) 10 mg Q10M PRN IV ELEVATED BLOOD PRESSURE Last administered on 11/08/18 03:02; Admin Dose 10 MG; Start 11/02/18 at 13:30 Amlodipine Besylate (Norvasc) 10 mg DAILY PO Last administered on 11/08/18 08:45; Admin Dose 10 MG; Start 11/03/18 at 09:00 Benazepril HCl (Lotensin) 40 mg DAILY PO Last administered on 11/08/18 08:46; Admin Dose 40 MG; Start 11/03/18 at 09:00 Carvedilol (Coreg) 25 mg BID PO Last administered on 11/08/18 08:45; Admin Dose 25 MG; Start 11/02/18 at 21:00 Nicotine (Nicoderm 21 Mg/ 24hr) 1 patch DAILY TRANSDERM Last administered on 11/08/18 08:46; Admin Dose 1 PATCH; Start 11/02/18 at 16:30 Propofol 100 ml @ 2.445 mls/ hr Q12H IV Last administered on 11/03/18 03:15; Admin Dose 12.225 MLS/HR; Start 11/02/18 at 21:00 Nicardipine HCl 50 mg/Sodium Chloride 500 ml @ 50 mls/hr TITRATE IV Last administered on 11/08/18 04:35; Admin Dose 50 MLS/HR; Start 11/03/18 at 05:00 Lorazepam (Ativan) 1 mg Q10MIN PRN IV Seizures Last administered on 11/03/18 21:49; Admin Dose 1 MG; Start 11/03/18 at 21:00 Famotidine (Pepcid) 20 mg Q12 PO Last administered on 11/08/18 08:45; Admin Dose 20 MG; Start 11/04/18 at 21:00 Morphine Sulfate (morphine) 6 mg Q4H PRN PO SEVERE PAIN LEVEL 7-10 Last administered on 11/06/18 21:23; Admin Dose 6 MG; Start 11/04/18 at 12:00 Docusate Sodium (Colace Liquid Cup) 100 mg BID NGT Last administered on 11/08/18 08:45; Admin Dose 100 MG; Start 11/07/18 at 21:00 Polyethylene Glycol (Miralax) 17 gm BID PRN PO constipation; Start 11/07/18 at 14:30 Assessment/Plan Hospital Course (Demo Recall) Assessment 1. Acute pontine bleed. Repeat CT brain noted. 2. Severe encephalopathy 3. Respiratory failure secondary to above Plan 1. Continue mechanical ventilation 2. Neurosurgical recommendations, repeat CT noted. Continue to observe. If not improving over this weekend would proceed to tracheostomy and PEG tube. 3. Continue supportive care. 4. Continue tube feeding Critical care time 40 minutes. VARGHESE GREY MD, [facility] Nov 08, 2018 09:52
--- NOTE | 2018-11-08 12:44 | PN ---
Date/Time of Note Date/Time of Note DATE: 11/08/18 TIME: 12:44 Assessment/Plan Lines/Catheters IV Catheter Type (from Nrsg): Peripheral IV Riddle in Place (from Nrsg): Yes Assessment/Plan Assessment/Plan Respiratory failure Intracranial hemorrhage Unable to come off the ventilator Patient may need tracheostomy if family is agreeable Awaiting family meeting tomorrow Subjective 24 Hr Interval Summary Constitutional: improved Pain Control: mild Exam/Review of Systems Vital Signs Vitals Vital Signs Date Temp Pulse Resp B/P (MAP) Pulse Ox O2 O2 Flow FiO2 Time Delivery Rate 11/08/18 99.7 84 23 119/84 96 Mechanical 10:00 (96) Ventilator 11/08/18 30 08:00 Intake and Output 11/07/18 11/07/18 11/08/18 1515:00 23:00 07:00 IntakeIntake Total 1050 ml 675 ml 632.5 ml OutputOutput Total 750 ml 850 ml 1180 ml BalanceBalance 300 ml -175 ml -547.5 ml Exam Eyes: nl conjunctiva, EOMI, nl lids, nl sclera ENMT: nl external ears & nose, nl lips & teeth, nl nasal mucosa & septum, mucosa pink and moist Neck: supple, non-tender Cardiovascular: regular rate and rhythm, nl pulses Gastrointestinal: soft, nl liver, spleen, non-tender Musculoskeletal: nl extremities to inspection, nl gait and stance Results Result Diagram: 11/08/18 0604 11/08/1804 JANIE WHITEHEAD MD Nov 08, 2018 12:44
--- NOTE | 2018-11-08 13:05 | PN ---
Date/Time of Note Date/Time of Note DATE: 11/08/18 TIME: 13:03 Assessment/Plan VTE Prophylaxis Risk score (from Nsg)>0 risk: 6 SCD applied (from Nsg): Yes Pharmacological prophylaxis: other (scds) Lines/Catheters IV Catheter Type (from Nrsg): Peripheral IV Urinary Cath still in place: Yes Reason Cath still needed: other (indicate) (monitor out-put) Assessment/Plan Assessment/Plan Assessment: Dysphagia Altered mental status Status post ICH/pontine hemorrhage Hypertension Everyday smoker Plan: Family deciding on Trach/PEG Possible family meeting on Friday to discussed questionable plan for Trach/PEG Increase TF to 60ml/hr Patient seen in collaboration with Subjective: Course reviewed with nursing staff Patient interviewed and examined All labs, imaging and other results reviewed The patient no over night events. Pt tolerating TF well without sig increase in residuals Will increase TF to 60ml/hr per dietary recommendations PHYSICAL EXAMINATION: GENERAL: Well developed, well nourished, intubated, on the ventilator, in no acute distress SKIN: No lesions, no stigmata chronic liver disease, no evidence of bleeding diathesis EYES: Pupils equal reactive to light. EARS/NOSE AND THROAT: Ears normal, nose normal, oropharynx normal CHEST: Inspection within normal limits. CARDIOVASCULAR: Heart: Regular rate and rhythm RESPIRATORY: Lungs clear to auscultation. GASTROINTESTINAL AND LIVER: Abdomen: Soft, non tenderness, non-distended, no hernias, no rebound tenderness, normoactive bowel sounds. Rectal: Deferred. GENITOURINARY: Male genitalia within normal limits. Riddle catheter in place EXTREMITIES: No cyanosis, clubbing or edema. Result Diagram: 11/08/18 0604 11/08/18 0604 Results 24hrs Laboratory Tests Test 11/08/18 05:25 11/08/18 06:04 Urine Color YELLOW Urine Clarity SLIGHTLY CLOUDY A Urine pH 5.0 Urine Specific [place] 1.013 Urine Ketones NEGATIVE Urine Nitrite NEGATIVE Urine Bilirubin NEGATIVE Urine Urobilinogen 2+ H Urine Leukocyte Esterase NEGATIVE Urine Microscopic RBC 28 H Urine Microscopic WBC 3 Urine Squamous Epithelial Cells FEW Urine Mucus FEW A Urine Hemoglobin 2+ H Urine Glucose 1+ H Urine Total Protein NEGATIVE White Blood Count 11.8 H Red Blood Count 3.74 L Hemoglobin 11.5 L Hematocrit 35.5 L Mean Corpuscular Volume 94.9 Mean Corpuscular Hemoglobin 30.7 Mean Corpuscular Hemoglobin Concent 32.4 Red Cell Distribution Width 13.0 Platelet Count 264 Mean Platelet Volume 10.8 H Immature Granulocytes % 0.500 H Neutrophils % 81.6 H Lymphocytes % 8.3 L Monocytes % 7.9 Eosinophils % 1.4 Basophils % 0.3 Nucleated Red Blood Cells % 0.0 Immature Granulocytes # 0.060 H Neutrophils # 9.6 H Lymphocytes # 1.0 Monocytes # 0.9 Eosinophils # 0.2 Basophils # 0.0 Nucleated Red Blood Cells # 0.0 Sodium Level 136 Potassium Level 4.0 Chloride Level 100 Carbon Dioxide Level 27 Anion Gap 9 Blood Urea Nitrogen 20 Creatinine 0.85 Est Glomerular Filtrat Rate mL/min > 60 Glucose Level 188 Calcium Level 8.9 Exam/Review of Systems Exam Vitals Vital Signs Date Temp Pulse Resp B/P (MAP) Pulse Ox O2 O2 Flow FiO2 Time Delivery Rate 11/08/18 99.7 84 23 119/84 96 Mechanical 10:00 (96) Ventilator 11/08/18 30 08:00 Intake and Output 11/07/18 11/07/18 11/08/18 1414:59 22:59 06:59 IntakeIntake Total 1050 ml 750 ml 450 ml OutputOutput Total 860 ml 780 ml 1075 ml BalanceBalance 190 ml -30 ml -625 ml Results Results 24hrs Laboratory Tests Test 11/08/18 05:25 11/08/18 06:04 Urine Color YELLOW Urine Clarity SLIGHTLY CLOUDY A Urine pH 5.0 Urine Specific [place] 1.013 Urine Ketones NEGATIVE Urine Nitrite NEGATIVE Urine Bilirubin NEGATIVE Urine Urobilinogen 2+ H Urine Leukocyte Esterase NEGATIVE Urine Microscopic RBC 28 H Urine Microscopic WBC 3 Urine Squamous Epithelial Cells FEW Urine Mucus FEW A Urine Hemoglobin 2+ H Urine Glucose 1+ H Urine Total Protein NEGATIVE White Blood Count 11.8 H Red Blood Count 3.74 L Hemoglobin 11.5 L Hematocrit 35.5 L Mean Corpuscular Volume 94.9 Mean Corpuscular Hemoglobin 30.7 Mean Corpuscular Hemoglobin Concent 32.4 Red Cell Distribution Width 13.0 Platelet Count 264 Mean Platelet Volume 10.8 H Immature Granulocytes % 0.500 H Neutrophils % 81.6 H Lymphocytes % 8.3 L Monocytes % 7.9 Eosinophils % 1.4 Basophils % 0.3 Nucleated Red Blood Cells % 0.0 Immature Granulocytes # 0.060 H Neutrophils # 9.6 H Lymphocytes # 1.0 Monocytes # 0.9 Eosinophils # 0.2 Basophils # 0.0 Nucleated Red Blood Cells # 0.0 Sodium Level 136 Potassium Level 4.0 Chloride Level 100 Carbon Dioxide Level 27 Anion Gap 9 Blood Urea Nitrogen 20 Creatinine 0.85 Est Glomerular Filtrat Rate mL/min > 60 Glucose Level 188 Calcium Level 8.9 Medications Medication Current Medications IV Flush (NS 3 ml) 3 ml PER PROTOCOL IV ; Start 11/02/18 at 13:30 Ondansetron HCl (Zofran Inj) 4 mg Q6H PRN IV NAUSEA/VOMITING; Start 11/02/18 at 13:30 Acetaminophen (Tylenol Tab) 650 mg Q6H PRN PO .PAIN 1-3 OR TEMP Last administered on 11/08/18at 06:09; Admin Dose 650 MG; Start 11/02/18 at 13:30 Acetaminophen/ Hydrocodone Bitart ([place] (5/325)) 1 tab Q6H PRN PO .MOD PAIN 4- 6; Start 11/02/18 at 13:30 Docusate Sodium (Colace) 100 mg Q12H PRN PO .CONSTIPATION; Start 11/02/18 at 13:30 Magnesium Hydroxide (Milk Of Mag) 30 ml DAILY PRN PO .CONSTIPATION; Start 11/02/18 at 13:30 Sodium Chloride 1,000 ml @ 75 mls/hr [id number] IV Last administered on 11/08/18at 03:32; Admin Dose 75 MLS/HR; Start 11/02/18 at 13:30 Lorazepam (Ativan) 0.5 mg Q6H PRN IV ANXIETY; Start 11/02/18 at 13:30 Albuterol/ Ipratropium (Duoneb) 3 ml Q4H RESP THERAPY PRN HHN SHORTNESS OF BREATH; Start 11/02/18 at 13:30 Hydralazine HCl (Apresoline) 10 mg Q4H PRN IV ELEVATED BLOOD PRESSURE Last administered on 11/07/18at 19:04; Admin Dose 10 MG; Start 11/02/18 at 13:30 Nitroglycerin (Nitroglycerin (Sl Tab) 0.4 Mg) 1 tab Q5M PRN SL ANGINA; Start 11/02/18 at 13:30 Labetalol HCl (Labetalol) 10 mg Q10M PRN IV ELEVATED BLOOD PRESSURE Last administered on 11/08/18 03:02; Admin Dose 10 MG; Start 11/02/18 at 13:30 Amlodipine Besylate (Norvasc) 10 mg DAILY PO Last administered on 11/08/18 08:45; Admin Dose 10 MG; Start 11/03/18 at 09:00 Benazepril HCl (Lotensin) 40 mg DAILY PO Last administered on 11/08/18 08:46; Admin Dose 40 MG; Start 11/03/18 at 09:00 Carvedilol (Coreg) 25 mg BID PO Last administered on 11/08/18 08:45; Admin Dose 25 MG; Start 11/02/18 at 21:00 Nicotine (Nicoderm 21 Mg/ 24hr) 1 patch DAILY TRANSDERM Last administered on 11/08/18 08:46; Admin Dose 1 PATCH; Start 11/02/18 at 16:30 Propofol 100 ml @ 2.445 mls/ hr Q12H IV Last administered on 11/03/18 03:15; Admin Dose 12.225 MLS/HR; Start 11/02/18 at 21:00 Nicardipine HCl 50 mg/Sodium Chloride 500 ml @ 50 mls/hr TITRATE IV Last administered on 11/08/18 04:35; Admin Dose 50 MLS/HR; Start 11/03/18 at 05:00 Lorazepam (Ativan) 1 mg Q10MIN PRN IV Seizures Last administered on 11/03/18 21:49; Admin Dose 1 MG; Start 11/03/18 at 21:00 Famotidine (Pepcid) 20 mg Q12 PO Last administered on 11/08/18 08:45; Admin Dose 20 MG; Start 11/04/18 at 21:00 Morphine Sulfate (morphine) 6 mg Q4H PRN PO SEVERE PAIN LEVEL 7-10 Last administered on 11/06/18 21:23; Admin Dose 6 MG; Start 11/04/18 at 12:00 Docusate Sodium (Colace Liquid Cup) 100 mg BID NGT Last administered on 11/08/18 08:45; Admin Dose 100 MG; Start 11/07/18 at 21:00 Polyethylene Glycol (Miralax) 17 gm BID PRN PO constipation; Start 11/07/18 at 14:30 DARLING SINGHb 17, 2019 13:05
[2018-11-08] MEDS ORDERED: VANCOMYCIN IV PER PHARMACY XX SCH (16:00)
[2018-11-08] MEDS: POLYETHYLENE GLYCOL 17 GM PACKET PO PRN (16:50)
[2018-11-08] MEDS: hydrALAzine 20 MG INJ IV PRN (17:04)
[2018-11-08] MEDS: PIPER-TAZO 3.375 GM IV (PMX) 100 ML IVPB SCH (17:04)
[2018-11-08] MEDS ORDERED: VANCOMYCIN HCL 1.75 GM in SOD CHLORIDE 0.9% 500 ML IVPB SCH (17:30)
--- NOTE | 2018-11-08 19:13 | CONS ---
DATE OF ADMISSION: 11/02/2018 DATE OF CONSULTATION: LOCATION: The patient is in ICU room 102. HISTORY OF PRESENT ILLNESS: The patient is 53 years male with a past medical history of hypertension in which the patient has a sudden onset of loss of consciousness, admitted to [facility] in which he had a CT scan shows pontine hemorrhage. Neurosurgeon, Dr. Nguyen, was consulted. The patient was intubated and was admitted to intensive care unit for continuation of his treatment in which I get a call about him. CURRENT MEDICATIONS: Include: 1. Colace 100 mg twice a day as needed. 2. Pepcid 20 mg once a day as needed. 3. Morphine 6 mg as needed. 4. Ativan 1 mg as needed. 5. Norvasc 10 mg once a day as needed. 6. Lotensin 40 mg once a day. 7. Coreg 25 mg twice a day. 8. Zofran 4 mg every 4 hours as needed. 9. Tylenol 650 mg every 6 hours as needed. PHYSICAL EXAMINATION: GENERAL: Today, the patient does not follow any verbal commands. CRANIAL NERVES: Cranial nerve II: Pupils are equal on both sides. Cranial III, IV and : Extraoc ular muscles are intact for doll's maneuver. Cranial nerves V and VII: Intact corneal reflex. Cran ial VIII through XII: Could not assess. MOTOR: Slight movement in the right upper extremity. Sensation, coordination and gait could not ass ess. HEART: Regular rate and rhythm. LUNGS: Equal breath sounds. ABDOMEN: Soft, relaxed, nondistended. No tenderness. ASSESSMENT AND PLAN: 1. The patient is 53 years old male status post pontine hemorrhage, in which the patient was at [facility] care unit followed by neurosurgery consult. 2. Status post hypertension. Keep the blood pressure at the level of 140/90. 3. Status post respiratory failure in which the patient was intubated in which we might do for him t racheostomy. 4. History of dysphagia. Might start him on PEG tube. 5. Keep the patient under deep venous thrombosis prophylaxis and decubitus ulcer prophylaxis. Again, thank you for asking me to see the patient with you. Dictated By: JAI AVILA/NISHANT Conf#: [id number] DID#: [id number] CC: HECTOR [employer]INGER;*EndCC*
[2018-11-09] VITALS (38 sets, daily range): BP systolic 119–148; BP diastolic 77–106; PULSE 77–91; RESP 18–30
[2018-11-09] MEDS: ACETAMINOPHEN 325 MG TAB PO PRN (00:38)
[2018-11-09] MEDS: PIPER-TAZO 3.375 GM IV (PMX) 100 ML IVPB SCH ×3 (03:15→18:17)
[2018-11-09] MEDS: VANCOMYCIN HCL 1.5 GM in SOD CHLORIDE 0.9% 250 ML IVPB SCH ×2 (06:05→18:17)
--- NOTE | 2018-11-09 07:07 | CONS ---
DATE OF ADMISSION: 11/02/2018 DATE OF CONSULTATION: HISTORY OF PRESENT ILLNESS: The patient is 53 years old status post history of hypertension, intracr anial hemorrhage, pontine hemorrhage, respiratory failure, intubation, dysphagia, in which the patien t has multiple CT scans followed by neurosurgeon. PHYSICAL EXAMINATION: GENERAL: Today, the patient has some movement in his bilateral upper extremity, does not follow simp le commands. CRANIAL NERVES: Cranial nerve II: Pupils 2 mm, reactive to light, equal on both sides. Cranial ner ves III, IV, and : Extraocular muscles intact for doll's maneuver. Cranial nerves V and VII: Int act corneal reflex. Cranial VIII through XII: Could not assess. MOTOR: Some movement in bilateral upper extremities. Sensation, coordination and gait could not ass ess. CARDIOVASCULAR: Regular rate and rhythm. LUNGS: Equal breath sounds. ABDOMEN: Soft, relaxed, nondistended. No tenderness. ASSESSMENT AND PLAN: 1. The patient is 53 years old male status post pontine hemorrhage. We will follow up the patient w ith CT scan and neurosurgery. 2. History of hypertension. We will keep the blood pressure at the level of 140/90. 3. Respiratory failure in which the patient intubated under ventilation in which the family agreed t o have tracheostomy after discussion with his , as well as his sister and his [id number] and his parents. Noted the family agreed to have the procedure done. I communicated with Dr. Kessler, Dr. Jeronimo and agree to have Dr. Ward to do for him the tracheostomy. 4. Dysphagia. We will follow up the patient with PEG tube. 5. We will follow up the patient with bedside rehabilitation and will keep the patient under deep ve nous thrombosis prophylaxis as well as decubitus ulcer prophylaxis. Dictated By: JAI AVILA/NISHANT Conf#: [id number] DID#: [id number]
[2018-11-09] MEDS: PROPOFOL 100 ML IV SCH (09:00)
[2018-11-09] MEDS: DOCUSATE SODIUM 10 MG/ML (10ML CUP) NGT SCH ×2 (09:06→20:44)
[2018-11-09] MEDS: POLYETHYLENE GLYCOL 17 GM PACKET PO PRN ×2 (09:06→20:44)
[2018-11-09] MEDS: FAMOTIDINE 20 MG TAB PO SCH ×2 (09:07→20:44)
[2018-11-09] MEDS: NICOTINE (21 MG/24 HR) PATCH TRANSDERM SCH (09:07)
[2018-11-09] MEDS: BENAZEPRIL 40 MG TAB PO SCH (09:07)
[2018-11-09] MEDS: AMLODIPINE 10 MG TAB PO SCH (09:08)
[2018-11-09] MEDS: SOD CHLORIDE 0.45% 1,000 ML IV SCH ×2 (09:09→13:08)
--- NOTE | 2018-11-09 10:59 | PN ---
Date/Time of Note Date/Time of Note DATE: 11/09/18 TIME: 10:52 Assessment/Plan VTE Prophylaxis Risk score (from Nsg)>0 risk: 5 SCD applied (from Ns): Yes Pharmacological prophylaxis: NA/contraindicated Pharm contraindication: bleeding Lines/Catheters IV Catheter Type (from Nrsg): Peripheral IV Urinary Cath still in place: Yes Reason Cath still needed: other (indicate) (intubated) Assessment/Plan Assessment/Plan 53-year-old male history of smoking hypertension who presents with headache and blurry vision found with altered level of consciousness likely secondary to ICH/pontine hemorrhage. #Altered level of consciousness: - Again patient is intubated, secondary to the pontine hemorrhage found on his head scan. - The latest head CT showed no significant changes in the size of the bleed compared to the head CT that was performed 12 hours before that. - Continue care in ICU, neuro checks every 4 hours, obviously continue to hold all anticoagulants. - Continue on p.o. blood pressure medicines, goal 140/90 - Statins can increase the risk of future ICH and have no proven benefit in cerebral bleeds. Will not start. - Per neurosurgery, no intervention indicated for this hemorrhage at this time, unless hydrocephalus becomes an issue (ie: ventriculostomy tube?) - Tube feeds - Family understands very poor chance of meaningful neurologic recovery and wants to proceed with trach and PEG. #Smoking history: Nicotine patch. # HTN: stable now, again want to keep blood pressure less than 140 systolic given the intracranial hemorrhage/pontine hemorrhage. Dispo: Overall likely poor prognosis. Palliative care team has been consulted as well. Again some of the family members want to wait on final decision about trach and PEG, although again the who appears to be the primary decision maker, wants to go ahead and proceed with this so as mentioned above we will go ahead and consult CTS and GI for their input. Critical care time spent on patient care today equals 50 minutes. Result Diagram: 11/09/1843411/09/18434 Subjective 24 Hr Interval Summary Free Text/Dictation No acute overnight events. According to family at bedside, family was moving head. Nurse cannot verify this. Family did confirm she does want trach and PEG for the patient. Exam/Review of Systems Exam Vitals Vital Signs Date Temp Pulse Resp B/P (MAP) Pulse Ox O2 O2 Flow FiO2 Time Delivery Rate 11/09/18 84 25 130/89 96 Mechanical 10:00 (103) Ventilator 11/09/18 30 09:07 11/09/18 99.5 08:00 Intake and Output 11/08/18 11/08/18 11/09/18 1515:00 23:00 07:00 IntakeIntake Total 1337.5 ml 1580 ml 1180 ml OutputOutput Total 900 ml 1325 ml 1150 ml BalanceBalance 437.5 ml 255 ml 30 ml Exam General: Well developed man intubated, unresponsive. Head: Normocephalic, atraumatic. Eyes: Strabismus of the left eye ENT: Moist mucous membranes Neck: Supple, no lymphadenopathy Respiratory: Lungs clear bilaterally, no distress Cardiovascular: RRR, no murmurs, rubs, or gallops Abdominal: Soft, non-tender, non-distended, no peritoneal signs MSK: No edema Neurologic: Patient opens eyes to stimulation. Vertical movement, no horizontal movement of eyes. No tracking. No response to sternal rub. No other movement of face or extremities. Medications Medication Current Medications IV Flush (NS 3 ml) 3 ml PER PROTOCOL IV ; Start 11/02/18 at 13:30 Ondansetron HCl (Zofran Inj) 4 mg Q6H PRN IV NAUSEA/VOMITING; Start 11/02/18 at 13:30 Acetaminophen (Tylenol Tab) 650 mg Q6H PRN PO .PAIN 1-3 OR TEMP Last administ ered on 11/09/18at 00:38; Admin Dose 650 MG; Start 11/02/18 at 13:30 Acetaminophen/ Hydrocodone Bitart ([place] (5/325)) 1 tab Q6H PRN PO .MOD PAIN 4- 6; Start 11/02/18 at 13:30 Docusate Sodium (Colace) 100 mg Q12H PRN PO .CONSTIPATION; Start 11/02/18 at 13:30 Magnesium Hydroxide (Milk Of Mag) 30 ml DAILY PRN PO .CONSTIPATION Last administered on 11/08/18at 16:50; Admin Dose 30 ML; Start 11/02/18 at 13:30 Sodium Chloride 1,000 ml @ 75 mls/hr [id number] IV Last administered on 11/08/18at 16:16; Admin Dose 75 MLS/HR; Start 11/02/18 at 13:30 Lorazepam (Ativan) 0.5 mg Q6H PRN IV ANXIETY; Start 11/02/18 at 13:30 Albuterol/ Ipratropium (Duoneb) 3 ml Q4H RESP THERAPY PRN HHN SHORTNESS OF BREATH; Start 11/02/18 at 13:30 Hydralazine HCl (Apresoline) 10 mg Q4H PRN IV ELEVATED BLOOD PRESSURE Last admi nistered on 11/08/18 17:04; Admin Dose 10 MG; Start 11/02/18 at 13:30 Nitroglycerin (Nitroglycerin (Sl Tab) 0.4 Mg) 1 tab Q5M PRN SL ANGINA; Start 11/02/18 at 13:30 Labetalol HCl (Labetalol) 10 mg Q10M PRN IV ELEVATED BLOOD PRESSURE Last administered on 11/08/18 20:08; Admin Dose 10 MG; Start 11/02/18 at 13:30 Amlodipine Besylate (Norvasc) 10 mg DAILY PO Last administered on 11/09/18 09:08; Admin Dose 10 MG; Start 11/03/18 at 09:00 Benazepril HCl (Lotensin) 40 mg DAILY PO Last administered on 11/09/18 09:07; Admin Dose 40 MG; Start 11/03/18 at 09:00 Carvedilol (Coreg) 25 mg BID PO Last administered on 11/09/18 09:08; Admin Dose 25 MG; Start 11/02/18 at 21:00 Nicotine (Nicoderm 21 Mg/ 24hr) 1 patch DAILY TRANSDERM Last administered on 11/09/18 09:07; Admin Dose 1 PATCH; Start 11/02/18 at 16:30 Propofol 100 ml @ 2.445 mls/ hr Q12H IV Last administered on 11/03/18 03:15; Admin Dose 12.225 MLS/HR; Start 11/02/18 at 21:00 Nicardipine HCl 50 mg/Sodium Chloride 500 ml @ 50 mls/hr TITRATE IV Last administered on 11/08/18 04:35; Admin Dose 50 MLS/HR; Start 11/03/18 at 05:00 Lorazepam (Ativan) 1 mg Q10MIN PRN IV Seizures Last administered on 11/03/18 21:49; Admin Dose 1 MG; Start 11/03/18 at 21:00 Famotidine (Pepcid) 20 mg Q12 PO Last administered on 11/09/18 09:07; Admin Dose 20 MG; Start 11/04/18 at 21:00 Morphine Sulfate (morphine) 6 mg Q4H PRN PO SEVERE PAIN LEVEL 7-10 Last administered on 11/06/18 21:23; Admin Dose 6 MG; Start 11/04/18 at 12:00 Docusate Sodium (Colace Liquid Cup) 100 mg BID NGT Last administered on 11/09/18 09:06; Admin Dose 100 MG; Start 11/07/18 at 21:00 Polyethylene Glycol (Miralax) 17 gm BID PRN PO constipation Last administered on 11/09/18 09:06; Admin Dose 17 GM; Start 11/07/18 at 14:30 Piperacillin Sod/ Tazobactam Sod 100 ml @ 25 mls/hr TID@02,10,18 IVPB Last administered on 11/09/18at 10:15; Admin Dose 25 MLS/HR; Start 11/08/18 at 18:00 Vancomycin HCl (Vanco Iv Per Pharmacy) VANCOMYCIN PER PHARMACY PER PROTOCOL XX ; Start 11/08/18 at 16:00 Vancomycin HCl 1.5 gm/Sodium Chloride 250 ml @ 83.333 mls/ hr Q12H IVPB Last administered on 11/09/18 06:05; Admin Dose 83.333 MLS/HR; Start 11/09/18 at 06:00 KEESHA PANDYA MD Nov 09, 2018 10:59
--- NOTE | 2018-11-09 11:12 | CONS ---
Consult Date/Type/Reason Admit Date/Time Nov 02, 2018 at 13:13 Initial Consult Date 11/03/18 Type of Consult Pulmonary Date/Time of Note DATE: 11/09/18 TIME: 11:12 Subjective Eyes open but not following commands. Moderate secretions. Objective Vital Signs Date Temp Pulse Resp B/P (MAP) Pulse Ox O2 O2 Flow FiO2 Time Delivery Rate 11/09/18 84 25 130/89 96 Mechanical 10:00 (103) Ventilator 11/09/18 30 09:07 11/09/18 99.5 08:00 Intake and Output 11/08/18 11/08/18 11/09/18 1515:00 23:00 07:00 IntakeIntake Total 1337.5 ml 1580 ml 1180 ml OutputOutput Total 900 ml 1325 ml 1150 ml BalanceBalance 437.5 ml 255 ml 30 ml Exam GENERAL: Well-nourished well-developed gentleman on mechanical ventilation VITAL SIGNS: per chart NECK: Supple. No JVD or lymphadenopathy. CARDIAC EXAM: S1, S2. No added sounds or murmurs. CHEST: clear bilaterally, No added sounds, rales or wheezes ABDOMEN: Soft, nontender. No guarding or rebound. EXTREMITIES: No cyanosis, clubbing or edema. NEUROLOGIC: Unresponsive on mechanical ventilation. Vent Setting Ventilator Support Mode: AC Fraction of Inspired Oxygen pe: 30 Positive End Expiratory Pressu: 5.0 Results/Medications Result Diagram: 11/09/185 11/09/18 0435 Results 24 hrs Laboratory Tests Test 11/09/18 04:35 White Blood Count 10.2 Red Blood Count 3.60 L Hemoglobin 11.1 L Hematocrit 33.8 L Mean Corpuscular Volume 93.9 Mean Corpuscular Hemoglobin 30.8 Mean Corpuscular Hemoglobin Concent 32.8 Red Cell Distribution Width 13.0 Platelet Count 244 Mean Platelet Volume 10.4 Immature Granulocytes % 0.500 H Neutrophils % 78.7 H Lymphocytes % 10.3 L Monocytes % 7.9 Eosinophils % 2.4 Basophils % 0.2 Nucleated Red Blood Cells % 0.0 Immature Granulocytes # 0.050 H Neutrophils # 8.1 H Lymphocytes # 1.1 Monocytes # 0.8 Eosinophils # 0.3 Basophils # 0.0 Nucleated Red Blood Cells # 0.0 Sodium Level 136 Potassium Level 4.4 Chloride Level 101 Carbon Dioxide Level 29 Anion Gap 6 Blood Urea Nitrogen 20 Creatinine 0.80 Est Glomerular Filtrat Rate mL/min > 60 Glucose Level 171 Calcium Level 8.8 Medications Current Medications IV Flush (NS 3 ml) 3 ml PER PROTOCOL IV ; Start 11/02/18 at 13:30 Ondansetron HCl (Zofran Inj) 4 mg Q6H PRN IV NAUSEA/VOMITING; Start 11/02/18 at 13:30 Acetaminophen (Tylenol Tab) 650 mg Q6H PRN PO .PAIN 1-3 OR TEMP Last administered on 11/09/18 00:38; Admin Dose 650 MG; Start 11/02/18 at 13:30 Acetaminophen/ Hydrocodone Bitart ([place] (5/325)) 1 tab Q6H PRN PO .MOD PAIN 4- 6; Start 11/02/18 at 13:30 Docusate Sodium (Colace) 100 mg Q12H PRN PO .CONSTIPATION; Start 11/02/18 at 13:30 Magnesium Hydroxide (Milk Of Mag) 30 ml DAILY PRN PO .CONSTIPATION Last administered on 11/08/18 16:50; Admin Dose 30 ML; Start 11/02/18 at 13:30 Sodium Chloride 1,000 ml @ 75 mls/hr [id number] IV Last administered on 11/08/18 16:16; Admin Dose 75 MLS/HR; Start 11/02/18 at 13:30 Albuterol/ Ipratropium (Duoneb) 3 ml Q4H RESP THERAPY PRN HHN SHORTNESS OF BREATH; Start 11/02/18 at 13:30 Hydralazine HCl (Apresoline) 10 mg Q4H PRN IV ELEVATED BLOOD PRESSURE Last administered on 11/08/18 17:04; Admin Dose 10 MG; Start 11/02/18 at 13:30 Nitroglycerin (Nitroglycerin (Sl Tab) 0.4 Mg) 1 tab Q5M PRN SL ANGINA; Start 11/02/18 at 13:30 Labetalol HCl (Labetalol) 10 mg Q10M PRN IV ELEVATED BLOOD PRESSURE Last administered on 11/08/18 20:08; Admin Dose 10 MG; Start 11/02/18 at 13:30 Amlodipine Besylate (Norvasc) 10 mg DAILY PO Last administered on 11/09/18 09:08; Admin Dose 10 MG; Start 11/03/18 at 09:00 Benazepril HCl (Lotensin) 40 mg DAILY PO Last administered on 11/09/18 09:07; Admin Dose 40 MG; Start 11/03/18 at 09:00 Carvedilol (Coreg) 25 mg BID PO Last administered on 11/09/18 09:08; Admin Dose 25 MG; Start 11/02/18 at 21:00 Nicotine (Nicoderm 21 Mg/ 24hr) 1 patch DAILY TRANSDERM Last administered on 11/09/18 09:07; Admin Dose 1 PATCH; Start 11/02/18 at 16:30 Nicardipine HCl 50 mg/Sodium Chloride 500 ml @ 50 mls/hr TITRATE IV Last administered on 11/08/18 04:35; Admin Dose 50 MLS/HR; Start 11/03/18 at 05:00 Lorazepam (Ativan) 1 mg Q10MIN PRN IV Seizures Last administered on 11/03/18 21:49; Admin Dose 1 MG; Start 11/03/18 at 21:00 Famotidine (Pepcid) 20 mg Q12 PO Last administered on 11/09/18 09:07; Admin Dose 20 MG; Start 11/04/18 at 21:00 Morphine Sulfate (morphine) 6 mg Q4H PRN PO SEVERE PAIN LEVEL 7-10 Last administered on 11/06/18 21:23; Admin Dose 6 MG; Start 11/04/18 at 12:00 Docusate Sodium (Colace Liquid Cup) 100 mg BID NGT Last administered on 11/09/18 09:06; Admin Dose 100 MG; Start 11/07/18 at 21:00 Polyethylene Glycol (Miralax) 17 gm BID PRN PO constipation Last administered on 11/09/18 09:06; Admin Dose 17 GM; Start 11/07/18 at 14:30 Piperacillin Sod/ Tazobactam Sod 100 ml @ 25 mls/hr TID@02,,18 IVPB Last administered on 11/09/18 10:15; Admin Dose 25 MLS/HR; Start 11/08/18 at 18:00 Vancomycin HCl (Vanco Iv Per Pharmacy) VANCOMYCIN PER PHARMACY PER PROTOCOL XX ; Start 11/08/18 at 16:00 Vancomycin HCl 1.5 gm/Sodium Chloride 250 ml @ 83.333 mls/ hr Q12H IVPB Last administered on 11/09/18at 06:05; Admin Dose 83.333 MLS/HR; Start 11/09/18 at 06:00 Assessment/Plan Hospital Course (Demo Recall) Assessment 1. Acute pontine bleed. Repeat CT brain noted. 2. Severe encephalopathy 3. Respiratory failure secondary to above Plan 1. Continue mechanical ventilation 2. Neurosurgical recommendations, repeat CT noted. Continue to observe. Discussed with family at bedside. We will proceed with tracheostomy and PEG tube placement. 3. Continue supportive care. 4. Continue tube feeding Critical care time 40 minutes. VARGHESE GREY MD, [facility] Nov 09, 2018 11:12
--- NOTE | 2018-11-09 12:30 | CONS ---
DATE OF ADMISSION: 11/02/2018 DATE OF CONSULTATION: HISTORY OF PRESENT ILLNESS: The patient is 53 years old status post hypertension, intracranial bleed with pontine hemorrhage, respiratory failure, intubation in which the patient is followed by neurosu rgeon as well as multiple CAT scans. The patient has some improvement today according to his clinica l status. MEDICATIONS: The patient's current medications include: 1. Benazepril 10 mg once a day. 2. Amlodipine 10 mg once a day. 3. Carvedilol 25 mg twice a day. 4. Ativan 1 mg as needed. 5. Trazodone 100 mg once a day. ALLERGIES: NO ALLERGY OF KNOWN MEDICATION. PAST MEDICAL HISTORY: In the form of hypertension. PHYSICAL EXAMINATION: GENERAL: Today, the patient is more alert, occasionally follows simple command, moving his purposely for instruction. However, he looks drowsy and sleepy. CRANIAL NERVES: Cranial nerve II: Pupils 2 mm, reactive to light, equal in both sides. Cranial III , IV and : Extraocular muscles intact for doll's maneuver. Cranial nerves V and VII: Intact corn eal reflex. Cranial VIII through XII: Could not assess. MOTOR: Moving both upper extremities and right lower extremity. SENSATION, COORDINATION AND GAIT: Could not assess. HEART: Regular rate and rhythm. LUNGS: Equal breath sounds. ABDOMEN: Soft, relaxed, nondistended, no tenderness. ASSESSMENT AND PLAN: 1. The patient is 53 years old, status post intracranial bleeding with pontine hemorrhage. Followup the patient with CT scan as well as neurosurgery evaluation. 2. History of hypertension. Keep the blood pressure at the level of 140/90 or less. 3. Respiratory failure in which the patient intubated. 4. Jerking movement last night, which the patient had 1 mg of Ativan. We will follow up the patient with seizure precaution and fall precaution. EEG done does show seizure or epileptiform discharge. 5. Keep the patient under deep venous thrombosis prophylaxis and decubitus ulcer prophylaxis. 6. We might start the patient on bedside rehabilitation as tolerated. Dictated By: JAI AVILA/NISHANT Conf#: [id number] DID#: [id number] CC: [employer]OR [employer]ING[employer];*EndCC*
[2018-11-09] MEDS: BISACODYL 10 MG SUPP PR SCH (13:08)
--- NOTE | 2018-11-09 14:04 | PN ---
Date/Time of Note Date/Time of Note DATE: 11/09/18 TIME: 14:03 Assessment/Plan VTE Prophylaxis Risk score (from Nsg)>0 risk: 5 SCD applied (from Nsg): Yes Pharmacological prophylaxis: other (scds) Lines/Catheters IV Catheter Type (from Nrsg): Peripheral IV Urinary Cath still in place: Yes Reason Cath still needed: other (indicate) (monitor output) Assessment/Plan Hospital Course Assessment/Plan Assessment: Dysphagia Altered mental status Status post ICH/pontine hemorrhage Hypertension Everyday smoker Plan: Family deciding on Trach/PEG TF to 60ml/hr I called Rosenda , she is agreeable to moving forward with PEG- patient has been scheduled from tomorrow Patient seen in collaboration with Subjective: Course reviewed with nursing staff Patient interviewed and examined All labs, imaging and other results reviewed No over night events, pt appears comfortable Tolerating TF well, no BM medication has been ordered. PHYSICAL EXAMINATION: GENERAL: Well developed, well nourished, intubated, on the ventilator, in no acute distress SKIN: No lesions, no stigmata chronic liver disease, no evidence of bleeding diathesis EYES: Pupils equal reactive to light. EARS/NOSE AND THROAT: Ears normal, nose normal, oropharynx normal, OG in place CHEST: Inspection within normal limits. CARDIOVASCULAR: Heart: Regular rate and rhythm RESPIRATORY: Lungs clear to auscultation. GASTROINTESTINAL AND LIVER: Abdomen: Soft, non tenderness, non-distended, no hernias, no rebound tenderness, normoactive bowel sounds. Rectal: Deferred. GENITOURINARY: Male genitalia within normal limits. Riddle catheter in place EXTREMITIES: No cyanosis, clubbing or edema. Result Diagram: 11/09/18 0435 11/09/18 0435 Results 24hrs Laboratory Tests Test 11/09/18 04:35 White Blood Count 10.2 Red Blood Count 3.60 L Hemoglobin 11.1 L Hematocrit 33.8 L Mean Corpuscular Volume 93.9 Mean Corpuscular Hemoglobin 30.8 Mean Corpuscular Hemoglobin Concent 32.8 Red Cell Distribution Width 13.0 Platelet Count 244 Mean Platelet Volume 10.4 Immature Granulocytes % 0.500 H Neutrophils % 78.7 H Lymphocytes % 10.3 L Monocytes % 7.9 Eosinophils % 2.4 Basophils % 0.2 Nucleated Red Blood Cells % 0.0 Immature Granulocytes # 0.050 H Neutrophils # 8.1 H Lymphocytes # 1.1 Monocytes # 0.8 Eosinophils # 0.3 Basophils # 0.0 Nucleated Red Blood Cells # 0.0 Sodium Level 136 Potassium Level 4.4 Chloride Level 101 Carbon Dioxide Level 29 Anion Gap 6 Blood Urea Nitrogen 20 Creatinine 0.80 Est Glomerular Filtrat Rate mL/min > 60 Glucose Level 171 Calcium Level 8.8 Exam/Review of Systems Exam Vitals Vital Signs Date Temp Pulse Resp B/P (MAP) Pulse Ox O2 O2 Flow FiO2 Time Delivery Rate 11/09/18 83 20 96 30 13:35 11/09/18 100.0 134/88 [place] 12:00 (103) l Ventilato r Intake and Output 11/08/18 11/08/18 11/09/18 1515:00 23:00 07:00 IntakeIntake Total 1337.5 ml 1580 ml 1180 ml OutputOutput Total 900 ml 1325 ml 1150 ml BalanceBalance 437.5 ml 255 ml 30 ml Results Results 24hrs Laboratory Tests Test 11/09/18 04:35 White Blood Count 10.2 Red Blood Count 3.60 L Hemoglobin 11.1 L Hematocrit 33.8 L Mean Corpuscular Volume 93.9 Mean Corpuscular Hemoglobin 30.8 Mean Corpuscular Hemoglobin Concent 32.8 Red Cell Distribution Width 13.0 Platelet Count 244 Mean Platelet Volume 10.4 Immature Granulocytes % 0.500 H Neutrophils % 78.7 H Lymphocytes % 10.3 L Monocytes % 7.9 Eosinophils % 2.4 Basophils % 0.2 Nucleated Red Blood Cells % 0.0 Immature Granulocytes # 0.050 H Neutrophils # 8.1 H Lymphocytes # 1.1 Monocytes # 0.8 Eosinophils # 0.3 Basophils # 0.0 Nucleated Red Blood Cells # 0.0 Sodium Level 136 Potassium Level 4.4 Chloride Level 101 Carbon Dioxide Level 29 Anion Gap 6 Blood Urea Nitrogen 20 Creatinine 0.80 Est Glomerular Filtrat Rate mL/min > 60 Glucose Level 171 Calcium Level 8.8 Medications Medication Current Medications IV Flush (NS 3 ml) 3 ml PER PROTOCOL IV ; Start 11/02/18 at 13:30 Ondansetron HCl (Zofran Inj) 4 mg Q6H PRN IV NAUSEA/VOMITING; Start 11/02/18 at 13:30 Acetaminophen (Tylenol Tab) 650 mg Q6H PRN PO .PAIN 1-3 OR TEMP Last administered on 11/09/18 00:38; Admin Dose 650 MG; Start 11/02/18 at 13:30 Acetaminophen/ Hydrocodone Bitart ([place] (5/325)) 1 tab Q6H PRN PO .MOD PAIN 4- 6; Start 11/02/18 at 13:30 Docusate Sodium (Colace) 100 mg Q12H PRN PO .CONSTIPATION; Start 11/02/18 at 13:30 Magnesium Hydroxide (Milk Of Mag) 30 ml DAILY PRN PO .CONSTIPATION Last administered on 11/08/18 16:50; Admin Dose 30 ML; Start 11/02/18 at 13:30 Sodium Chloride 1,000 ml @ 75 mls/hr [id number] IV Last administered on 11/09/18 13:08; Admin Dose 75 MLS/HR; Start 11/02/18 at 13:30 Albuterol/ Ipratropium (Duoneb) 3 ml Q4H RESP THERAPY PRN HHN SHORTNESS OF BREATH; Start 11/02/18 at 13:30 Hydralazine HCl (Apresoline) 10 mg Q4H PRN IV ELEVATED BLOOD PRESSURE Last administered on 11/08/18 17:04; Admin Dose 10 MG; Start 11/02/18 at 13:30 Nitroglycerin (Nitroglycerin (Sl Tab) 0.4 Mg) 1 tab Q5M PRN SL ANGINA; Start 11/02/18 at 13:30 Labetalol HCl (Labetalol) 10 mg Q10M PRN IV ELEVATED BLOOD PRESSURE Last administered on 11/08/18 20:08; Admin Dose 10 MG; Start 11/02/18 at 13:30 Amlodipine Besylate (Norvasc) 10 mg DAILY PO Last administered on 11/09/18 09:08; Admin Dose 10 MG; Start 11/03/18 at 09:00 Benazepril HCl (Lotensin) 40 mg DAILY PO Last administered on 11/09/18 09:07; Admin Dose 40 MG; Start 11/03/18 at 09:00 Carvedilol (Coreg) 25 mg BID PO Last administered on 11/09/18 09:08; Admin Dose 25 MG; Start 11/02/18 at 21:00 Nicotine (Nicoderm 21 Mg/ 24hr) 1 patch DAILY TRANSDERM Last administered on 11/09/18 09:07; Admin Dose 1 PATCH; Start 11/02/18 at 16:30 Nicardipine HCl 50 mg/Sodium Chloride 500 ml @ 50 mls/hr TITRATE IV Last administered on 11/08/18 04:35; Admin Dose 50 MLS/HR; Start 11/03/18 at 05:00 Lorazepam (Ativan) 1 mg Q10MIN PRN IV Seizures Last administered on 11/03/18 21:49; Admin Dose 1 MG; Start 11/03/18 at 21:00 Famotidine (Pepcid) 20 mg Q12 PO Last administered on 11/09/18 09:07; Admin Dose 20 MG; Start 11/04/18 at 21:00 Morphine Sulfate (morphine) 6 mg Q4H PRN PO SEVERE PAIN LEVEL 7-10 Last administered on 11/06/18 21:23; Admin Dose 6 MG; Start 11/04/18 at 12:00 Docusate Sodium (Colace Liquid Cup) 100 mg BID NGT Last administered on 11/09/18 09:06; Admin Dose 100 MG; Start 11/07/18 at 21:00 Polyethylene Glycol (Miralax) 17 gm BID PRN PO constipation Last administered on 11/09/18 09:06; Admin Dose 17 GM; Start 11/07/18 at 14:30 Piperacillin Sod/ Tazobactam Sod 100 ml @ 25 mls/hr TID@02,10,18 IVPB Last administered on 11/09/18at 10:15; Admin Dose 25 MLS/HR; Start 11/08/18 at 18:00 Vancomycin HCl (Vanco Iv Per Pharmacy) VANCOMYCIN PER PHARMACY PER PROTOCOL XX ; Start 11/08/18 at 16:00 Vancomycin HCl 1.5 gm/Sodium Chloride 250 ml @ 83.333 mls/ hr Q12H IVPB Last administered on 11/09/18 06:05; Admin Dose 83.333 MLS/HR; Start 11/09/18 at 06:00 Miscellaneous Information (*Rx Drug Level Order Reminder*) VANCO TROUGH @ 0,500 ON... ONCE ONCE XX ; Start 11/10/18 at 05:00; Stop 11/10/18 at 05:01 Bisacodyl (Dulcolax Supp) 10 mg DAILY MD Last administered on 11/09/18at 13:08; Admin Dose 10 MG; Start 11/09/18 at 13:00 DARLING SINGH Nov 09, 2018 14:04
--- NOTE | 2018-11-09 18:14 | PN ---
Date/Time of Note Date/Time of Note DATE: 11/09/18 TIME: 18:13 Assessment/Plan Lines/Catheters IV Catheter Type (from Nrsg): Peripheral IV Riddle in Place (from Nrsg): Yes Assessment/Plan Assessment/Plan Respiratory failure Plan to proceed with tracheostomy Subjective 24 Hr Interval Summary Constitutional: improved Pain Control: mild Exam/Review of Systems Vital Signs Vitals Vital Signs Date Temp Pulse Resp B/P (MAP) Pulse Ox O2 O2 Flow FiO2 Time Delivery Rate 11/09/18 77 21 127/85 97 Mechanical 18:00 (99) Ventilator 11/09/18 30 17:06 11/09/18 99.5 16:00 Intake and Output 11/08/18 11/08/18 11/09/18 1515:00 23:00 07:00 IntakeIntake Total 1337.5 ml 1580 ml 1180 ml OutputOutput Total 900 ml 1325 ml 1150 ml BalanceBalance 437.5 ml 255 ml 30 ml Exam Eyes: nl conjunctiva, EOMI, nl lids, nl sclera ENMT: nl external ears & nose, nl lips & teeth, nl nasal mucosa & septum, mucosa pink and moist Neck: supple, non-tender Respiratory: clear to auscultation, normal air movement Cardiovascular: regular rate and rhythm, nl pulses Gastrointestinal: soft, nl liver, spleen, non-tender Results Result Diagram: 11/09/185 11/09/18 0435 JANIE WHITEHEAD MD Nov 09, 2018 18:14
[2018-11-09] MEDS: hydrALAzine 20 MG INJ IV PRN (19:28)
[2018-11-09] MEDS: OCULAR LUBRICANT 3.5 GM OPH OINT BOTH EYES SCH (20:44)
[2018-11-10] VITALS (56 sets, daily range): BP systolic 110–174; BP diastolic 80–105; PULSE 67–96; RESP 14–28
--- NOTE | 2018-11-10 01:06 | CONS ---
DATE OF ADMISSION: 11/02/2018 DATE OF CONSULTATION: HISTORY OF PRESENT ILLNESS: The patient is 53 years old male status post hypertension, intracranial bleed, pontine hemorrhage, respiratory failure, intubation, dysphagia. The patient opens his eyes sp ontaneously, moving both upper extremities against gravity. He is accompanied by his family in the r o[place], his parents, his , his sister and [id number]. CURRENT MEDICATIONS: Include: 1. Eye lubricant once a day. 2. 10 mg as needed. 3. Vancomycin every 12 hours dosed by the pharmacy. 4. Zosyn every 8 hours. 5. Colace 100 mg twice a day. 6. Pepcid 20 mg once a day. 7. Morphine as needed. 8. Ativan 1 mg every 4 hours as needed. 9. Norvasc 10 mg once a day. 10. Lotensin 40 mg once a day. 11. Coreg 25 mg once a day. 12. Nicotine patch once a day. 13. Zofran 4 mg every 4 hours. 14. Tylenol 650 mg as needed. 15. [place] 5/325 mg as needed. PHYSICAL EXAMINATION: GENERAL: The patient is alert, awake, opens his eyes continuously, tracking during the exam. CRANIAL NERVES: Cranial nerve II: Pupils are equal on both sides, reactive to light. Cranial nerve s III, IV and : Extraocular muscles are intact for doll's maneuver. Cranial nerves V and VII: In tact corneal reflex. Cranial VIII through XII: Could not assess. MOTOR: Moving both upper extremities against gravity. Sensation, coordination and gait could not as sess. HEART: Regular rate and rhythm. LUNGS: Equal breath sounds. ABDOMEN: Soft, relaxed, nondistended, no tenderness. ASSESSMENT AND PLAN: 1. The patient is 53 years old status post pontine hemorrhage, followed by neurosurgery and serial o f CT scan with the bleeding on the same side. No obstructive hydrocephalus. 2. Hypertension. Keep the blood pressure at the level of 140/90. 3. Respiratory failure in which the patient was intubated. Follow up with Dr. Jeronimo and Dr. Radha moran for possible tracheostomy. 4. Dysphagia in which the patient is followed by NG tube. We will consider G-tube. 5. Keep the patient under deep venous thrombosis prophylaxis and decubitus ulcer prophylaxis. 6. We will follow up the patient with bedside rehab and possible followup with [facility] in [place] the family agreed for respiratory acute rehab thereafter. Dictated By: JAI AVILA/NISHANT Conf#: [id number] DID#: [id number] CC: HECTOR [employer]INGER;*EndCC*
[2018-11-10] MEDS: LABETALOL HCL 20MG INJ IV PRN ×5 (01:07→20:41)
[2018-11-10] MEDS: PIPER-TAZO 3.375 GM IV (PMX) 100 ML IVPB SCH ×2 (02:01→09:26)
[2018-11-10] MEDS: hydrALAzine 20 MG INJ IV PRN (02:06)
[2018-11-10] MEDS: SOD CHLORIDE 0.45% 1,000 ML IV SCH (06:15)
[2018-11-10] MEDS: VANCOMYCIN HCL 1.5 GM in SOD CHLORIDE 0.9% 250 ML IVPB SCH (06:55)
[2018-11-10] MEDS: OCULAR LUBRICANT 3.5 GM OPH OINT BOTH EYES SCH ×4 (08:33→20:27)
[2018-11-10] MEDS: DOCUSATE SODIUM 10 MG/ML (10ML CUP) NGT SCH ×2 (08:33→20:24)
[2018-11-10] MEDS: BENAZEPRIL 40 MG TAB PO SCH (08:34)
[2018-11-10] MEDS: BISACODYL 10 MG SUPP PR SCH (08:34)
[2018-11-10] MEDS: AMLODIPINE 10 MG TAB PO SCH (08:34)
[2018-11-10] MEDS: FAMOTIDINE 20 MG TAB PO SCH ×2 (08:36→20:23)
[2018-11-10] MEDS: NICOTINE (21 MG/24 HR) PATCH TRANSDERM SCH (08:36)
[2018-11-10] MEDS: ACETAMINOPHEN 325 MG TAB PO PRN (08:55)
--- NOTE | 2018-11-10 10:14 | CONS ---
Consult Date/Type/Reason Admit Date/Time Nov 02, 2018 at 13:13 Initial Consult Date 11/03/18 Type of Consult Pulmonary Date/Time of Note DATE: 11/10/18 TIME: 10:13 Subjective Patient remains somnolent on mechanical ventilation. Pending tracheostomy and PEG tube placement. No significant changes overnight. Objective Vital Signs Date Temp Pulse Resp B/P (MAP) Pulse Ox O2 O2 Flow FiO2 Time Delivery Rate 11/10/18 87 26 136/94 95 [place] 09:09 (108) l Ventilato r 11/10/18 101.8 08:55 11/10/18 30 05:40 Intake and Output 11/09/18 11/09/18 11/10/18 1515:00 23:00 07:00 IntakeIntake Total 1530.00 ml 1390.66 ml 660 ml OutputOutput Total 800 ml 1200 ml 1200 ml BalanceBalance 730.00 ml 190.66 ml -540 ml Exam GENERAL: Well-nourished well-developed gentleman on mechanical ventilation VITAL SIGNS: per chart NECK: Supple. No JVD or lymphadenopathy. CARDIAC EXAM: S1, S2. No added sounds or murmurs. CHEST: clear bilaterally, No added sounds, rales or wheezes ABDOMEN: Soft, nontender. No guarding or rebound. EXTREMITIES: No cyanosis, clubbing or edema. NEUROLOGIC: Unresponsive on mechanical ventilation. Vent Setting Ventilator Support Mode: AC Fraction of Inspired Oxygen pe: 30 Positive End Expiratory Pressu: 5.0 Results/Medications Result Diagram: 11/10/18 0507 11/10/18 0507 Results 24 hrs Laboratory Tests Test 11/10/18 05:07 White Blood Count 7.9 # Red Blood Count 3.85 L Hemoglobin 12.0 L Hematocrit 36.0 L Mean Corpuscular Volume 93.5 Mean Corpuscular Hemoglobin 31.2 Mean Corpuscular Hemoglobin Concent 33.3 Red Cell Distribution Width 12.7 Platelet Count 266 Mean Platelet Volume 10.5 H Immature Granulocytes % 0.900 H Neutrophils % 81.3 H Lymphocytes % 7.3 L Monocytes % 7.5 Eosinophils % 2.7 Basophils % 0.3 Nucleated Red Blood Cells % 0.0 Immature Granulocytes # 0.070 H Neutrophils # 6.4 Lymphocytes # 0.6 L Monocytes # 0.6 Eosinophils # 0.2 Basophils # 0.0 Nucleated Red Blood Cells # 0.0 Sodium Level 135 Potassium Level 4.4 Chloride Level 100 Carbon Dioxide Level 27 Anion Gap 8 Blood Urea Nitrogen 18 Creatinine 0.77 Est Glomerular Filtrat Rate mL/min > 60 Glucose Level 146 Calcium Level 8.9 Vancomycin Level Trough 8.2 L Medications Current Medications IV Flush (NS 3 ml) 3 ml PER PROTOCOL IV ; Start 11/02/18 at 13:30 Ondansetron HCl (Zofran Inj) 4 mg Q6H PRN IV NAUSEA/VOMITING; Start 11/02/18 at 13:30 Acetaminophen (Tylenol Tab) 650 mg Q6H PRN PO .PAIN 1-3 OR TEMP Last administered on 11/10/18 08:55; Admin Dose 650 MG; Start 11/02/18 at 13:30 Acetaminophen/ Hydrocodone Bitart ([place] (5/325)) 1 tab Q6H PRN PO .MOD PAIN 4- 6 Last administered on 11/09/18at 19:47; Admin Dose 1 TAB; Start 11/02/18 at 13:30 Docusate Sodium (Colace) 100 mg Q12H PRN PO .CONSTIPATION; Start 11/02/18 at 13:30 Magnesium Hydroxide (Milk Of Mag) 30 ml DAILY PRN PO .CONSTIPATION Last administered on 11/08/18 16:50; Admin Dose 30 ML; Start 11/02/18 at 13:30 Sodium Chloride 1,000 ml @ 75 mls/hr [id number] IV Last administered on 11/10/18 06:15; Admin Dose 75 MLS/HR; Start 11/02/18 at 13:30 Albuterol/ Ipratropium (Duoneb) 3 ml Q4H RESP THERAPY PRN HHN SHORTNESS OF BREATH; Start 11/02/18 at 13:30 Hydralazine HCl (Apresoline) 10 mg Q4H PRN IV ELEVATED BLOOD PRESSURE Last administered on 11/10/18 02:06; Admin Dose 10 MG; Start 11/02/18 at 13:30 Nitroglycerin (Nitroglycerin (Sl Tab) 0.4 Mg) 1 tab Q5M PRN SL ANGINA; Start 11/02/18 at 13:30 Labetalol HCl (Labetalol) 10 mg Q10M PRN IV ELEVATED BLOOD PRESSURE Last administered on 2/19/19at 06:07; Admin Dose 10 MG; Start 11/02/18 at 13:30 Amlodipine Besylate (Norvasc) 10 mg DAILY PO Last administered on 11/10/18 08:34; Admin Dose 10 MG; Start 11/03/18 at 09:00 Benazepril HCl (Lotensin) 40 mg DAILY PO Last administered on 11/10/18 08:34; Admin Dose 40 MG; Start 11/03/18 at 09:00 Carvedilol (Coreg) 25 mg BID PO Last administered on 11/10/18 08:33; Admin Dose 25 MG; Start 11/02/18 at 21:00 Nicotine (Nicoderm 21 Mg/ 24hr) 1 patch DAILY TRANSDERM Last administered on 11/10/18 08:36; Admin Dose 1 PATCH; Start 11/02/18 at 16:30 Nicardipine HCl 50 mg/Sodium Chloride 500 ml @ 50 mls/hr TITRATE IV Last administered on 11/08/18 04:35; Admin Dose 50 MLS/HR; Start 11/03/18 at 05:00 Lorazepam (Ativan) 1 mg Q10MIN PRN IV Seizures Last administered on 11/03/18 21:49; Admin Dose 1 MG; Start 11/03/18 at 21:00 Famotidine (Pepcid) 20 mg Q12 PO Last administered on 11/10/18 08:36; Admin Dose 20 MG; Start 11/04/18 at 21:00 Morphine Sulfate (morphine) 6 mg Q4H PRN PO SEVERE PAIN LEVEL 7-10 Last administered on 11/06/18 21:23; Admin Dose 6 MG; Start 11/04/18 at 12:00 Docusate Sodium (Colace Liquid Cup) 100 mg BID NGT Last administered on 11/10/18 08:33; Admin Dose 100 MG; Start 11/07/18 at 21:00 Polyethylene Glycol (Miralax) 17 gm BID PRN PO constipation Last administered on 11/09/18 20:44; Admin Dose 17 GM; Start 11/07/18 at 14:30 Bisacodyl (Dulcolax Supp) 10 mg DAILY [place] Last administered on 11/10/18 08:34; Admin Dose 10 MG; Start 11/09/18 at 13:00 Eye Lubricant (Akwa Oint) 1 applic QID BOTH EYES Last administered on 11/10/18at 08:33; Admin Dose 1 APPLIC; Start 11/09/18 at 21:00 Assessment/Plan Hospital Course (Demo Recall) Assessment 1. Acute pontine bleed. Repeat CT brain noted. 2. Severe encephalopathy 3. Respiratory failure secondary to above Plan 1. Continue mechanical ventilation 2. Neurosurgical recommendations, repeat CT noted. Continue to observe. Discussed with family at bedside. We will proceed with tracheostomy and PEG tube placement. 3. Continue supportive care. 4. Continue tube feeding, PEG tube placement today Critical care time 40 minutes. VARGHESE GREY MD, [facility] Nov 10, 2018 10:14
--- NOTE | 2018-11-10 13:34 | PN ---
Date/Time of Note Date/Time of Note DATE: 11/10/18 TIME: 13:27 Assessment/Plan VTE Prophylaxis Risk score (from Nsg)>0 risk: 6 SCD applied (from Nsg): Yes Pharmacological prophylaxis: NA/contraindicated Pharm contraindication: bleeding Lines/Catheters IV Catheter Type (from Nrsg): Peripheral IV Urinary Cath still in place: Yes Reason Cath still needed: other (indicate) (intubated) Assessment/Plan Assessment/Plan 53-year-old male history of smoking hypertension who presents with headache and blurry vision found with altered level of consciousness likely secondary to ICH/pontine hemorrhage. #Altered level of consciousness: - Patient is intubated, secondary to the pontine hemorrhage found on his head scan. - The latest head CT showed no significant changes in the size of the bleed compared to the head CT that was performed 12 hours before that. - Continue care in ICU, neuro checks every 4 hours, continue to hold all anticoagulants. - Continue on p.o. blood pressure medicines, goal 140/90 - Statins can increase the risk of future ICH and have no proven benefit in cerebral bleeds. Will not start. - Per neurosurgery, no intervention indicated for this hemorrhage at this time, unless hydrocephalus becomes an issue (ie: ventriculostomy tube?) - Tube feeds - Family understands very poor chance of meaningful neurologic recovery and wants to proceed with trach and PEG. #Fever - Fever on 11/10 associated with worsening LLL infiltrate on CXR - Will start empiric ceftriaxone. #Smoking history: Nicotine patch. # HTN: stable now, again want to keep blood pressure less than 140 systolic given the intracranial hemorrhage/pontine hemorrhage. Dispo: Overall likely poor prognosis. Palliative care team has been consulted as well. Per family wishes, plan to proceed with PEG and trach. Critical care time spent on patient care today equals 50 minutes. Result Diagram: 11/10/18 0507 11/10/18 0507 Subjective 24 Hr Interval Summary Free Text/Dictation Patient febrile last night to 101.8 sustained. Plan for PEG today. Per nursing, no change in mental status. Exam/Review of Systems Exam Vitals Vital Signs Date Temp Pulse Resp B/P (MAP) Pulse Ox O2 O2 Flow FiO2 Time Delivery Rate 11/10/18 68 12:00 11/10/18 21 117/86 97 Mechanical 11:00 (96) Ventilator 11/10/18 98.9 10:00 11/10/18 30 05:40 Intake and Output 11/09/18 11/09/18 11/10/18 1414:59 22:59 06:59 IntakeIntake Total 1455.00 ml 1390.66 ml 795 ml OutputOutput Total 950 ml 1050 ml 1400 ml BalanceBalance 505.00 ml 340.66 ml -605 ml Exam General: Well developed man intubated, unresponsive. Head: Normocephalic, atraumatic. Eyes: Strabismus of the left eye ENT: Moist mucous membranes Neck: Supple, no lymphadenopathy Respiratory: Lungs clear bilaterally, no distress Cardiovascular: RRR, no murmurs, rubs, or gallops Abdominal: Soft, non-tender, non-distended, no peritoneal signs MSK: No edema Neurologic: Patient opens eyes to stimulation. Vertical movement, no horizontal movement of eyes. No tracking. No response to sternal rub. No other movement of face or extremities. Results Results 24hrs Laboratory Tests Test 11/10/18 05:07 White Blood Count 7.9 # Red Blood Count 3.85 L Hemoglobin 12.0 L Hematocrit 36.0 L Mean Corpuscular Volume 93.5 Mean Corpuscular Hemoglobin 31.2 Mean Corpuscular Hemoglobin Concent 33.3 Red Cell Distribution Width 12.7 Platelet Count 266 Mean Platelet Volume 10.5 H Immature Granulocytes % 0.900 H Neutrophils % 81.3 H Lymphocytes % 7.3 L Monocytes % 7.5 Eosinophils % 2.7 Basophils % 0.3 Nucleated Red Blood Cells % 0.0 Immature Granulocytes # 0.070 H Neutrophils # 6.4 Lymphocytes # 0.6 L Monocytes # 0.6 Eosinophils # 0.2 Basophils # 0.0 Nucleated Red Blood Cells # 0.0 Sodium Level 135 Potassium Level 4.4 Chloride Level 100 Carbon Dioxide Level 27 Anion Gap 8 Blood Urea Nitrogen 18 Creatinine 0.77 Est Glomerular Filtrat Rate mL/min > 60 Glucose Level 146 Calcium Level 8.9 Vancomycin Level Trough 8.2 L Medications Medication Current Medications IV Flush (NS 3 ml) 3 ml PER PROTOCOL IV ; Start 11/02/18 at 13:30 Ondansetron HCl (Zofran Inj) 4 mg Q6H PRN IV NAUSEA/VOMITING; Start 11/02/18 at 13:30 Acetaminophen (Tylenol Tab) 650 mg Q6H PRN PO .PAIN 1-3 OR TEMP Last administer ed on 11/10/18 08:55; Admin Dose 650 MG; Start 11/02/18 at 13:30 Acetaminophen/ Hydrocodone Bitart ([place] (5/325)) 1 tab Q6H PRN PO .MOD PAIN 4- 6 Last administered on 11/09/18 19:47; Admin Dose 1 TAB; Start 11/02/18 at 13:30 Docusate Sodium (Colace) 100 mg Q12H PRN PO .CONSTIPATION; Start 11/02/18 at 13:30 Magnesium Hydroxide (Milk Of Mag) 30 ml DAILY PRN PO .CONSTIPATION Last administered on 11/08/18 16:50; Admin Dose 30 ML; Start 11/02/18 at 13:30 Sodium Chloride 1,000 ml @ 75 mls/hr [id number] IV Last administered on 11/10/18 06:15; Admin Dose 75 MLS/HR; Start 11/02/18 at 13:30 Albuterol/ Ipratropium (Duoneb) 3 ml Q4H RESP THERAPY PRN HHN SHORTNESS OF BREATH; Start 11/02/18 at 13:30 Hydralazine HCl (Apresoline) 10 mg Q4H PRN IV ELEVATED BLOOD PRESSURE Last administered on 11/10/18 02:06; Admin Dose 10 MG; Start 11/02/18 at 13:30 Nitroglycerin (Nitroglycerin (Sl Tab) 0.4 Mg) 1 tab Q5M PRN SL ANGINA; Start 11/02/18 at 13:30 Labetalol HCl (Labetalol) 10 mg Q10M PRN IV ELEVATED BLOOD PRESSURE Last administered on 11/10/18 06:07; Admin Dose 10 MG; Start 11/02/18 at 13:30 Amlodipine Besylate (Norvasc) 10 mg DAILY PO Last administered on 11/10/18 08:34; Admin Dose 10 MG; Start 11/03/18 at 09:00 Benazepril HCl (Lotensin) 40 mg DAILY PO Last administered on 11/10/18 08:34; Admin Dose 40 MG; Start 11/03/18 at 09:00 Carvedilol (Coreg) 25 mg BID PO Last administered on 11/10/18 08:33; Admin Dose 25 MG; Start 11/02/18 at 21:00 Nicotine (Nicoderm 21 Mg/ 24hr) 1 patch DAILY TRANSDERM Last administered on 11/10/18 08:36; Admin Dose 1 PATCH; Start 11/02/18 at 16:30 Nicardipine HCl 50 mg/Sodium Chloride 500 ml @ 50 mls/hr TITRATE IV Last administered on 11/08/18 04:35; Admin Dose 50 MLS/HR; Start 11/03/18 at 05:00 Lorazepam (Ativan) 1 mg Q10MIN PRN IV Seizures Last administered on 11/03/18 21:49; Admin Dose 1 MG; Start 11/03/18 at 21:00 Famotidine (Pepcid) 20 mg Q12 PO Last administered on 11/10/18 08:36; Admin Dose 20 MG; Start 11/04/18 at 21:00 Morphine Sulfate (morphine) 6 mg Q4H PRN PO SEVERE PAIN LEVEL 7-10 Last administered on 11/06/18 21:23; Admin Dose 6 MG; Start 11/04/18 at 12:00 Docusate Sodium (Colace Liquid Cup) 100 mg BID NGT Last administered on 11/10/18 08:33; Admin Dose 100 MG; Start 11/07/18 at 21:00 Polyethylene Glycol (Miralax) 17 gm BID PRN PO constipation Last administered on 11/09/18 20:44; Admin Dose 17 GM; Start 11/07/18 at 14:30 Bisacodyl (Dulcolax Supp) 10 mg DAILY [place] Last administered on 11/10/18 08:34; Admin Dose 10 MG; Start 11/09/18 at 13:00 Eye Lubricant (Akwa Oint) 1 applic QID BOTH EYES Last administered on 11/10/18 13:20; Admin Dose 1 APPLIC; Start 11/09/18 at 21:00 KEESHA PANDYA MD Nov 10, 2018 13:34
[2018-11-10] MEDS: CEFTRIAXONE 1 GM/50 ML (PMX) 50 ML IVPB SCH (15:48)
[2018-11-10] MEDS ORDERED: PROPOFOL 20 ML ONE (17:23)
--- NOTE | 2018-11-10 17:44 | PN ---
Date/Time of Note Date/Time of Note DATE: 11/10/18 TIME: 17:43 Assessment/Plan Lines/Catheters IV Catheter Type (from Nrsg): Peripheral IV Riddle in Place (from Nrsg): Yes Assessment/Plan Assessment/Plan Respiratory failure Plan to proceed with tracheostomy Subjective 24 Hr Interval Summary Constitutional: no complaints, improved, ambulates, BM, flatus, urine output Pain Control: mild Exam/Review of Systems Vital Signs Vitals Vital Signs Date Temp Pulse Resp B/P (MAP) Pulse Ox O2 O2 Flow FiO2 Time Delivery Rate 11/10/18 79 23 135/96 97 Mechanical 17:00 (109) Ventilator 11/10/18 98.7 16:00 11/10/18 30 13:10 Intake and Output 11/09/18 11/09/18 11/10/18 1515:00 23:00 07:00 IntakeIntake Total 1530.00 ml 1390.66 ml 720 ml OutputOutput Total 800 ml 1200 ml 1200 ml BalanceBalance 730.00 ml 190.66 ml -480 ml Exam Neck: supple, non-tender Respiratory: clear to auscultation, normal air movement Cardiovascular: regular rate and rhythm, nl pulses Musculoskeletal: nl extremities to inspection, nl gait and stance Results Result Diagram: 11/10/18 0507 11/10/18 0507 JANIE WHITEHEAD MD Nov 10, 2018 17:44
--- NOTE | 2018-11-10 18:31 | PREAC ---
Date/Time of Note Date/Time of Note DATE: 11/10/18 TIME: 18:31 Anesthesia Eval and Record Evaluation Time Pre-Procedure Interview DATE: 11/10/18 TIME: 18:31 Age 53 Sex male NPO: 8 hrs Preoperative diagnosis Dysphagia Planned procedure Percutaneous endoscopic gastrostomy tube placement Past Medical History Past Medical History: Includes Cardio: HTN Pulm: Other (Respiratory failure) Neuro: CVA Surgery & Anesthesia Issues No known issue Meds Anticoagulation: No Beta Susan within 24 hr: Yes Reported Medications Trazodone Hcl* (Trazodone Hcl*) 100 Mg Tablet, 100 MG PO QHS, #30 TAB 02/24/17 Benazepril Hcl* (Benazepril Hcl*) 40 Mg Tablet, 40 MG PO DAILY, #30 TAB 02/24/17 Amlodipine Besylate* (Amlodipine Besylate*) 10 Mg Tablet, 10 MG PO DAILY, #30 TAB 02/24/17 Carvedilol* (Carvedilol*) 25 Mg Tablet, 25 MG PO BID, #60 TAB 02/24/17 Lorazepam* (Ativan*) 2 Mg Tablet, 2 MG PO HS PRN for SLEEP, #30 TAB 02/24/17 Current Medications IV Flush (NS 3 ml) 3 ml PER PROTOCOL IV ; Start 11/02/18 at 13:30 Ondansetron HCl (Zofran Inj) 4 mg Q6H PRN IV NAUSEA/VOMITING; Start 11/02/18 at 13:30 Acetaminophen (Tylenol Tab) 650 mg Q6H PRN PO .PAIN 1-3 OR TEMP Last administered on 11/10/18at 08:55; Admin Dose 650 MG; Start 11/02/18 at 13:30 Acetaminophen/ Hydrocodone Bitart ([place] (5/325)) 1 tab Q6H PRN PO .MOD PAIN 4- 6 Last administered on 11/09/18at 19:47; Admin Dose 1 TAB; Start 11/02/18 at 13:30 Docusate Sodium (Colace) 100 mg Q12H PRN PO .CONSTIPATION; Start 11/02/18 at 13:30 Magnesium Hydroxide (Milk Of Mag) 30 ml DAILY PRN PO .CONSTIPATION Last administered on 11/08/18at 16:50; Admin Dose 30 ML; Start 11/02/18 at 13:30 Sodium Chloride 1,000 ml @ 75 mls/hr [id number] IV Last administered on 11/10/18 06:15; Admin Dose 75 MLS/HR; Start 11/02/18 at 13:30 Albuterol/ Ipratropium (Duoneb) 3 ml Q4H RESP THERAPY PRN HHN SHORTNESS OF BREATH; Start 11/02/18 at 13:30 Hydralazine HCl (Apresoline) 10 mg Q4H PRN IV ELEVATED BLOOD PRESSURE Last administered on 11/10/18 02:06; Admin Dose 10 MG; Start 11/02/18 at 13:30 Nitroglycerin (Nitroglycerin (Sl Tab) 0.4 Mg) 1 tab Q5M PRN SL ANGINA; Start 11/02/18 at 13:30 Labetalol HCl (Labetalol) 10 mg Q10M PRN IV ELEVATED BLOOD PRESSURE Last administered on 11/10/18 06:07; Admin Dose 10 MG; Start 11/02/18 at 13:30 Amlodipine Besylate (Norvasc) 10 mg DAILY PO Last administered on 11/10/18 08:34; Admin Dose 10 MG; Start 11/03/18 at 09:00 Benazepril HCl (Lotensin) 40 mg DAILY PO Last administered on 11/10/18 08:34; Admin Dose 40 MG; Start 11/03/18 at 09:00 Carvedilol (Coreg) 25 mg BID PO Last administered on 11/10/18 08:33; Admin Dose 25 MG; Start 11/02/18 at 21:00 Nicotine (Nicoderm 21 Mg/ 24hr) 1 patch DAILY TRANSDERM Last administered on 11/10/18 08:36; Admin Dose 1 PATCH; Start 11/02/18 at 16:30 Nicardipine HCl 50 mg/Sodium Chloride 500 ml @ 50 mls/hr TITRATE IV Last administered on 11/08/18 04:35; Admin Dose 50 MLS/HR; Start 11/03/18 at 05:00 Lorazepam (Ativan) 1 mg Q10MIN PRN IV Seizures Last administered on 11/03/18 21:49; Admin Dose 1 MG; Start 11/03/18 at 21:00 Famotidine (Pepcid) 20 mg Q12 PO Last administered on 11/10/18 08:36; Admin Dose 20 MG; Start 11/04/18 at 21:00 Morphine Sulfate (morphine) 6 mg Q4H PRN PO SEVERE PAIN LEVEL 7-10 Last administered on 11/06/18 21:23; Admin Dose 6 MG; Start 11/04/18 at 12:00 Docusate Sodium (Colace Liquid Cup) 100 mg BID NGT Last administered on 11/10/18 08:33; Admin Dose 100 MG; Start 11/07/18 at 21:00 Polyethylene Glycol (Miralax) 17 gm BID PRN PO constipation Last administered on 11/09/18 20:44; Admin Dose 17 GM; Start 11/07/18 at 14:30 Bisacodyl (Dulcolax Supp) 10 mg DAILY [place] Last administered on 11/10/18 08:34; Admin Dose 10 MG; Start 11/09/18 at 13:00 Eye Lubricant (Akwa Oint) 1 applic QID BOTH EYES Last administered on 11/10/18 17:13; Admin Dose 1 APPLIC; Start 11/09/18 at 21:00 Ceftriaxone Sodium 50 ml @ 100 mls/hr Q24H IVPB Last administered on 11/10/18 15:48; Admin Dose 100 MLS/HR; Start 11/10/18 at 14:00 Meds reviewed: Yes Allergies Coded Allergies: No Known Allergy (Unverified , 02/24/17) Allergies Reviewed: Yes Labs/Studies Labs Reviewed: Reviewed by anesthesiologist Result Diagram: 11/10/18 0507 11/10/18 0507 Laboratory Tests 11/10/18 05:07 test: N/A Pre-procedure Exam Last vitals Vital Signs Date Temp Pulse Resp B/P (MAP) Pulse Ox O2 O2 Flow FiO2 Time Delivery Rate 11/10/18 80 14 97 30 17:00 11/10/18 135/96 Mechanical 17:00 (109) Ventilator 11/10/18 98.7 16:00 Airway: Adequate mouth opening Mallampati: Mallampati I Teeth: Normal Lung: Normal Heart: Normal ASA Physical Status ASA physical status: 3 Emergency: None Planned Anesthetic General/MAC: MAC Planned Pain Management Parenteral pain med Pre-operative Attestations Prior to commencing anesthesia and surgery, the patient was re-evaluated, there was verification of: *The patient's identity *The results of appropriate recent lab work and preoperative vital signs *The above evaluation not changing prior to induction *Anesthetic plan, risk benefits, alternative and complications discussed with patient/family; questions answered; patient/family understands, accepts and wishes to proceed. ESTRELLITA GRANT MD Nov 10, 2018 18:31
[2018-11-10] MEDS ORDERED: ROCURONIUM 50 MG INJ ONE (18:34)
--- NOTE | 2018-11-10 18:56 | HPN ---
Date/Time of Note Date/Time of Note DATE: 11/10/18 TIME: 18:56 Interval H&P Admission Note Pt. seen H&P reviewed: No system changes RAJEEV DIAZ Nov 10, 2018 18:56
[2018-11-10] MEDS ORDERED: HYDROmorphONE 0.5 MG/0.5 ML SYG IV PRN ×3 (19:30)
[2018-11-10] MEDS ORDERED: morphine 10 MG INJ IV PRN (19:30)
[2018-11-10] MEDS ORDERED: morphine 2 MG INJ IV PRN ×2 (19:30)
--- NOTE | 2018-11-10 23:04 | HKNOTE ---
DATE OF SERVICE: HISTORY OF PRESENT ILLNESS: The patient is 53 years old with a past medical history of hypertension, intracranial bleed, pontine hemorrhage, respiratory failure, intubation, dysphagia. The patient has a PEG tube feeding today that was successfully done. The patient is scheduled tomorrow for tracheos jaylen by Dr. Ward. CURRENT MEDICATIONS: Include: 1. Vancomycin twice a day. 2. Zosyn every 8 hours 0.375 g 3 times a day. 3. Colace 100 mg once a day. 4. Pepcid 20 mg once a day. 5. Morphine as needed. 6. Ativan 1 mg every 4 hours as needed. 7. Norvasc 10 mg once a day. 8. Lotensin 40 mg once a day. 9. Coreg 25 mg once a day. 10. Nicotine patch. 11. Zofran 4 mg every 4 hours. 12. Tylenol 650. 13. [place] 5/325 mg as needed. PHYSICAL EXAMINATION: GENERAL: Today, the patient is alert, awake, open his eyes continuously. CRANIAL NERVES: Cranial nerve II: Pupils equal on both sides, reactive to light. Cranial nerves II I, IV and : Extraocular muscles intact for doll's maneuver. Cranial nerves V and VII: Intact cor kristen reflex. Cranial nerve VIII through XII: Could not assess. MOTOR: Moving both upper and lower extremity. Sensation decreased for glove and sock area. Sensati on, coordination and gait could not be assessed. HEART: Regular rate and rhythm. LUNGS: Equal breath sounds. ABDOMEN: Soft, relaxed, nondistended. No tenderness. ASSESSMENT AND PLAN: 1. The patient is 53-year-old status post pontine hemorrhage. The patient is followed by neurosurge ry and CT scan. 2. Underlying dysphagia. The patient has a PEG tube feeding done today successfully. 3. Respiratory failure. With the patient intubated, we might do for him tracheostomy tomorrow sched uled by Dr. Ward. 4. Keep the patient under deep venous thrombosis prophylaxis to assess the prophylaxis. 5. The patient had spike of fever which is to antibiotic. Dictated By: JAI AVILA/NTS Conf#: [id number] DID#: [id number] CC: HECTOR STRINGER;*EndCC*
[2018-11-11] VITALS (66 sets, daily range): BP systolic 113–153; BP diastolic 77–114; PULSE 71–92; RESP 14–29
[2018-11-11] MEDS: ACETAMINOPHEN 325 MG TAB PO PRN ×2 (00:52→10:35)
[2018-11-11] MEDS: SOD CHLORIDE 0.45% 1,000 ML IV SCH ×2 (02:09→08:47)
--- NOTE | 2018-11-11 07:54 | PAC ---
Date/Time of Note Date/Time of Note DATE: 11/11/18 TIME: 07:53 Post-Anesthesia Notes Post-Anesthesia Note Last documented vital signs Vital Signs Date Temp Pulse Resp B/P (MAP) Pulse Ox O2 O2 Flow FiO2 Time Delivery Rate 11/11/18 74 22 127/90 99 Mechanical 06:30 (102) Ventilator 11/11/18 30 05:10 11/11/18 98.7 04:00 Activity: WNL Respiratory function: WNL Cardiovascular function: WNL Mental status: Baseline Pain reasonably controlled: Yes Hydration appropriate: Yes Nausea/Vomiting absent: Yes ESTRELLITA GRANT MD Nov 11, 2018 07:53
[2018-11-11] MEDS: BENAZEPRIL 40 MG TAB PO SCH (08:45)
[2018-11-11] MEDS: BISACODYL 10 MG SUPP PR SCH (08:45)
[2018-11-11] MEDS: DOCUSATE SODIUM 10 MG/ML (10ML CUP) NGT SCH ×2 (08:45→21:00)
[2018-11-11] MEDS: AMLODIPINE 10 MG TAB PO SCH (08:46)
[2018-11-11] MEDS: OCULAR LUBRICANT 3.5 GM OPH OINT BOTH EYES SCH ×4 (08:46→21:09)
[2018-11-11] MEDS: FAMOTIDINE 20 MG TAB PO SCH ×2 (08:46→21:00)
[2018-11-11] MEDS: NICOTINE (21 MG/24 HR) PATCH TRANSDERM SCH (08:47)
[2018-11-11] MEDS: LABETALOL HCL 20MG INJ IV PRN ×2 (09:04→11:50)
--- NOTE | 2018-11-11 11:32 | CONS ---
Consult Date/Type/Reason Admit Date/Time Nov 02, 2018 at 13:13 Initial Consult Date 11/03/18 Type of Consult Pulmonary Date/Time of Note DATE: 11/11/18 TIME: 11:31 Subjective Patient remains somnolent on mechanical ventilation status post PEG tube placement. Pending tracheostomy this evening. Objective Vital Signs Date Temp Pulse Resp B/P (MAP) Pulse Ox O2 O2 Flow FiO2 Time Delivery Rate 11/11/18 90 26 96 30 11:00 11/11/18 100.8 10:35 11/11/18 138/92 09:30 (107) 11/11/18 [place] 09:00 l Ventilato r Intake and Output 11/10/18 11/10/18 11/11/18 1515:00 23:00 07:00 IntakeIntake Total 950 ml 485 ml 375 ml OutputOutput Total 975 ml 1004 ml 1200 ml BalanceBalance -25 ml -519 ml -825 ml Exam GENERAL: Well-nourished well-developed gentleman on mechanical ventilation VITAL SIGNS: per chart NECK: Supple. No JVD or lymphadenopathy. CARDIAC EXAM: S1, S2. No added sounds or murmurs. CHEST: clear bilaterally, No added sounds, rales or wheezes ABDOMEN: Soft, nontender. No guarding or rebound. EXTREMITIES: No cyanosis, clubbing or edema. NEUROLOGIC: Unresponsive on mechanical ventilation. Vent Setting Ventilator Support Mode: AC Fraction of Inspired Oxygen pe: 30 Positive End Expiratory Pressu: 5.0 Results/Medications Result Diagram: 11/11/18 0500 11/11/18 0500 Results 24 hrs Laboratory Tests Test 11/11/18 05:00 White Blood Count 7.3 Red Blood Count 3.48 L Hemoglobin 10.6 L Hematocrit 33.1 L Mean Corpuscular Volume 95.1 Mean Corpuscular Hemoglobin 30.5 Mean Corpuscular Hemoglobin Concent 32.0 Red Cell Distribution Width 13.0 Platelet Count 282 Mean Platelet Volume 11.3 H Immature Granulocytes % 1.000 H Neutrophils % 69.4 Lymphocytes % 14.6 L Monocytes % 10.9 Eosinophils % 3.6 Basophils % 0.5 Nucleated Red Blood Cells % 0.0 Immature Granulocytes # 0.070 H Neutrophils # 5.1 Lymphocytes # 1.1 Monocytes # 0.8 Eosinophils # 0.3 Basophils # 0.0 Nucleated Red Blood Cells # 0.0 Sodium Level 136 Potassium Level 4.1 Chloride Level 101 Carbon Dioxide Level 27 Anion Gap 8 Blood Urea Nitrogen 21 H Creatinine 0.75 Est Glomerular Filtrat Rate mL/min > 60 Glucose Level 109 Calcium Level 8.8 Phosphorus Level 4.9 Magnesium Level 2.2 Medications Current Medications IV Flush (NS 3 ml) 3 ml PER PROTOCOL IV ; Start 11/02/18 at 13:30 Ondansetron HCl (Zofran Inj) 4 mg Q6H PRN IV NAUSEA/VOMITING; Start 11/02/18 at 13:30 Acetaminophen (Tylenol Tab) 650 mg Q6H PRN PO .PAIN 1-3 OR TEMP Last administered on 11/11/18 10:35; Admin Dose 650 MG; Start 11/02/18 at 13:30 Acetaminophen/ Hydrocodone Bitart ([place] (5/325)) 1 tab Q6H PRN PO .MOD PAIN 4- 6 Last administered on 11/09/18 19:47; Admin Dose 1 TAB; Start 11/02/18 at 13:30 Docusate Sodium (Colace) 100 mg Q12H PRN PO .CONSTIPATION; Start 11/02/18 at 13:30 Magnesium Hydroxide (Milk Of Mag) 30 ml DAILY PRN PO .CONSTIPATION Last administered on 11/08/18 16:50; Admin Dose 30 ML; Start 11/02/18 at 13:30 Sodium Chloride 1,000 ml @ 75 mls/hr [id number] IV Last administered on 11/11/18 08:47; Admin Dose 75 MLS/HR; Start 11/02/18 at 13:30 Albuterol/ Ipratropium (Duoneb) 3 ml Q4H RESP THERAPY PRN HHN SHORTNESS OF BREATH; Start 11/02/18 at 13:30 Hydralazine HCl (Apresoline) 10 mg Q4H PRN IV ELEVATED BLOOD PRESSURE Last administered on 11/10/18 02:06; Admin Dose 10 MG; Start 11/02/18 at 13:30 Nitroglycerin (Nitroglycerin (Sl Tab) 0.4 Mg) 1 tab Q5M PRN SL ANGINA; Start 11/02/18 at 13:30 Labetalol HCl (Labetalol) 10 mg Q10M PRN IV ELEVATED BLOOD PRESSURE Last admin istered on 11/11/18 09:04; Admin Dose 10 MG; Start 11/02/18 at 13:30 Amlodipine Besylate (Norvasc) 10 mg DAILY PO Last administered on 11/11/18 08:46; Admin Dose 10 MG; Start 11/03/18 at 09:00 Benazepril HCl (Lotensin) 40 mg DAILY PO Last administered on 11/11/18 08:45; Admin Dose 40 MG; Start 11/03/18 at 09:00 Carvedilol (Coreg) 25 mg BID PO Last administered on 11/11/18 08:46; Admin Dose 25 MG; Start 11/02/18 at 21:00 Nicotine (Nicoderm 21 Mg/ 24hr) 1 patch DAILY TRANSDERM Last administered on 11/11/18 08:47; Admin Dose 1 PATCH; Start 11/02/18 at 16:30 Nicardipine HCl 50 mg/Sodium Chloride 500 ml @ 50 mls/hr TITRATE IV Last administered on 11/08/18 04:35; Admin Dose 50 MLS/HR; Start 11/03/18 at 05:00 Lorazepam (Ativan) 1 mg Q10MIN PRN IV Seizures Last administered on 11/03/18 21:49; Admin Dose 1 MG; Start 11/03/18 at 21:00 Famotidine (Pepcid) 20 mg Q12 PO Last administered on 11/11/18 08:46; Admin Dose 20 MG; Start 11/04/18 at 21:00 Morphine Sulfate (morphine) 6 mg Q4H PRN PO SEVERE PAIN LEVEL 7-10 Last administered on 11/06/18 21:23; Admin Dose 6 MG; Start 11/04/18 at 12:00 Docusate Sodium (Colace Liquid Cup) 100 mg BID NGT Last administered on 11/11/18 08:45; Admin Dose 100 MG; Start 11/07/18 at 21:00 Polyethylene Glycol (Miralax) 17 gm BID PRN PO constipation Last administered on 11/09/18 20:44; Admin Dose 17 GM; Start 11/07/18 at 14:30 Bisacodyl (Dulcolax Supp) 10 mg DAILY NM Last administered on 11/11/18 08:45; Admin Dose 10 MG; Start 11/09/18 at 13:00 Eye Lubricant (Akwa Oint) 1 applic QID BOTH EYES Last administered on 11/11/18at 08:46; Admin Dose 1 APPLIC; Start 11/09/18 at 21:00 Ceftriaxone Sodium 50 ml @ 100 mls/hr Q24H IVPB Last administered on 11/10/18at 15:48; Admin Dose 100 MLS/HR; Start 11/10/18 at 14:00 Assessment/Plan Hospital Course (Demo Recall) Assessment 1. Acute pontine bleed. Repeat CT brain noted. 2. Severe encephalopathy 3. Respiratory failure secondary to above Plan 1. Continue mechanical ventilation 2. Neurosurgical recommendations, repeat CT noted. Continue to observe. Status post PEG placement. Pending tracheostomy today. 3. Continue supportive care. 4. Continue tube feeding, PEG tube feeding this evening. Critical care time 40 minutes. VARGHESE GREY MD, [facility] Nov 11, 2018 11:32
[2018-11-11] MEDS: CEFTRIAXONE 1 GM/50 ML (PMX) 50 ML IVPB SCH (13:36)
--- NOTE | 2018-11-11 14:12 | PN ---
Date/Time of Note Date/Time of Note DATE: 11/11/18 TIME: 14:08 Assessment/Plan VTE Prophylaxis Risk score (from Nsg)>0 risk: 6 SCD applied (from Ns): Yes Pharmacological prophylaxis: NA/contraindicated Pharm contraindication: bleeding Lines/Catheters IV Catheter Type (from Nrsg): Peripheral IV Urinary Cath still in place: Yes Reason Cath still needed: other (indicate) (intubated) Assessment/Plan Assessment/Plan 53-year-old male history of smoking hypertension who presents with headache and blurry vision found with altered level of consciousness likely secondary to ICH/pontine hemorrhage. #Altered level of consciousness: - Patient is intubated, secondary to the pontine hemorrhage found on his head scan. - The latest head CT showed no significant changes in the size of the bleed compared to the head CT that was performed 12 hours before that. - Continue care in ICU, neuro checks every 4 hours, continue to hold all anticoagulants. - Continue on p.o. blood pressure medicines, goal 140/90 - Statins can increase the risk of future ICH and have no proven benefit in cerebral bleeds. Will not start. - Per neurosurgery, no intervention indicated for this hemorrhage at this time, unless hydrocephalus becomes an issue (ie: ventriculostomy tube?) - Tube feeds - PEG on 11/10. - Family understands very poor chance of meaningful neurologic recovery and wants to proceed with trach and PEG. #Fever - Fever on 11/10 associated with worsening LLL infiltrate on CXR - Will start empiric ceftriaxone. - Cultures negative so far. No more fevers. Will consider pulling off Abx in 24- 48 hours #Smoking history: Nicotine patch. # HTN: stable now, again want to keep blood pressure less than 140 systolic given the intracranial hemorrhage/pontine hemorrhage. Dispo: Overall likely poor prognosis. Palliative care team has been consulted as well. Per family wishes, plan to proceed with PEG and trach. Critical care time spent on patient care today equals 50 minutes. Result Diagram: 11/11/18 0500 11/11/18 0500 Subjective 24 Hr Interval Summary Free Text/Dictation No acute overnight events. Patient got PEG placed yesterday. was at bedside this morning, I updated her on plan. Significant improvement in mental status today. The patient moves both hands, appears to make eye contact. Exam/Review of Systems Exam Vitals Vital Signs Date Temp Pulse Resp B/P (MAP) Pulse Ox O2 O2 Flow FiO2 Time Delivery Rate 11/11/18 73 21 98 30 13:14 11/11/18 129/108 12:30 (115) 11/11/18 99.4 Mechanical 12:00 Ventilator Intake and Output 11/10/18 11/10/18 11/11/18 1515:00 23:00 07:00 IntakeIntake Total 950 ml 485 ml 375 ml OutputOutput Total 975 ml 1004 ml 1200 ml BalanceBalance -25 ml -519 ml -825 ml Exam General: Well developed man intubated, awake. Head: Normocephalic, atraumatic. Eyes: Bilateral conjunctival injection. ENT: Moist mucous membranes Neck: Supple, no lymphadenopathy Respiratory: Lungs clear bilaterally, no distress Cardiovascular: RRR, no murmurs, rubs, or gallops Abdominal: Soft, G tube in place with abdominal binder. MSK: No edema Neurologic: Patient opens eyes to stimulation. Vertical movement, no horizontal movement of eyes. Moves both hands spontaneously. Medications Medication Current Medications IV Flush (NS 3 ml) 3 ml PER PROTOCOL IV ; Start 11/02/18 at 13:30 Ondansetron HCl (Zofran Inj) 4 mg Q6H PRN IV NAUSEA/VOMITING; Start 11/02/18 at 13:30 Acetaminophen (Tylenol Tab) 650 mg Q6H PRN PO .PAIN 1-3 OR TEMP Last administered on 11/11/18at 10:35; Admin Dose 650 MG; Start 11/02/18 at 13:30 Acetaminophen/ Hydrocodone Bitart ([place] (5/325)) 1 tab Q6H PRN PO .MOD PAIN 4- 6 Last administered on 11/09/18at 19:47; Admin Dose 1 TAB; Start 11/02/18 at 13:30 Docusate Sodium (Colace) 100 mg Q12H PRN PO .CONSTIPATION; Start 11/02/18 at 13:30 Magnesium Hydroxide (Milk Of Mag) 30 ml DAILY PRN PO .CONSTIPATION Last administered on 11/08/18at 16:50; Admin Dose 30 ML; Start 11/02/18 at 13:30 Sodium Chloride 1,000 ml @ 75 mls/hr [id number] IV Last administered on 11/11/18at 08:47; Admin Dose 75 MLS/HR; Start 11/02/18 at 13:30 Albuterol/ Ipratropium (Duoneb) 3 ml Q4H RESP THERAPY PRN HHN SHORTNESS OF BREATH; Start 11/02/18 at 13:30 Hydralazine HCl (Apresoline) 10 mg Q4H PRN IV ELEVATED BLOOD PRESSURE Last administered on 11/10/18 02:06; Admin Dose 10 MG; Start 11/02/18 at 13:30 Nitroglycerin (Nitroglycerin (Sl Tab) 0.4 Mg) 1 tab Q5M PRN SL ANGINA; Start 11/02/18 at 13:30 Labetalol HCl (Labetalol) 10 mg Q10M PRN IV ELEVATED BLOOD PRESSURE Last administered on 11/11/18 11:50; Admin Dose 10 MG; Start 11/02/18 at 13:30 Amlodipine Besylate (Norvasc) 10 mg DAILY PO Last administered on 11/11/18 08:46; Admin Dose 10 MG; Start 11/03/18 at 09:00 Benazepril HCl (Lotensin) 40 mg DAILY PO Last administered on 11/11/18 08:45; Admin Dose 40 MG; Start 11/03/18 at 09:00 Carvedilol (Coreg) 25 mg BID PO Last administered on 11/11/18 08:46; Admin Dose 25 MG; Start 11/02/18 at 21:00 Nicotine (Nicoderm 21 Mg/ 24hr) 1 patch DAILY TRANSDERM Last administered on 11/11/18 08:47; Admin Dose 1 PATCH; Start 11/02/18 at 16:30 Nicardipine HCl 50 mg/Sodium Chloride 500 ml @ 50 mls/hr TITRATE IV Last administered on 11/08/18 04:35; Admin Dose 50 MLS/HR; Start 11/03/18 at 05:00 Lorazepam (Ativan) 1 mg Q10MIN PRN IV Seizures Last administered on 11/03/18 21:49; Admin Dose 1 MG; Start 11/03/18 at 21:00 Famotidine (Pepcid) 20 mg Q12 PO Last administered on 11/11/18 08:46; Admin Dose 20 MG; Start 11/04/18 at 21:00 Morphine Sulfate (morphine) 6 mg Q4H PRN PO SEVERE PAIN LEVEL 7-10 Last administered on 11/06/18 21:23; Admin Dose 6 MG; Start 11/04/18 at 12:00 Docusate Sodium (Colace Liquid Cup) 100 mg BID NGT Last administered on 11/11/18 08:45; Admin Dose 100 MG; Start 11/07/18 at 21:00 Polyethylene Glycol (Miralax) 17 gm BID PRN PO constipation Last administered on 11/09/18 20:44; Admin Dose 17 GM; Start 11/07/18 at 14:30 Bisacodyl (Dulcolax Supp) [address] Last administered on 11/11/18 08:45; Admin Dose 10 MG; Start 11/09/18 at 13:00 Eye Lubricant ([place] Oint) 1 applic QID BOTH EYES Last administered on 11/11/18 13:36; Admin Dose 1 APPLIC; Start 11/09/18 at 21:00 Ceftriaxone Sodium 50 ml @ 100 mls/hr Q24H IVPB Last administered on 11/11/18 13:36; Admin Dose 100 MLS/HR; Start 11/10/18 at 14:00 KEESHA PANDYA MD Nov 11, 2018 14:12
--- NOTE | 2018-11-11 15:16 | PN ---
Date/Time of Note Date/Time of Note DATE: 11/11/18 TIME: 15:13 Assessment/Plan VTE Prophylaxis Risk score (from Nsg)>0 risk: 6 SCD applied (from Nsg): Yes Pharmacological prophylaxis: other (scds) Lines/Catheters IV Catheter Type (from Nrsg): Peripheral IV Urinary Cath still in place: Yes Reason Cath still needed: other (indicate) (monitor output) Assessment/Plan Hospital Course Assessment/Plan Assessment: Dysphagia 10/24 to ICH -S/p PEG placement 11/10/18 Altered mental status Status post ICH/pontine hemorrhage Hypertension Everyday smoker Plan: NPO for trach placement When ok to start TF - restart with goal rate of 60 ml/hr PEG care BID GI will sign off but will be available upon reconsult as needed Patient seen in collaboration with /Calvin Subjective: Course reviewed with nursing staff Patient interviewed and examined All labs, imaging and other results reviewed No over night events, family at bedside Pt NPO for trach placement possibly today . PHYSICAL EXAMINATION: GENERAL: Well developed, well nourished, intubated, on mechanical ventilator, in no acute distress SKIN: No lesions, no stigmata chronic liver disease, no evidence of bleeding diathesis EYES: Pupils equal reactive to light. EARS/NOSE AND THROAT: Ears normal, nose normal, oropharynx normal, OG in place CHEST: Inspection within normal limits. CARDIOVASCULAR: Heart: Regular rate and rhythm RESPIRATORY: Lungs clear to auscultation. GASTROINTESTINAL AND LIVER: Abdomen: Soft, non tenderness, non-distended, no hernias, no rebound tenderness, normoactive bowel sounds. Rectal: Deferred. GENITOURINARY: Male genitalia within normal limits. Riddle catheter in place EXTREMITIES: No cyanosis, clubbing or edema. Result Diagram: 11/11/18 0500 11/11/18 0500 Results 24hrs Laboratory Tests Test 11/11/18 05:00 White Blood Count 7.3 Red Blood Count 3.48 L Hemoglobin 10.6 L Hematocrit 33.1 L Mean Corpuscular Volume 95.1 Mean Corpuscular Hemoglobin 30.5 Mean Corpuscular Hemoglobin Concent 32.0 Red Cell Distribution Width 13.0 Platelet Count 282 Mean Platelet Volume 11.3 H Immature Granulocytes % 1.000 H Neutrophils % 69.4 Lymphocytes % 14.6 L Monocytes % 10.9 Eosinophils % 3.6 Basophils % 0.5 Nucleated Red Blood Cells % 0.0 Immature Granulocytes # 0.070 H Neutrophils # 5.1 Lymphocytes # 1.1 Monocytes # 0.8 Eosinophils # 0.3 Basophils # 0.0 Nucleated Red Blood Cells # 0.0 Sodium Level 136 Potassium Level 4.1 Chloride Level 101 Carbon Dioxide Level 27 Anion Gap 8 Blood Urea Nitrogen 21 H Creatinine 0.75 Est Glomerular Filtrat Rate mL/min > 60 Glucose Level 109 Calcium Level 8.8 Phosphorus Level 4.9 Magnesium Level 2.2 Exam/Review of Systems Exam Vitals Vital Signs Date Temp Pulse Resp B/P (MAP) Pulse Ox O2 O2 Flow FiO2 Time Delivery Rate 11/11/18 73 19 128/90 100 14:30 (103) 11/11/18 Mechanical 14:00 Ventilator 11/11/18 30 13:14 11/11/18 99.4 12:00 Intake and Output 11/10/18 11/10/18 11/11/18 1515:00 23:00 07:00 IntakeIntake Total 950 ml 485 ml 375 ml OutputOutput Total 975 ml 1004 ml 1200 ml BalanceBalance -25 ml -519 ml -825 ml Results Results 24hrs Laboratory Tests Test 11/11/18 05:00 White Blood Count 7.3 Red Blood Count 3.48 L Hemoglobin 10.6 L Hematocrit 33.1 L Mean Corpuscular Volume 95.1 Mean Corpuscular Hemoglobin 30.5 Mean Corpuscular Hemoglobin Concent 32.0 Red Cell Distribution Width 13.0 Platelet Count 282 Mean Platelet Volume 11.3 H Immature Granulocytes % 1.000 H Neutrophils % 69.4 Lymphocytes % 14.6 L Monocytes % 10.9 Eosinophils % 3.6 Basophils % 0.5 Nucleated Red Blood Cells % 0.0 Immature Granulocytes # 0.070 H Neutrophils # 5.1 Lymphocytes # 1.1 Monocytes # 0.8 Eosinophils # 0.3 Basophils # 0.0 Nucleated Red Blood Cells # 0.0 Sodium Level 136 Potassium Level 4.1 Chloride Level 101 Carbon Dioxide Level 27 Anion Gap 8 Blood Urea Nitrogen 21 H Creatinine 0.75 Est Glomerular Filtrat Rate mL/min > 60 Glucose Level 109 Calcium Level 8.8 Phosphorus Level 4.9 Magnesium Level 2.2 Medications Medication Current Medications IV Flush (NS 3 ml) 3 ml PER PROTOCOL IV ; Start 11/02/18 at 13:30 Ondansetron HCl (Zofran Inj) 4 mg Q6H PRN IV NAUSEA/VOMITING; Start 11/02/18 at 13:30 Acetaminophen (Tylenol Tab) 650 mg Q6H PRN PO .PAIN 1-3 OR TEMP Last administered on 11/11/18 10:35; Admin Dose 650 MG; Start 11/02/18 at 13:30 Acetaminophen/ Hydrocodone Bitart ([place] (5/325)) 1 tab Q6H PRN PO .MOD PAIN 4- 6 Last administered on 11/09/18 19:47; Admin Dose 1 TAB; Start 11/02/18 at 13:30 Docusate Sodium (Colace) 100 mg Q12H PRN PO .CONSTIPATION; Start 11/02/18 at 13:30 Magnesium Hydroxide (Milk Of Mag) 30 ml DAILY PRN PO .CONSTIPATION Last administered on 11/08/18 16:50; Admin Dose 30 ML; Start 11/02/18 at 13:30 Sodium Chloride 1,000 ml @ 75 mls/hr [id number] IV Last administered on 11/11/18 08:47; Admin Dose 75 MLS/HR; Start 11/02/18 at 13:30 Albuterol/ Ipratropium (Duoneb) 3 ml Q4H RESP THERAPY PRN HHN SHORTNESS OF BREATH; Start 11/02/18 at 13:30 Hydralazine HCl (Apresoline) 10 mg Q4H PRN IV ELEVATED BLOOD PRESSURE Last administered on 11/10/18 02:06; Admin Dose 10 MG; Start 11/02/18 at 13:30 Nitroglycerin (Nitroglycerin (Sl Tab) 0.4 Mg) 1 tab Q5M PRN SL ANGINA; Start 11/02/18 at 13:30 Labetalol HCl (Labetalol) 10 mg Q10M PRN IV ELEVATED BLOOD PRESSURE Last administered on 11/11/18 11:50; Admin Dose 10 MG; Start 11/02/18 at 13:30 Amlodipine Besylate (Norvasc) 10 mg DAILY PO Last administered on 11/11/18 08:46; Admin Dose 10 MG; Start 11/03/18 at 09:00 Benazepril HCl (Lotensin) 40 mg DAILY PO Last administered on 11/11/18 08:45; Admin Dose 40 MG; Start 11/03/18 at 09:00 Carvedilol (Coreg) 25 mg BID PO Last administered on 11/11/18 08:46; Admin Dose 25 MG; Start 11/02/18 at 21:00 Nicotine (Nicoderm 21 Mg/ 24hr) 1 patch DAILY TRANSDERM Last administered on 11/11/18 08:47; Admin Dose 1 PATCH; Start 11/02/18 at 16:30 Nicardipine HCl 50 mg/Sodium Chloride 500 ml @ 50 mls/hr TITRATE IV Last administered on 11/08/18 04:35; Admin Dose 50 MLS/HR; Start 11/03/18 at 05:00 Lorazepam (Ativan) 1 mg Q10MIN PRN IV Seizures Last administered on 11/03/18 21:49; Admin Dose 1 MG; Start 11/03/18 at 21:00 Famotidine (Pepcid) 20 mg Q12 PO Last administered on 11/11/18 08:46; Admin Dose 20 MG; Start 11/04/18 at 21:00 Morphine Sulfate (morphine) 6 mg Q4H PRN PO SEVERE PAIN LEVEL 7-10 Last administered on 11/06/18 21:23; Admin Dose 6 MG; Start 11/04/18 at 12:00 Docusate Sodium (Colace Liquid Cup) 100 mg BID NGT Last administered on 11/11/18 08:45; Admin Dose 100 MG; Start 11/07/18 at 21:00 Polyethylene Glycol (Miralax) 17 gm BID PRN PO constipation Last administered on 11/09/18 20:44; Admin Dose 17 GM; Start 11/07/18 at 14:30 Bisacodyl (Dulcolax Supp) 10 mg DAILY [place] Last administered on 11/11/18 08:45; Admin Dose 10 MG; Start 11/09/18 at 13:00 Eye Lubricant (Akwa Oint) 1 applic QID BOTH EYES Last administered on 11/11/18 13:36; Admin Dose 1 APPLIC; Start 11/09/18 at 21:00 Ceftriaxone Sodium 50 ml @ 100 mls/hr Q24H IVPB Last administered on 11/11/18 13:36; Admin Dose 100 MLS/HR; Start 11/10/18 at 14:00 DARLING SINGH 20, 2019 15:16
--- NOTE | 2018-11-11 19:57 | HKNOTE ---
DATE OF SERVICE: HISTORY OF PRESENT ILLNESS: The patient is 53 years old status post history of hypertension, intracr anial hemorrhage, pontine hemorrhage, respiratory failure, intubation, dysphagia, in which the patien t started on PEG tube feeding. MEDICATIONS: 1. Vancomycin once a day dosed by the pharmacy. 2. Zosyn q. 8 hours as needed. 3. Colace 100 mg once a day. 4. Pepcid 20 mg once a day. 5. Morphine as needed. 6. Ativan 1 mg every 4 hours as needed. 7. Norvasc 10 mg once a day. 8. Lotensin 40 mg once a day. 9. Coreg 25 mg once a day. 10. Nicotine patch once a day. 11. Zofran 4 mg every 4 hours. 12. Tylenol 650. 13. [place] 5/325 mg as needed. PHYSICAL EXAMINATION: NEUROLOGIC: The patient is alert, awake, open his eyes continuously, occasionally follows simple com mands. CRANIAL NERVES: Cranial nerve II: Pupils equal both sides, reactive to light. Cranial nerves III, IV, and : Extraocular muscles intact for doll's maneuver. Cranial nerves V and VII: Intact corne al reflex. Cranial VIII through XII: Could not assess. MOTOR: Moving both upper extremities against gravity. Sensation, coordination and gait could not as sess. CARDIOVASCULAR: Regular rate and rhythm. LUNGS: Equal breath sounds. ABDOMEN: Soft, relaxed, nondistended. No tenderness. ASSESSMENT AND PLAN: 1. The patient is 53 years old status post pontine hemorrhage. Follow up the patient with conservat reji treatment, seen by Dr. Nguyen for neurosurgery consult. 2. Dysphagia, in which the patient PEG tube feeding will start feeding successfully. 3. Underlying respiratory failure in which the patient is intubated and under ventilation. 4. Keep the patient under deep venous thrombosis prophylaxis as well as decubitus ulcer prophylaxis. 5. Status post fever in which the patient IV antibiotic. Dictated By: JAI AVILA/NISHANT Conf#: [id number] DID#: [id number] CC: HECTOR STRINGER;*EndCC*
[2018-11-11] MEDS ORDERED: LIDOCAINE 2% (SDV) 5 ML INJ ONE (20:21)
[2018-11-11] MEDS ORDERED: MIDAZOLAM 1 MG/ML 2 ML INJ ONE (20:21)
[2018-11-11] MEDS ORDERED: CEFAZOLIN 1 GM INJ ONE (20:21)
[2018-11-11] MEDS ORDERED: PROPOFOL 20 ML ONE (20:21)
[2018-11-11] MEDS ORDERED: FENTAnyl 50 MCG/ML VIAL ONE (20:21)
[2018-11-11] MEDS ORDERED: LIDOCAINE 1%/EPI (1:100,000) (MDV) 20 ML ONE (20:29)
--- NOTE | 2018-11-11 20:33 | PREAC ---
Date/Time of Note Date/Time of Note DATE: 11/11/18 TIME: 20:32 Anesthesia Eval and Record Evaluation Time Pre-Procedure Interview DATE: 11/11/18 TIME: 20:32 Age 53 Sex male NPO: 8 hrs Preoperative diagnosis Respiratory failure Planned procedure Tracheostomy Past Medical History Past Medical History: Includes Cardio: HTN, Dyslipidemia Pulm: Smoking Hx Neuro: CVA Surgery & Anesthesia Issues No known issue Meds Anticoagulation: No Beta Susan within 24 hr: No Reason Beta Susan not given: Pt. not on B-Susan Reported Medications Trazodone Hcl* (Trazodone Hcl*) 100 Mg Tablet, 100 MG PO QHS, #30 TAB 02/24/17 Benazepril Hcl* (Benazepril Hcl*) 40 Mg Tablet, 40 MG PO DAILY, #30 TAB 02/24/17 Amlodipine Besylate* (Amlodipine Besylate*) 10 Mg Tablet, 10 MG PO DAILY, #30 TAB 02/24/17 Carvedilol* (Carvedilol*) 25 Mg Tablet, 25 MG PO BID, #60 TAB 02/24/17 Lorazepam* (Ativan*) 2 Mg Tablet, 2 MG PO HS PRN for SLEEP, #30 TAB 02/24/17 Current Medications IV Flush (NS 3 ml) 3 ml PER PROTOCOL IV ; Start 11/02/18 at 13:30 Ondansetron HCl (Zofran Inj) 4 mg Q6H PRN IV NAUSEA/VOMITING; Start 11/02/18 at 13:30 Acetaminophen (Tylenol Tab) 650 mg Q6H PRN PO .PAIN 1-3 OR TEMP Last administered on 11/11/18at 10:35; Admin Dose 650 MG; Start 11/02/18 at 13:30 Acetaminophen/ Hydrocodone Bitart ([place] (5/325)) 1 tab Q6H PRN PO .MOD PAIN 4- 6 Last administered on 11/09/18at 19:47; Admin Dose 1 TAB; Start 11/02/18 at 13:30 Docusate Sodium (Colace) 100 mg Q12H PRN PO .CONSTIPATION; Start 11/02/18 at 13:30 Magnesium Hydroxide (Milk Of Mag) 30 ml DAILY PRN PO .CONSTIPATION Last administered on 11/08/18at 16:50; Admin Dose 30 ML; Start 11/02/18 at 13:30 Sodium Chloride 1,000 ml @ 75 mls/hr [id number] IV Last administered on 11/11/18 08:47; Admin Dose 75 MLS/HR; Start 11/02/18 at 13:30 Albuterol/ Ipratropium (Duoneb) 3 ml Q4H RESP THERAPY PRN HHN SHORTNESS OF BREATH; Start 11/02/18 at 13:30 Hydralazine HCl (Apresoline) 10 mg Q4H PRN IV ELEVATED BLOOD PRESSURE Last administered on 11/10/18 02:06; Admin Dose 10 MG; Start 11/02/18 at 13:30 Nitroglycerin (Nitroglycerin (Sl Tab) 0.4 Mg) 1 tab Q5M PRN SL ANGINA; Start 11/02/18 at 13:30 Labetalol HCl (Labetalol) 10 mg Q10M PRN IV ELEVATED BLOOD PRESSURE Last administered on 11/11/18 11:50; Admin Dose 10 MG; Start 11/02/18 at 13:30 Amlodipine Besylate (Norvasc) 10 mg DAILY PO Last administered on 11/11/18 08:46; Admin Dose 10 MG; Start 11/03/18 at 09:00 Benazepril HCl (Lotensin) 40 mg DAILY PO Last administered on 11/11/18 08:45; Admin Dose 40 MG; Start 11/03/18 at 09:00 Carvedilol (Coreg) 25 mg BID PO Last administered on 11/11/18 08:46; Admin Dose 25 MG; Start 11/02/18 at 21:00 Nicotine (Nicoderm 21 Mg/ 24hr) 1 patch DAILY TRANSDERM Last administered on 11/11/18 08:47; Admin Dose 1 PATCH; Start 11/02/18 at 16:30 Nicardipine HCl 50 mg/Sodium Chloride 500 ml @ 50 mls/hr TITRATE IV Last administered on 11/08/18 04:35; Admin Dose 50 MLS/HR; Start 11/03/18 at 05:00 Lorazepam (Ativan) 1 mg Q10MIN PRN IV Seizures Last administered on 11/03/18 21:49; Admin Dose 1 MG; Start 11/03/18 at 21:00 Famotidine (Pepcid) 20 mg Q12 PO Last administered on 11/11/18 08:46; Admin Dose 20 MG; Start 11/04/18 at 21:00 Morphine Sulfate (morphine) 6 mg Q4H PRN PO SEVERE PAIN LEVEL 7-10 Last administered on 11/06/18 21:23; Admin Dose 6 MG; Start 11/04/18 at 12:00 Docusate Sodium (Colace Liquid Cup) 100 mg BID NGT Last administered on 11/11/18 08:45; Admin Dose 100 MG; Start 11/07/18 at 21:00 Polyethylene Glycol (Miralax) 17 gm BID PRN PO constipation Last administered on 11/09/18 20:44; Admin Dose 17 GM; Start 11/07/18 at 14:30 Bisacodyl (Dulcolax Supp) 10 mg DAILY [place] Last administered on 11/11/18 08:45; Admin Dose 10 MG; Start 11/09/18 at 13:00 Eye Lubricant (Akwa Oint) 1 applic QID BOTH EYES Last administered on 11/11/18 18:16; Admin Dose 1 APPLIC; Start 11/09/18 at 21:00 Ceftriaxone Sodium 50 ml @ 100 mls/hr Q24H IVPB Last administered on 11/11/18 13:36; Admin Dose 100 MLS/HR; Start 11/10/18 at 14:00 Meds reviewed: Yes Allergies Coded Allergies: No Known Allergy (Unverified , 02/24/17) Allergies Reviewed: Yes Labs/Studies Labs Reviewed: Reviewed by anesthesiologist Result Diagram: 11/11/18 0500 11/11/18 0500 Laboratory Tests 11/11/18 05:00 test: N/A Studies: ECG Pre-procedure Exam Last vitals Vital Signs Date Temp Pulse Resp B/P (MAP) Pulse Ox O2 O2 Flow FiO2 Time Delivery Rate 11/11/18 79 24 137/90 96 Mechanical 19:00 (106) Ventilator 11/11/18 30 17:35 11/11/18 98.9 16:00 Airway: Adequate mouth opening, Adequate thyromental dist Mallampati: Mallampati III Teeth: Normal Lung: Normal Heart: Normal ASA Physical Status ASA physical status: 4 Emergency: None Planned Anesthetic General/MAC: ETT Planned Pain Management Parenteral pain med Pre-operative Attestations Prior to commencing anesthesia and surgery, the patient was re-evaluated, there was verification of: *The patient's identity *The results of appropriate recent lab work and preoperative vital signs *The above evaluation not changing prior to induction *Anesthetic plan, risk benefits, alternative and complications discussed with patient/family; questions answered; patient/family understands, accepts and wishes to proceed. JUNO FERNANDEZ MD Nov 11, 2018 20:33
--- NOTE | 2018-11-11 21:01 | PAC ---
Date/Time of Note Date/Time of Note DATE: 11/11/18 TIME: 21:00 Post-Anesthesia Notes Post-Anesthesia Note Last documented vital signs Vital Signs Date Temp Pulse Resp B/P (MAP) Pulse Ox O2 O2 Flow FiO2 Time Delivery Rate 11/11/18 79 24 137/90 96 Mechanical 19:00 (106) Ventilator 11/11/18 30 17:35 11/11/18 98.9 16:00 Activity: WNL Respiratory function: WNL Cardiovascular function: WNL Mental status: Baseline Pain reasonably controlled: Yes Hydration appropriate: Yes Nausea/Vomiting absent: Yes Comments BP:145/67, P:88, spo2:100%, T:98,9 JUON FERNANDEZ MD Nov 11, 2018 21:01
--- NOTE | 2018-11-11 21:35 | OPR ---
Date/Time of Note Date/Time of Note DATE: 11/11/18 TIME: 21:30 Operative Report Procedure Date: Nov 11, 2018 Preoperative Diagnosis Respiratory failure Postoperative Diagnosis Same Operation/Procedure Performed Tracheostomy Surgeon see signature line Grapple Crew Leader None Anesthesia Type: general Estimated Blood Loss: minimal Transfusion none Specimen None Grafts/Implants none Complications none Disposition: other Procedure Description Patient was placed in supine position prepped and draped in usual sterile fashion timeout was called Access was gained into the trachea guidewire was advanced through without any difficulty subcutaneous tissues were dilated Tracheal tube was removed 8 cuffed tracheostomy tube advanced into the trachea secured to skin using 4 2-0 nylon sutures and a trach tie protective pad was applied patient tolerated procedure well JANIE WHITEHEAD MD Nov 11, 2018 21:35
[2018-11-12] VITALS (71 sets, daily range): BP systolic 98–174; BP diastolic 65–105; PULSE 74–90; RESP 13–29
[2018-11-12] MEDS: hydrALAzine 20 MG INJ IV PRN ×2 (00:11→08:05)
[2018-11-12] MEDS: SOD CHLORIDE 0.45% 1,000 ML IV SCH ×2 (00:13→13:38)
--- NOTE | 2018-11-12 09:06 | PN ---
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 #Altered level of consciousness: - Patient is intubated, secondary to the pontine hemorrhage found on his head scan. - The latest head CT showed no significant changes in the size of the bleed compared to the head CT that was performed 12 hours before that. - Hold all anticoagulants. - Continue on p.o. blood pressure medicines, goal 140/90 - Statins can increase the risk of future ICH and have no proven benefit in cerebral bleeds. Will not start. - Per neurosurgery, no intervention indicated for this hemorrhage at this time, unless hydrocephalus becomes an issue (ie: ventriculostomy tube?) - Tube feeds - PEG on 11/10, trach on 11/11 - Likely transfer out of ICU #Fever - Fever on 11/10 associated with worsening LLL infiltrate on CXR - Cultures negative so far. No more fevers. Will pull of antibiotics. - Ceftriaxone 11/10-11/16 for pneumonia. #Smoking history: Nicotine patch. # HTN: stable now, again want to keep blood pressure less than 140 systolic given the intracranial hemorrhage/pontine hemorrhage. Dispo: Overall likely poor prognosis. Palliative care team has been consulted as well. Now s/p trach and PEG. Likely transfer out of ICU today. Critical care time spent on patient care today equals 50 minutes. Result Diagram: 11/12/185 11/12/18444 Subjective 24 Hr Interval Summary Free Text/Dictation Got tracheostomy last night. No acute overnight events. No new fevers. I updated patient's at bedside about the plan. Exam/Review of Systems Exam Vitals Vital Signs Date Temp Pulse Resp B/P (MAP) Pulse Ox O2 O2 Flow FiO2 Time Delivery Rate 11/12/18 90 26 143/99 98 08:30 (114) 11/12/18 99.9 Mechanical 08:00 Ventilator 11/12/18 45 04:57 Intake and Output 11/11/18 11/11/18 11/12/18 1414:59 22:59 06:59 IntakeIntake Total 605 ml 610 ml 300 ml OutputOutput Total 900 ml 980 ml 1125 ml BalanceBalance -295 ml -370 ml -825 ml Exam General: Well developed man trached on vent, somnolent. Head: Normocephalic, atraumatic. Eyes: Bilateral conjunctival injection. ENT: Moist mucous membranes, trach in place clean/dry/intact, few secretions. Neck: Supple, no lymphadenopathy Respiratory: Mechanical breath sounds bilaterally, no distress Cardiovascular: RRR, no murmurs, rubs, or gallops Abdominal: Soft, G tube in place with abdominal binder. MSK: No edema Neurologic: Patient opens eyes to stimulation. Vertical movement, no horizontal movement of eyes. Moves both hands spontaneously. Results Results 24hrs Laboratory Tests Test 11/12/18 04:45 White Blood Count 8.6 Red Blood Count 3.72 L Hemoglobin 11.4 L Hematocrit 34.7 L Mean Corpuscular Volume 93.3 Mean Corpuscular Hemoglobin 30.6 Mean Corpuscular Hemoglobin Concent 32.9 Red Cell Distribution Width 12.8 Platelet Count 334 Mean Platelet Volume 10.6 H Immature Granulocytes % 1.200 H Neutrophils % 75.5 Lymphocytes % 10.9 L Monocytes % 9.2 Eosinophils % 2.8 Basophils % 0.4 Nucleated Red Blood Cells % 0.0 Immature Granulocytes # 0.100 H Neutrophils # 6.5 Lymphocytes # 0.9 Monocytes # 0.8 Eosinophils # 0.2 Basophils # 0.0 Nucleated Red Blood Cells # 0.0 Sodium Level 137 Potassium Level 4.0 Chloride Level 101 Carbon Dioxide Level 24 Anion Gap 12 Blood Urea Nitrogen 21 H Creatinine 0.73 Est Glomerular Filtrat Rate mL/min > 60 Glucose Level 118 Calcium Level 8.9 Medications Medication Current Medications IV Flush (NS 3 ml) 3 ml PER PROTOCOL IV ; Start 11/02/18 at 13:30 Ondansetron HCl (Zofran Inj) 4 mg Q6H PRN IV NAUSEA/VOMITING; Start 11/02/18 at 13:30 Acetaminophen (Tylenol Tab) 650 mg Q6H PRN PO .PAIN 1-3 OR TEMP Last administered on 11/11/18 10:35; Admin Dose 650 MG; Start 11/02/18 at 13:30 Acetaminophen/ Hydrocodone Bitart ([place] (5/325)) 1 tab Q6H PRN PO .MOD PAIN 4- 6 Last administered on 11/09/18 19:47; Admin Dose 1 TAB; Start 11/02/18 at 13:30 Docusate Sodium (Colace) 100 mg Q12H PRN PO .CONSTIPATION; Start 11/02/18 at 13:30 Magnesium Hydroxide (Milk Of Mag) 30 ml DAILY PRN PO .CONSTIPATION Last administered on 11/08/18 16:50; Admin Dose 30 ML; Start 11/02/18 at 13:30 Sodium Chloride 1,000 ml @ 75 mls/hr [id number] IV Last administered on 11/12/18 00:13; Admin Dose 75 MLS/HR; Start 11/02/18 at 13:30 Albuterol/ Ipratropium (Duoneb) 3 ml Q4H RESP THERAPY PRN HHN SHORTNESS OF BREATH; Start 11/02/18 at 13:30 Hydralazine HCl (Apresoline) 10 mg Q4H PRN IV ELEVATED BLOOD PRESSURE Last administered on 11/12/18 08:05; Admin Dose 10 MG; Start 11/02/18 at 13:30 Nitroglycerin (Nitroglycerin (Sl Tab) 0.4 Mg) 1 tab Q5M PRN SL ANGINA; Start 11/02/18 at 13:30 Labetalol HCl (Labetalol) 10 mg Q10M PRN IV ELEVATED BLOOD PRESSURE Last administered on 11/11/18 11:50; Admin Dose 10 MG; Start 11/02/18 at 13:30 Amlodipine Besylate (Norvasc) 10 mg DAILY PO Last administered on 11/11/18 08: 46; Admin Dose 10 MG; Start 11/03/18 at 09:00 Benazepril HCl (Lotensin) 40 mg DAILY PO Last administered on 11/11/18 08:45; Admin Dose 40 MG; Start 11/03/18 at 09:00 Carvedilol (Coreg) 25 mg BID PO Last administered on 11/11/18 08:46; Admin Dose 25 MG; Start 11/02/18 at 21:00 Nicotine (Nicoderm 21 Mg/ 24hr) 1 patch DAILY TRANSDERM Last administered on 11/11/18 08:47; Admin Dose 1 PATCH; Start 11/02/18 at 16:30 Nicardipine HCl 50 mg/Sodium Chloride 500 ml @ 50 mls/hr TITRATE IV Last admin istered on 11/08/18 04:35; Admin Dose 50 MLS/HR; Start 11/03/18 at 05:00 Lorazepam (Ativan) 1 mg Q10MIN PRN IV Seizures Last administered on 11/03/18 21:49; Admin Dose 1 MG; Start 11/03/18 at 21:00 Famotidine (Pepcid) 20 mg Q12 PO Last administered on 11/11/18 08:46; Admin Dose 20 MG; Start 11/04/18 at 21:00 Morphine Sulfate (morphine) 6 mg Q4H PRN PO SEVERE PAIN LEVEL 7-10 Last administered on 11/06/18 21:23; Admin Dose 6 MG; Start 11/04/18 at 12:00 Docusate Sodium (Colace Liquid Cup) 100 mg BID NGT Last administered on 11/11/18 08:45; Admin Dose 100 MG; Start 11/07/18 at 21:00 Polyethylene Glycol (Miralax) 17 gm BID PRN PO constipation Last administered on 11/09/18 20:44; Admin Dose 17 GM; Start 11/07/18 at 14:30 Bisacodyl (Dulcolax Supp) 10 mg DAILY [place] Last administered on 11/11/18 08:45; Admin Dose 10 MG; Start 11/09/18 at 13:00 Eye Lubricant (Akwa Oint) 1 applic QID BOTH EYES Last administered on 11/11/18 21:09; Admin Dose 1 APPLIC; Start 11/09/18 at 21:00 Ceftriaxone Sodium 50 ml @ 100 mls/hr Q24H IVPB Last administered on 11/11/18 13:36; Admin Dose 100 MLS/HR; Start 11/10/18 at 14:00 KEESHA PANDYA MD Nov 12, 2018 09:06
[2018-11-12] MEDS: OCULAR LUBRICANT 3.5 GM OPH OINT BOTH EYES SCH ×4 (09:14→20:43)
[2018-11-12] MEDS: FAMOTIDINE 20 MG TAB PO SCH ×2 (09:14→20:43)
[2018-11-12] MEDS: BENAZEPRIL 40 MG TAB PO SCH (09:14)
[2018-11-12] MEDS: DOCUSATE SODIUM 10 MG/ML (10ML CUP) NGT SCH ×2 (09:14→20:43)
[2018-11-12] MEDS: BISACODYL 10 MG SUPP PR SCH (09:15)
[2018-11-12] MEDS: AMLODIPINE 10 MG TAB PO SCH (09:15)
[2018-11-12] MEDS: NICOTINE (21 MG/24 HR) PATCH TRANSDERM SCH (09:16)
--- NOTE | 2018-11-12 11:37 | CONS ---
Consult Date/Type/Reason Admit Date/Time Nov 02, 2018 at 13:13 Initial Consult Date 11/03/18 Type of Consult Pulmonary Date/Time of Note DATE: 11/12/18 TIME: 11:36 Subjective Patient remains stable following tracheostomy. Tube feeding started currently hemodynamically stable. Objective Vital Signs Date Temp Pulse Resp B/P (MAP) Pulse Ox O2 O2 Flow FiO2 Time Delivery Rate 11/12/18 79 24 105/72 100 Mechanical 11:00 (83) Ventilator 11/12/18 97.8 09:15 11/12/18 45 04:57 Intake and Output 11/11/18 11/11/18 11/12/18 1515:00 23:00 07:00 IntakeIntake Total 565 ml 650 ml 235 ml OutputOutput Total 950 ml 980 ml 1125 ml BalanceBalance -385 ml -330 ml -890 ml Exam GENERAL: Well-nourished well-developed gentleman on mechanical ventilation VITAL SIGNS: per chart NECK: Supple. No JVD or lymphadenopathy. CARDIAC EXAM: S1, S2. No added sounds or murmurs. CHEST: clear bilaterally, No added sounds, rales or wheezes ABDOMEN: Soft, nontender. No guarding or rebound. EXTREMITIES: No cyanosis, clubbing or edema. NEUROLOGIC: Unresponsive on mechanical ventilation. Vent Setting Ventilator Support Mode: AC Fraction of Inspired Oxygen pe: 45 Positive End Expiratory Pressu: 5.0 Results/Medications Result Diagram: 11/12/1844411/12/18444 Results 24 hrs Laboratory Tests Test 11/12/18 04:45 White Blood Count 8.6 Red Blood Count 3.72 L Hemoglobin 11.4 L Hematocrit 34.7 L Mean Corpuscular Volume 93.3 Mean Corpuscular Hemoglobin 30.6 Mean Corpuscular Hemoglobin Concent 32.9 Red Cell Distribution Width 12.8 Platelet Count 334 Mean Platelet Volume 10.6 H Immature Granulocytes % 1.200 H Neutrophils % 75.5 Lymphocytes % 10.9 L Monocytes % 9.2 Eosinophils % 2.8 Basophils % 0.4 Nucleated Red Blood Cells % 0.0 Immature Granulocytes # 0.100 H Neutrophils # 6.5 Lymphocytes # 0.9 Monocytes # 0.8 Eosinophils # 0.2 Basophils # 0.0 Nucleated Red Blood Cells # 0.0 Sodium Level 137 Potassium Level 4.0 Chloride Level 101 Carbon Dioxide Level 24 Anion Gap 12 Blood Urea Nitrogen 21 H Creatinine 0.73 Est Glomerular Filtrat Rate mL/min > 60 Glucose Level 118 Calcium Level 8.9 Medications Current Medications IV Flush (NS 3 ml) 3 ml PER PROTOCOL IV ; Start 11/02/18 at 13:30 Ondansetron HCl (Zofran Inj) 4 mg Q6H PRN IV NAUSEA/VOMITING; Start 11/02/18 at 13:30 Acetaminophen (Tylenol Tab) 650 mg Q6H PRN PO .PAIN 1-3 OR TEMP Last administered on 11/11/18at 10:35; Admin Dose 650 MG; Start 11/02/18 at 13:30 Acetaminophen/ Hydrocodone Bitart ([place] (5/325)) 1 tab Q6H PRN PO .MOD PAIN 4- 6 Last administered on 11/09/18at 19:47; Admin Dose 1 TAB; Start 11/02/18 at 13:30 Docusate Sodium (Colace) 100 mg Q12H PRN PO .CONSTIPATION; Start 11/02/18 at 13:30 Magnesium Hydroxide (Milk Of Mag) 30 ml DAILY PRN PO .CONSTIPATION Last administered on 11/08/18at 16:50; Admin Dose 30 ML; Start 11/02/18 at 13:30 Sodium Chloride 1,000 ml @ 75 mls/hr [id number] IV Last administered on 11/12/18at 00:13; Admin Dose 75 MLS/HR; Start 11/02/18 at 13:30 Albuterol/ Ipratropium (Duoneb) 3 ml Q4H RESP THERAPY PRN HHN SHORTNESS OF BREATH; Start 11/02/18 at 13:30 Hydralazine HCl (Apresoline) 10 mg Q4H PRN IV ELEVATED BLOOD PRESSURE Last administered on 11/12/18 08:05; Admin Dose 10 MG; Start 11/02/18 at 13:30 Nitroglycerin (Nitroglycerin (Sl Tab) 0.4 Mg) 1 tab Q5M PRN SL ANGINA; Start 11/02/18 at 13:30 Labetalol HCl (Labetalol) 10 mg Q10M PRN IV ELEVATED BLOOD PRESSURE Last administered on 11/11/18at 11:50; Admin Dose 10 MG; Start 11/02/18 at 13:30 Amlodipine Besylate (Norvasc) 10 mg DAILY PO Last administered on 11/12/18 09:15; Admin Dose 10 MG; Start 11/03/18 at 09:00 Benazepril HCl (Lotensin) 40 mg DAILY PO Last administered on 11/12/18 09:14; Admin Dose 40 MG; Start 11/03/18 at 09:00 Carvedilol (Coreg) 25 mg BID PO Last administered on 11/12/18 09:17; Admin Dose 25 MG; Start 11/02/18 at 21:00 Nicotine (Nicoderm 21 Mg/ 24hr) 1 patch DAILY TRANSDERM Last administered on 11/12/18 09:16; Admin Dose 1 PATCH; Start 11/02/18 at 16:30 Nicardipine HCl 50 mg/Sodium Chloride 500 ml @ 50 mls/hr TITRATE IV Last administered on 11/08/18 04:35; Admin Dose 50 MLS/HR; Start 11/03/18 at 05:00 Lorazepam (Ativan) 1 mg Q10MIN PRN IV Seizures Last administered on 11/03/18 21:49; Admin Dose 1 MG; Start 11/03/18 at 21:00 Famotidine (Pepcid) 20 mg Q12 PO Last administered on 11/12/18 09:14; Admin Dose 20 MG; Start 11/04/18 at 21:00 Morphine Sulfate (morphine) 6 mg Q4H PRN PO SEVERE PAIN LEVEL 7-10 Last administered on 11/06/18 21:23; Admin Dose 6 MG; Start 11/04/18 at 12:00 Docusate Sodium (Colace Liquid Cup) 100 mg BID NGT Last administered on 9at 09:14; Admin Dose 100 MG; Start 11/07/18 at 21:00 Polyethylene Glycol (Miralax) 17 gm BID PRN PO constipation Last administered on 11/09/18 20:44; Admin Dose 17 GM; Start 11/07/18 at 14:30 Bisacodyl (Dulcolax Supp) 10 mg DAILY [place] Last administered on 11/12/18 09:15; Admin Dose 10 MG; Start 11/09/18 at 13:00 Eye Lubricant (Akwa Oint) 1 applic QID BOTH EYES Last administered on 11/12/18 09:14; Admin Dose 1 APPLIC; Start 11/09/18 at 21:00 Ceftriaxone Sodium 50 ml @ 100 mls/hr Q24H IVPB Last administered on 11/11/18at 13:36; Admin Dose 100 MLS/HR; Start 11/10/18 at 14:00 Assessment/Plan Hospital Course (Demo Recall) Assessment 1. Acute pontine bleed. Repeat CT brain noted. 2. Severe encephalopathy 3. Respiratory failure secondary to above Plan 1. Continue mechanical ventilation 2. Neurosurgical recommendations, repeat CT noted. Continue to observe. Status post PEG and tracheostomy placement. 3. Continue supportive care. 4. Continue tube feeding via PEG tube Critical care time 40 minutes. Transfer to telemetry [place] evaluation Subacute evaluation VARGHESE GREY MD, [facility] Nov 12, 2018 11:37
[2018-11-12] MEDS: CEFTRIAXONE 1 GM/50 ML (PMX) 50 ML IVPB SCH (13:50)
--- NOTE | 2018-11-12 21:57 | PN ---
Date/Time of Note Date/Time of Note DATE: 11/12/18 TIME: 21:56 Assessment/Plan Lines/Catheters IV Catheter Type (from Nrsg): Peripheral IV Riddle in Place (from Nrsg): Yes Assessment/Plan Assessment/Plan Status post tracheostomy Trach site clean Will continue vent support trach care pulmonary toilet Subjective 24 Hr Interval Summary Constitutional: improved Pain Control: mild Exam/Review of Systems Vital Signs Vitals Vital Signs Date Temp Pulse Resp B/P (MAP) Pulse Ox O2 O2 Flow FiO2 Time Delivery Rate 11/12/18 97.8 74 22 131/92 99 21:32 (105) 11/12/18 45 21:02 11/12/18 Mechanical 18:00 Ventilator Intake and Output 11/11/18 11/11/18 11/12/18 1515:00 23:00 07:00 IntakeIntake Total 565 ml 650 ml 310 ml OutputOutput Total 950 ml 980 ml 1125 ml BalanceBalance -385 ml -330 ml -815 ml Exam Eyes: nl conjunctiva, EOMI, nl lids, nl sclera ENMT: nl external ears & nose, nl lips & teeth, nl nasal mucosa & septum, mucosa pink and moist Neck: supple, non-tender Respiratory: clear to auscultation, normal air movement Cardiovascular: regular rate and rhythm, nl pulses Musculoskeletal: nl extremities to inspection, nl gait and stance Results Result Diagram: 11/12/1844411/12/18444 JANIE WHITEHEAD MD Nov 12, 2018 21:57
[2018-11-13] VITALS (21 sets, daily range): BP systolic 112–147; BP diastolic 67–98; PULSE 72–84; RESP 15–22
--- NOTE | 2018-11-13 02:12 | CONS ---
DATE OF ADMISSION: 11/02/2018 DATE OF CONSULTATION: HISTORY OF PRESENT ILLNESS: The patient is a 53-year-old hypertension, intracranial bleeding, pontin e hemorrhage, respiratory failure, status post tracheostomy last night which was done successfully, d ysphagia with PEG tube feeding. CURRENT MEDICATIONS: Include: 1. Zofran 4 mg every 4 hours as needed. 2. Tylenol 650 mg as needed. 3. Colace 100 mg twice a day as needed. 4. Magnesium hydroxide as needed. 5. Albuterol inhaler twice a day as needed. 6. Hydralazine 10 mg intravenous as needed. 7. Nitroglycerin patch as needed. 8. Lipitor 10 mg for elevated blood pressure. 9. Benazepril 40 mg once a day. 10. Carvedilol 25 mg twice a day. 11. Nicotine patch once a day. 12. Lorazepam 1 mg every 4 hours as needed. 13. Morphine sulfate 60 mg every 4 hours as needed. 14. Eye lubricant once a day as needed. 15. Ceftriaxone once a day. PHYSICAL EXAMINATION: GENERAL: The patient opens his eyes continuously, occasionally following simple commands. CRANIAL NERVES: Cranial nerve II: Pupils equal both sides, reactive to light. Cranial nerves III, IV and : Extraocular muscles intact for doll's maneuver. Cranial nerves V and VII: Intact cornea l reflex. Cranial nerves VIII through XII: Could not assess. MOTOR: Moving both hands bilaterally. Sensation, coordination and gait could not assess. HEART: Regular rate and rhythm. LUNGS: Equal breath sounds. ABDOMEN: Soft, relaxed, nondistended, no tenderness. ASSESSMENT AND PLAN: 1. The patient is 53 years old status post decreased mini mental status. 2. History of pontine hemorrhage. 3. Respiratory failure in which the patient has a tracheostomy tube successfully done last night. 4. Underlying dysphagia in which the patient has PEG tube feeding. 5. Keep the patient under deep venous thrombosis prophylaxis and decubitus ulcer prophylaxis. 6. Status post high spike of temperature in which the patient is in antibiotics. 7. Bilateral upper and lower extremity weakness. Follow up the patient with physical therapy and be dside rehabilitation and see how the patient responds for that. 8. Follow up the patient with [facility] for continuation of his treatment. Again, thank you for asking me to see the patient with you. Dictated By: JAI AVILA/NISHANT Conf#: [id number] DID#: [id number] CC: HECTOR STRINGER; KEESHA PANDYA MD;*End*
[2018-11-13] MEDS: BENAZEPRIL 40 MG TAB PO SCH (08:39)
[2018-11-13] MEDS: BISACODYL 10 MG SUPP PR SCH (08:39)
[2018-11-13] MEDS: NICOTINE (21 MG/24 HR) PATCH TRANSDERM SCH (08:39)
[2018-11-13] MEDS: DOCUSATE SODIUM 10 MG/ML (10ML CUP) NGT SCH ×2 (08:39→21:20)
[2018-11-13] MEDS: FAMOTIDINE 20 MG TAB PO SCH ×2 (08:40→21:20)
[2018-11-13] MEDS: AMLODIPINE 10 MG TAB PO SCH (08:40)
[2018-11-13] MEDS: OCULAR LUBRICANT 3.5 GM OPH OINT BOTH EYES SCH ×4 (09:00→21:21)
[2018-11-13] MEDS: CEFTRIAXONE 1 GM/50 ML (PMX) 50 ML IVPB SCH (14:09)
--- NOTE | 2018-11-13 15:41 | PN ---
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 - The latest head CT showed no significant changes in the size of the bleed compared to the head CT that was performed 12 hours before that. - Hold all anticoagulants. - Continue on p.o. blood pressure medicines, goal 140/90 - Statins can increase the risk of future ICH and have no proven benefit in cerebral bleeds. Will not start. - Per neurosurgery, no intervention indicated for this hemorrhage at this time, unless hydrocephalus becomes an issue (ie: ventriculostomy tube?) - Tube feeds - PEG on 11/10, trach on 11/11 - Family updated on very poor prognosis. #Hypoxia - Respiratory failure due to pontine hemorrhage causing respiratory failure. - CXR with patchy infiltrates. Ceftriaxone for PNA as below. - Still requiring 45% FiO2 - Dr. Jeronimo following. #Fever - Fever on 11/10 associated with worsening LLL infiltrate on CXR - Cultures negative so far. No more fevers. Will pull of antibiotics. - Ceftriaxone 11/10-11/16 for pneumonia. #Smoking history: Nicotine patch. # HTN: stable now, again want to keep blood pressure less than 140 systolic given the intracranial hemorrhage/pontine hemorrhage. Dispo: Overall likely poor prognosis. Palliative care team has been consulted as well. Now s/p trach and PEG. Plan to discharge to subacute care. Result Diagram: 11/13/18 0646 11/13/18 0646 Subjective 24 Hr Interval Summary Free Text/Dictation Up from ICU to telemetry last night. No significant change in neuro function. 's aunt at bedside today. Updated her on neuro function. Patient still slightly hypoxic requiring 45% FiO2. He demonstrated strong cough on my exam today. Does not have excess secretions. Exam/Review of Systems Exam Vitals Vital Signs Date Temp Pulse Resp B/P (MAP) Pulse Ox O2 O2 Flow FiO2 Time Delivery Rate 11/13/18 100.1 79 20 112/75 98 Trach 15:20 (87) Collar 11/13/18 45 15:10 Intake and Output 11/12/18 11/12/18 11/13/18 1515:00 23:00 07:00 IntakeIntake Total 795 ml 195 ml 130 ml OutputOutput Total 850 ml 650 ml 800 ml BalanceBalance -55 ml -455 ml -670 ml Exam General: Well developed man trached on vent. Head: Normocephalic, atraumatic. Eyes: Bilateral conjunctival injection. ENT: Moist mucous membranes, trach in place clean/dry/intact, few secretions. Neck: Supple, no lymphadenopathy Respiratory: Mechanical breath sounds bilaterally, no distress Cardiovascular: RRR, no murmurs, rubs, or gallops Abdominal: Soft, G tube in place with abdominal binder. MSK: No edema Neurologic: Patient opens eyes to stimulation. Vertical movement, no horizontal movement of eyes. Moves both hands spontaneously. Can open mouth on command. Results Results 24hrs Laboratory Tests Test 11/13/18 06:46 White Blood Count 8.9 Red Blood Count 3.79 L Hemoglobin 11.6 L Hematocrit 35.4 L Mean Corpuscular Volume 93.4 Mean Corpuscular Hemoglobin 30.6 Mean Corpuscular Hemoglobin Concent 32.8 Red Cell Distribution Width 13.0 Platelet Count 364 Mean Platelet Volume 10.5 H Immature Granulocytes % 1.400 H Neutrophils % 71.9 Lymphocytes % 13.4 L Monocytes % 8.6 Eosinophils % 4.4 Basophils % 0.3 Nucleated Red Blood Cells % 0.0 Immature Granulocytes # 0.120 H Neutrophils # 6.4 Lymphocytes # 1.2 Monocytes # 0.8 Eosinophils # 0.4 Basophils # 0.0 Nucleated Red Blood Cells # 0.0 Sodium Level 138 Potassium Level 3.9 Chloride Level 103 Carbon Dioxide Level 30 Anion Gap 5 Blood Urea Nitrogen 21 H Creatinine 0.71 Est Glomerular Filtrat Rate mL/min > 60 Glucose Level 133 Calcium Level 9.0 Phosphorus Level 3.8 Magnesium Level 2.4 Medications Medication Current Medications IV Flush (NS 3 ml) 3 ml PER PROTOCOL IV ; Start 11/02/18 at 13:30 Ondansetron HCl (Zofran Inj) 4 mg Q6H PRN IV NAUSEA/VOMITING; Start 11/02/18 at 13:30 Acetaminophen (Tylenol Tab) 650 mg Q6H PRN PO .PAIN 1-3 OR TEMP Last a dministered on 11/11/18 10:35; Admin Dose 650 MG; Start 11/02/18 at 13:30 Magnesium Hydroxide (Milk Of Mag) 30 ml DAILY PRN PO .CONSTIPATION Last administered on 11/08/18 16:50; Admin Dose 30 ML; Start 11/02/18 at 13:30 Albuterol/ Ipratropium (Duoneb) 3 ml Q4H RESP THERAPY PRN HHN SHORTNESS OF B REATH; Start 11/02/18 at 13:30 Hydralazine HCl (Apresoline) 10 mg Q4H PRN IV ELEVATED BLOOD PRESSURE Last administered on 11/12/18 08:05; Admin Dose 10 MG; Start 11/02/18 at 13:30 Nitroglycerin (Nitroglycerin (Sl Tab) 0.4 Mg) 1 tab Q5M PRN SL ANGINA; Start 11/02/18 at 13:30 Labetalol HCl (Labetalol) 10 mg Q10M PRN IV ELEVATED BLOOD PRESSURE Last administered on 11/11/18 11:50; Admin Dose 10 MG; Start 11/02/18 at 13:30 Amlodipine Besylate (Norvasc) 10 mg DAILY PO Last administered on 11/13/18 08:40; Admin Dose 10 MG; Start 11/03/18 at 09:00 Benazepril HCl (Lotensin) 40 mg DAILY PO Last administered on 11/13/18 08:39; Admin Dose 40 MG; Start 11/03/18 at 09:00 Carvedilol (Coreg) 25 mg BID PO Last administered on 11/13/18 08:40; Admin Dose 25 MG; Start 11/02/18 at 21:00 Nicotine (Nicoderm 21 Mg/ 24hr) 1 patch DAILY TRANSDERM Last administered on 11/13/18 08:39; Admin Dose 1 PATCH; Start 11/02/18 at 16:30 Lorazepam (Ativan) 1 mg Q10MIN PRN IV Seizures Last administered on 11/03/18 21:49; Admin Dose 1 MG; Start 11/03/18 at 21:00 Famotidine (Pepcid) 20 mg Q12 PO Last administered on 11/13/18 08:40; Admin Dose 20 MG; Start 11/04/18 at 21:00 Docusate Sodium (Colace Liquid Cup) 100 mg BID NGT Last administered on 11/13/18 08:39; Admin Dose 100 MG; Start 11/07/18 at 21:00 Polyethylene Glycol (Miralax) 17 gm BID PRN PO constipation Last administered on 11/09/18 20:44; Admin Dose 17 GM; Start 11/07/18 at 14:30 Bisacodyl (Dulcolax Supp) 10 mg DAILY [place] Last administered on 11/13/18 08:39; Admin Dose 10 MG; Start 11/09/18 at 13:00 Eye Lubricant (Akwa Oint) 1 applic QID BOTH EYES Last administered on 11/13/18 14:09; Admin Dose 1 APPLIC; Start 11/09/18 at 21:00 Ceftriaxone Sodium 50 ml @ 100 mls/hr Q24H IVPB Last administered on 11/13/18 14:09; Admin Dose 100 MLS/HR; Start 11/10/18 at 14:00 KEESHA PANDYA MD Nov 13, 2018 15:41
--- NOTE | 2018-11-13 15:45 | CONS ---
Consult Date/Type/Reason Admit Date/Time Nov 02, 2018 at 13:13 Initial Consult Date 11/03/18 Type of Consult Pulmonary Date/Time of Note DATE: 11/13/18 TIME: 15:44 Subjective No events, remains somnolent on vent. Objective Vital Signs Date Temp Pulse Resp B/P (MAP) Pulse Ox O2 O2 Flow FiO2 Time Delivery Rate 11/13/18 100.1 79 20 112/75 98 Trach 15:20 (87) Collar 11/13/18 45 15:10 Intake and Output 11/12/18 11/12/18 11/13/18 1515:00 23:00 07:00 IntakeIntake Total 795 ml 195 ml 130 ml OutputOutput Total 850 ml 650 ml 800 ml BalanceBalance -55 ml -455 ml -670 ml Exam GENERAL: Well-nourished well-developed gentleman on mechanical ventilation VITAL SIGNS: per chart NECK: Supple. No JVD or lymphadenopathy. CARDIAC EXAM: S1, S2. No added sounds or murmurs. CHEST: clear bilaterally, No added sounds, rales or wheezes ABDOMEN: Soft, nontender. No guarding or rebound. EXTREMITIES: No cyanosis, clubbing or edema. NEUROLOGIC: Unresponsive on mechanical ventilation. Vent Setting Ventilator Support Mode: AC, VC plus Fraction of Inspired Oxygen pe: 45 Positive End Expiratory Pressu: 5.0 Results/Medications Result Diagram: 11/13/18 0646 11/13/18 0646 Results 24 hrs Laboratory Tests Test 11/13/18 06:46 White Blood Count 8.9 Red Blood Count 3.79 L Hemoglobin 11.6 L Hematocrit 35.4 L Mean Corpuscular Volume 93.4 Mean Corpuscular Hemoglobin 30.6 Mean Corpuscular Hemoglobin Concent 32.8 Red Cell Distribution Width 13.0 Platelet Count 364 Mean Platelet Volume 10.5 H Immature Granulocytes % 1.400 H Neutrophils % 71.9 Lymphocytes % 13.4 L Monocytes % 8.6 Eosinophils % 4.4 Basophils % 0.3 Nucleated Red Blood Cells % 0.0 Immature Granulocytes # 0.120 H Neutrophils # 6.4 Lymphocytes # 1.2 Monocytes # 0.8 Eosinophils # 0.4 Basophils # 0.0 Nucleated Red Blood Cells # 0.0 Sodium Level 138 Potassium Level 3.9 Chloride Level 103 Carbon Dioxide Level 30 Anion Gap 5 Blood Urea Nitrogen 21 H Creatinine 0.71 Est Glomerular Filtrat Rate mL/min > 60 Glucose Level 133 Calcium Level 9.0 Phosphorus Level 3.8 Magnesium Level 2.4 Medications Current Medications IV Flush (NS 3 ml) 3 ml PER PROTOCOL IV ; Start 11/02/18 at 13:30 Ondansetron HCl (Zofran Inj) 4 mg Q6H PRN IV NAUSEA/VOMITING; Start 11/02/18 at 13:30 Acetaminophen (Tylenol Tab) 650 mg Q6H PRN PO .PAIN 1-3 OR TEMP Last administered on 11/11/18 10:35; Admin Dose 650 MG; Start 11/02/18 at 13:30 Magnesium Hydroxide (Milk Of Mag) 30 ml DAILY PRN PO .CONSTIPATION Last administered on 11/08/18 16:50; Admin Dose 30 ML; Start 11/02/18 at 13:30 Albuterol/ Ipratropium (Duoneb) 3 ml Q4H RESP THERAPY PRN HHN SHORTNESS OF BREATH; Start 11/02/18 at 13:30 Hydralazine HCl (Apresoline) 10 mg Q4H PRN IV ELEVATED BLOOD PRESSURE Last administered on 11/12/18 08:05; Admin Dose 10 MG; Start 11/02/18 at 13:30 Nitroglycerin (Nitroglycerin (Sl Tab) 0.4 Mg) 1 tab Q5M PRN SL ANGINA; Start 11/02/18 at 13:30 Labetalol HCl (Labetalol) 10 mg Q10M PRN IV ELEVATED BLOOD PRESSURE Last administered on 11/11/18 11:50; Admin Dose 10 MG; Start 11/02/18 at 13:30 Amlodipine Besylate (Norvasc) 10 mg DAILY PO Last administered on 11/13/18 08:40; Admin Dose 10 MG; Start 11/03/18 at 09:00 Benazepril HCl (Lotensin) 40 mg DAILY PO Last administered on 11/13/18 08:39; Admin Dose 40 MG; Start 11/03/18 at 09:00 Carvedilol (Coreg) 25 mg BID PO Last administered on 11/13/18 08:40; Admin Dose 25 MG; Start 11/02/18 at 21:00 Nicotine (Nicoderm 21 Mg/ 24hr) 1 patch DAILY TRANSDERM Last administered on 11/13/18 08:39; Admin Dose 1 PATCH; Start 11/02/18 at 16:30 Lorazepam (Ativan) 1 mg Q10MIN PRN IV Seizures Last administered on 11/03/18 21:49; Admin Dose 1 MG; Start 11/03/18 at 21:00 Famotidine (Pepcid) 20 mg Q12 PO Last administered on 11/13/18 08:40; Admin Dose 20 MG; Start 11/04/18 at 21:00 Docusate Sodium (Colace Liquid Cup) 100 mg BID NGT Last administered on 11/13/18 08:39; Admin Dose 100 MG; Start 11/07/18 at 21:00 Polyethylene Glycol (Miralax) 17 gm BID PRN PO constipation Last administered on 11/09/18 20:44; Admin Dose 17 GM; Start 11/07/18 at 14:30 Bisacodyl (Dulcolax Supp) 10 mg DAILY [place] Last administered on 11/13/18 08:39; Admin Dose 10 MG; Start 11/09/18 at 13:00 Eye Lubricant (Akwa Oint) 1 applic QID BOTH EYES Last administered on 11/13/18 14:09; Admin Dose 1 APPLIC; Start 11/09/18 at 21:00 Ceftriaxone Sodium 50 ml @ 100 mls/hr Q24H IVPB Last administered on 11/13/18 14:09; Admin Dose 100 MLS/HR; Start 11/10/18 at 14:00 Assessment/Plan Hospital Course (Demo Recall) Assessment 1. Acute pontine bleed. Repeat CT brain noted. 2. Severe encephalopathy 3. Respiratory failure secondary to above Plan 1. Continue mechanical ventilation 2. Neurosurgical recommendations, repeat CT noted. Continue to observe. Status post PEG and tracheostomy placement. 3. Continue supportive care. 4. Continue tube feeding via PEG tube Subacute evaluation dc planning. VARGHESE GREY MD, [facility] Nov 13, 2018 15:45
--- NOTE | 2018-11-13 16:27 | PN ---
Date/Time of Note Date/Time of Note DATE: 11/13/18 TIME: 16:26 Assessment/Plan Lines/Catheters IV Catheter Type (from Nrsg): Saline Lock Riddle in Place (from Nrsg): Yes Assessment/Plan Assessment/Plan Status post tracheostomy Trach site clean Continue pulmonary toilet Vent support Trach care Subjective 24 Hr Interval Summary Constitutional: improved Pain Control: mild Exam/Review of Systems Vital Signs Vitals Vital Signs Date Temp Pulse Resp B/P (MAP) Pulse Ox O2 O2 Flow FiO2 Time Delivery Rate 11/13/18 84 16:13 11/13/18 100.1 20 112/75 98 Trach 15:20 (87) Collar 11/13/18 45 15:10 Intake and Output 11/12/18 11/12/18 11/13/18 1515:00 23:00 07:00 IntakeIntake Total 795 ml 195 ml 130 ml OutputOutput Total 850 ml 650 ml 800 ml BalanceBalance -55 ml -455 ml -670 ml Exam Eyes: nl conjunctiva, EOMI, nl lids, nl sclera ENMT: nl external ears & nose, nl lips & teeth, nl nasal mucosa & septum, mucosa pink and moist Neck: supple, non-tender Respiratory: clear to auscultation, normal air movement Cardiovascular: regular rate and rhythm, nl pulses Gastrointestinal: soft, nl liver, spleen, non-tender Musculoskeletal: nl extremities to inspection, nl gait and stance Results Result Diagram: 11/13/1846 11/13/1846 JANIE WHITEHEAD MD Nov 13, 2018 16:27
[2018-11-13] MEDS: ACETAMINOPHEN 325 MG TAB PO PRN (17:59)
[2018-11-14] VITALS (19 sets, daily range): BP systolic 118–143; BP diastolic 77–95; PULSE 75–85; RESP 13–21
--- NOTE | 2018-11-14 05:20 | HKNOTE ---
DATE OF SERVICE: HISTORY OF PRESENT ILLNESS: The patient is 53 years old status post hypertension, intracranial bleed pontine hemorrhage, respiratory failure, tracheostomy ventilation, dysphagia, G-tube feeding. CURRENT MEDICATIONS: Include: 1. Zofran 4 mg every 4 hours as needed. 2. Colace 100 mg twice a day. 3. Tylenol 650 mg once a day. 4. Albuterol inhaler twice a day. 5. Magnesium hydroxide as needed. 6. Nitroglycerin patch as needed. 7. Lipitor 10 mg once a day. 8. Benazepril 40 mg once a day. 9. Carvedilol 25 mg once a day. 9. Nicotine patch as needed. 10. Lorazepam 1 mg every 4 hours. 11. Morphine sulfate 6 mg every 4 hours as needed. 12. Eye lubricant once a day 13. Ceftriaxone once a day. PHYSICAL EXAMINATION: GENERAL: Today, the patient opens his eyes continuously, looks confused, occasionally follows simple commands. CRANIAL NERVES: Cranial nerve II: Pupils equal both sides, reactive to light. Cranial nerves III, IV and : Extraocular muscles intact nystagmus. Cranial nerves V and VII: Intact corneal reflex. Cranial nerves VIII through XII: Could not assess. MOTOR: Moving both upper and lower extremities against gravity. Sensation, coordination and gait co uld not assess. HEART: Regular rate and rhythm. LUNGS: Equal breath sounds. ABDOMEN: Soft, relaxed, nondistended. No tenderness. ASSESSMENT AND PLAN: 1. The patient is 53 years old status post decreased mini mental status. 2. History of pontine hemorrhage, probably related to hypertension. 3. History of respiratory failure in which the patient has a tracheostomy and ventilation. 4. Dysphagia with the patient on the PEG tube feeding. 5. Bilateral lower extremity weakness. Follow up the patient with physical therapy and occupational therapy. 6. Dysphagia and dysarthria. Follow up the patient with speech therapy. 7. Keep the patient under deep venous thrombosis prophylaxis and use ulcer prophylaxis. 8. Status post spike of fever with antibiotic. 9. Follow up with the patient with respiratory hospital for continuation of treatment and acute reha bilitation. Dictated By: JAI AVILA/NTS Conf#: [id number] DID#: [id number] CC: [employer];*EndCC*
[2018-11-14] MEDS: POLYETHYLENE GLYCOL 17 GM PACKET PO PRN (09:16)
[2018-11-14] MEDS: AMLODIPINE 10 MG TAB PO SCH (09:16)
[2018-11-14] MEDS: OCULAR LUBRICANT 3.5 GM OPH OINT BOTH EYES SCH ×4 (09:16→20:50)
[2018-11-14] MEDS: DOCUSATE SODIUM 10 MG/ML (10ML CUP) NGT SCH ×2 (09:16→20:48)
[2018-11-14] MEDS: BENAZEPRIL 40 MG TAB PO SCH (09:17)
[2018-11-14] MEDS: FAMOTIDINE 20 MG TAB PO SCH ×2 (09:17→20:48)
--- NOTE | 2018-11-14 11:56 | CONS ---
Consult Date/Type/Reason Admit Date/Time Nov 02, 2018 at 13:13 Initial Consult Date 11/03/18 Type of Consult Pulmonary Date/Time of Note DATE: 11/14/18 TIME: 11:56 Subjective Patient stable no respiratory distress. FiO2 decreased to 40%. Objective Vital Signs Date Temp Pulse Resp B/P (MAP) Pulse Ox O2 O2 Flow FiO2 Time Delivery Rate 11/14/18 82 08:21 11/14/18 98.0 16 143/95 100 Mechanical 08:15 (111) Ventilator 11/14/18 45 07:54 Intake and Output 11/13/18 11/13/18 11/14/18 1515:00 23:00 07:00 IntakeIntake Total 480 ml 801 ml OutputOutput Total 1700 ml 1300 ml BalanceBalance -1220 ml -499 ml Exam GENERAL: Well-nourished well-developed gentleman on mechanical ventilation VITAL SIGNS: per chart NECK: Supple. No JVD or lymphadenopathy. CARDIAC EXAM: S1, S2. No added sounds or murmurs. CHEST: clear bilaterally, No added sounds, rales or wheezes ABDOMEN: Soft, nontender. No guarding or rebound. EXTREMITIES: No cyanosis, clubbing or edema. NEUROLOGIC: Unresponsive on mechanical ventilation. Vent Setting Ventilator Support Mode: AC Fraction of Inspired Oxygen pe: 45 Positive End Expiratory Pressu: 5.0 Results/Medications Result Diagram: 11/14/18 0542 11/14/18 0542 Results 24 hrs Laboratory Tests Test 11/14/18 05:42 White Blood Count 9.0 Red Blood Count 3.59 L Hemoglobin 11.0 L Hematocrit 34.0 L Mean Corpuscular Volume 94.7 Mean Corpuscular Hemoglobin 30.6 Mean Corpuscular Hemoglobin Concent 32.4 Red Cell Distribution Width 12.6 Platelet Count 411 Mean Platelet Volume 10.3 Immature Granulocytes % 1.800 H Neutrophils % 72.7 Lymphocytes % 13.6 L Monocytes % 7.3 Eosinophils % 4.2 Basophils % 0.4 Nucleated Red Blood Cells % 0.0 Immature Granulocytes # 0.160 H Neutrophils # 6.6 Lymphocytes # 1.2 Monocytes # 0.7 Eosinophils # 0.4 Basophils # 0.0 Nucleated Red Blood Cells # 0.0 Sodium Level 138 Potassium Level 4.1 Chloride Level 101 Carbon Dioxide Level 29 Anion Gap 8 Blood Urea Nitrogen 20 Creatinine 0.76 Est Glomerular Filtrat Rate mL/min > 60 Glucose Level 148 Calcium Level 9.1 Medications Current Medications IV Flush (NS 3 ml) 3 ml PER PROTOCOL IV ; Start 11/02/18 at 13:30 Ondansetron HCl (Zofran Inj) 4 mg Q6H PRN IV NAUSEA/VOMITING; Start 11/02/18 at 13:30 Acetaminophen (Tylenol Tab) 650 mg Q6H PRN PO .PAIN 1-3 OR TEMP Last administered on 11/13/18 17:59; Admin Dose 650 MG; Start 11/02/18 at 13:30 Magnesium Hydroxide (Milk Of Mag) 30 ml DAILY PRN PO .CONSTIPATION Last administered on 11/08/18 16:50; Admin Dose 30 ML; Start 11/02/18 at 13:30 Albuterol/ Ipratropium (Duoneb) 3 ml Q4H RESP THERAPY PRN HHN SHORTNESS OF BREATH; Start 11/02/18 at 13:30 Hydralazine HCl (Apresoline) 10 mg Q4H PRN IV ELEVATED BLOOD PRESSURE Last administered on 11/12/18 08:05; Admin Dose 10 MG; Start 11/02/18 at 13:30 Nitroglycerin (Nitroglycerin (Sl Tab) 0.4 Mg) 1 tab Q5M PRN SL ANGINA; Start 11/02/18 at 13:30 Labetalol HCl (Labetalol) 10 mg Q10M PRN IV ELEVATED BLOOD PRESSURE Last administered on 11/11/18 11:50; Admin Dose 10 MG; Start 11/02/18 at 13:30 Amlodipine Besylate (Norvasc) 10 mg DAILY PO Last administered on 11/14/18 09:16; Admin Dose 10 MG; Start 11/03/18 at 09:00 Benazepril HCl (Lotensin) 40 mg DAILY PO Last administered on 11/14/18 09:17; Admin Dose 40 MG; Start 11/03/18 at 09:00 Carvedilol (Coreg) 25 mg BID PO Last administered on 11/14/18 09:16; Admin Dose 25 MG; Start 11/02/18 at 21:00 Nicotine (Nicoderm 21 Mg/ 24hr) 1 patch DAILY TRANSDERM Last administered on 11/13/18 08:39; Admin Dose 1 PATCH; Start 11/02/18 at 16:30 Lorazepam (Ativan) 1 mg Q10MIN PRN IV Seizures Last administered on 11/03/18 21:49; Admin Dose 1 MG; Start 11/03/18 at 21:00 Famotidine (Pepcid) 20 mg Q12 PO Last administered on 11/14/18 09:17; Admin Dose 20 MG; Start 11/04/18 at 21:00 Docusate Sodium (Colace Liquid Cup) 100 mg BID NGT Last administered on 11/14/18 09:16; Admin Dose 100 MG; Start 11/07/18 at 21:00 Polyethylene Glycol (Miralax) 17 gm BID PRN PO constipation Last administered on 11/14/18 09:16; Admin Dose 17 GM; Start 11/07/18 at 14:30 Bisacodyl (Dulcolax Supp) 10 mg DAILY [place] Last administered on 11/13/18 08:39; Admin Dose 10 MG; Start 11/09/18 at 13:00 Eye Lubricant (Akwa Oint) 1 applic QID BOTH EYES Last administered on 11/14/18 09:16; Admin Dose 1 APPLIC; Start 11/09/18 at 21:00 Ceftriaxone Sodium 50 ml @ 100 mls/hr Q24H IVPB Last administered on 11/13/18 14:09; Admin Dose 100 MLS/HR; Start 11/10/18 at 14:00 Assessment/Plan Hospital Course (Demo Recall) Assessment 1. Acute pontine bleed. Repeat CT brain noted. 2. Severe encephalopathy 3. Respiratory failure secondary to above Plan 1. Continue mechanical ventilation 2. Neurosurgical recommendations, repeat CT noted. Continue to observe. Status post PEG and tracheostomy placement. 3. Continue supportive care. 4. Continue tube feeding via PEG tube Subacute evaluation dc planning. Decrease FiO2 to 40% VARGHESE GREY MD, [facility] Nov 14, 2018 11:56
[2018-11-14] MEDS: BISACODYL 10 MG SUPP PR SCH (12:30)
[2018-11-14] MEDS: NICOTINE (21 MG/24 HR) PATCH TRANSDERM SCH (12:35)
[2018-11-14] MEDS: CEFTRIAXONE 1 GM/50 ML (PMX) 50 ML IVPB SCH (13:22)
--- NOTE | 2018-11-14 16:20 | PN ---
Date/Time of Note Date/Time of Note DATE: 11/14/18 TIME: 16:17 Assessment/Plan VTE Prophylaxis Risk score (from Ns)>0 risk: 5 SCD applied (from Ns): Yes Pharmacological prophylaxis: NA/contraindicated Pharm contraindication: bleeding Lines/Catheters IV [facility]atheter Type (from [facility]): Saline Lock Urinary Cath still in place: Yes Reason Cath still needed: other (indicate) (trached) Assessment/Plan Assessment/Plan 53-year-old male history of smoking hypertension who presents with headache and blurry vision found with altered level of consciousness likely secondary to ICH/pontine hemorrhage. 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 - The latest head CT showed no significant changes in the size of the bleed compared to the head CT that was performed 12 hours before that. - Hold all anticoagulants. - Continue on p.o. blood pressure medicines, goal 140/90 - Statins can increase the risk of future ICH and have no proven benefit in cerebral bleeds. Will not start. - Per neurosurgery, no intervention indicated for this hemorrhage at this time, unless hydrocephalus becomes an issue (ie: ventriculostomy tube?) - Tube feeds - PEG on 11/10, trach on 11/11 - Family updated on very poor prognosis. #Fever - Fever on 11/10 associated with worsening LLL infiltrate on CXR - Cultures negative so far. No more fevers. Will pull of antibiotics. - Ceftriaxone 11/10-11/16 for pneumonia. #Smoking history: Nicotine patch. # HTN: stable now, again want to keep blood pressure less than 140 systolic given the intracranial hemorrhage/pontine hemorrhage. Dispo: Overall likely poor prognosis. Palliative care team has been consulted as well. Now s/p trach and PEG. Medically clear for discharge to subacute care. Result Diagram: 11/14/18 0542 11/14/18 0542 Subjective 24 Hr Interval Summary Free Text/Dictation No acute overnight events. Exam/Review of Systems Exam Vitals Vital Signs Date Temp Pulse Resp B/P (MAP) Pulse Ox O2 O2 Flow FiO2 Time Delivery Rate 11/14/18 75 16:10 11/14/18 98.8 18 122/78 97 Mechanical 15:41 (93) Ventilator 11/14/18 45 12:44 Intake and Output 11/13/18 11/13/18 11/14/18 1414:59 22:59 06:59 IntakeIntake Total 130 ml 480 ml 801 ml OutputOutput Total 800 ml 1700 ml 1300 ml BalanceBalance -670 ml -1220 ml -499 ml Exam General: Well developed man trached on vent. Head: Normocephalic, atraumatic. Eyes: Bilateral conjunctival injection. ENT: Moist mucous membranes, trach in place clean/dry/intact, few secretions. Neck: Supple, no lymphadenopathy Respiratory: Mechanical breath sounds bilaterally, no distress Cardiovascular: RRR, no murmurs, rubs, or gallops Abdominal: Soft, G tube in place with abdominal binder. MSK: No edema Neurologic: Currently sleeping, not responsive to gentle stimulation Results Results 24hrs Laboratory Tests Test 11/14/18 05:42 White Blood Count 9.0 Red Blood Count 3.59 L Hemoglobin 11.0 L Hematocrit 34.0 L Mean Corpuscular Volume 94.7 Mean Corpuscular Hemoglobin 30.6 Mean Corpuscular Hemoglobin Concent 32.4 Red Cell Distribution Width 12.6 Platelet Count 411 Mean Platelet Volume 10.3 Immature Granulocytes % 1.800 H Neutrophils % 72.7 Lymphocytes % 13.6 L Monocytes % 7.3 Eosinophils % 4.2 Basophils % 0.4 Nucleated Red Blood Cells % 0.0 Immature Granulocytes # 0.160 H Neutrophils # 6.6 Lymphocytes # 1.2 Monocytes # 0.7 Eosinophils # 0.4 Basophils # 0.0 Nucleated Red Blood Cells # 0.0 Sodium Level 138 Potassium Level 4.1 Chloride Level 101 Carbon Dioxide Level 29 Anion Gap 8 Blood Urea Nitrogen 20 Creatinine 0.76 Est Glomerular Filtrat Rate mL/min > 60 Glucose Level 148 Calcium Level 9.1 Medications Medication Current Medications IV Flush (NS 3 ml) 3 ml PER PROTOCOL IV ; Start 11/02/18 at 13:30 Ondansetron HCl (Zofran Inj) 4 mg Q6H PRN IV NAUSEA/VOMITING; Start 11/02/18 at 13:30 Acetaminophen (Tylenol Tab) 650 mg Q6H PRN PO .PAIN 1-3 OR TEMP Last administered on 11/13/18at 17:59; Admin Dose 650 MG; Start 11/02/18 at 13:30 Magnesium Hydroxide (Milk Of Mag) 30 ml DAILY PRN PO .CONSTIPATION Last administered on 11/08/18 16:50; Admin Dose 30 ML; Start 11/02/18 at 13:30 Albuterol/ Ipratropium (Duoneb) 3 ml Q4H RESP THERAPY PRN HHN SHORTNESS OF BREATH; Start 11/02/18 at 13:30 Hydralazine HCl (Apresoline) 10 mg Q4H PRN IV ELEVATED BLOOD PRESSURE Last administered on 11/12/18 08:05; Admin Dose 10 MG; Start 11/02/18 at 13:30 Nitroglycerin (Nitroglycerin (Sl Tab) 0.4 Mg) 1 tab Q5M PRN SL ANGINA; Start 11/02/18 at 13:30 Labetalol HCl (Labetalol) 10 mg Q10M PRN IV ELEVATED BLOOD PRESSURE Last administered on 11/11/18 11:50; Admin Dose 10 MG; Start 11/02/18 at 13:30 Amlodipine Besylate (Norvasc) 10 mg DAILY PO Last administered on 11/14/18 09:16; Admin Dose 10 MG; Start 11/03/18 at 09:00 Benazepril HCl (Lotensin) 40 mg DAILY PO Last administered on 11/14/18 09:17; Admin Dose 40 MG; Start 11/03/18 at 09:00 Carvedilol (Coreg) 25 mg BID PO Last administered on 11/14/18 09:16; Admin Dose 25 MG; Start 11/02/18 at 21:00 Nicotine (Nicoderm 21 Mg/ 24hr) 1 patch DAILY TRANSDERM Last administered on 11/14/18 12:35; Admin Dose 1 PATCH; Start 11/02/18 at 16:30 Lorazepam (Ativan) 1 mg Q10MIN PRN IV Seizures Last administered on 11/03/18 21:49; Admin Dose 1 MG; Start 11/03/18 at 21:00 Famotidine (Pepcid) 20 mg Q12 PO Last administered on 11/14/18 09:17; Admin Dose 20 MG; Start 11/04/18 at 21:00 Docusate Sodium (Colace Liquid Cup) 100 mg BID NGT Last administered on 11/14 09:16; Admin Dose 100 MG; Start 11/07/18 at 21:00 Polyethylene Glycol (Miralax) 17 gm BID PRN PO constipation Last administered on 11/14/18 09:16; Admin Dose 17 GM; Start 11/07/18 at 14:30 Bisacodyl (Dulcolax Supp) 10 mg DAILY [place] Last administered on 11/14/18 12:30; Admin Dose 10 MG; Start 11/09/18 at 13:00 Eye Lubricant (Akwa Oint) 1 applic QID BOTH EYES Last administered on 11/14/18 12:35; Admin Dose 1 APPLIC; Start 11/09/18 at 21:00 Ceftriaxone Sodium 50 ml @ 100 mls/hr Q24H IVPB Last administered on 11/14/18 13:22; Admin Dose 100 MLS/HR; Start 11/10/18 at 14:00 KEESHA PANDYA MD Nov 14, 2018 16:19
[2018-11-15] VITALS (23 sets, daily range): BP systolic 120–143; BP diastolic 74–97; PULSE 72–89; RESP 16–22
--- NOTE | 2018-11-15 02:14 | CONS ---
DATE OF ADMISSION: 11/02/2018 DATE OF CONSULTATION: HISTORY OF PRESENT ILLNESS: The patient is 53 years old status post history of hypertension, intracr anial bleed pontine hemorrhage, respiratory failure, intubation, tracheostomy, dysphagia with PEG tub e feeding, weakness. PHYSICAL EXAMINATION: GENERAL: On exam today, the patient is an alert, open his eyes spontaneously, tracking the exam. CRANIAL NERVES: Cranial nerve II: Pupils equal on both sides, reactive to light. Cranial nerves II I, IV, and : Extraocular muscles intact. No nystagmus. Cranial nerve V and VII: Intact corneal reflex. Cranial nerve VIII through XII: Could not assess. MOTOR: Moving bilateral upper extremities. Sensation, coordination and gait could not assess. HEART: Regular rate and rhythm. LUNGS: Equal breath sounds. ABDOMEN: Soft, relaxed, nondistended, no tenderness. ASSESSMENT AND PLAN: 1. The patient is 53 years old status post pontine hemorrhage. Follow up the patient with CT scan a nd neurosurgery eval. 2. History of hypertension. Keep the blood pressure at the level of 140/90 or less. 3. Respiratory failure with the patient have tracheostomy tube and ventilation. 4. Dysphagia. Keep the patient on PEG tube feeding. 5. Keep the patient under deep venous thrombosis prophylaxis as well as decubitus ulcer prophylaxis. 6. Consider the patient for respiratory hospital for continuation of his rehabilitation. Again, thank you for asking me to see the patient with you. Dictated By: JAI AVILA/NISHANT Conf#: [id number] DID#: [id number]
[2018-11-15] MEDS: BISACODYL 10 MG SUPP PR SCH (09:00)
[2018-11-15] MEDS: NICOTINE (21 MG/24 HR) PATCH TRANSDERM SCH (09:45)
[2018-11-15] MEDS: DOCUSATE SODIUM 10 MG/ML (10ML CUP) NGT SCH ×2 (09:45→22:16)
[2018-11-15] MEDS: AMLODIPINE 10 MG TAB PO SCH (09:46)
[2018-11-15] MEDS: FAMOTIDINE 20 MG TAB PO SCH ×2 (09:46→22:17)
[2018-11-15] MEDS: BENAZEPRIL 40 MG TAB PO SCH (09:46)
[2018-11-15] MEDS: OCULAR LUBRICANT 3.5 GM OPH OINT BOTH EYES SCH ×4 (09:47→22:17)
--- NOTE | 2018-11-15 12:42 | PN ---
Date/Time of Note Date/Time of Note DATE: 11/15/18 TIME: 12:40 Assessment/Plan VTE Prophylaxis Risk score (from Ns)>0 risk: 6 SCD applied (from Ns): Yes Pharmacological prophylaxis: NA/contraindicated Pharm contraindication: bleeding Lines/Catheters IV Catheter Type (from Nrsg): Saline Lock Urinary Cath still in place: Yes Reason Cath still needed: other (indicate) (bedridden) Assessment/Plan Assessment/Plan 53-year-old male history of smoking hypertension who presents with headache and blurry vision found with altered level of consciousness likely secondary to ICH/pontine hemorrhage. 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 - The latest head CT showed no significant changes in the size of the bleed compared to the head CT that was performed 12 hours before that. - Hold all anticoagulants. - Continue on p.o. blood pressure medicines, goal 140/90 - Statins can increase the risk of future ICH and have no proven benefit in cerebral bleeds. Will not start. - Per neurosurgery, no intervention indicated for this hemorrhage at this time, unless hydrocephalus becomes an issue (ie: ventriculostomy tube?) - Tube feeds - PEG on 11/10, trach on 11/11 - Family updated on very poor prognosis. #Fever - Fever on 11/10 associated with worsening LLL infiltrate on CXR - Ceftriaxone 11/10-11/16 for pneumonia. #Smoking history: Nicotine patch. # HTN: stable now, again want to keep blood pressure less than 140 systolic given the intracranial hemorrhage/pontine hemorrhage. Dispo: Overall likely poor prognosis. Now s/p trach and PEG. Medically clear for discharge to subacute care. Result Diagram: 11/15/18 0606 11/15/18 06 Subjective 24 Hr Interval Summary Free Text/Dictation Got CT head last night. No acute changes. Patient is more awake and alert today. Exam/Review of Systems Exam Vitals Vital Signs Date Temp Pulse Resp B/P (MAP) Pulse Ox O2 O2 Flow FiO2 Time Delivery Rate 11/15/18 75 12:21 11/15/18 Mechanical 12:15 Ventilator 11/15/18 45 12:15 11/15/18 98.2 18 140/92 100 12:08 (108) Intake and Output 11/14/18 11/14/18 11/15/18 1515:00 23:00 07:00 IntakeIntake Total 50 ml 810 ml 760 ml OutputOutput Total 1000 ml 1200 ml BalanceBalance 50 ml -190 ml -440 ml Exam General: Well developed man trached on vent. Head: Normocephalic, atraumatic. Eyes: Bilateral conjunctival injection. ENT: Moist mucous membranes, trach in place clean/dry/intact, few secretions. Neck: Supple, no lymphadenopathy Respiratory: Mechanical breath sounds bilaterally, no distress Cardiovascular: RRR, no murmurs, rubs, or gallops Abdominal: Soft, G tube in place with abdominal binder. MSK: No edema Neurologic: Awake and alert. Intermittently follows commands to move hands and open mouth. Medications Medication Current Medications IV Flush (NS 3 ml) 3 ml PER PROTOCOL IV ; Start 11/02/18 at 13:30 Ondansetron HCl (Zofran Inj) 4 mg Q6H PRN IV NAUSEA/VOMITING; Start 11/02/18 at 13:30 Acetaminophen (Tylenol Tab) 650 mg Q6H PRN PO .PAIN 1-3 OR TEMP Last administered on 11/13/18at 17:59; Admin Dose 650 MG; Start 11/02/18 at 13:30 Magnesium Hydroxide (Milk Of Mag) 30 ml DAILY PRN PO .CONSTIPATION Last administered on 11/08/18at 16:50; Admin Dose 30 ML; Start 11/02/18 at 13:30 Albuterol/ Ipratropium (Duoneb) 3 ml Q4H RESP THERAPY PRN HHN SHORTNESS OF BREATH; Start 11/02/18 at 13:30 Hydralazine HCl (Apresoline) 10 mg Q4H PRN IV ELEVATED BLOOD PRESSURE Last administered on 11/12/18at 08:05; Admin Dose 10 MG; Start 11/02/18 at 13:30 Nitroglycerin (Nitroglycerin (Sl Tab) 0.4 Mg) 1 tab Q5M PRN SL ANGINA; Start 11/02/18 at 13:30 Labetalol HCl (Labetalol) 10 mg Q10M PRN IV ELEVATED BLOOD PRESSURE Last administered on 11/11/18at 11:50; Admin Dose 10 MG; Start 11/02/18 at 13:30 Amlodipine Besylate (Norvasc) 10 mg DAILY PO Last administered on 11/15/18 09:46; Admin Dose 10 MG; Start 11/03/18 at 09:00 Benazepril HCl (Lotensin) 40 mg DAILY PO Last administered on 11/15/18 09:46; Admin Dose 40 MG; Start 11/03/18 at 09:00 Carvedilol (Coreg) 25 mg BID PO Last administered on 11/15/18 09:46; Admin Dose 25 MG; Start 11/02/18 at 21:00 Nicotine (Nicoderm 21 Mg/ 24hr) 1 patch DAILY TRANSDERM Last administered on 11/15/18 09:45; Admin Dose 1 PATCH; Start 11/02/18 at 16:30 Lorazepam (Ativan) 1 mg Q10MIN PRN IV Seizures Last administered on 11/03/18 21:49; Admin Dose 1 MG; Start 11/03/18 at 21:00 Famotidine (Pepcid) 20 mg Q12 PO Last administered on 11/15/18 09:46; Admin Dose 20 MG; Start 11/04/18 at 21:00 Docusate Sodium (Colace Liquid Cup) 100 mg BID NGT Last administered on 11/15/18 09:45; Admin Dose 100 MG; Start 11/07/18 at 21:00 Polyethylene Glycol (Miralax) 17 gm BID PRN PO constipation Last administered on 11/14/18 09:16; Admin Dose 17 GM; Start 11/07/18 at 14:30 Bisacodyl (Dulcolax Supp) 10 mg DAILY [place] Last administered on 11/14/18 12:30; Admin Dose 10 MG; Start 11/09/18 at 13:00 Eye Lubricant (Akwa Oint) 1 applic QID BOTH EYES Last administered on 11/15/18 12:15; Admin Dose 1 APPLIC; Start 11/09/18 at 21:00 Ceftriaxone Sodium 50 ml @ 100 mls/hr Q24H IVPB Last administered on 11/14/18 13:22; Admin Dose 100 MLS/HR; Start 11/10/18 at 14:00 KEESHA PANDYA MD Nov 15, 2018 12:42
--- NOTE | 2018-11-15 12:56 | CONS ---
Consult Date/Type/Reason Admit Date/Time Nov 02, 2018 at 13:13 Initial Consult Date 11/03/18 Type of Consult Pulmonary Date/Time of Note DATE: 11/15/18 TIME: 12:56 Subjective Comfortable, no resp distress. Objective Vital Signs Date Temp Pulse Resp B/P (MAP) Pulse Ox O2 O2 Flow FiO2 Time Delivery Rate 11/15/18 75 12:21 11/15/18 Mechanical 12:15 Ventilator 11/15/18 45 12:15 11/15/18 98.2 18 140/92 100 12:08 (108) Intake and Output 11/14/18 11/14/18 11/15/18 1515:00 23:00 07:00 IntakeIntake Total 50 ml 810 ml 760 ml OutputOutput Total 1000 ml 1200 ml BalanceBalance 50 ml -190 ml -440 ml Exam GENERAL: Well-nourished well-developed gentleman on mechanical ventilation VITAL SIGNS: per chart NECK: Supple. No JVD or lymphadenopathy. CARDIAC EXAM: S1, S2. No added sounds or murmurs. CHEST: clear bilaterally, No added sounds, rales or wheezes ABDOMEN: Soft, nontender. No guarding or rebound. EXTREMITIES: No cyanosis, clubbing or edema. NEUROLOGIC: Unresponsive on mechanical ventilation. Vent Setting Ventilator Support Mode: AC Fraction of Inspired Oxygen pe: 45 Positive End Expiratory Pressu: 5.0 Results/Medications Result Diagram: 11/15/18 0606 11/15/18 0606 Results 24 hrs Laboratory Tests Test 11/15/18 06:06 White Blood Count 11.7 #H Red Blood Count 3.83 L Hemoglobin 11.8 L Hematocrit 36.3 L Mean Corpuscular Volume 94.8 Mean Corpuscular Hemoglobin 30.8 Mean Corpuscular Hemoglobin Concent 32.5 Red Cell Distribution Width 12.9 Platelet Count 478 H Mean Platelet Volume 9.6 Immature Granulocytes % 1.400 H Neutrophils % 75.8 Lymphocytes % 11.3 L Monocytes % 6.9 Eosinophils % 4.3 Basophils % 0.3 Nucleated Red Blood Cells % 0.0 Immature Granulocytes # 0.170 H Neutrophils # 8.9 H Lymphocytes # 1.3 Monocytes # 0.8 Eosinophils # 0.5 Basophils # 0.0 Nucleated Red Blood Cells # 0.0 Sodium Level 139 Potassium Level 4.4 Chloride Level 101 Carbon Dioxide Level 30 Anion Gap 8 Blood Urea Nitrogen 22 H Creatinine 0.70 Est Glomerular Filtrat Rate mL/min > 60 Glucose Level 167 Calcium Level 9.5 Phosphorus Level 3.9 Magnesium Level 2.3 Medications Current Medications IV Flush (NS 3 ml) 3 ml PER PROTOCOL IV ; Start 11/02/18 at 13:30 Ondansetron HCl (Zofran Inj) 4 mg Q6H PRN IV NAUSEA/VOMITING; Start 11/02/18 at 13:30 Acetaminophen (Tylenol Tab) 650 mg Q6H PRN PO .PAIN 1-3 OR TEMP Last administered on 11/13/18 17:59; Admin Dose 650 MG; Start 11/02/18 at 13:30 Magnesium Hydroxide (Milk Of Mag) 30 ml DAILY PRN PO .CONSTIPATION Last administered on 11/08/18 16:50; Admin Dose 30 ML; Start 11/02/18 at 13:30 Albuterol/ Ipratropium (Duoneb) 3 ml Q4H RESP THERAPY PRN HHN SHORTNESS OF BREATH; Start 11/02/18 at 13:30 Hydralazine HCl (Apresoline) 10 mg Q4H PRN IV ELEVATED BLOOD PRESSURE Last administered on 11/12/18 08:05; Admin Dose 10 MG; Start 11/02/18 at 13:30 Nitroglycerin (Nitroglycerin (Sl Tab) 0.4 Mg) 1 tab Q5M PRN SL ANGINA; Start 11/02/18 at 13:30 Labetalol HCl (Labetalol) 10 mg Q10M PRN IV ELEVATED BLOOD PRESSURE Last administered on 11/11/18 11:50; Admin Dose 10 MG; Start 11/02/18 at 13:30 Amlodipine Besylate (Norvasc) 10 mg DAILY PO Last administered on 11/15/18 09:46; Admin Dose 10 MG; Start 11/03/18 at 09:00 Benazepril HCl (Lotensin) 40 mg DAILY PO Last administered on 11/15/18 09:46; Admin Dose 40 MG; Start 11/03/18 at 09:00 Carvedilol (Coreg) 25 mg BID PO Last administered on 11/15/18 09:46; Admin Dose 25 MG; Start 11/02/18 at 21:00 Nicotine (Nicoderm 21 Mg/ 24hr) 1 patch DAILY TRANSDERM Last administered on 11/15/18 09:45; Admin Dose 1 PATCH; Start 11/02/18 at 16:30 Lorazepam (Ativan) 1 mg Q10MIN PRN IV Seizures Last administered on 11/03/18 21:49; Admin Dose 1 MG; Start 11/03/18 at 21:00 Famotidine (Pepcid) 20 mg Q12 PO Last administered on 11/15/18 09:46; Admin Dose 20 MG; Start 11/04/18 at 21:00 Docusate Sodium (Colace Liquid Cup) 100 mg BID NGT Last administered on 11/15/18 09:45; Admin Dose 100 MG; Start 11/07/18 at 21:00 Polyethylene Glycol (Miralax) 17 gm BID PRN PO constipation Last administered on 11/14/18 09:16; Admin Dose 17 GM; Start 11/07/18 at 14:30 Bisacodyl (Dulcolax Supp) 10 mg DAILY [place] Last administered on 11/14/18 12:30; Admin Dose 10 MG; Start 11/09/18 at 13:00 Eye Lubricant (Akwa Oint) 1 applic QID BOTH EYES Last administered on 11/15/18 12:15; Admin Dose 1 APPLIC; Start 11/09/18 at 21:00 Ceftriaxone Sodium 50 ml @ 100 mls/hr Q24H IVPB Last administered on 11/14/18 13:22; Admin Dose 100 MLS/HR; Start 11/10/18 at 14:00 Assessment/Plan Hospital Course (Demo Recall) Assessment 1. Acute pontine bleed. Repeat CT brain noted. 2. Severe encephalopathy 3. Respiratory failure secondary to above Plan 1. Continue mechanical ventilation 2. Neurosurgical recommendations, repeat CT noted. Continue to observe. Status post PEG and tracheostomy placement. 3. Continue supportive care. 4. Continue tube feeding via PEG tube Subacute evaluation dc VARGHESE Shafer MD, [facility] Nov 15, 2018 12:56
[2018-11-15] MEDS: CEFTRIAXONE 1 GM/50 ML (PMX) 50 ML IVPB SCH (14:18)
[2018-11-16] VITALS (24 sets, daily range): BP systolic 120–144; BP diastolic 81–97; PULSE 70–87; RESP 12–23
[2018-11-16] MEDS: OCULAR LUBRICANT 3.5 GM OPH OINT BOTH EYES SCH ×4 (08:32→21:57)
[2018-11-16] MEDS: BENAZEPRIL 40 MG TAB PO SCH (08:32)
[2018-11-16] MEDS: DOCUSATE SODIUM 10 MG/ML (10ML CUP) NGT SCH ×2 (08:32→21:57)
[2018-11-16] MEDS: hydrALAzine 20 MG INJ IV PRN (08:32)
[2018-11-16] MEDS: ACETAMINOPHEN 325 MG TAB PO PRN (08:32)
[2018-11-16] MEDS: BISACODYL 10 MG SUPP PR SCH (08:33)
[2018-11-16] MEDS: FAMOTIDINE 20 MG TAB PO SCH ×2 (08:33→21:58)
[2018-11-16] MEDS: AMLODIPINE 10 MG TAB PO SCH (08:33)
[2018-11-16] MEDS: NICOTINE (21 MG/24 HR) PATCH TRANSDERM SCH (08:49)
--- NOTE | 2018-11-16 12:25 | PN ---
Date/Time of Note Date/Time of Note DATE: 11/16/18 TIME: 12:11 Assessment/Plan VTE Prophylaxis Risk score (from Ns)>0 risk: 4 SCD applied (from Ns): Yes Pharmacological prophylaxis: NA/contraindicated Pharm contraindication: bleeding Lines/Catheters IV Catheter Type (from [facility]): Saline Lock Urinary Cath still in place: Yes Reason Cath still needed: urinary retention Assessment/Plan Hospital Course S: Patient O: VS - see below PE: General: Lying in bed, no acute distress Head: Normocephalic, atraumatic. Eyes: Strabismus of the left eye ENT: Moist mucous membranes Neck: Supple, no lymphadenopathy Respiratory: Lungs clear bilaterally, no distress Cardiovascular: RRR, no murmurs, rubs, or gallops Abdominal: Soft, non-tender, non-distended, no peritoneal signs MSK: No edema Neurologic: Electroencephalogram done which showed delta and theta waves in which the patient had some encephalopathy. No epileptiform discharge or seizure activity is recorded. No seizure medication is recommended at this time. Assessment/Plan: 53-year-old male history of smoking hypertension who presents with headache and blurry vision found with altered level of consciousness secondary to ICH/pontine hemorrhage. 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 Followed by neurology and neurosurgery teams. -Continue to hold all anticoagulants. - Continue on p.o. blood pressure medicines, goal 140/90 - Statins can increase the risk of future ICH and have no proven benefit in cerebral bleeds. Will not start. - Per neurosurgery, no intervention indicated for this hemorrhage at this time, unless hydrocephalus becomes an issue (ie: ventriculostomy tube?) - Tube feeds- PEG on 11/10, trach on 11/11 - Family updated on very poor prognosis earlier this admission, awaiting possible placement to subacute facility #Fever-occurred on 11/10 associated with worsening LLL infiltrate on CXR -For now continue ceftriaxone 11/10-11/16 for pneumonia. #Smoking history: Nicotine patch, counseled on smoking cessation # HTN: stable now, again want to keep blood pressure less than 140 systolic given the intracranial hemorrhage/pontine hemorrhage. Dispo: Overall likely poor prognosis. Now s/p trach and PEG. Medically clear for discharge to subacute care -Case management working on facility for this Result Diagram: 11/16/18 0553 11/16/18 0553 Results 24hrs Laboratory Tests Test 11/16/18 05:53 White Blood Count 9.5 Red Blood Count 3.74 L Hemoglobin 11.3 L Hematocrit 36.0 L Mean Corpuscular Volume 96.3 Mean Corpuscular Hemoglobin 30.2 Mean Corpuscular Hemoglobin Concent 31.4 L Red Cell Distribution Width 12.8 Platelet Count 456 H Mean Platelet Volume 10.1 Immature Granulocytes % 1.600 H Neutrophils % 72.5 Lymphocytes % 13.5 L Monocytes % 7.0 Eosinophils % 5.0 Basophils % 0.4 Nucleated Red Blood Cells % 0.0 Immature Granulocytes # 0.150 H Neutrophils # 6.9 Lymphocytes # 1.3 Monocytes # 0.7 Eosinophils # 0.5 Basophils # 0.0 Nucleated Red Blood Cells # 0.0 Sodium Level 143 Potassium Level 4.4 Chloride Level 103 Carbon Dioxide Level 29 Anion Gap 11 Blood Urea Nitrogen 23 H Creatinine 0.70 Est Glomerular Filtrat Rate mL/min > 60 Glucose Level 152 Calcium Level 9.7 Exam/Review of Systems Exam Vitals Vital Signs Date Temp Pulse Resp B/P (MAP) Pulse Ox O2 O2 Flow FiO2 Time Delivery Rate 11/16/18 84 21 98 30 11:00 11/16/18 99.8 09:17 11/16/18 144/97 08:30 (113) 11/16/18 Mechanical 07:58 Ventilator Intake and Output 11/15/18 11/15/18 11/16/18 1515:00 23:00 07:00 IntakeIntake Total 920 ml 810 ml OutputOutput Total 1000 ml 1300 ml BalanceBalance -80 ml -490 ml Results Results 24hrs Laboratory Tests Test 11/16/18 05:53 White Blood Count 9.5 Red Blood Count 3.74 L Hemoglobin 11.3 L Hematocrit 36.0 L Mean Corpuscular Volume 96.3 Mean Corpuscular Hemoglobin 30.2 Mean Corpuscular Hemoglobin Concent 31.4 L Red Cell Distribution Width 12.8 Platelet Count 456 H Mean Platelet Volume 10.1 Immature Granulocytes % 1.600 H Neutrophils % 72.5 Lymphocytes % 13.5 L Monocytes % 7.0 Eosinophils % 5.0 Basophils % 0.4 Nucleated Red Blood Cells % 0.0 Immature Granulocytes # 0.150 H Neutrophils # 6.9 Lymphocytes # 1.3 Monocytes # 0.7 Eosinophils # 0.5 Basophils # 0.0 Nucleated Red Blood Cells # 0.0 Sodium Level 143 Potassium Level 4.4 Chloride Level 103 Carbon Dioxide Level 29 Anion Gap 11 Blood Urea Nitrogen 23 H Creatinine 0.70 Est Glomerular Filtrat Rate mL/min > 60 Glucose Level 152 Calcium Level 9.7 Medications Medication Current Medications IV Flush (NS 3 ml) 3 ml PER PROTOCOL IV ; Start 11/02/18 at 13:30 Ondansetron HCl (Zofran Inj) 4 mg Q6H PRN IV NAUSEA/VOMITING; Start 11/02/18 at 13:30 Acetaminophen (Tylenol Tab) 650 mg Q6H PRN PO .PAIN 1-3 OR TEMP Last administered on 11/16/18 08:32; Admin Dose 650 MG; Start 11/02/18 at 13:30 Magnesium Hydroxide (Milk Of Mag) 30 ml DAILY PRN PO .CONSTIPATION Last administered on 11/08/18 16:50; Admin Dose 30 ML; Start 11/02/18 at 13:30 Albuterol/ Ipratropium (Duoneb) 3 ml Q4H RESP THERAPY PRN HHN SHORTNESS OF BREATH; Start 11/02/18 at 13:30 Hydralazine HCl (Apresoline) 10 mg Q4H PRN IV ELEVATED BLOOD PRESSURE Last administered on 11/16/18 08:32; Admin Dose 10 MG; Start 11/02/18 at 13:30 Nitroglycerin (Nitroglycerin (Sl Tab) 0.4 Mg) 1 tab Q5M PRN SL ANGINA; Start 11/02/18 at 13:30 Labetalol HCl (Labetalol) 10 mg Q10M PRN IV ELEVATED BLOOD PRESSURE Last administered on 11/11/18 11:50; Admin Dose 10 MG; Start 11/02/18 at 13:30 Amlodipine Besylate (Norvasc) 10 mg DAILY PO Last administered on 11/16/18 08:33; Admin Dose 10 MG; Start 11/03/18 at 09:00 Benazepril HCl (Lotensin) 40 mg DAILY PO Last administered on 11/16/18 08:32; Admin Dose 40 MG; Start 11/03/18 at 09:00 Carvedilol (Coreg) 25 mg BID PO Last administered on 11/16/18 08:33; Admin Dose 25 MG; Start 11/02/18 at 21:00 Nicotine (Nicoderm 21 Mg/ 24hr) 1 patch DAILY TRANSDERM Last administered on 11/16/18 08:49; Admin Dose 1 PATCH; Start 11/02/18 at 16:30 Lorazepam (Ativan) 1 mg Q10MIN PRN IV Seizures Last administered on 11/03/18 21:49; Admin Dose 1 MG; Start 11/03/18 at 21:00 Famotidine (Pepcid) 20 mg Q12 PO Last administered on 11/16/18 08:33; Admin Dose 20 MG; Start 11/04/18 at 21:00 Docusate Sodium (Colace Liquid Cup) 100 mg BID NGT Last administered on 9at 08:32; Admin Dose 100 MG; Start 11/07/18 at 21:00 Polyethylene Glycol (Miralax) 17 gm BID PRN PO constipation Last administered on 11/14/18 09:16; Admin Dose 17 GM; Start 11/07/18 at 14:30 Bisacodyl (Dulcolax Supp) 10 mg DAILY ID Last administered on 11/16/18 08:33; Admin Dose 10 MG; Start 11/09/18 at 13:00 Eye Lubricant (Akwa Oint) 1 applic QID BOTH EYES Last administered on 11/16/18 08:32; Admin Dose 1 APPLIC; Start 11/09/18 at 21:00 Ceftriaxone Sodium 50 ml @ 100 mls/hr Q24H IVPB Last administered on 11/15/18 14:18; Admin Dose 100 MLS/HR; Start 11/10/18 at 14:00 HECTOR STRINGER Nov 16, 2018 12:25
[2018-11-16] MEDS: CEFTRIAXONE 1 GM/50 ML (PMX) 50 ML IVPB SCH (13:20)
--- NOTE | 2018-11-16 14:31 | CONS ---
Consult Date/Type/Reason Admit Date/Time Nov 02, 2018 at 13:13 Initial Consult Date 11/03/18 Type of Consult Pulmonary Date/Time of Note DATE: 11/16/18 TIME: 14:31 Subjective Patient stable no new events. Pending transfer to residential facility. Objective Vital Signs Date Temp Pulse Resp B/P (MAP) Pulse Ox O2 O2 Flow FiO2 Time Delivery Rate 11/16/18 83 20 97 30 13:12 11/16/18 98.1 130/87 Mechanical 12:17 (101) Ventilator Intake and Output 11/15/18 11/15/18 11/16/18 1515:00 23:00 07:00 IntakeIntake Total 920 ml 810 ml OutputOutput Total 1000 ml 1300 ml BalanceBalance -80 ml -490 ml Exam GENERAL: Well-nourished well-developed gentleman on mechanical ventilation VITAL SIGNS: per chart NECK: Supple. No JVD or lymphadenopathy. CARDIAC EXAM: S1, S2. No added sounds or murmurs. CHEST: clear bilaterally, No added sounds, rales or wheezes ABDOMEN: Soft, nontender. No guarding or rebound. EXTREMITIES: No cyanosis, clubbing or edema. NEUROLOGIC: Unresponsive on mechanical ventilation. Vent Setting Ventilator Support Mode: AC, VC plus Fraction of Inspired Oxygen pe: 30 Positive End Expiratory Pressu: 5.0 Results/Medications Result Diagram: 11/16/18 0553 11/16/18 0553 Results 24 hrs Laboratory Tests Test 11/16/18 05:53 White Blood Count 9.5 Red Blood Count 3.74 L Hemoglobin 11.3 L Hematocrit 36.0 L Mean Corpuscular Volume 96.3 Mean Corpuscular Hemoglobin 30.2 Mean Corpuscular Hemoglobin Concent 31.4 L Red Cell Distribution Width 12.8 Platelet Count 456 H Mean Platelet Volume 10.1 Immature Granulocytes % 1.600 H Neutrophils % 72.5 Lymphocytes % 13.5 L Monocytes % 7.0 Eosinophils % 5.0 Basophils % 0.4 Nucleated Red Blood Cells % 0.0 Immature Granulocytes # 0.150 H Neutrophils # 6.9 Lymphocytes # 1.3 Monocytes # 0.7 Eosinophils # 0.5 Basophils # 0.0 Nucleated Red Blood Cells # 0.0 Sodium Level 143 Potassium Level 4.4 Chloride Level 103 Carbon Dioxide Level 29 Anion Gap 11 Blood Urea Nitrogen 23 H Creatinine 0.70 Est Glomerular Filtrat Rate mL/min > 60 Glucose Level 152 Calcium Level 9.7 Medications Current Medications IV Flush (NS 3 ml) 3 ml PER PROTOCOL IV ; Start 11/02/18 at 13:30 Ondansetron HCl (Zofran Inj) 4 mg Q6H PRN IV NAUSEA/VOMITING; Start 11/02/18 at 13:30 Acetaminophen (Tylenol Tab) 650 mg Q6H PRN PO .PAIN 1-3 OR TEMP Last administered on 11/16/18 08:32; Admin Dose 650 MG; Start 11/02/18 at 13:30 Magnesium Hydroxide (Milk Of Mag) 30 ml DAILY PRN PO .CONSTIPATION Last administered on 11/08/18 16:50; Admin Dose 30 ML; Start 11/02/18 at 13:30 Albuterol/ Ipratropium (Duoneb) 3 ml Q4H RESP THERAPY PRN HHN SHORTNESS OF BREATH; Start 11/02/18 at 13:30 Hydralazine HCl (Apresoline) 10 mg Q4H PRN IV ELEVATED BLOOD PRESSURE Last administered on 11/16/18 08:32; Admin Dose 10 MG; Start 11/02/18 at 13:30 Nitroglycerin (Nitroglycerin (Sl Tab) 0.4 Mg) 1 tab Q5M PRN SL ANGINA; Start 11/02/18 at 13:30 Labetalol HCl (Labetalol) 10 mg Q10M PRN IV ELEVATED BLOOD PRESSURE Last administered on 11/11/18 11:50; Admin Dose 10 MG; Start 11/02/18 at 13:30 Amlodipine Besylate (Norvasc) 10 mg DAILY PO Last administered on 11/16/18 08:33; Admin Dose 10 MG; Start 11/03/18 at 09:00 Benazepril HCl (Lotensin) 40 mg DAILY PO Last administered on 11/16/18 08:32; Admin Dose 40 MG; Start 11/03/18 at 09:00 Carvedilol (Coreg) 25 mg BID PO Last administered on 11/16/18 08:33; Admin Dose 25 MG; Start 11/02/18 at 21:00 Nicotine (Nicoderm 21 Mg/ 24hr) 1 patch DAILY TRANSDERM Last administered on 11/16/18 08:49; Admin Dose 1 PATCH; Start 11/02/18 at 16:30 Lorazepam (Ativan) 1 mg Q10MIN PRN IV Seizures Last administered on 11/03/18 21:49; Admin Dose 1 MG; Start 11/03/18 at 21:00 Famotidine (Pepcid) 20 mg Q12 PO Last administered on 11/16/18 08:33; Admin Dose 20 MG; Start 11/04/18 at 21:00 Docusate Sodium (Colace Liquid Cup) 100 mg BID NGT Last administered on 11/16/18 08:32; Admin Dose 100 MG; Start 11/07/18 at 21:00 Polyethylene Glycol (Miralax) 17 gm BID PRN PO constipation Last administered on 11/14/18 09:16; Admin Dose 17 GM; Start 11/07/18 at 14:30 Bisacodyl (Dulcolax Supp) 10 mg DAILY WA Last administered on 11/16/18 08:33; Admin Dose 10 MG; Start 11/09/18 at 13:00 Eye Lubricant (Akwa Oint) 1 applic QID BOTH EYES Last administered on 11/16/18 13:20; Admin Dose 1 APPLIC; Start 11/09/18 at 21:00 Ceftriaxone Sodium 50 ml @ 100 mls/hr Q24H IVPB Last administered on 11/16/18 13:20; Admin Dose 100 MLS/HR; Start 11/10/18 at 14:00 Assessment/Plan Hospital Course (Demo Recall) Assessment 1. Acute pontine bleed. Repeat CT brain noted. 2. Severe encephalopathy 3. Respiratory failure secondary to above Plan 1. Continue mechanical ventilation 2. Neurosurgical recommendations, repeat CT noted. Continue to observe. Status post PEG and tracheostomy placement. 3. Continue supportive care. 4. Continue tube feeding via PEG tube Subacute evaluation dc planning Discussed with case management. VARGHESE GREY MD, [facility] Nov 16, 2018 14:31
--- NOTE | 2018-11-16 14:48 | CONS ---
DATE OF ADMISSION: 11/02/2018 DATE OF CONSULTATION: HISTORY OF PRESENT ILLNESS: The patient is 53 years old status post pontine hemorrhage, hypertension , respiratory failure, intubation, status post tracheostomy, dysphagia, status post PEG tube feeding. CT scan was repeated. PHYSICAL EXAMINATION: GENERAL: Today, the patient is alert, awake, open his eyes continuously. CRANIAL NERVES: Cranial II: Pupils are equal on both sides, reactive to light. Cranial nerves III, IV and : Extraocular muscles are intact without nystagmus. Cranial nerve V: Equal sensation to face. Cranial nerve V and VII: Intact corneal reflex. Cranial nerves VIII through XII: Could not assess. MOTOR: Moving both upper extremities against gravity. Sensation, coordination and gait could not as sess. HEART: Regular rate and rhythm. LUNGS: Equal breath sounds. ABDOMEN: Soft, relaxed, nondistended, no tenderness. CURRENT MEDICATIONS: Include: 1. Zofran 4 mg every 4 hours as needed. 2. Colace 100 mg twice a day. 3. Tylenol 650 mg once a day. 4. Albuterol inhaler twice a day night. 5. Nitroglycerin patch as needed. 6. Lipitor 10 mg once a day. 7. Benazepril 40 mg once a day. 8. Carvedilol 25 mg once a day. 9. Nicotine patch as needed. 10. Lorazepam 1 mg every 4 hours as needed. 11. Eye lubricant. ASSESSMENT AND PLAN: 1. The patient is 53 years old status post decreased mini mental status. 2. Status post pontine hemorrhage on CT scan done with some improvement of the hemorrhage, still taras ma surrounding. 3. Status post respiratory failure with tracheostomy and ventilation. 4. Dysphagia status post PEG tube feeding. 5. Bilateral upper and lower extremity weakness. Follow up the patient with physical therapy. 6. Keep the patient under deep venous thrombosis and decubitus ulcer prophylaxis. 7. Respiratory failure in which the patient has tracheostomy. Dictated By: JAI AVILA/NISHANT Conf#: [id number] DID#: [id number] CC: HECTOR STRINGER;*EndCC*
--- NOTE | 2018-11-16 14:49 | PDOCDIS ---
Discharge Instructions CONDITION [id number] Patient Condition: [id number] Stable HOME CARE INSTRUCTIONS: [id number] Diet Instructions: HECTOR Ureña Nov 16, 2018 14:49
--- NOTE | 2018-11-16 14:59 | DS ---
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 Followed by neurology and neurosurgery teams. #Fever-occurred on 11/10 associated with worsening LLL infiltrate on CXR -For now continue ceftriaxone 11/10-11/16 for pneumonia. #Smoking history: Nicotine patch, counseled on smoking cessation # HTN: stable now, again want to keep blood pressure less than 140 systolic given the intracranial hemorrhage/pontine hemorrhage. Patient Condition: Stable Procedures A. Electroencephalogram done which showed delta and theta waves in which the patient had some encephalopathy. No epileptiform discharge or seizure activity is recorded. No seizure medication is recommended at this time. Hx of Present Illness 53 yo M past medical history based on records of hypertension, smoker, who presents to the emergency room via EMS for altered mental status. Most of the information is obtained from ER documentation as the patient is presently intubated. Apparently before admission patient had complaints of headache and blurry vision. He was found at home with elevated blood pressure; and he also had dizziness and possibly fell. Patient decided to come to the ER, but in route patient became less responsive. Upon arrival to the ER the patient was able to state his name and follow simple commands. However he was found with strabismus of the left eye and a code stroke was initiated. Head CT showed pontine hemorrhage. Patient had to be intubated secondary to altered level of consciousness. Call was made out to a neurosurgeon to come see the patient, as well as neurology team. Full review of systems cannot be obtained at this time. Hospital Course Patient was initially admitted to the intensive care unit. Placed on Cardene drip to help keep systolic blood pressure less than 140. Patient found on head imaging studies with pontine hemorrhage found on his head scan. Neurosurgery team felt that no surgical intervention was an option at this time. Patient's blood pressure was controlled, repeat imaging studies of the brain did not show significant progression of the bleed. Patient was also seen by GI, cardiothoracic surgery, neurology, pulmonary, and palliative care teams. Patient found with encephalopathy afterwards and also worked with physical therapy and occupational therapy extensively during the hospital stay. Eventually patient required PEG and trach placement. Patient tolerated these procedures well. Patient had some improvement in the encephalopathy, was a bit more awake by the time of discharge, able to follow some commands. 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 However was able to slightly move his upper extremities as well as his right foot at times. After getting clearance from the internal consultant teams patient will be discharged later to a subacute facility in current condition. See printed medical reconciliation sheet for full list of discharge medications. Home Meds Reported Medications Trazodone Hcl* (Trazodone Hcl*) 100 Mg Tablet, 100 MG PO QHS, #30 TAB 02/24/17 Benazepril Hcl* (Benazepril Hcl*) 40 Mg Tablet, 40 MG PO DAILY, #30 TAB 02/24/17 Amlodipine Besylate* (Amlodipine Besylate*) 10 Mg Tablet, 10 MG PO DAILY, #30 TAB 02/24/17 Carvedilol* (Carvedilol*) 25 Mg Tablet, 25 MG PO BID, #60 TAB 02/24/17 Lorazepam* (Ativan*) 2 Mg Tablet, 2 MG PO HS PRN for SLEEP, #30 TAB 02/24/17 Primary Care Provider Not On Staff Doctor Time spent on discharge: > 30 minutes Pending Labs Laboratory Tests Test 11/16/18 05:53 White Blood Count 9.5 10^3/ul (4.8-10.8) Red Blood Count 3.74 10^6/ul (4.70-6.10) Hemoglobin 11.3 g/dl (14.0-18.0) Hematocrit 36.0 % (42.0-52.0) Mean Corpuscular Volume 96.3 fl (82.0-101.0) Mean Corpuscular Hemoglobin 30.2 pg (29.0-33.0) Mean Corpuscular Hemoglobin Concent 31.4 g/dl (32.0-37.0) Red Cell Distribution Width 12.8 % (11.5-14.5) Platelet Count 456 10^3/UL (140-415) Mean Platelet Volume 10.1 fl (7.4-10.4) Immature Granulocytes % 1.600 % (0.001-0.429) Neutrophils % 72.5 % (39.0-77.0) Lymphocytes % 13.5 % (15.0-51.0) Monocytes % 7.0 % (0.0-11.0) Eosinophils % 5.0 % (0.0-7.0) Basophils % 0.4 % (0.0-2.0) Nucleated Red Blood Cells % 0.0 /100WBC (0.0-0.0) Immature Granulocytes # 0.150 10^3/ul (0.0-0.031) Neutrophils # 6.9 10^3/ul (1.6-7.5) Lymphocytes # 1.3 10^3/ul (0.8-2.9) Monocytes # 0.7 10^3/ul (0.3-0.9) Eosinophils # 0.5 10^3/ul (0.0-0.5) Basophils # 0.0 10^3/ul (0.0-0.1) Nucleated Red Blood Cells # 0.0 10^3/ul (0.0-0.0) Sodium Level 143 mmol/L (135-144) Potassium Level 4.4 mmol/L (3.5-5.1) Chloride Level 103 mmol/L (97-110) Carbon Dioxide Level 29 mmol/L (21-31) Anion Gap 11 (5-13) Blood Urea Nitrogen 23 mg/dl (7-20) Creatinine 0.70 mg/dl (0.61-1.24) Est Glomerular Filtrat Rate mL/min > 60 mL/min (>60) Glucose Level 152 mg/dl (70-220) Calcium Level 9.7 mg/dl (8.4-10.2) HECTOR STRINGER Nov 16, 2018 14:59
[2018-11-17] VITALS (22 sets, daily range): BP systolic 114–148; BP diastolic 74–98; PULSE 71–96; RESP 17–23
--- NOTE | 2018-11-17 01:10 | CONS ---
DATE OF ADMISSION: 11/02/2018 DATE OF CONSULTATION: HISTORY OF PRESENT ILLNESS: The patient is 53 years old, status post intracranial bleed, pontine hem orrhage, history of hypertension, respiratory failure in which the patient has a tracheostomy and simin tilation, dysphagia with the patient has a PEG tube feeding. MEDICATIONS: Per reconciliation sheet. PHYSICAL EXAMINATION: GENERAL: The patient is alert, awake, oriented. Opens his eyes spontaneously. Occasionally follows simple commands. CRANIAL NERVES: Cranial nerve II: Pupils are equal on both sides, reactive to light. Cranial nerve s III, IV and : Extraocular muscles are intact without nystagmus. Cranial nerve V: Equal sensati on to face. Cranial V and VII: Intact corneal reflex. Cranial VIII through XII: Could not assess. MOTOR: Moving both upper extremities against gravity. Sensation, coordination and gait could not as sess. HEART: Regular rate and rhythm. No murmur, no gallop. ABDOMEN: Soft, relaxed, nondistended, no tenderness. ASSESSMENT AND PLAN: 1. The patient is 53 years old status post pontine hemorrhage. CT scan was done with improvement of his hemorrhage. 2. Status post hypertension. Keep the blood pressure at the level of 140/90. 3. Underlying respiratory failure, in which the patient has a tracheostomy tube and ventilation. 4. Dysphagia, in which the patient has a PEG tube feeding. 5. Keep the patient under deep venous thrombosis prophylaxis as well as decubitus ulcer prophylaxis. 6. The patient is under acute rehabilitation and can use occupational therapy and physical therapy. Dictated By: JAI AVILA/NISHANT Conf#: [id number] DID#: [id number] CC: HECTOR STRINGER;*EndCC*
[2018-11-17] MEDS: BISACODYL 10 MG SUPP PR SCH (09:00)
[2018-11-17] MEDS: DOCUSATE SODIUM 10 MG/ML (10ML CUP) NGT SCH ×2 (09:00→21:19)
[2018-11-17] MEDS: OCULAR LUBRICANT 3.5 GM OPH OINT BOTH EYES SCH ×4 (09:47→21:19)
[2018-11-17] MEDS: AMLODIPINE 10 MG TAB PO SCH (09:48)
[2018-11-17] MEDS: NICOTINE (21 MG/24 HR) PATCH TRANSDERM SCH (09:48)
[2018-11-17] MEDS: hydrALAzine 20 MG INJ IV PRN (09:49)
[2018-11-17] MEDS: BENAZEPRIL 40 MG TAB PO SCH (09:49)
[2018-11-17] MEDS: FAMOTIDINE 20 MG TAB PO SCH ×2 (09:49→21:19)
--- NOTE | 2018-11-17 10:05 | DS ---
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 Followed by neurology and neurosurgery teams. #Fever-occurred on 11/10 associated with worsening LLL infiltrate on CXR -For now continue ceftriaxone 11/10-11/16 for pneumonia. #Smoking history: Nicotine patch, counseled on smoking cessation # HTN: stable now, again want to keep blood pressure less than 140 systolic given the intracranial hemorrhage/pontine hemorrhage. Patient Condition: Serious Hx of Present Illness 53 yo M past medical history based on records of hypertension, smoker, who presents to the emergency room via EMS for altered mental status. Most of the information is obtained from ER documentation as the patient is presently intubated. Apparently before admission patient had complaints of headache and blurry vision. He was found at home with elevated blood pressure; and he also had dizziness and possibly fell. Patient decided to come to the ER, but in route patient became less responsive. Upon arrival to the ER the patient was able to state his name and follow simple commands. However he was found with strabismus of the left eye and a code stroke was initiated. Head CT showed pontine hemorrhage. Patient had to be intubated secondary to altered level of consciousness. Call was made out to a neurosurgeon to come see the patient, as well as neurology team. Full review of systems cannot be obtained at this time. Hospital Course Patient was initially admitted to the intensive care unit. Placed on Cardene drip to help keep systolic blood pressure less than 140. Patient found on head imaging studies with pontine hemorrhage found on his head scan. Neurosurgery team felt that no surgical intervention was an option at this time. Patient's blood pressure was controlled, repeat imaging studies of the brain did not show significant progression of the bleed. Patient was also seen by GI, cardiothoracic surgery, neurology, pulmonary, and palliative care teams. Patient found with encephalopathy afterwards and also worked with physical therapy and occupational therapy extensively during the hospital stay. Eventually patient required PEG and trach placement. Patient tolerated these procedures well. Patient had some improvement in the encephalopathy, was a bit more awake by the time of discharge, able to follow some commands. 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 However was able to slightly move his upper extremities as well as his right foot at times. After getting clearance from the relationship consultant teams patient will be discharged later to a subacute facility in current condition. This was supposed to happen on November 16, 2018, however patient stayed the night in the hospital on the same date and now that a new facility is likely go ing to be found adhering to the patient's wishes, patient will be discharged there later today in current condition; see printed medical reconciliation sheet for full list of discharge medications. Home Meds Reported Medications Trazodone Hcl* (Trazodone Hcl*) 100 Mg Tablet, 100 MG PO QHS, #30 TAB 02/24/17 Benazepril Hcl* (Benazepril Hcl*) 40 Mg Tablet, 40 MG PO DAILY, #30 TAB 02/24/17 Amlodipine Besylate* (Amlodipine Besylate*) 10 Mg Tablet, 10 MG PO DAILY, #30 TAB 02/24/17 Carvedilol* (Carvedilol*) 25 Mg Tablet, 25 MG PO BID, #60 TAB 02/24/17 Lorazepam* (Ativan*) 2 Mg Tablet, 2 MG PO HS PRN for SLEEP, #30 TAB 02/24/17 Primary Care Provider Not On Staff Doctor Time spent on discharge: > 30 minutes Pending Labs Laboratory Tests Test 11/17/18 05:35 Phosphorus Level 4.6 mg/dl (2.5-4.9) Magnesium Level 2.3 mg/dl (1.7-2.5) HECTOR STRINGER Nov 17, 2018 10:05
[2018-11-17] MEDS: CEFTRIAXONE 1 GM/50 ML (PMX) 50 ML IVPB SCH (13:20)
--- NOTE | 2018-11-17 15:29 | CONS ---
Consult Date/Type/Reason Admit Date/Time Nov 02, 2018 at 13:13 Initial Consult Date 11/03/18 Type of Consult Pulmonary Date/Time of Note DATE: 11/17/18 TIME: 15:28 Subjective No significant events overnight. Objective Vital Signs Date Temp Pulse Resp B/P (MAP) Pulse Ox O2 O2 Flow FiO2 Time Delivery Rate 11/17/18 86 20 98 30 15:17 11/17/18 98.1 120/81 Mechanical 12:26 (94) Ventilator Intake and Output 11/16/18 11/16/18 11/17/18 1515:00 23:00 07:00 IntakeIntake Total 870 ml 870 ml OutputOutput Total 1000 ml 1050 ml BalanceBalance -130 ml -180 ml Exam GENERAL: Well-nourished well-developed gentleman on mechanical ventilation VITAL SIGNS: per chart NECK: Supple. No JVD or lymphadenopathy. CARDIAC EXAM: S1, S2. No added sounds or murmurs. CHEST: clear bilaterally, No added sounds, rales or wheezes ABDOMEN: Soft, nontender. No guarding or rebound. EXTREMITIES: No cyanosis, clubbing or edema. NEUROLOGIC: Unresponsive on mechanical ventilation. Vent Setting Ventilator Support Mode: AC Fraction of Inspired Oxygen pe: 30 Positive End Expiratory Pressu: 5.0 Results/Medications Result Diagram: 11/16/18 0553 11/16/18 0553 Results 24 hrs Laboratory Tests Test 11/17/18 05:35 Phosphorus Level 4.6 Magnesium Level 2.3 Medications Current Medications IV Flush (NS 3 ml) 3 ml PER PROTOCOL IV ; Start 11/02/18 at 13:30 Ondansetron HCl (Zofran Inj) 4 mg Q6H PRN IV NAUSEA/VOMITING; Start 11/02/18 at 13:30 Acetaminophen (Tylenol Tab) 650 mg Q6H PRN PO .PAIN 1-3 OR TEMP Last a dministered on 11/16/18at 08:32; Admin Dose 650 MG; Start 11/02/18 at 13:30 Magnesium Hydroxide (Milk Of Mag) 30 ml DAILY PRN PO .CONSTIPATION Last administered on 11/08/18at 16:50; Admin Dose 30 ML; Start 11/02/18 at 13:30 Albuterol/ Ipratropium (Duoneb) 3 ml Q4H RESP THERAPY PRN HHN SHORTNESS OF B REATH; Start 11/02/18 at 13:30 Hydralazine HCl (Apresoline) 10 mg Q4H PRN IV ELEVATED BLOOD PRESSURE Last administered on 11/17/18 09:49; Admin Dose 10 MG; Start 11/02/18 at 13:30 Nitroglycerin (Nitroglycerin (Sl Tab) 0.4 Mg) 1 tab Q5M PRN SL ANGINA; Start 11/02/18 at 13:30 Labetalol HCl (Labetalol) 10 mg Q10M PRN IV ELEVATED BLOOD PRESSURE Last administered on 11/11/18 11:50; Admin Dose 10 MG; Start 11/02/18 at 13:30 Amlodipine Besylate (Norvasc) 10 mg DAILY PO Last administered on 11/17/18 09:48; Admin Dose 10 MG; Start 11/03/18 at 09:00 Benazepril HCl (Lotensin) 40 mg DAILY PO Last administered on 11/17/18 09:49; Admin Dose 40 MG; Start 11/03/18 at 09:00 Carvedilol (Coreg) 25 mg BID PO Last administered on 11/17/18 09:48; Admin Dose 25 MG; Start 11/02/18 at 21:00 Nicotine (Nicoderm 21 Mg/ 24hr) 1 patch DAILY TRANSDERM Last administered on 11/17/18 09:48; Admin Dose 1 PATCH; Start 11/02/18 at 16:30 Lorazepam (Ativan) 1 mg Q10MIN PRN IV Seizures Last administered on 11/03/18 21:49; Admin Dose 1 MG; Start 11/03/18 at 21:00 Famotidine (Pepcid) 20 mg Q12 PO Last administered on 11/17/18 09:49; Admin Dose 20 MG; Start 11/04/18 at 21:00 Docusate Sodium (Colace Liquid Cup) 100 mg BID NGT Last administered on 11/16/18 21:57; Admin Dose 100 MG; Start 11/07/18 at 21:00 Polyethylene Glycol (Miralax) 17 gm BID PRN PO constipation Last administered on 11/14/18 09:16; Admin Dose 17 GM; Start 11/07/18 at 14:30 Bisacodyl (Dulcolax Supp) 10 mg DAILY NE Last administered on 11/16/18at 08:33; Admin Dose 10 MG; Start 11/09/18 at 13:00 Eye Lubricant (Akwa Oint) 1 applic QID BOTH EYES Last administered on 11/17/18 13:20; Admin Dose 1 APPLIC; Start 11/09/18 at 21:00 Ceftriaxone Sodium 50 ml @ 100 mls/hr Q24H IVPB Last administered on 11/17/18 13:20; Admin Dose 100 MLS/HR; Start 11/10/18 at 14:00 Assessment/Plan Hospital Course (Demo Recall) Assessment 1. Acute pontine bleed. Repeat CT brain noted. 2. Severe encephalopathy 3. Respiratory failure secondary to above Plan 1. Continue mechanical ventilation 2. Neurosurgical recommendations, repeat CT noted. Continue to observe. Status post PEG and tracheostomy placement. 3. Continue supportive care. 4. Continue tube feeding via PEG tube Subacute evaluation dc planning Discussed with case management. VARGHESE GREY MD, [facility] Nov 17, 2018 15:29
[2018-11-17] MEDS: ACETAMINOPHEN 325 MG TAB PO PRN (17:02)
--- NOTE | 2018-11-17 19:37 | CONS ---
DATE OF ADMISSION: 11/02/2018 DATE OF CONSULTATION: HISTORY OF PRESENT ILLNESS: The patient is 53 years old status post pontine hemorrhage, intracranial bleed in which the patient was admitted, intubated, switched to tracheostomy tube in a patient with dysphagia, in which the patient has a PEG tube feeding. The patient is under rehab. CURRENT MEDICATIONS: Include: 1. Ceftriaxone 500 mg once every 24 hours. 2. Eye lubricant. 3. Dulcolax 10 mg once a day. 4. Colace 100 mg as needed. 5. as needed. 6. Pepcid 20 mg once a day. 7. Ativan 1 mg every 4 hours as needed. 8. Amlodipine 10 mg once a day. 9. Lotensin 40 mg once a day. 10. Coreg 25 mg once a day. 11. Nicotine patch once a day. 12. Zofran 4 mg every 4 hours as needed. 13. Tylenol 650 mg every 6 hours as needed. 14. Milk of Magnesia 30 mL as needed. 15. Hydralazine 10 mg IV as needed. 16. Nitroglycerin as needed. 17. Labetalol 10 mg once a day as needed. PHYSICAL EXAMINATION: GENERAL: The patient is alert, can follow simple commands, then goes back to sleepy, sleeps most of the day accompanied by his family. CRANIAL NERVES: Cranial nerves II: Pupils are equal on both sides, reactive to light. Cranial nerv es III, IV and : Extraocular muscles are intact without nystagmus. Cranial nerve V: Equal sensat ion to face. Cranial nerves V and VII: Intact corneal reflex. Cranial VIII through XII: Could not assess. MOTOR: Moving right hand with wiggling of his fingers. Sensation, coordination and gait could not a ssess. HEART: Regular rate and rhythm. LUNGS: Equal breath sounds. ABDOMEN: Soft, relaxed, nondistended, no tenderness. ASSESSMENT AND PLAN: 1. The patient is 53 years old status post pontine hemorrhage with improving of his CT scan. 2. History of hypertension. Keep the blood pressure at the level of 140/90 or less to avoid any ext ension of the stroke. 3. Status post respiratory failure in which the patient has a tracheostomy tube. 4. Status post dysphagia with PEG tube feeding. 5. Keep the patient under deep venous thrombosis prophylaxis and decubitus ulcer prophylaxis. 6. Bilateral upper and lower extremity weakness in which the patient is under rehab service. Again, thank you for asking me to see the patient with you. Dictated By: JAI AVILA/NISHANT Conf#: [id number] DID#: [id number] CC: HECTOR STRINGER;*EndCC*
[2018-11-18] VITALS (16 sets, daily range): BP systolic 122–136; BP diastolic 68–96; PULSE 77–93; RESP 16–23
[2018-11-18] MEDS: ACETAMINOPHEN 325 MG TAB PO PRN (04:59)
[2018-11-18] MEDS: BISACODYL 10 MG SUPP PR SCH (09:51)
[2018-11-18] MEDS: DOCUSATE SODIUM 10 MG/ML (10ML CUP) NGT SCH (09:51)
[2018-11-18] MEDS: AMLODIPINE 10 MG TAB PO SCH (09:52)
[2018-11-18] MEDS: BENAZEPRIL 40 MG TAB PO SCH (09:52)
[2018-11-18] MEDS: FAMOTIDINE 20 MG TAB PO SCH (09:52)
[2018-11-18] MEDS: NICOTINE (21 MG/24 HR) PATCH TRANSDERM SCH (09:55)
[2018-11-18] MEDS: OCULAR LUBRICANT 3.5 GM OPH OINT BOTH EYES SCH ×3 (09:56→16:51)
--- NOTE | 2018-11-18 11:35 | DS ---
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 Followed by neurology and neurosurgery teams. #Fever-occurred on 11/10 associated with worsening LLL infiltrate on CXR -For now continue ceftriaxone 11/10-11/16 for pneumonia. #Smoking history: Nicotine patch, counseled on smoking cessation # HTN: stable now, again want to keep blood pressure less than 140 systolic given the intracranial hemorrhage/pontine hemorrhage. Patient Condition: Stable Hx of Present Illness 53 yo M past medical history based on records of hypertension, smoker, who presents to the emergency room via EMS for altered mental status. Most of the information is obtained from ER documentation as the patient is presently intubated. Apparently before admission patient had complaints of headache and blurry vision. He was found at home with elevated blood pressure; and he also had dizziness and possibly fell. Patient decided to come to the ER, but in route patient became less responsive. Upon arrival to the ER the patient was able to state his name and follow simple commands. However he was found with strabismus of the left eye and a code stroke was initiated. Head CT showed pontine hemorrhage. Patient had to be intubated secondary to altered level of consciousness. Call was made out to a neurosurgeon to come see the patient, as well as neurology team. Full review of systems cannot be obtained at this time. Hospital Course Patient was initially admitted to the intensive care unit. Placed on Cardene drip to help keep systolic blood pressure less than 140. Patient found on head imaging studies with pontine hemorrhage found on his head scan. Neurosurgery team felt that no surgical intervention was an option at this time. Patient's blood pressure was controlled, repeat imaging studies of the brain did not show significant progression of the bleed. Patient was also seen by GI, cardiothoracic surgery, neurology, pulmonary, and palliative care teams. Patient found with encephalopathy afterwards and also worked with physical therapy and occupational therapy extensively during the hospital stay. Eventually patient required PEG and trach placement. Patient tolerated these procedures well. Patient had some improvement in the encephalopathy, was a bit more awake by the time of discharge, able to follow some commands. 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 However was able to slightly move his upper extremities as well as his right foot at times. After getting clearance from the data communications software consultant teams patient will be discharged later to a subacute facility in current condition. This was supposed to happen on November 16, 2018 as well as August 17, 2019, however patient stated both nights in the hospital secondary to some issues from the family regarding placement at the specific facility of the insurance approved for. After discussion with family and watch caser clarifying further issues regarding this particular facility along with the insurance issues, patient will now likely be discharged there later today in current condition; see printed medical reconciliation sheet for full list of discharge medications. Home Meds Reported Medications Trazodone Hcl* (Trazodone Hcl*) 100 Mg Tablet, 100 MG PO QHS, #30 TAB 02/24/17 Benazepril Hcl* (Benazepril Hcl*) 40 Mg Tablet, 40 MG PO DAILY, #30 TAB 02/24/17 Amlodipine Besylate* (Amlodipine Besylate*) 10 Mg Tablet, 10 MG PO DAILY, #30 TAB 17 Carvedilol* (Carvedilol*) 25 Mg Tablet, 25 MG PO BID, #60 TAB 02/24/17 Lorazepam* (Ativan*) 2 Mg Tablet, 2 MG PO HS PRN for SLEEP, #30 TAB 02/24/17 Primary Care Provider Not On Staff Doctor Time spent on discharge: > 30 minutes HECTOR STRINGER Nov 18, 2018 11:35
[2018-11-18] MEDS: CEFTRIAXONE 1 GM/50 ML (PMX) 50 ML IVPB SCH (13:50)
--- NOTE | 2018-11-18 14:34 | CONS ---
Consult Date/Type/Reason Admit Date/Time Nov 02, 2018 at 13:13 Initial Consult Date 11/03/18 Type of Consult Pulmonary Date/Time of Note DATE: 11/18/18 TIME: 14:34 Subjective remains stable. Objective Vital Signs Date Temp Pulse Resp B/P (MAP) Pulse Ox O2 O2 Flow FiO2 Time Delivery Rate 11/18/18 89 23 96 30 13:26 11/18/18 99.5 05:44 11/18/18 136/87 04:00 (103) 11/17/18 Mechanical 16:07 Ventilator Intake and Output 11/17/18 11/17/18 11/18/18 1515:00 23:00 07:00 IntakeIntake Total 870 ml 870 ml OutputOutput Total 900 ml 950 ml BalanceBalance -30 ml -80 ml Exam GENERAL: Well-nourished well-developed gentleman on mechanical ventilation VITAL SIGNS: per chart NECK: Supple. No JVD or lymphadenopathy. CARDIAC EXAM: S1, S2. No added sounds or murmurs. CHEST: clear bilaterally, No added sounds, rales or wheezes ABDOMEN: Soft, nontender. No guarding or rebound. EXTREMITIES: No cyanosis, clubbing or edema. NEUROLOGIC: Unresponsive on mechanical ventilation. Vent Setting Ventilator Support Mode: AC, VC plus Fraction of Inspired Oxygen pe: 30 Positive End Expiratory Pressu: 5.0 Results/Medications Result Diagram: 11/16/18 0553 11/16/18 0553 Medications Current Medications IV Flush (NS 3 ml) 3 ml PER PROTOCOL IV ; Start 11/02/18 at 13:30 Ondansetron HCl (Zofran Inj) 4 mg Q6H PRN IV NAUSEA/VOMITING; Start 11/02/18 at 13:30 Acetaminophen (Tylenol Tab) 650 mg Q6H PRN PO .PAIN 1-3 OR TEMP Last administered on 11/18/18at 04:59; Admin Dose 650 MG; Start 11/02/18 at 13:30 Magnesium Hydroxide (Milk Of Mag) 30 ml DAILY PRN PO .CONSTIPATION Last administered on 11/08/18at 16:50; Admin Dose 30 ML; Start 11/02/18 at 13:30 Albuterol/ Ipratropium (Duoneb) 3 ml Q4H RESP THERAPY PRN HHN SHORTNESS OF BREATH; Start 11/02/18 at 13:30 Hydralazine HCl (Apresoline) 10 mg Q4H PRN IV ELEVATED BLOOD PRESSURE Last admi nistered on 11/17/18 09:49; Admin Dose 10 MG; Start 11/02/18 at 13:30 Nitroglycerin (Nitroglycerin (Sl Tab) 0.4 Mg) 1 tab Q5M PRN SL ANGINA; Start 11/02/18 at 13:30 Labetalol HCl (Labetalol) 10 mg Q10M PRN IV ELEVATED BLOOD PRESSURE Last administered on 11/11/18 11:50; Admin Dose 10 MG; Start 11/02/18 at 13:30 Amlodipine Besylate (Norvasc) 10 mg DAILY PO Last administered on 11/18/18 09:52; Admin Dose 10 MG; Start 11/03/18 at 09:00 Benazepril HCl (Lotensin) 40 mg DAILY PO Last administered on 11/18/18 09:52; Admin Dose 40 MG; Start 11/03/18 at 09:00 Carvedilol (Coreg) 25 mg BID PO Last administered on 11/18/18 09:51; Admin Dose 25 MG; Start 11/02/18 at 21:00 Nicotine (Nicoderm 21 Mg/ 24hr) 1 patch DAILY TRANSDERM Last administered on 11/18/18 09:55; Admin Dose 1 PATCH; Start 11/02/18 at 16:30 Lorazepam (Ativan) 1 mg Q10MIN PRN IV Seizures Last administered on 11/03/18 21:49; Admin Dose 1 MG; Start 11/03/18 at 21:00 Famotidine (Pepcid) 20 mg Q12 PO Last administered on 11/18/18 09:52; Admin Dose 20 MG; Start 11/04/18 at 21:00 Docusate Sodium (Colace Liquid Cup) 100 mg BID NGT Last administered on 11/18/18 09:51; Admin Dose 100 MG; Start 11/07/18 at 21:00 Polyethylene Glycol (Miralax) 17 gm BID PRN PO constipation Last administered on 11/14/18 09:16; Admin Dose 17 GM; Start 11/07/18 at 14:30 Bisacodyl (Dulcolax Supp) 10 mg DAILY VT Last administered on 2/27/19at 09:51; Admin Dose 10 MG; Start 11/09/18 at 13:00 Eye Lubricant (Akwa Oint) 1 applic QID BOTH EYES Last administered on 11/18/18at 11:39; Admin Dose 1 APPLIC; Start 11/09/18 at 21:00 Ceftriaxone Sodium 50 ml @ 100 mls/hr Q24H IVPB Last administered on 11/18/18at 13:50; Admin Dose 100 MLS/HR; Start 11/10/18 at 14:00 Assessment/Plan Hospital Course (Demo Recall) Assessment 1. Acute pontine bleed. Repeat CT brain noted. 2. Severe encephalopathy 3. Respiratory failure secondary to above Plan 1. Continue mechanical ventilation 2. Neurosurgical recommendations, repeat CT noted. Continue to observe. Status post PEG and tracheostomy placement. 3. Continue supportive care. 4. Continue tube feeding via PEG tube Subacute evaluation dc planning Discussed with case management. VARGHESE GREY MD, [facility] Nov 18, 2018 14:34
== END 2018-11-18 18:29 | DRG 4 ==
LOC: E/R 11:32 → ICU 13:13 → TEL 11-12 21:27
PROVIDERS: ADMIT Hospitalist; ATTEND Hospitalist
PROC: 5A1955Z Respiratory Ventilation, Greater than 96 Consecutive Hours (ICD-10-PCS; 2018-11-02)
PROC: 0BH17EZ Insertion of Endotracheal Airway into Trachea, Via Natural or Artificial Opening (ICD-10-PCS; 2018-11-02)
PROC: 0DH63UZ Insertion of Feeding Device into Stomach, Percutaneous Approach (ICD-10-PCS; 2018-11-10)
PROC: 3E0G76Z Introduction of Nutritional Substance into Upper GI, Via Natural or Artificial Opening (ICD-10-PCS; 2018-11-10)
PROC: 0B110F4 Bypass Trachea to Cutaneous with Tracheostomy Device, Open Approach (ICD-10-PCS; principal; 2018-11-11 19:30)
DX: I61.3 Nontraumatic intracerebral hemorrhage in brain stem (principal); G93.6 Cerebral edema; J96.00 Acute respiratory failure, unspecified whether with hypoxia or hypercapnia; I16.1 Hypertensive emergency; G93.40 Encephalopathy, unspecified; G91.9 Hydrocephalus, unspecified; R40.20 Unspecified coma; H53.8 Other visual disturbances; F17.200 Nicotine dependence, unspecified, uncomplicated; R13.10 Dysphagia, unspecified; R50.9 Fever, unspecified; R53.1 Weakness
CPT/HCPCS: 36600; 70450; 70496; 70498; 71045; 80048; 80053; 80061; 80202; 80307; 81001; 82550; 82553; 82803; 83036; 83735; 84100; 84439; 84443; 84484; 85025; 85610; 85730; 86850; 86900; 86901; 87040; 87070; 87081; 87086; 89220; 93005; 94002; 94003; 94770; 95819; 96365; 97110; 97161; J0360; J0690; J0696; J2060; J2250; J2543; J3010; J3370; J7040; J7050; Q9967

== ENCOUNTER 2019-02-27 17:04 | Emergency (ER) | payer OTHER ==
[~2019-02-27] VITALS: Ht 180.3 cm; Wt 79.0 kg
[~2019-02-27 17:04] MED LIST changes: -ETOMIDATE 20 MG INJ ONE
[2019-02-27 17:12] VITALS: Ht 180.3 cm; Wt 79.0 kg
[2019-02-27] MEDS ORDERED: AMLO-218 PO (18:58)
[2019-02-27] MEDS ORDERED: NICARDipine HCL 30 MG CAPSULE PO ONE (19:00)
--- NOTE | 2019-02-27 19:00 | ERD ---
ER Documentation Chief Complaint Chief Complaint BIB RA FROM HOME FOR HTN , PT DENIES ANY CP , SOB HPI This is a 53-year-old male with history of hypertension and stroke who is here with his daughter he has he has been having high blood pressure readings for the past week. She checks his blood pressure 4 5 times daily with readings of systolic are 1 50-1 60s and diastolic is 100-1 05. He is asymptomatic but she is concerned because he had a stroke recently. ROS All systems reviewed and are negative except as per history of present illness. Medications Home Meds Active Scripts Amlodipine Besylate* (Norvasc*) 10 Mg Tablet, 10 MG PO DAILY, #60 TAB Prov:JOSE ANDERSON DO 02/27/19 Reported Medications Trazodone Hcl* (Trazodone Hcl*) 100 Mg Tablet, 100 MG PO QHS, #30 TAB 02/24/17 Benazepril Hcl* (Benazepril Hcl*) 40 Mg Tablet, 40 MG PO DAILY, #30 TAB 02/24/17 Amlodipine Besylate* (Amlodipine Besylate*) 10 Mg Tablet, 10 MG PO DAILY, #30 TAB 02/24/17 Carvedilol* (Carvedilol*) 25 Mg Tablet, 25 MG PO BID, #60 TAB 02/24/17 Lorazepam* (Ativan*) 2 Mg Tablet, 2 MG PO HS PRN for SLEEP, #30 TAB 02/24/17 Allergies Allergies: Coded Allergies: No Known Allergy (Unverified , 02/24/17) PMhx/Soc History of Surgery: No Anesthesia Reaction: No Hx Neurological Disorder: No Hx Respiratory Disorders: No Hx Cardiac Disorders: Yes Hx Psychiatric Problems: No Hx Miscellaneous Medical Probl: Yes (HTN , SMOKER ) Hx Alcohol Use: No Hx Substance Use: No Hx Tobacco Use: Yes (Former smoker) FmHx Family History: No coronary disease Physical Exam Vitals Vital Signs Date Temp Pulse Resp B/P (MAP) Pulse Ox O2 O2 Flow FiO2 Time Delivery Rate 02/27/19 98.1 87 18 149/95 99 17:12 (113) 02/27/19 97.9 90 18 157/80 100 17:11 (105) Physical Exam Const: No acute distress Const: Well-developed, well-nourished Head: Atraumatic, normocephalic Eyes: Normal Conjunctiva, PERRLA, EOMI, normal sclera, no nystagmus ENT: Normal External Ears, Nose and Mouth, moist mucus membranes. Neck: Full range of motion. No meningismus, no lymphadenopathy. Resp: Clear to auscultation bilaterally, no wheezing, rhonchi, rales Cardio: Regular rate and rhythm, no murmurs, S1 S2 present Abd: Soft, non tender x 4, non distended. Normal bowel sounds, no guarding or rebound, no pulsitile abdominal masses or bruits Skin: No petechiae or rashes, no ecchymosis , no maculopapular rash Back: No midline or flank tenderness Ext: No cyanosis, or edema, FROM x 4, normal inspection, neurovascularly intact x 4 Neur: Awake and alert, STR 5/5 x 4, sensation intact x 4, no focal findings, cerebellum intact Psych: Normal Mood and Affect Results 24 hrs Current Medications Medications Dose Sig/Rosa Start Time Status Last (Trade) Ordered Route PRN Stop Time Admin Dose Reason Admin Nicardipine 30 mg ONCE ONCE 02/27/19 02/27/19 HCl PO 19:00 02/27/19 18:56 (Cardene) 19:01 Procedures/MDM Patient received Cardene 30 mg p.o. here. I will DC his Coreg he is on Benzapril 40 mg with diuretic I will add Norvasc 10 mg Departure Diagnosis: Primary Impression: Hypertension Hypertension type: unspecified Qualified Codes: I10 - Essential (primary) hypertension Condition: Stable Patient Instructions: High Blood Pressure (Hypertension) Referrals: DOCTOR,NOT ON STAFF (PCP) JOSE ANDERSON DO Feb 27, 2019 19:00
[2019-02-27 20:13] VITALS: BP 126/98; PULSE 77; RESP 16
== END 2019-02-27 20:42 | disposition home or self-care (01) ==
LOC: E/R 17:04
DX: I10 Essential (primary) hypertension (principal); Z87.891 Personal history of nicotine dependence
CPT/HCPCS: Z7502; Z7610; 99283

== ENCOUNTER 2019-05-20 11:18 | Inpatient (IN) | payer OTHER ==
[~2019-05-20] VITALS: Ht 180.3 cm; Wt 84.0 kg
[~2019-05-20 11:18] MED LIST changes: +AMLO-218 PO; +ASCO500C7 PO; +ATOR40TA68 PO; +DOCU-159 PO; +ELIM TOP; +FENO145T37 PO; +FOLI1TAB42 PO; +HYDR-3601 PO; +HYDR-843 PO; +KEN1O TOP; +PANT40TA4 PO
[2019-05-20 11:21] VITALS: Ht 180.3 cm; Wt 84.0 kg
[2019-05-20] MEDS ORDERED: ASPIRIN 325 MG TAB PO STA (11:29)
[2019-05-20] MEDS ORDERED: ACETAMINOPHEN 325 MG TAB PO PRN ×2 (14:00→16:00)
[2019-05-20] MEDS ORDERED: ONDANSETRON 4 MG INJ IV PRN ×2 (14:00→16:00)
[2019-05-20] MEDS ORDERED: morphine 2 MG INJ IV PRN (16:00)
[2019-05-20] MEDS ORDERED: MAGNESIUM HYDROXIDE 30ML CUP PO PRN (16:00)
[2019-05-20] MEDS ORDERED: hydrOXYzine HCL 25 MG TAB PO PRN (16:00)
[2019-05-20] MEDS ORDERED: NACL 0.9% 3 ML SYG IV SCH (16:00)
[2019-05-20] MEDS ORDERED: HYDROCODONE/APAP (5/325) TAB PO PRN (16:00)
[2019-05-20 16:15] VITALS: BP 131/89; PULSE 87; RESP 20
[2019-05-20 19:29] VITALS: BP 132/63; PULSE 75; RESP 22
[2019-05-20 23:47] VITALS: BP 134/84; PULSE 67; RESP 21
[2019-05-21 03:50] VITALS: BP 131/81; PULSE 69; RESP 23
[2019-05-21] MEDS ORDERED: PANTOPRAZOLE 40 MG INJ IV SCH (06:00)
[2019-05-21 07:48] VITALS: BP 133/87; PULSE 70; RESP 22
[2019-05-21] MEDS: DOCUSATE SODIUM 100 MG CAP PO SCH (09:09)
[2019-05-21] MEDS: AMLODIPINE 10 MG TAB PO SCH (09:09)
[2019-05-21] MEDS: ASCORBIC ACID 500 MG TAB PO SCH (09:09)
[2019-05-21] MEDS: FENOFIBRATE 145 MG TAB PO SCH (09:09)
[2019-05-21 10:59] VITALS: BP 114/80; PULSE 82; RESP 22
[2019-05-21 15:28] VITALS: BP 131/91; PULSE 84; RESP 22
[2019-05-21 19:25] VITALS: BP 135/89; PULSE 89; RESP 21
[2019-05-21 23:36] VITALS: BP 131/81; PULSE 87; RESP 21
[2019-05-22 03:52] VITALS: BP 133/79; PULSE 85; RESP 23
[2019-05-22] MEDS: PANTOPRAZOLE (EC) 40 MG TAB PO SCH (05:38)
[2019-05-22 07:45] VITALS: BP 129/84; PULSE 78; RESP 22
[2019-05-22] MEDS: DOCUSATE SODIUM 100 MG CAP PO SCH (09:00)
[2019-05-22] MEDS: ASCORBIC ACID 500 MG TAB PO SCH (09:07)
[2019-05-22] MEDS: FENOFIBRATE 145 MG TAB PO SCH (09:07)
[2019-05-22] MEDS: AMLODIPINE 10 MG TAB PO SCH (09:07)
[2019-05-22 12:03] VITALS: BP 121/76; PULSE 87; RESP 22
[2019-05-22 15:36] VITALS: BP 113/79; PULSE 87; RESP 22
[2019-05-22 19:31] VITALS: BP 108/79; PULSE 72; RESP 21
[2019-05-22 23:30] VITALS: BP 117/71; PULSE 75; RESP 18
[2019-05-23 04:03] VITALS: BP 127/75; PULSE 71; RESP 21
[2019-05-23] MEDS: PANTOPRAZOLE (EC) 40 MG TAB PO SCH ×2 (05:24→05:28)
[2019-05-23 07:49] VITALS: BP 122/80; PULSE 72; RESP 22
[2019-05-23] MEDS: AMLODIPINE 10 MG TAB PO SCH (09:00)
[2019-05-23] MEDS: DOCUSATE SODIUM 100 MG CAP PO SCH (09:00)
[2019-05-23] MEDS: FENOFIBRATE 145 MG TAB PO SCH (09:00)
[2019-05-23] MEDS: ASCORBIC ACID 500 MG TAB PO SCH (09:00)
[2019-05-23 11:17] VITALS: BP 132/84; PULSE 80; RESP 20
[2019-05-23 15:50] VITALS: BP 122/75; PULSE 84; RESP 20
[2019-05-23] MEDS ORDERED: GLUCOSE GEL 15 GRAM TUBE PO PRN ×2 (19:00)
[2019-05-23] MEDS ORDERED: GLUCOSE GEL 15 GRAM TUBE BUCCAL PRN (19:00)
[2019-05-23] MEDS ORDERED: GLUCAGON 1 MG INJ IM PRN (19:00)
[2019-05-23] MEDS ORDERED: DEXTROSE 50% 50 ML SYRINGE IV PRN ×2 (19:00)
[2019-05-23 19:36] VITALS: BP 138/90; PULSE 88; RESP 21
[2019-05-23] MEDS: INSULIN ASPART [NOVOLOG] 3 ML PEN SC SCH (21:00)
[2019-05-23] MEDS: ACCU-CHEK XX SCH (21:37)
[2019-05-23 23:56] VITALS: BP 135/85; PULSE 71; RESP 18
[2019-05-24 04:33] VITALS: BP 133/81; PULSE 81; RESP 21
[2019-05-24] MEDS: PANTOPRAZOLE (EC) 40 MG TAB PO SCH (05:39)
[2019-05-24 08:07] VITALS: BP 126/83; PULSE 73; RESP 18
[2019-05-24] MEDS: ASCORBIC ACID 500 MG TAB PO SCH (08:33)
[2019-05-24] MEDS: AMLODIPINE 10 MG TAB PO SCH (08:33)
[2019-05-24] MEDS: DOCUSATE SODIUM 100 MG CAP PO SCH (08:33)
[2019-05-24] MEDS: FENOFIBRATE 145 MG TAB PO SCH (08:33)
[2019-05-24] MEDS: INSULIN ASPART [NOVOLOG] 3 ML PEN SC SCH ×4 (08:35→20:36)
[2019-05-24 11:37] VITALS: BP 126/84; PULSE 81; RESP 18
[2019-05-24 15:46] VITALS: BP 128/81; PULSE 82; RESP 18
[2019-05-25] VITALS: BP 135/93; PULSE 74; RESP 20
[2019-05-25] MEDS: ACCU-CHEK XX SCH (02:00)
[2019-05-25 03:43] VITALS: BP 103/71; PULSE 78; RESP 18
[2019-05-25] MEDS: PANTOPRAZOLE (EC) 40 MG TAB PO SCH (05:47)
[2019-05-25 07:44] VITALS: BP 139/84; PULSE 70; RESP 20
[2019-05-25] MEDS: INSULIN ASPART [NOVOLOG] 3 ML PEN SC SCH ×2 (07:55→11:50)
[2019-05-25] MEDS: DOCUSATE SODIUM 100 MG CAP PO SCH (09:00)
[2019-05-25] MEDS: FENOFIBRATE 145 MG TAB PO SCH (09:26)
[2019-05-25] MEDS: ASCORBIC ACID 500 MG TAB PO SCH (09:26)
[2019-05-25] MEDS: AMLODIPINE 10 MG TAB PO SCH (09:27)
[2019-05-25 11:33] VITALS: BP 124/87; PULSE 79; RESP 20
[2019-05-25 15:50] VITALS: BP 119/78; PULSE 84; RESP 20
[2019-05-25 20:02] VITALS: BP 132/80; PULSE 74; RESP 18
[2019-05-25] MEDS ORDERED: ATORVASTATIN 40 MG TAB PO SCH (21:00)
== END 2019-05-25 22:30 | DRG 57 ==
LOC: E/R 11:18 → TEL 12:59
PROVIDERS: ADMIT Hospitalist; ATTEND Hospitalist
DX: I69.351 Hemiplegia and hemiparesis following cerebral infarction affecting right dominant side (principal); Z87.891 Personal history of nicotine dependence; E78.1 Pure hyperglyceridemia; I10 Essential (primary) hypertension; R26.89 Other abnormalities of gait and mobility; R73.03 Prediabetes
CPT/HCPCS: 36415; 70450; 70553; 71045; 80048; 80053; 80061; 80307; 81001; 82962; 83036; 83735; 84100; 84436; 84443; 84479; 84484; 85025; 85610; 85730; 92523; 92610; 93005; 93306; 97110; 97116; 97162; 97165; 97530; C9113; J1815

== ENCOUNTER 2019-05-25 18:07 | Inpatient (IN) | payer OTHER ==
[~2019-05-25] VITALS: Ht 175.3 cm; Wt 84.0 kg
[~2019-05-25 18:07] MED LIST changes: +ACET500C5 PO; -AMLO-218 PO; -BENA40TA56 PO; -LORA-444 PO; -TRA100 PO
[2019-05-25 22:40] VITALS: BP 117/77; PULSE 70; RESP 20
[2019-05-25 22:56] VITALS: Ht 175.3 cm; Wt 84.0 kg
[2019-05-26] MEDS ORDERED: LACTULOSE 30ML CUP PO PRN (01:00)
[2019-05-26] MEDS ORDERED: PENDING SANTYL ORDER FOR WOUND CARE XX PRN (01:00)
[2019-05-26] MEDS ORDERED: ACETAMINOPHEN 325 MG TAB PO PRN ×2 (01:00)
[2019-05-26] MEDS ORDERED: HYDROCODONE/APAP (5/325) TAB PO PRN (01:00)
[2019-05-26] MEDS ORDERED: BISACODYL 10 MG SUPP PR PRN (01:00)
[2019-05-26] MEDS ORDERED: MAGNESIUM HYDROXIDE 30ML CUP PO PRN (01:00)
[2019-05-26] MEDS: PANTOPRAZOLE (EC) 40 MG TAB PO SCH (06:00)
[2019-05-26 07:30] VITALS: BP 135/88; PULSE 71; RESP 20
[2019-05-26] MEDS: AMLODIPINE 10 MG TAB PO SCH (08:28)
[2019-05-26] MEDS: ASCORBIC ACID 500 MG TAB PO SCH (08:29)
[2019-05-26] MEDS: FENOFIBRATE 145 MG TAB PO SCH (08:30)
[2019-05-26] MEDS: DOCUSATE SODIUM 100 MG CAP PO SCH ×2 (09:00→20:04)
[2019-05-26] MEDS: BETAMETHASONE/CLOTRIMAZOLE 15 GM CR TOP SCH ×2 (09:30→20:04)
[2019-05-26 14:00] VITALS: BP 122/75; PULSE 83; RESP 20
[2019-05-26] MEDS: CIPROFLOXACIN 500 MG TAB PO SCH (17:41)
[2019-05-26 20:00] VITALS: BP 137/87; PULSE 90; RESP 18
[2019-05-26] MEDS: ATORVASTATIN 40 MG TAB PO SCH (20:04)
[2019-05-26] MEDS: SENNA TAB PO SCH (20:04)
[2019-05-27 02:00] VITALS: BP 113/77; PULSE 88; RESP 18
[2019-05-27] MEDS: CIPROFLOXACIN 500 MG TAB PO SCH ×2 (06:30→18:16)
[2019-05-27] MEDS: PANTOPRAZOLE (EC) 40 MG TAB PO SCH (06:30)
[2019-05-27 07:30] VITALS: BP 138/84; PULSE 83; RESP 18
[2019-05-27] MEDS: BETAMETHASONE/CLOTRIMAZOLE 15 GM CR TOP SCH ×2 (10:10→21:49)
[2019-05-27] MEDS: ASCORBIC ACID 500 MG TAB PO SCH (10:10)
[2019-05-27] MEDS: FENOFIBRATE 145 MG TAB PO SCH (10:10)
[2019-05-27] MEDS: DOCUSATE SODIUM 100 MG CAP PO SCH ×2 (10:10→21:48)
[2019-05-27] MEDS: AMLODIPINE 10 MG TAB PO SCH (10:12)
[2019-05-27 14:00] VITALS: BP 123/78; PULSE 87; RESP 18
[2019-05-27] MEDS ORDERED: PERMETHRIN 5% 60 GM CR TOP ONE ×2 (14:00→21:00)
[2019-05-27] MEDS ORDERED: DIPHENHYDRAMINE 50 MG INJ IV PRN (14:30)
[2019-05-27] MEDS: HYDROCORTISONE 1% 28 GM CR TOP SCH ×2 (16:19→21:50)
[2019-05-27] MEDS: DIPHENHYDRAMINE 1%/ZINC 28.3 GM CR TOP SCH ×2 (16:19→21:49)
[2019-05-27 20:15] VITALS: BP 120/82; PULSE 84; RESP 18
[2019-05-27] MEDS: ATORVASTATIN 40 MG TAB PO SCH (21:48)
[2019-05-27] MEDS: SENNA TAB PO SCH (21:48)
[2019-05-27] MEDS: MUPIROCIN 2% 22 GM OINT TOP SCH (21:49)
[2019-05-28 02:00] VITALS: BP 125/77; PULSE 80; RESP 18
[2019-05-28] MEDS: PANTOPRAZOLE (EC) 40 MG TAB PO SCH (06:37)
[2019-05-28] MEDS: CIPROFLOXACIN 500 MG TAB PO SCH (06:37)
[2019-05-28 08:36] VITALS: BP 125/76; PULSE 88; RESP 18
[2019-05-28] MEDS: DOCUSATE SODIUM 100 MG CAP PO SCH ×2 (10:08→21:05)
[2019-05-28] MEDS: ASCORBIC ACID 500 MG TAB PO SCH (10:08)
[2019-05-28] MEDS: FENOFIBRATE 145 MG TAB PO SCH (10:09)
[2019-05-28] MEDS: BETAMETHASONE/CLOTRIMAZOLE 15 GM CR TOP SCH ×2 (10:09→21:07)
[2019-05-28] MEDS: AMLODIPINE 10 MG TAB PO SCH (10:09)
[2019-05-28] MEDS: MUPIROCIN 2% 22 GM OINT TOP SCH ×2 (10:10→21:07)
[2019-05-28] MEDS: HYDROCORTISONE 1% 28 GM CR TOP SCH ×2 (10:10→21:06)
[2019-05-28] MEDS: DIPHENHYDRAMINE 1%/ZINC 28.3 GM CR TOP SCH ×2 (10:11→21:06)
[2019-05-28] MEDS: MEROPENEM 1 GM/50ML(PMX) 50 ML IVPB SCH ×2 (14:17→21:06)
[2019-05-28 15:14] VITALS: BP 127/69; PULSE 90; RESP 17
[2019-05-28 19:35] VITALS: BP 136/80; PULSE 82; RESP 20
[2019-05-28] MEDS: ATORVASTATIN 40 MG TAB PO SCH (21:05)
[2019-05-28] MEDS: SENNA TAB PO SCH (21:05)
[2019-05-29 02:27] VITALS: BP 128/88; PULSE 63; RESP 20
[2019-05-29] MEDS: PANTOPRAZOLE (EC) 40 MG TAB PO SCH (06:23)
[2019-05-29] MEDS: MEROPENEM 1 GM/50ML(PMX) 50 ML IVPB SCH ×3 (06:23→21:01)
[2019-05-29 07:29] VITALS: BP 135/83; PULSE 63; RESP 18
[2019-05-29] MEDS: DIPHENHYDRAMINE 1%/ZINC 28.3 GM CR TOP SCH ×2 (08:55→20:56)
[2019-05-29] MEDS: HYDROCORTISONE 1% 28 GM CR TOP SCH ×2 (08:56→20:55)
[2019-05-29] MEDS: BETAMETHASONE/CLOTRIMAZOLE 15 GM CR TOP SCH ×2 (08:57→20:56)
[2019-05-29] MEDS: ASCORBIC ACID 500 MG TAB PO SCH (08:59)
[2019-05-29] MEDS: FENOFIBRATE 145 MG TAB PO SCH (08:59)
[2019-05-29] MEDS: MUPIROCIN 2% 22 GM OINT TOP SCH ×2 (08:59→20:55)
[2019-05-29] MEDS: AMLODIPINE 10 MG TAB PO SCH (09:00)
[2019-05-29] MEDS: DOCUSATE SODIUM 100 MG CAP PO SCH ×2 (09:00→20:53)
[2019-05-29 13:59] VITALS: BP 127/77; PULSE 84; RESP 18
[2019-05-29 19:39] VITALS: BP 136/88; PULSE 78; RESP 18
[2019-05-29] MEDS: ATORVASTATIN 40 MG TAB PO SCH (20:52)
[2019-05-29] MEDS: SENNA TAB PO SCH (20:53)
[2019-05-30 02:00] VITALS: BP 130/79; PULSE 82; RESP 18
[2019-05-30] MEDS: MEROPENEM 1 GM/50ML(PMX) 50 ML IVPB SCH ×3 (06:18→21:22)
[2019-05-30] MEDS: PANTOPRAZOLE (EC) 40 MG TAB PO SCH (06:28)
[2019-05-30] MEDS: DOCUSATE SODIUM 100 MG CAP PO SCH ×2 (09:01→21:00)
[2019-05-30] MEDS: ASCORBIC ACID 500 MG TAB PO SCH (09:01)
[2019-05-30] MEDS: AMLODIPINE 10 MG TAB PO SCH (09:01)
[2019-05-30] MEDS: FENOFIBRATE 145 MG TAB PO SCH (09:01)
[2019-05-30] MEDS: MUPIROCIN 2% 22 GM OINT TOP SCH ×2 (09:06→21:16)
[2019-05-30] MEDS: HYDROCORTISONE 1% 28 GM CR TOP SCH ×2 (09:06→21:21)
[2019-05-30] MEDS: DIPHENHYDRAMINE 1%/ZINC 28.3 GM CR TOP SCH ×2 (09:06→21:19)
[2019-05-30] MEDS: BETAMETHASONE/CLOTRIMAZOLE 15 GM CR TOP SCH ×2 (09:07→21:21)
[2019-05-30 09:45] VITALS: BP 140/89; PULSE 75; RESP 18
[2019-05-30 14:00] VITALS: BP 140/89; PULSE 70; RESP 18
[2019-05-30 20:38] VITALS: BP 140/99; PULSE 94; RESP 20
[2019-05-30] MEDS: SENNA TAB PO SCH (21:00)
[2019-05-30] MEDS: ATORVASTATIN 40 MG TAB PO SCH (21:14)
[2019-05-31 03:14] VITALS: BP 123/86; PULSE 75; RESP 16
[2019-05-31] MEDS: MEROPENEM 1 GM/50ML(PMX) 50 ML IVPB SCH ×2 (05:38→13:04)
[2019-05-31] MEDS: PANTOPRAZOLE (EC) 40 MG TAB PO SCH (06:00)
[2019-05-31 07:30] VITALS: BP 130/92; PULSE 74; RESP 20
[2019-05-31] MEDS: DOCUSATE SODIUM 100 MG CAP PO SCH (09:00)
[2019-05-31] MEDS: FENOFIBRATE 145 MG TAB PO SCH (09:25)
[2019-05-31] MEDS: AMLODIPINE 10 MG TAB PO SCH (09:25)
[2019-05-31] MEDS: ASCORBIC ACID 500 MG TAB PO SCH (09:25)
[2019-05-31] MEDS: HYDROCORTISONE 1% 28 GM CR TOP SCH (09:26)
[2019-05-31] MEDS: MUPIROCIN 2% 22 GM OINT TOP SCH (09:26)
[2019-05-31] MEDS: BETAMETHASONE/CLOTRIMAZOLE 15 GM CR TOP SCH (09:27)
[2019-05-31] MEDS: DIPHENHYDRAMINE 1%/ZINC 28.3 GM CR TOP SCH (09:27)
[2019-05-31 14:00] VITALS: BP 135/84; PULSE 91; RESP 18
== END 2019-05-31 16:34 | disposition home health service (06) | DRG 57 ==
LOC: VRC 22:38
PROVIDERS: ADMIT Physical Medicine & Rehabilitation; ATTEND Internal Medicine Pulmonary Disease
DX: I69.351 Hemiplegia and hemiparesis following cerebral infarction affecting right dominant side (principal); N39.0 Urinary tract infection, site not specified; I69.391 Dysphagia following cerebral infarction; R13.12 Dysphagia, oropharyngeal phase; R73.03 Prediabetes; R73.9 Hyperglycemia, unspecified; I10 Essential (primary) hypertension; Z74.09 Other reduced mobility; E78.5 Hyperlipidemia, unspecified; I69.390 Apraxia following cerebral infarction; L30.9 Dermatitis, unspecified; Z22.322 Carrier or suspected carrier of Methicillin resistant Staphylococcus aureus
CPT/HCPCS: 80053; 81001; 85025; 87081; 87086; 92507; 92523; 97110; 97112; 97116; 97163; 97166; 97530; 97535; J2185